=== PATIENT | female | born 1940 | race Caucasian/White ===

== ENCOUNTER 2016-08-23 23:32 | Inpatient (IN) | payer BC, OTHER ==
[~2016-08-23] VITALS: Ht 170.2 cm; Wt 84.8 kg
[~2016-08-23 23:32] MED LIST: ASPI81TA28 PO; FRS/40 PO; LISI-461 PO; OMEG10007 PO; SNG10 PO; VITAMIN D PO
[2016-08-23] MEDS ORDERED: METHYLPREDNISOLONE 125 MG VIAL IV STA (23:55)
--- NOTE | 2016-08-23 23:56 | EMERGENCY ROOM VISIT NOTE ---
History Report prepared by Aimee: Fabian Rangel Under the Supervision of: Dr. Latasha Pierce D.O. First contact with patient: 23:36 Chief Complaint: SHORTNESS OF BREATH Stated Complaint: SHORT OF BREATH History of Present Illness The patient is a 76 year old female who presents to the Emergency Room with complaints of improved shortness of breath that occurred approximately two hours ago. The patient was experiencing worsening shortness of breath, but she is not sure what the trigger was. She received two breathing treatments in the ambulance en route, which helped with her breathing as per EMS. The patient's breathing problems are usually triggered by smoke but she was not exposed to smoke at any point today. The patient also complains of a cough that produces yellow phlegm. The patient has a home inhaler. She got a nebulizer earlier today. The patient was not started on steroids. The patient was never diagnosed with emphysema but has a history of emphysema-like symptoms. She has a history of [place] and TIA. The patient was hypertensive en route, per EMS. She lives at home with her . Source of History: patient, EMS Onset: two hours Position: other (respiratory) Quality: other (shortness of breath) Timing: other (improving) Modifying Factors (Relieving): other (breathing treatments) Associated Symptoms: + cough Review of Systems See HPI for pertinent positives & negatives. A total of 10 systems reviewed and were otherwise negative. Past Medical & Surgical Medical Problems: (1) [place] (myocardial infarction) (2) TIA (transient ischemic attack) Family History No pertinent family history Social History Alcohol Use: none Marital Status: Housing Status: lives with family Current/Historical Medications Scheduled Atorvastatin (Lipitor), 80 MG PO DAILY Carvedilol (Coreg), 6.25 MG PO BIDM Fish Oil ([place]-3), 1 CAP PO DAILY Furosemide (Lasix), 40 MG PO QAM Levothyroxine Sodium (Levothyroxine Sodium), 25 MCG PO QAM Metformin Hcl (Glucophage), 500 MG PO DAILY Montelukast Sodium (Montelukast Sodium), 1 TAB PO DAILY Multivitamin (Multivitamin), 1 TAB PO DAILY Scheduled PRN Albuterol Hfa (Ventolin Hfa), 2 PUFFS INH Q4 PRN for SOB/Wheezing Hydrocodone/Homatropine (Hydromet 5-1.5 mg/5Ml), 5 ML PO HS PRN for Cough Ipratropium-Albuterol (Duoneb), 1 TREATMENT INH Q4H PRN for Severe Pain Allergies Coded Allergies: Penicillins (Verified Allergy, Intermediate, FACIAL ERYTHEMA, 10/19/14) Physical Exam Vital Signs Date Time Temp Pulse Resp B/P Pulse Ox O2 Delivery O2 Flow Rate FiO2 08/24/16 01:05 84 18 151/75 98 08/24/16 00:03 94 Room Air 08/24/16 00:03 36.7 89 20 164/131 94 Room Air 08/23/16 23:42 96 Physical Exam HEENT: Head - normocephalic and atraumatic Pupils are equal, round, and reactive to light. Extraocular eye muscles are intact, and sclera are anicteric. Nose - moist nasal mucosa without discharge. Mouth - moist buccal mucosa. Oropharynx is nonerythematous and there is no tonsillar exudate or edema noted. Neck: Supple; no JVD, nuchal rigidity, cervical lymphadenopathy. Heart: Regular rate and rhythm. There is a normal S1 and S2 with no murmurs, clicks, or gallops appreciated. Lungs: Inspiratory and expiratory wheezing in all lungs buckley. Abdomen: Soft, completely nontender, nondistended, with good bowel sounds. There are no palpable pulsatile masses or hepatosplenomegaly. There is no guarding, rigidity, or rebound noted. Extremities: No evidence of cyanosis, clubbing, or edema. There are easily palpable peripheral pulses. Skin: warm and dry with good turgor and no rashes. Medical Decision & Procedures ER Provider Diagnostic Interpretation: X-ray results as stated below per interpretation by me. CHEST X-RAY: No pulmonary infiltrate or vascular congestion. Laboratory Results 08/23/16 22:55 Red Blood Count 4.69, Mean Corpuscular Volume 88.3, Mean Corpuscular Hemoglobin 29.0, Mean Corpuscular Hemoglobin Concent 32.9, Mean Platelet Volume 11.9, Neutrophils (%) (Auto) 39.4, Lymphocytes (%) (Auto) 44.9, Monocytes (%) (Auto) 9.0, Eosinophils (%) (Auto) 5.5, Basophils (%) (Auto) 0.7, Neutrophils # (Auto) 6.68, Lymphocytes # (Auto) 7.62, Monocytes # (Auto) 1.53, Eosinophils # (Auto) 0.93, Basophils # (Auto) 0.12 08/23/16 22:55 Test 08/23/16 22:55 08/24/16 03:01 White Blood Count 16.96 K/uL (4.8-10.8) Red Blood Count 4.69 M/uL (4.2-5.4) Hemoglobin 13.6 g/dL (12.0-16.0) Hematocrit 41.4 % (37-47) Mean Corpuscular Volume 88.3 fL (80-100) Mean Corpuscular Hemoglobin 29.0 pg (25-34) Mean Corpuscular Hemoglobin Concent 32.9 g/dl (32-36) Platelet Count 327 K/uL (130-400) Mean Platelet Volume 11.9 fL (7.4-10.4) Neutrophils (%) (Auto) 39.4 % Lymphocytes (%) (Auto) 44.9 % Monocytes (%) (Auto) 9.0 % Eosinophils (%) (Auto) 5.5 % Basophils (%) (Auto) 0.7 % Neutrophils # (Auto) 6.68 K/uL (1.4-6.5) Lymphocytes # (Auto) 7.62 K/uL (1.2-3.4) Monocytes # (Auto) 1.53 K/uL (0.11-0.59) Eosinophils # (Auto) 0.93 K/uL (0-0.5) Basophils # (Auto) 0.12 K/uL (0-0.2) RDW Standard Deviation 44.1 fL (36.4-46.3) RDW Coefficient of Variation 13.8 % (11.5-14.5) Immature Granulocyte % (Auto) 0.5 % Immature Granulocyte # (Auto) 0.08 K/uL (0.00-0.02) Nucleated RBC Absolute Count (auto) 0.06 K/uL (0-0) Nucleated Red Blood Cells % 0.4 % Smudge Cells PRESENT Anion Gap 11.0 mmol/L (3-11) Est Creatinine Clear Calc Drug Dose 42.1 ml/min Estimated GFR () 45.8 Estimated GFR (Non- 39.5 BUN/Creatinine Ratio 15.1 (10-20) Calcium Level 8.9 mg/dl (8.5-10.1) Creatine Kinase MB Ratio (0-3.0) Laboratory results per my review. Medications Administered Medications (Trade) Dose Ordered Sig/Hans Route Start Time Stop Time Status Last Admin Dose Admin Albuterol/ Ipratropium (Duoneb) 12 ml ONE ONCE INH 08/24/16 00:00 08/24/16 00:01 DC 08/24/16 00:16 12 ML Methylprednisolone Sodium Succinate (Solu-Medrol IV) 125 mg NOW STAT IV 08/23/16 23:55 08/23/16 23:57 DC 08/23/16 23:55 125 MG Procedure Medications ordered include Solu-Medrol IV, DuoNeb. ECG Indication: other (Leg edema) Rate (beats per minute): 86 Rhythm: normal sinus Findings: LBBB, T-wave inversion (Lateral) Comparison ECG Date: 2010 Change: T wave inversions are new compared to previous EKG. ED Course 2346: Past medical records reviewed. The patient was evaluated in room B7. A complete history and physical exam was performed. A twelve-lead EKG was obtained. Laboratory studies were drawn as above. 2355: Solu-Medrol 125 mg IV. 0000: DuoNeb 12 ml INH.-Hour-long nebulizer treatment. The patient then went for chest x-ray. 0140: Went over the laboratory results with the patient and her family. A second troponin will be ordered. 0242: Spoke with the patient's family about the results and plan. Troponin is elevated. 0255: Discussed the case with Dr. Nunez, [facility] Hospitalist. The patient will be evaluated. Medical Decision The patient is a 76 year old female who presents to the ED with shortness of breath. Differential diagnosis includes URI, bronchitis, pneumonia, asthma exacerbation. Laboratory interpretation: white count 16.9, stable H&H, increased lymphocyte count at 7.6 with smudge cells, troponin 0.032, total CKMB 4.2, glucose 246, BUN 20, creatinine 1.3, repeat troponin 0.121. This is a 76-year-old female patient presents to the emergency department with an episode of wheezing and shortness of breath. The patient does have a history of bronchial asthma. She intermittently has episodes of wheezing. It is usually triggered by an upper rest for infection or something like smoke. The patient is unsure what the trigger may have been this evening. She has had some increased wheezing over the past couple of days and obtained new medications for her nebulizer she and. Despite using the nebulizer at home this evening, her symptoms seem to worsen. Patient's EKG had some subtle changes that were difficult to interpret because of the left bundle-branch block. However, the patient's troponin did increase while here in the emergency department. [facility] for further management. Consults Time Called: [phone] Consulting Physician: [facility]une[facility] Returned Call: [phone]: Discussed the case with Dr. Nunez, [facility]. The patient will be evaluated. Impression Primary Impression: NSTEMI (non-ST elevated myocardial infarction) Additional Impressions: Asthma exacerbation, Hyperglycemia Scribe Attestation The scribe's documentation has been prepared under my direction and personally reviewed by me in its entirety. I confirm that the note above accurately reflects all work, treatment, procedures, and medical decision making performed by me. Departure Information Dispostion Being Evaluated By Hospitalist Referrals Bacilio Galvez D.O.Int.Med. (PCP) Patient Instructions A Signature Page, [facility]
[2016-08-24] VITALS (11 sets, daily range): BP systolic 126–170; BP diastolic 74–90; PULSE 61–89; TEMP 36.4–37; O2SAT 90–95; Ht 170.2 cm; Wt 84.8 kg
[2016-08-24] MEDS ORDERED: ALBUT/IPRATROP 3MG/0.5MG NEB 3 ML VIAL INH ONE
[2016-08-24 00:30] LABS: HEMATOCRIT 41.4 % (37-47); MEAN CELL VOLUME 88.3 fL (80-100); MEAN CORPUSCULAR HGB CONC 32.9 g/dl (32-36); MEAN PLATELET VOLUME 11.9 fL (7.4-10.4); PLATELET COUNT 327 K/uL (130-400); RED BLOOD COUNT 4.69 M/uL (4.2-5.4); WHITE BLOOD COUNT 16.96 K/uL (4.8-10.8)
[2016-08-24 00:57] LABS: BUN/CREATININE RATIO 15.1 (10-20); CALCIUM 8.9 mg/dl (8.5-10.1); CREATININE 1.3 mg/dl (0.60-1.20)
[2016-08-24 01:18] LABS: CKMB/CK RATIO 3.6 (0-3.0)
[2016-08-24 01:23] LABS: BASO % 0.7 %; BASO ABS # 0.12 K/uL (0-0.2); COMPLETE YES; EOS % 5.5 %; IG% 0.5 %; LYMPH % 44.9 %; LYMPH ABS # 7.62 K/uL (1.2-3.4); NEUT % 39.4 %; SMUDGE CELLS PRESENT
[2016-08-24] MEDS ORDERED: CARV6.252 PO (01:39)
[2016-08-24] MEDS ORDERED: GLC/500 PO (01:40)
[2016-08-24] MEDS ORDERED: LEVO25TA5 PO (01:40)
[2016-08-24] MEDS ORDERED: HYCUDL5 PO (01:42)
[2016-08-24] MEDS ORDERED: ATOR-26 PO (01:42)
[2016-08-24] MEDS ORDERED: IPRASOL4 INH (01:43)
[2016-08-24] MEDS ORDERED: MULT-506 PO (01:43)
[2016-08-24] MEDS ORDERED: MONT1TAB5 PO (01:43)
[2016-08-24] MEDS ORDERED: OMEG10007 PO (01:43)
[2016-08-24] MEDS ORDERED: VNTHFA/IN INH (01:44)
--- NOTE | 2016-08-24 03:09 | History and Physical ---
History & Physical Date & Time of Service: Aug 24, 2016 at 03:07 Chief Complaint: Short Of Breath Primary Care Physician: Bacilio Galvez D.O.Int.Med. History of Present Illness Source: patient, family, spouse The patient is a 76-year-old female who presents to the emergency department with an episode of severe shortness of breath that began about 2 hours prior to arrival, that has been slowly improving since that time. She received 2 nebulizer treatments en route to the hospital via the ambulance, which she reports helped her breathing. So also had a cough productive of yellow phlegm. She is not aware of any exposure that that triggered her tach today is most commonly occurs due to exposure to smoke which she was not around today. Past Medical/Surgical History Medical Problems: (1) [place] (myocardial infarction) Status: Resolved (2) TIA (transient ischemic attack) Status: Resolved Family History No pertinent family history Social History Smoking Status: Never Smoker Smokeless Tobacco Use: No Alcohol Use: none Drug Use: none Marital Status: Housing status: lives with family Immunizations History of Influenza Vaccine: Yes Influenza Vaccine Date: Jul 26, 2011 History of Tetanus Vaccine?: na History of Pneumococcal: Yes History of Hepatitis B Vaccine: No Multi-Drug Resistant Organisms History of MDRO: No Allergies Coded Allergies: Penicillins (Verified Allergy, Intermediate, FACIAL ERYTHEMA, 10/19/14) Home Medications Scheduled Atorvastatin (Lipitor), 80 MG PO DAILY Carvedilol (Coreg), 6.25 MG PO BIDM Fish Oil ([place]-3), 1 CAP PO DAILY Furosemide (Lasix), 40 MG PO QAM Levothyroxine Sodium (Levothyroxine Sodium), 25 MCG PO QAM Metformin Hcl (Glucophage), 500 MG PO DAILY Montelukast Sodium (Montelukast Sodium), 1 TAB PO DAILY Multivitamin (Multivitamin), 1 TAB PO DAILY Scheduled PRN Albuterol Hfa (Ventolin Hfa), 2 PUFFS INH Q4 PRN for SOB/Wheezing Hydrocodone/Homatropine (Hydromet 5-1.5 mg/5Ml), 5 ML PO HS PRN for Cough Ipratropium-Albuterol (Duoneb), 1 TREATMENT INH Q4H PRN for Severe Pain Review of Systems The patient denies chest pain, palpitations, lower extremity swelling, vision change, hearing change, sore throat, fevers, chills, sweats, weight change, fatigue, nausea, vomiting, abdominal pain, pelvic pain, blood in urine or stool , dysuria, urinary frequency or urgency, lightheadedness, dizziness, headache, memory loss, rash, abnormal bruising or bleeding, imbalance, focal weakness, numbness or tingling in arms or legs, arthralgias or myalgias, back or neck pain , night sweats, or allergy symptoms. The review of systems is otherwise negative other than for that already noted above, and at least 10 systems have been reviewed. Physical Exam Vital Signs Date Time Temp Pulse Resp B/P Pulse Ox O2 Delivery O2 Flow Rate FiO2 08/24/16 03:04 82 08/24/16 01:05 84 18 151/75 98 08/24/16 00:03 94 Room Air 08/24/16 00:03 36.7 89 20 164/131 94 Room Air 08/23/16 23:42 96 The patient is awake, well-developed and adequately nourished, alert and oriented 3, normocephalic and atraumatic, lying in bed and in no acute distress. HEENT--PERRL, EOMI, mucous membranes moist, and oropharynx normal. Neck--supple, no JVD or bruits, thyroid normal, trachea midline, no adenopathy. Heart--normal S1 and S2, no extra beats, no murmurs, rubs or gallops. Lungs--clear bilaterally with good air movement, no respiratory distress, no accessory muscle use. Abdomen--normal bowel sounds and soft, nontender and nondistended, no hernias or masses, no organomegaly. Extremities--no cyanosis, clubbing or edema. There are good distal pulses b/l. Dermatologic--normal skin turgor, normal color, warm and dry, no abnormal lymph nodes, no rash. Neurologic--cranial nerves II through XII grossly intact. Rheumatologic--normal range of motion, nontender, muscles and joints. Psychiatric--normal affect. Diagnostics Laboratory Results Results Past 24 Hours Test 08/23/16 22:55 08/24/16 02:03 08/24/16 03:01 Range/Units White Blood Count 16.96 4.8-10.8 K/uL Red Blood Count 4.69 4.2-5.4 M/uL Hemoglobin 13.6 12.0-16.0 g/dL Hematocrit 41.4 37-47 % Mean Corpuscular Volume 88.3 80-100 fL Mean Corpuscular Hemoglobin 29.0 25-34 pg Mean Corpuscular Hemoglobin Concent 32.9 32-36 g/dl Platelet Count 327 130-400 K/uL Mean Platelet Volume 11.9 7.4-10.4 fL Neutrophils (%) (Auto) 39.4 % Lymphocytes (%) (Auto) 44.9 % Monocytes (%) (Auto) 9.0 % Eosinophils (%) (Auto) 5.5 % Basophils (%) (Auto) 0.7 % Neutrophils # (Auto) 6.68 1.4-6.5 K/uL Lymphocytes # (Auto) 7.62 1.2-3.4 K/uL Monocytes # (Auto) 1.53 0.11-0.59 K/uL Eosinophils # (Auto) 0.93 0-0.5 K/uL Basophils # (Auto) 0.12 0-0.2 K/uL RDW Standard Deviation 44.1 36.4-46.3 fL RDW Coefficient of Variation 13.8 11.5-14.5 % Immature Granulocyte % (Auto) 0.5 % Immature Granulocyte # (Auto) 0.08 0.00-0.02 K/uL Nucleated RBC Absolute Count (auto) 0.06 0-0 K/uL Nucleated Red Blood Cells % 0.4 % Smudge Cells PRESENT Sodium Level 141 136-145 mmol/L Potassium Level 4.0 3.5-5.1 mmol/L Chloride Level 102 98-107 mmol/L Carbon Dioxide Level 28 21-32 mmol/L Anion Gap 11.0 3-11 mmol/L Blood Urea Nitrogen 20 7-18 mg/dl Creatinine 1.30 0.60-1.20 mg/dl Est Creatinine Clear Calc Drug Dose 42.1 ml/min Estimated GFR () 45.8 Estimated GFR (Non- 39.5 BUN/Creatinine Ratio 15.1 10-20 Random Glucose 236 70-99 mg/dl Calcium Level 8.9 8.5-10.1 mg/dl Total Creatine Kinase 118 26-192 U/L Creatine Kinase MB 4.2 0.5-3.6 ng/ml Creatine Kinase MB Ratio 3.6 0-3.0 Troponin I 0.032 0.121 0-0.045 ng/ml EKG EKG shows normal sinus rhythm at 86, will left axis deviation, left bundle- branch block, with ST segment depressions in the lateral chest leads. Impression Assessment and Plan Non-STEMI with troponin elevation of 0.121, left bundle branch block with left axis deviation, possible ST depressions in lateral chest leads--the patient will be admitted to the telemetry unit, for serial cardiac enzymes, cardiac rhythm monitoring, and a 2-D echocardiogram with Dopplers. Continue carvedilol 6.25 mg by mouth twice a day, furosemide 40 mg by mouth every morning and add aspirin 81 mg by mouth every morning. We'll consult cardiology. COPD exacerbation--the patient will be started on Xopenex with Atrovent nebulizer's every 6 hours while awake and every 2 hours when necessary, levofloxacin 500 mg IV every 24 hours, guaifenesin extended release 600 mg by mouth twice a day, Pulmicort Respules 0.5 mg inhaled twice a day, and nasal cannula 2 L O2 titrated to keep pulse ox greater than or equal to 92%. Continue montelukast sodium 10 mg by mouth daily Hypercholesterolemia--continue atorvastatin 80 mg by mouth daily and fish oil 1000 mg by mouth daily. Diabetes mellitus--hold metformin 500 mg by mouth daily, blood sugar on admission was 236. She did receive Solu-Medrol 125 mg IV emergency department so it may be an issue with controlled blood sugars for the first interval time in the hospital. She will be placed on Accu-Cheks before meals and at bedtime with NovoLog coverage. Hypothyroidism continue levothyroxine sodium 25 g by mouth every morning. Level of Care Telemetry Advanced Directives Existing Advance Directive: No Existing Living Will: No Existing Power of Infantryman: No Resuscitation Status FULL RESUSCITATION VTE Prophylaxis VTE Risk Assessment Done? Y/N: Yes Risk Level: Moderate Given or contraindicated: SCD's Social Service Consult None Apply
[2016-08-24] MEDS ORDERED: GLUCOSE 40% GEL 15 GM TUBE PO PRN (03:15)
[2016-08-24] MEDS ORDERED: NITROGLYCERIN 0.4 MG SL PER TAB CHARGE SL PRN (03:15)
[2016-08-24] MEDS ORDERED: ONDANSETRON INJ 2 MG/ML 2 ML VIAL IV PRN (03:15)
[2016-08-24] MEDS ORDERED: ZOLPIDEM TARTRATE 5 MG TAB PO PRN (03:15)
[2016-08-24] MEDS ORDERED: GLUCAGON FOR INJ 1 MG VIAL SQ PRN (03:15)
[2016-08-24] MEDS ORDERED: ACETAMINOPHEN 325 MG TAB PO PRN (03:15)
[2016-08-24] MEDS ORDERED: PREMIXED IN D5W 100 ML IV SCH (03:15)
[2016-08-24] MEDS ORDERED: LEVALBUTEROL 1.25MG/0.5ML NEB INH PRN (03:15)
[2016-08-24] MEDS ORDERED: DEXTROSE 50% 50 ML SYR IV PRN (03:15)
[2016-08-24] MEDS ORDERED: GLUCOSE 10 TABS/TUBE PO PRN (03:15)
[2016-08-24] MEDS ORDERED: IPRATROPIUM BROMIDE NEB SOLN 0.02% 2.5 ML VIAL INH PRN (03:15)
[2016-08-24 04:41] LABS: CKMB/CK RATIO 4.7 (0-3.0)
[2016-08-24] MEDS: BUDESONIDE 0.5 MG/2 ML VIAL (PULMICORT) INH SCH ×2 (07:20→20:00)
[2016-08-24] MEDS: LEVALBUTEROL 1.25MG/0.5ML NEB INH SCH ×3 (07:21→20:32)
[2016-08-24] MEDS: IPRATROPIUM BROMIDE NEB SOLN 0.02% 2.5 ML VIAL INH SCH ×3 (07:21→20:32)
[2016-08-24] MEDS ORDERED: PNEUMOCOCCAL POLYSACCHARIDES 25 MCG/0.5 ML VIAL/SYR IM. ONE (08:00)
[2016-08-24] MEDS ORDERED: PNEUMOCOCCAL ADMINISTRATION CHARGE ONE (08:00)
--- NOTE | 2016-08-24 08:16 | DIAGNOSTIC IMAGING REPORT ---
CHEST 2 VIEWS ROUTINE CLINICAL HISTORY: wheezing SHORTNESS OF BREATH COMPARISON STUDY: September 2011 FINDINGS: The heart is normal in size. There is hyperinflation. There is no focal pulmonary consolidation. There is no failure. There is a linear bibasilar atelectasis/scarring.[ IMPRESSION: No active disease in the chest. Electronically signed by: Nic Rodgers M.D. 08/24/2016 8:14 AM
[2016-08-24] MEDS: ATORVASTATIN 40 MG TAB PO SCH (08:40)
[2016-08-24] MEDS: CARVEDILOL 6.25 MG TAB PO SCH ×2 (08:40→17:59)
[2016-08-24] MEDS: FUROSEMIDE 40 MG TAB PO SCH (08:40)
[2016-08-24] MEDS: OMEGA-3 (PURIFIED FISH OIL) 1 GM CAP PO SCH (08:41)
[2016-08-24] MEDS: MULTIVITAMIN TAB PO SCH (08:41)
[2016-08-24] MEDS: GUAIFENESIN 600 MG TABCR PO SCH ×2 (08:41→20:41)
[2016-08-24] MEDS ORDERED: LEVALBUTEROL/IPRATROPIUM NEB INH SCH (09:00)
[2016-08-24] MEDS: INSULIN ASPART 100 UNITS/ML 3 ML PEN SC SCH ×4 (09:33→20:39)
[2016-08-24 12:44] LABS: CKMB/CK RATIO 5.3 (0-3.0)
[2016-08-24] MEDS: LEVOTHYROXINE 25 MCG TAB PO SCH (13:25)
--- NOTE | 2016-08-24 14:37 | Progress Note ---
Subjective Date of Service: Aug 24, 2016. Subjective Pt evaluation today including: conversation w/ patient, chart review, lab review, review of studies, review of inpatient medication list Pain: none PO Intake: well seen and examined awake and alert afebrile, no CP or SOB, no N or V, no new complain other some rash in neck which look like fungal infection, she convinced that she has no heart attack, just her asthma flares up Problem List Medical Problems: (1) Asthma exacerbation Status: Acute (2) Asthma with exacerbation Status: Acute (3) Hyperglycemia Status: Acute (4) NSTEMI (non-ST elevated myocardial infarction) Status: Acute Review of Systems Constitutional: + see HPI Eyes: + see HPI ENT: + see HPI Respiratory: + see HPI Cardiac: + see HPI Abdomen: + see HPI Musculoskeletal: + see HPI Female : + see HPI Neurologic: + see HPI Psychiatric: + see HPI Skin: + itch (erythamatous and scally on Neck) Medications Current Inpatient Medications Medications (Trade) Dose Ordered Sig/Hans Route Start Time Stop Time Status Last Admin Dose Admin Acetaminophen (Tylenol Tab) 650 mg Q4H PRN PO 08/24/16 03:15 09/23/16 03:14 Zolpidem Tartrate (Ambien Tab) 5 mg HSZ PRN PO 08/24/16 03:15 09/23/16 03:14 Nitroglycerin (Nitrostat Tab) 0.4 mg UD PRN SL 08/24/16 03:15 09/23/16 03:14 Ondansetron HCl (Zofran Inj) 4 mg Q6H PRN IV 08/24/16 03:15 09/23/16 03:14 Insulin Aspart (novoLOG ASPART) SLIDING SCALE If C... ACHS SC 08/24/16 06:30 09/23/16 06:59 08/24/16 13:24 7 UNITS Glucose (Glucose 40% Gel) UD PRN PO 08/24/16 03:15 09/23/16 03:14 Glucose (Glucose Chew Tab) 1 tabs UD PRN PO 08/24/16 03:15 09/23/16 03:14 Dextrose (Dextrose 50% 50ML Syringe) 50 ml UD PRN IV 08/24/16 03:15 09/23/16 03:14 Glucagon (Glucagon Inj) 1 mg UD PRN SQ 08/24/16 03:15 09/23/16 03:14 Atorvastatin Calcium (Lipitor Tab) 80 mg DAILY PO 08/24/16 09:00 09/23/16 08:59 08/24/16 08:40 80 MG Carvedilol (Coreg Tab) 6.25 mg BIDM PO 08/24/16 08:00 09/23/16 07:59 08/24/16 08:40 6.25 MG Fish Oil ([place]-3 (Purified Fish Oil) Cap) 1 gm DAILY PO 08/24/16 09:00 09/23/16 08:59 08/24/16 08:41 1 GM Furosemide (Lasix tab) 40 mg QAM PO 08/24/16 09:00 09/23/16 08:59 08/24/16 08:40 40 MG Levothyroxine Sodium (Synthroid Tab) 25 mcg DAILYBB PO 08/24/16 06:30 09/23/16 06:59 08/24/16 13:25 25 MCG Montelukast Sodium (Singulair Tab) 10 mg PM PO 08/24/16 21:00 09/23/16 20:59 Multivitamins (Multivitamin Tab) 1 tab DAILY PO 08/24/16 09:00 09/23/16 08:59 08/24/16 08:41 1 TAB Guaifenesin (Mucinex Contr Rel Tab) 600 mg Q12 PO 08/24/16 09:00 09/23/16 08:59 08/24/16 08:41 600 MG Budesonide (Pulmicort Respules 0.5MG/ 2ML Neb Soln) 0.5 mg BIDR INH 08/24/16 08:00 09/23/16 07:59 08/24/16 07:20 0.5 MG Ipratropium [place] (Atrovent 0.02% 0.5MG/2.5ML Neb) 0.5 mg Q6R INH 08/24/16 09:00 09/23/16 08:59 08/24/16 07:21 0.5 MG Levalbuterol (Xopenex 1.25MG/ 0.5ML Neb) 1.25 mg Q6R INH 08/24/16 09:00 09/23/16 08:59 08/24/16 07:21 1.25 MG Ipratropium [place] (Atrovent 0.02% 0.5MG/2.5ML Neb) 0.5 mg Q2H PRN INH 08/24/16 03:15 09/23/16 03:14 Levalbuterol (Xopenex 1.25MG/ 0.5ML Neb) 1.25 mg Q2H PRN INH 08/24/16 03:15 09/23/16 03:14 Clotrimazole (Lotrimin 1% Crm) 1 appln BID EXT 08/24/16 14:30 09/23/16 14:29 UNV Objective Vital Signs Date Time Temp Pulse Resp B/P Pulse Ox O2 Delivery O2 Flow Rate FiO2 08/24/16 11:21 36.8 70 18 154/78 91 Room Air 08/24/16 08:00 Room Air 08/24/16 07:40 36.4 82 20 170/90 95 Room Air 08/24/16 07:21 61 18 93 Room Air 08/24/16 06:37 137/78 08/24/16 04:38 170/82 08/24/16 04:00 37.0 89 18 170/85 94 Nasal Cannula 2.0 08/24/16 03:26 85 16 147/81 97 08/24/16 03:04 82 08/24/16 01:05 84 18 151/75 98 08/24/16 00:03 94 Room Air 08/24/16 00:03 36.7 89 20 164/131 94 Room Air 08/23/16 23:42 96 Physical Exam General Appearance: WD/WN, + obese Eyes: normal inspection ENT: normal ENT inspection, hearing grossly normal, TMs normal, pharynx normal Neck: supple, no adenopathy, no JVD, + pertinent finding (scally erythamtous rash) Respiratory/Chest: chest non-tender, no respiratory distress, + decreased breath sounds, + wheezing Cardiovascular: regular rate, rhythm, no edema, no gallop, no JVD Abdomen: normal bowel sounds, non tender, soft, no organomegaly Extremities: normal range of motion, non-tender, normal inspection, no pedal edema Neurologic/Psychiatric: no motor/sensory deficits, alert, normal mood/affect, oriented x 3 Skin: normal color, no rash Laboratory Results Last 24 Hours Test 08/23/16 22:55 08/24/16 02:03 08/24/16 04:10 08/24/16 11:24 White Blood Count 16.96 K/uL Red Blood Count 4.69 M/uL Hemoglobin 13.6 g/dL Hematocrit 41.4 % Mean Corpuscular Volume 88.3 fL Mean Corpuscular Hemoglobin 29.0 pg Mean Corpuscular Hemoglobin Concent 32.9 g/dl Platelet Count 327 K/uL Mean Platelet Volume 11.9 fL Neutrophils (%) (Auto) 39.4 % Lymphocytes (%) (Auto) 44.9 % Monocytes (%) (Auto) 9.0 % Eosinophils (%) (Auto) 5.5 % Basophils (%) (Auto) 0.7 % Neutrophils # (Auto) 6.68 K/uL Lymphocytes # (Auto) 7.62 K/uL Monocytes # (Auto) 1.53 K/uL Eosinophils # (Auto) 0.93 K/uL Basophils # (Auto) 0.12 K/uL RDW Standard Deviation 44.1 fL RDW Coefficient of Variation 13.8 % Immature Granulocyte % (Auto) 0.5 % Immature Granulocyte # (Auto) 0.08 K/uL Nucleated RBC Absolute Count (auto) 0.06 K/uL Nucleated Red Blood Cells % 0.4 % Smudge Cells PRESENT Sodium Level 141 mmol/L Potassium Level 4.0 mmol/L Chloride Level 102 mmol/L Carbon Dioxide Level 28 mmol/L Anion Gap 11.0 mmol/L Blood Urea Nitrogen 20 mg/dl Creatinine 1.30 mg/dl Est Creatinine Clear Calc Drug Dose 42.1 ml/min Estimated GFR () 45.8 Estimated GFR (Non- 39.5 BUN/Creatinine Ratio 15.1 Random Glucose 236 mg/dl Calcium Level 8.9 mg/dl Total Creatine Kinase 118 U/L 121 U/L Creatine Kinase MB 4.2 ng/ml 5.7 ng/ml Creatine Kinase MB Ratio 3.6 4.7 Troponin I 0.032 ng/ml 0.121 ng/ml 0.201 ng/ml Bedside Glucose 176 mg/dl Test 08/24/16 11:50 Total Creatine Kinase 139 U/L Creatine Kinase MB 7.4 ng/ml Creatine Kinase MB Ratio 5.3 Troponin I 0.365 ng/ml Assessment and Plan Probable Non-STEMI with troponin elevation of 0.121, left bundle branch block with left axis deviation, possible ST depressions in lateral chest leads and or demand ischemia -cardio consulted -aspirin -statin -BB -further work ups per cardio, she dose not want to go on hep drip as she convinced is not hear attack COPD exacerbation-improved Breathing treatment cough meds off steroid Neck rash poss fungal start on Clotrimazole Hypercholesterolemia--continue atorvastatin 80 mg by mouth daily and fish oil 1000 mg by mouth daily. Diabetes mellitus-- cont to hold metformin 500 mg by mouth daily, Monitor BS. Hypothyroidism continue levothyroxine sodium 25 g by mouth every morning. Plan as above further work ups as per cardio all Dw her and her nurse called her son and updated her
[2016-08-24] MEDS ORDERED: ASPIRIN 81 MG ECTAB PO STA (14:38)
[2016-08-24] MEDS ORDERED: ASPIRIN 81 MG ECTAB PO ONE (14:45)
[2016-08-24] MEDS: CLOTRIMAZOLE 1% CR 15 GM TUBE EXT SCH ×2 (15:38→20:40)
[2016-08-24 20:03] LABS: CKMB/CK RATIO 4.7 (0-3.0)
[2016-08-24] MEDS ORDERED: MONTELUKAST SOD 10 MG TAB PO SCH (21:00)
[2016-08-25 02:17] VITALS: PULSE 74; O2SAT 93
[2016-08-25] MEDS: IPRATROPIUM BROMIDE NEB SOLN 0.02% 2.5 ML VIAL INH SCH ×3 (02:17→14:32)
[2016-08-25] MEDS: LEVALBUTEROL 1.25MG/0.5ML NEB INH SCH ×3 (02:17→14:32)
[2016-08-25 05:33] VITALS: BP 157/83; PULSE 78; TEMP 36.5; O2SAT 92
[2016-08-25] MEDS: LEVOTHYROXINE 25 MCG TAB PO SCH (06:09)
--- NOTE | 2016-08-25 06:26 | CARDIOLOGY CONSULTATION ---
DATE OF CONSULTATION: 08/24/2016 PRIMARY PHYSICIAN: Bacilio Galvez DO REFERRING PHYSICIAN: Erick Nunez MD ATTENDING PHYSICIAN: Erick Nunez MD CONSULTATION: Quentin Maria Jr, MD HISTORY OF PRESENT ILLNESS: The patient is a 76-year-old white female. Longstanding history of chronic obstructive pulmonary disease. She is a nonsmoker. 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 She was exposed to toxic fumes on a regular basis. She also has a history of left bundle branch block since at least 2001. She underwent diagnostic cardiac catheterization in 2003 at [facility] with reportedly normal coronary arteries. She presented to [facility] in 2010 with complaints of dyspnea. It was felt that her symptoms were consistent with congestive heart failure. She did have a history of an LV ejection fraction of 25% on echocardiography in 2003. An echocardiogram performed on 07/29/2011 showed an LV ejection fraction of 30-35%. Mild concentric LVH. Moderate global hypokinesis of the left ventricle. Septal motion consistent with her left bundle branch block. Moderate mitral regurgitation and mild tricuspid regurgitation. She was started on beta margareth therapy as well as lisinopril. She had outpatient followup with Dr. Domingo Paula until 2013. Since then, she has not kept followup with him. She did have a repeat echocardiogram following the July 2011 hospitalization. It showed an improvement in her LV ejection fraction to approximately 40%. The patient states that she was in her normal state of health until 2 days ago. She began developing increasing dyspnea with activities associated with wheezing. She also had a nonproductive cough. No fevers or chills. No symptoms suggestive of an upper respiratory infection. She is exposed to smoke in her home. She and her have a wood burning stove. Neither she nor her never smoke cigarettes. Her dyspnea and wheezing increased. She had a nebulizer at home. However, her nebulizer solution was from 2010. She states that after using this, her dyspnea actually got worse. She did obtain a prescription for new nebulizer solution yesterday. She performed two treatments at home. Despite this, her dyspnea worsened. Because of this, she presented to the Emergency Department last evening with complaints of worsening dyspnea. She states to me that she had no cough or sputum production. She reports to the Emergency Department physician that she had a cough productive of yellow sputum. It was reported by EMS who transported her from home to the ED that she was markedly hypertensive. Her initial blood pressure recorded in the Emergency Department was 164/131. Initial pulse rate was 96. The initial oxygen saturation was reported to be 94%. Her lung exam in the Emergency Department revealed inspiratory and expiratory wheezing in all lung buckley. She received intravenous methylprednisolone and DuoNeb nebulizer. Her chest x-ray did not reveal evidence of heart failure or infiltrates. She was admitted to the medical/telemetry unit. Her troponin I was elevated in the Emergency Department at 0.121. The patient denies any chest pain or other anginal type pains. She states that prior to developing her dyspnea and wheezing 2 days ago, she had been in her usual state of health: No unusual malaise or fatigue. No dyspnea with her normal household activities. Stable dyspnea walking up a couple flights of stairs. No orthopnea or PND. No palpitations, lightheadedness or syncope. No leg edema. Since admission, she has had no anginal type complaints. The patient states that since admission her dyspnea and wheezing have markedly improved. At the time of my exam this afternoon, she was sitting at her bedside and had no complaints of any dyspnea. She is not wearing any supplemental oxygen. She had no cardiac complaints at the time of my exam. PAST MEDICAL HISTORY: 1. Pulmonary disease as above. It has also been characterized as bronchial asthma. As stated above, she has never smoked cigarettes. 2. Longstanding history of cardiomyopathy. 3. Longstanding history of left bundle branch block. 4. Hypertension. 5. Normal childhood illnesses; this included measles, mumps and chickenpox. 6. Dyslipidemia. Direct LDL in July 2011 was 162. 7. No history of diabetes mellitus. However, hemoglobin A1c in July 2011 was elevated at 6.4%. 8. Osteoarthritis. 9. Degenerative joint disease. PAST SURGICAL HISTORY: 1. Status post cholecystectomy. 2. Status post left total knee arthroplasty in 2007. FAMILY HISTORY: Two brothers with history of congestive heart failure, history of an implantable cardiac defibrillator in one of her brothers. Hypertension, diabetes mellitus. Sister ; she had hypertension, diabetes and end-stage renal disease. Diabetes in both the parents. ALLERGIES AND ADVERSE DRUG REACTIONS: PENICILLIN. SOCIAL HISTORY: The patient is and lives with her . She has never smoked cigarettes. She does not drink alcohol. She had worked as a clinical director in the [employer]. 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 She and her use a wood burning stove at home. REVIEW OF SYSTEMS: 1. As above. 2. No GI complaints. No abdominal pain or nausea. No symptoms of GI bleeding. Normal bowel movements. 3. No urinary complaints. 4. No cerebrovascular complaints. 5. No peripheral vascular complaints. 6. No HEENT complaints. No symptoms of any upper respiratory infection by her account to me. 7. Chronic low back pain. Chronic right hip pain. Sciatic type pain in the right upper leg. Chronic bilateral foot pain, right greater than left. The swelling in the right ankle which she attributes to arthritis. She has received steroid injections in her right ankle. 8. Erythematous rash on the anterior neck starting yesterday. This was initially pruritic. It is not pruritic today. MEDICATIONS: Today are; Singulair 10 mg at bedtime, Lotrimin 1 application b.i.d., atorvastatin 80 mg daily, fish oil 1 gram daily, furosemide 40 mg daily, multivitamin 1 tab daily, guaifenesin 600 mg b.i.d., Atrovent and Xopenex nebulizers q. 6 hours, carvedilol 6.25 mg b.i.d., Pulmicort 0.5 mg inhaled b.i.d., NovoLog sliding scale insulin, levothyroxine 25 mcg daily and several p.r.n. medications. ADDENDUM: In addition to the above medical history the patient has a history of hypothyroidism. Type 2 diabetes mellitus. PHYSICAL EXAMINATION: GENERAL: The patient is sitting at her bedside. No distress. VITAL SIGNS: Today with oral temperature 36.8. Most recent vital signs with pulse 70 and blood pressure 154/78. Pulse oximetry room air 91%. HEAD: Normal. FACE: No tenderness on palpation over the frontal or maxillary sinuses. MOUTH: Moist mucous membranes. NECK: No jugular venous distension. Carotids 2/2 bilaterally. Normal upstroke. No bruits. LUNGS: With normal respiration, no rales or wheezing. Normal respiratory effort. With forced expiration, there is end expiratory wheezing. This precipitates a brief coughing episode. HEART: PMI normal No lifts or heaves. Regular rate and rhythm. S1, S2 normal. No S3 or S4. No murmur or rub heard. ABDOMEN: Soft. Nontender. No palpable mass or organomegaly. No bruits. Normal bowel sounds. EXTREMITIES: No pretibial edema. No cyanosis or clubbing. Right ankle swelling. SKIN: Erythematous rash, anterior aspect of neck. PULSES: Distal pulses of all extremities palpable. NEUROLOGIC: Alert and oriented x3. Motor grossly intact. PSYCHIATRIC: Affect is normal. Electrocardiogram at 12:09 a.m. today with normal sinus rhythm, left axis deviation, left bundle branch block. Compared to prior electrocardiogram of 08/12/2011, T-wave inversions were more prominent in the lateral leads. However, T-wave inversions are consistent with repolarization abnormalities secondary to the left bundle branch block. Chest x-ray reviewed by me. No evidence of congestive heart failure. LABORATORIES: On admission, WBC 16.96, hemoglobin 13.6, hematocrit 41.4, platelet count 327. Metabolic profile with sodium 141, potassium 4.0, chloride 102, carbon dioxide 28, BUN 20, creatinine 1.30, random glucose 236. CK total 118. CK-MB 4.2. Initial troponin I was 0.032. Repeat troponin I's have been 0.121, 0.201 and 0.365. Repeat CK totals have been 121 and 139 with respective MBs of 5.7 and 7.4. The patient is scheduled to undergo repeat a metabolic profile tomorrow morning. She is scheduled to undergo repeat cardiac enzymes this evening at 19:01. ASSESSMENT: 1. Exacerbation of obstructive airway disease starting 2 days ago. Marked worsening yesterday. Significant wheezing noted on ED exam. Her respiratory symptoms and signs have improved with bronchodilator therapy and intravenous steroids. Today, she has no complaints of dyspnea at rest. Her wheezing has markedly decreased. On baseline normal respirations at the time of my exam, she had no wheezing. With forced expiration, she did have expiratory wheezing; this rapidly cleared. She does have borderline low oxygen saturation on room air. No evidence of congestive heart failure on chest x-ray or lung exam. No other physical evidence on exam of congestive heart failure. 2. Marked hypertension noted yesterday at the time of her respiratory distress. She has also had a relatively increased heart rate. Her blood pressure has improved. However, today it is still mildly elevated. 3. Mildly elevated cardiac enzymes. The enzymes thus far are not diagnostic of myocardial injury. They do likely represent demand myocardial ischemia. She has no symptoms to suggest an acute coronary syndrome. Her electrocardiogram is nondiagnostic because of her left bundle branch block. The left bundle branch block is normal finding that has been present since 2001. The T inversions on electrocardiogram are consistent with secondary repolarization abnormalities from her left bundle branch block. Her last available electrocardiogram before today was from 2010. 4. Longstanding history of cardiomyopathy. Her cardiomyopathy/LV ejection fraction improved after she was placed on carvedilol and lisinopril therapy. At the time of this admission, she was no longer on lisinopril therapy. She did not recall any reason why this was discontinued. She actually does not recall having been on this medication. 5. Diabetes mellitus. At the time of admission, she is being treated with metformin 500 mg daily. Her glucoses on this admission are markedly elevated. This would be consistent with the stress from her acute illness. 6. Normal sinus rhythm. No evidence of any arrhythmias thus far. RECOMMENDATIONS: 1. Continue carvedilol. Increase dose if her blood pressure remains elevated. 2. Would consider restarting her on LUPE inhibitor therapy. Would await tomorrow's renal function values before restarting lisinopril. 3. Would start antiplatelet therapy with aspirin. She does have significant coronary artery disease risk factors. However, as stated above, I do not feel this current clinical situation represents an acute coronary syndrome. 4. Echocardiogram on this admission to re-evaluate left ventricular systolic function. Her last echocardiogram was several years ago. 5. Continue atorvastatin. 6. Would check hemoglobin A1c. She may need more aggressive management of her diabetes mellitus besides low dose metformin. 7. Management of her pulmonary disease and asthma exacerbation by the hospitalist staff. I would characterize her troponin elevation in the setting of an acute noncardiac illness. I do not feel that these represent a non-ST elevation myocardial infarction. The values thus far do not meet absolute diagnostic criteria for myocardial injury. She does not have any clinical symptoms to suggest an acute coronary syndrome. Thank you for asking us to see this patient in cardiology consultation. REBECCA
[2016-08-25 06:55] VITALS: BP 133/74; PULSE 59; TEMP 36.4; O2SAT 95
[2016-08-25 07:45] VITALS: PULSE 64; O2SAT 94
[2016-08-25] MEDS: CARVEDILOL 6.25 MG TAB PO SCH (07:47)
[2016-08-25] MEDS: BUDESONIDE 0.5 MG/2 ML VIAL (PULMICORT) INH SCH (07:48)
[2016-08-25] MEDS: FUROSEMIDE 40 MG TAB PO SCH (07:48)
[2016-08-25] MEDS: CLOTRIMAZOLE 1% CR 15 GM TUBE EXT SCH (07:48)
[2016-08-25] MEDS: GUAIFENESIN 600 MG TABCR PO SCH (07:49)
[2016-08-25] MEDS: OMEGA-3 (PURIFIED FISH OIL) 1 GM CAP PO SCH (07:49)
[2016-08-25] MEDS: ATORVASTATIN 40 MG TAB PO SCH (07:49)
[2016-08-25] MEDS: MULTIVITAMIN TAB PO SCH (07:50)
[2016-08-25 08:02] LABS: BASO % 0.2 %; BASO ABS # 0.02 K/uL (0-0.2); COMPLETE YES; EOS % 2.9 %; HEMATOCRIT 37.7 % (37-47); IG% 0.2 %; LYMPH % 32.1 %; LYMPH ABS # 4.22 K/uL (1.2-3.4); MEAN CELL VOLUME 85.9 fL (80-100); MEAN CORPUSCULAR HEMOGLOBIN 28.5 pg (25-34); MEAN CORPUSCULAR HGB CONC 33.2 g/dl (32-36); MEAN PLATELET VOLUME 10.5 fL (7.4-10.4); NEUT % 55.6 %; PLATELET COUNT 264 K/uL (130-400); RED BLOOD COUNT 4.39 M/uL (4.2-5.4); WHITE BLOOD COUNT 13.16 K/uL (4.8-10.8)
[2016-08-25 08:34] LABS: BUN/CREATININE RATIO 28.3 (10-20); CALCIUM 9.2 mg/dl (8.5-10.1); MAGNESIUM 2.2 mg/dl (1.8-2.4); POTASSIUM 3.4 mmol/L (3.5-5.1)
[2016-08-25] MEDS: INSULIN ASPART 100 UNITS/ML 3 ML PEN SC SCH ×2 (08:46→13:55)
[2016-08-25] MEDS ORDERED: ASPIRIN 81 MG ECTAB PO SCH ×2 (09:00)
--- NOTE | 2016-08-25 10:36 | ECHOCARDIOGRAM REPORT ---
*NOTICE TO RECEIVING DEMOCRAT AGENCY This information is strictly Confidential and protected under [place] law. [place] law prohibits you from making any further disclosure of this information unless further disclosure is expressly permitted by the written consent of the person to whom it pertains or is authorized by law. A general authorization for the release of medical or other information is not sufficient for this purpose. Hospital accepts no responsibility if the information is made available to any other person, INCLUDING THE PATIENT. Interpretation Summary * Name: HAN CORTEZ Study Date: 08/25/2016 08:10 AM BP: 157/83 mmHg * Patient Location: [facility]\S\N280\S\2 HR: 78 * : 1940 (M/d/yyyy) Gender: Female Height: 67 in * Age: 76 yrs Ethnicity: CA Weight: 186 lb * Ordering Physician: Quentin Maria * Referring Physician: Self, Referred * Performed By: Rebekah Mancera RDCS * * Reason For Study: Dilated Cardiomyopathy * BSA: 2.0 m2 * Mild left ventricular systolic dysfunction. * Mild global hypokinesis. * Moderate concentric left ventricular hypertrophy. * Left ventricular diastolic dysfunction. * Normal chamber dimensions. * Mild mitral regurgitation. * Trace tricuspid regurgitation. * Normal central venous pressure. * Mildly elevated estimated RV systolic pressure. Procedure Details * A complete two-dimensional transthoracic echocardiogram was performed (2D, M-mode, Doppler and color flow Doppler). Left Ventricle * The left ventricle is normal in size. * There is moderate concentric left ventricular hypertrophy. * Ejection Fraction = 45-50%. * A full diastolic examination was done with clinical findings of Class I diastolic dysfunction. * There is mild global hypokinesis of the left ventricle. * Septal motion is consistent with conduction abnormality. Right Ventricle * The right ventricle is normal in size and function. * The right ventricular systolic function is normal as assessed by tricuspid annular plane systolic excursion (TAPSE) (normal >1.5 cm). Atria * The left atrial size is normal. * Right atrial size is normal. Mitral Valve * The mitral valve is normal. * There is mild mitral regurgitation. Tricuspid Valve * The tricuspid valve is normal. * There is trace tricuspid regurgitation. * Right ventricular systolic pressure is elevated at 30-40mmHg. Aortic Valve * The aortic valve is trileaflet. * The aortic valve opens well. * No aortic regurgitation is present. Pulmonic Valve * The pulmonic valve is not well visualized. * There is no significant pulmonary regurgitation. Pericardium/Pleural * There is no pericardial effusion. Great Vessels * Normal inferior vena cava diameter and respiratory variation suggests normal central venous pressure. MMode 2D Measurements and Calculations IVSd 1.7 cm IVSs 1.4 cm LVIDd 4.8 cm LVIDs 3.5 cm LVPWd 1.7 cm LVPWs 2.0 cm IVS/LVPW 1.0 FS 26.8 % EDV(Teich) 105.9 ml ESV(Teich) 50.6 ml EF(Teich) 52.3 % EDV(cubed) 108.5 ml ESV(cubed) 42.5 ml EF(cubed) 60.8 % % IVS thick -19.13 % % LVPW thick 19.4 % LV mass(C)d 359.3 grams LV mass(C)dI 183.2 grams/m\S\2 LV mass(C)s 234.5 grams LV mass(C)sI 119.6 grams/m\S\2 SV(Teich) 55.4 ml SI(Teich) 28.3 ml/m\S\2 SV(cubed) 66.0 ml SI(cubed) 33.7 ml/m\S\2 EPSS 1.6 cm Ao root diam 2.6 cm Ao root area 5.5 cm\S\2 ACS 1.8 cm LA dimension 3.0 cm LA/Ao 1.1 LVOT diam 2.1 cm LVOT area 3.5 cm\S\2 LVAd ap4 26.9 cm\S\2 LVLd ap4 7.9 cm EDV(MOD-sp4) 82.3 ml EDV(sp4-el) 78.0 ml LVAs ap4 18.2 cm\S\2 LVLs ap4 6.9 cm ESV(MOD-sp4) 44.4 ml ESV(sp4-el) 40.6 ml EF(MOD-sp4) 46.0 % EF(sp4-el) 48.0 % LVAd ap2 29.3 cm\S\2 LVLd ap2 8.8 cm EDV(MOD-sp2) 90.7 ml EDV(sp2-el) 82.8 ml LVAs ap2 19.7 cm\S\2 LVLs ap2 8.1 cm ESV(MOD-sp2) 43.0 ml ESV(sp2-el) 40.7 ml EF(MOD-sp2) 52.6 % EF(sp2-el) 50.9 % LVLd %diff 10.7 % EDV(MOD-bp) 91.2 ml LVLs %diff 15.0 % ESV(MOD-bp) 47.0 ml EF(MOD-bp) 48.4 % SV(MOD-sp4) 37.8 ml SI(MOD-sp4) 19.3 ml/m\S\2 SV(MOD-sp2) 47.7 ml SI(MOD-sp2) 24.3 ml/m\S\2 SV(MOD-bp) 44.2 ml SI(MOD-bp) 22.5 ml/m\S\2 SV(sp4-el) 37.5 ml SI(sp4-el) 19.1 ml/m\S\2 SV(sp2-el) 42.1 ml SI(sp2-el) 21.5 ml/m\S\2 Doppler Measurements and Calculations MV E max mehran 67.4 cm/sec MV A max mehran 118.6 cm/sec MV E/A 0.57 MV V2 max 160.1 cm/sec MV max PG 10.3 mmHg MV V2 mean 70.1 cm/sec MV mean PG 2.5 mmHg MV V2 VTI 33.1 cm MV P1/2t max mehran 78.9 cm/sec MV P1/2t 86.1 msec MVA(P1/2t) 2.6 cm\S\2 MV dec slope 268.4 cm/sec\S\2 MV dec time 0.37 sec Ao V2 max 141.3 cm/sec Ao max PG 8.0 mmHg Ao max PG (full) 3.0 mmHg KAMALJIT(V,A) 2.8 cm\S\2 KAMALJIT(V,D) 2.8 cm\S\2 LV V1 max PG 5.0 mmHg LV V1 max 111.4 cm/sec PA V2 max 93.0 cm/sec PA max PG 3.5 mmHg TR max mehran 274.3 cm/sec
[2016-08-25 11:19] VITALS: BP 161/76; PULSE 62; TEMP 36.2; O2SAT 93
[2016-08-25] MEDS ORDERED: POTASSIUM CHLORIDE 20 MEQ TABCR PO STA (12:48)
--- NOTE | 2016-08-25 13:09 | Hospitalist Progress Note ---
Assessment and Plan entered in error
[2016-08-25] MEDS ORDERED: LTRCR45 EXT (13:13)
[2016-08-25] MEDS ORDERED: VNTHFA/IN INH (13:13)
[2016-08-25] MEDS ORDERED: ASPEC81 PO (13:13)
[2016-08-25] MEDS ORDERED: LSN5 PO (13:13)
[2016-08-25] MEDS ORDERED: GFNSR600 PO (13:13)
[2016-08-25] MEDS ORDERED: PRD20 PO (13:18)
--- NOTE | 2016-08-25 13:30 | Discharge Instructions ---
Discharge Instructions Admission Reason for Admission: Asthma Exacerbation, Elevated troponin Discharge Discharge Diagnosis / Problem: Asthma exacerbation, Demand ischemia Discharge Goals Goal(s): Improve disease control, Therapeutic intervention Activity Recommendations Activity Limitations: resume your previous activity (and avoid dust and fumes) . Instructions / Follow-Up Instructions / Follow-Up You were admitted with an asthma attack and your heart muscle blood work was slightly elevated. You did NOT have a heart attack, however you were placing extra demand on your heart to work hard during your asthma attack. You were given IV steroids and nebulizer treatments and had a marked improvement. Your heart function on your Echocardiogram is still slightly lower than normal but improved from previous from a few years ago. You should start on a medication called lisinopril to help with your heart and to reduce your blood pressure. Please discuss this with your family doctor. Please finish out your prednisone course and continue to use the albuterol inhaler every 4 hours as needed for cough or shortness of breath. You should follow up with your PCP within 1 week. You should also resume follow up care with Dr. Paula, your Shift Leader. Please call for follow up appointment within 2 weeks. Current Hospital Diet Patient's current hospital diet: AHA Diet (Heart Healthy), Diabetes Type 2 Diet Discharge Diet Recommended Diet: AHA Diet (Heart Healthy), Diabetes Type 2 Diet Fluid Restriction: 1800 ml (7 cups) Procedures Procedures Performed: Echocardiogram Chest xray Pending Studies Studies pending at discharge: no Laboratory Results Hemoglobin A1c Test 08/23/16 22:55 Range/Units Medical Emergencies . Who to Call and When: Medical Emergencies: If at any time you feel your situation is an emergency, please call 911 immediately. . Non-Emergent Contact Non-Emergency issues call your: Primary Care Provider Call Non-Emergent contact if: temperature is above 101, you have any medication questions Or if you have worsening shortness of breath or chest pain, or for any other acute concern. . . "Provider Documentation" section prepared by Keily Chirinos. VTE Core Measure Inpt VTE Proph given/why not?: SCD's
[2016-08-25 13:37] VITALS: BP 161/76; PULSE 62; TEMP 36.2; O2SAT 93
--- NOTE | 2016-08-25 15:34 | PROGRESS NOTE ---
DATE: 08/25/2016 SUBJECTIVE: The patient was seen by me earlier this afternoon in her medical floor/telemetry unit room. She states she is feeling well. She denies any cough or dyspnea today. No wheezing. No chest pain or other anginal type pains. No fevers or chills. No orthopnea or PND overnight. No palpitations, lightheadedness, or syncope. No GI complaints. No bleeding complaints. No urinary complaints. No complaints of any leg pain. Overall, she is feeling well. She is anxious to be discharged home. MEDICATIONS: Today were NovoLog sliding-scale insulin, clotrimazole cream 1 application b.i.d., carvedilol 6.25 mg b.i.d., Pulmicort 0.5 mg inhaled b.i.d., atorvastatin 80 mg daily, fish oil 1 gram daily, multivitamin 1 daily, levothyroxine 25 mcg daily, aspirin 81 mg daily, prednisone 60 mg 1 dose today, Singulair 10 mg at bedtime, guaifenesin 600 mg q. 12 hours, Atrovent and Xopenex nebulizers q. 6 hours, furosemide 4 mg daily, aspirin 81 mg daily, potassium 40 mEq given today 1 dose, and several p.r.n. medications. ALLERGIES AND ADVERSE DRUG REACTIONS: PENICILLIN. PHYSICAL EXAMINATION: VITAL SIGNS: Late this morning revealed oral temperature 36.2, pulse 62, blood pressure 161/76, pulse oximetry room air 93%. HEAD: Normal. NECK: No jugular venous distention. LUNGS: Normal respiratory effort. Clear. No rales or wheezes. HEART: Regular rate and rhythm. S1, S2 normal. No S3 or S4. No murmur or rub. ABDOMEN: Soft. Nontender. No palpable mass or organomegaly. Normal bowel sounds. EXTREMITIES: No pretibial edema. No calf tenderness. NEUROLOGIC: Alert and oriented x3. Motor grossly intact. PSYCHIATRIC: Affect is normal. DATA Echocardiogram performed today and reviewed by me shows mild LV systolic dysfunction, mild global hypokinesis of the left ventricle. Estimated LV ejection fraction 45%-50%. Moderate concentric LVH. Type 1 LV diastolic dysfunction. Septal wall motion consistent with left bundle-branch block. Mild mitral and trace tricuspid regurgitation. Normal central venous pressure. Estimated RV systolic pressure 30-40 mmHg. This is consistent with only mildly elevated right ventricular pressures. Labs today with WBC 13.16, hemoglobin 12.5, hematocrit 37.7, platelet count 264. Sodium 142, potassium 3.4, chloride 103, carbon dioxide 29, BUN 28, creatinine 1.0, random glucose 125. Magnesium 2.2. ASSESSMENT: 1. Exacerbation of obstructive airway disease. She is markedly improved since admission. No evidence of wheezing on exam. Normal room air oxygen saturation. 2. History of cardiomyopathy. Echocardiogram today shows marked improvement in left ventricular systolic function compared to her most recent echocardiogram a few years ago. Her left ventricular systolic function was normal. She does have moderate left ventricular hypertrophy. 3. Mildly elevated troponin I's on this admission. Consistent with demand ischemia. She has a moderate left ventricular hypertrophy. She was markedly hypertensive at the time of admission. 4. No arrhythmias noted on monitoring. RECOMMENDATIONS: 1. Discharge patient to home from a cardiac standpoint. 2. Continue carvedilol. 3. Would consider reinstituting LUPE inhibitor therapy as an outpatient. In the past, she was on lisinopril. For some reason, this was discontinued. 4. Recommend that she have an outpatient cardiology followup with Dr. Domingo Paula. Dr. Paula has previously seen the patient and followed her in the office setting.
--- NOTE | 2016-08-25 22:47 | Discharge Summary ---
Discharge Summary Admission Date: Aug 24, 2016 at 03:01 Discharge Date: Aug 25, 2016 Discharge Disposition: Home Principal Diagnosis: Asthma exacerbation, demand ischemia Problems/Secondary Diagnoses: Chronic systolic CHF HTN Chronic left bundle branch block Fungal neck rash Hypercholesterolemia Diabetes mellitus type II Hypothyroidism Immunizations: Have You Had Influenza Vaccine: Yes Influenza Vaccine Date: Jul 26, 2011 History of Tetanus Vaccine?: na History of Pneumococcal: Yes History of Hepatitis B Vaccine: No Procedures: ECHO: * Mild left ventricular systolic dysfunction LVEF 40-45% * Mild global hypokinesis. * Moderate concentric left ventricular hypertrophy. * Left ventricular diastolic dysfunction. * Normal chamber dimensions. * Mild mitral regurgitation. * Trace tricuspid regurgitation. * Normal central venous pressure. * Mildly elevated estimated RV systolic pressure. CHEST 2 VIEWS ROUTINE CLINICAL HISTORY: wheezing SHORTNESS OF BREATH COMPARISON STUDY: September 2011 FINDINGS: The heart is normal in size. There is hyperinflation. There is no focal pulmonary consolidation. There is no failure. There is a linear bibasilar atelectasis/scarring.[ IMPRESSION: No active disease in the chest. Consultations: Cardiology Medication Reconciliation New Medications: Lisinopril (Lisinopril) 5 Mg Tab 5 MG PO DAILY, #30 TAB Prednisone (Prednisone) 20 Mg Tab 60 MG PO DAILY, #13 TAB x 2 days then take 2 tabs daily x 2 days then 1 tab daily x 2 days then 1/2 tab daily x 2 days then STOP Aspirin (Aspirin EC Low Dose) 81 Mg Ectab 81 MG PO QAM for 30 Days Clotrimazole (Clotrimazole) 135 Appln/45 Gm Cr 1 APPLN EXT BID for 14 Days Guaifenesin Ext Rel (Mucinex Ext Rel) 600 Mg Tabcr 600 MG PO Q12 for to break up mucus for 14 Days Changed Medications: Albuterol Hfa (Ventolin Hfa) 200 Puffs/19457 Mcg Aers 2 PUFFS INH Q4 PRN for SOB/Wheezing, #1 INHALER (Medication details modified) use with spacer Continued Medications: Atorvastatin (Lipitor) 80 Mg Tab 80 MG PO DAILY, TAB Carvedilol (Coreg) 6.25 Mg Tab 6.25 MG PO BIDM Fish Oil ([place]-3) 1 Ea Cap 1 CAP PO DAILY, CAP Furosemide (Lasix) 40 Mg Tab 40 MG PO QAM, 0 Refills Ipratropium-Albuterol (Duoneb) 3 Ml Nebu 1 TREATMENT INH Q4H PRN for Severe Pain, INHA Levothyroxine Sodium (Levothyroxine Sodium) 25 Mcg Tab 25 MCG PO QAM, 3 Refills Metformin Hcl (Glucophage) 500 Mg Tab 500 MG PO DAILY, TAB Montelukast Sodium (Montelukast Sodium) 10 Mg Tab 1 TAB PO DAILY for 90 Days, #90 TAB 3 Refills Multivitamin (Multivitamin) Tab 1 TAB PO DAILY, TAB Discontinued Medications: Hydrocodone/Homatropine (Hydromet 5-1.5 mg/5Ml) 5 Ml/Cup Syrp 5 ML PO HS PRN for Cough Referrals At Discharge Follow up Referrals: Rehabilitation Aide/Scheduler Referral - Within 1-2 Weeks with Domingo Paula M.D. Family Practice Referral - Within 1 Week with Bacilio Galvez D.[facility]ane[facility].Med. Discharge Exam Doing very well on day of discharge, no CP, no SOB, felt great. Review of Systems: Constitutional: No chills, No fatigue, No fever, No problem reported, No sweats, No weakness, No weight loss Eyes: No diplopia, No discharge, No eye pain, No problem reported, No redness, No worsening of vision ENT: No dental problems, No hearing loss, No nasal symptoms, No problem reported, No sore throat, No tinnitus, No trouble swallowing, No unusual epistaxis Respiratory: No cough, No dyspnea at rest, No dyspnea on exertion, No hemoptysis, No problem reported, No shortness of breath, No sputum, No wheezing Cardiovascular: No PND, No chest pain, No claudication, No edema, No orthopnea, No palpitations, No problem reported Abdomen: No GI bleeding, No constipation, No diarrhea, No nausea, No pain, No problem reported, No vomiting Musculoskeletal: No calf pain, No joint pain, No muscle pain, No problem reported, No swelling Genitourinary - Female: No dysmenorrhea, No dysuria, No hematuria, No menorrhagia, No metrorrhagia, No , No problem reported, No rash, No urinary frequency, No urinary incontinence, No urinary retention, No urinary urgency, No vaginal bleeding, No vaginal discharge, No vaginal itching, No vulvodynia Neurologic: No balance problems, No memory loss, No numbness/tingling, No paralysis, No problem reported, No vertigo, No weakness Psychiatric: No anhedonism, No anxiety, No depression symptoms, No insomnia , No problem reported, No substance abuse Endocrine: No excessive thirst, No excessive urination, No fatigue, No problem reported Hematologic / Lymphatic: No abnormal bleeding/bruising, No clotting problems , No night sweats, No problem reported, No swollen lymph nodes Integumentary: No bleeding, No color change, No itch, No new/changing skin lesions, No problem reported, No rash Physical Exam: General Appearance: WD/WN, no apparent distress Eyes: normal inspection, sclerae normal ENT: hearing grossly normal Neck: trachea midline Respiratory/Chest: lungs clear, normal breath sounds, no respiratory distress, no accessory muscle use Cardiovascular: regular rate, rhythm, no edema, no gallop, no JVD, no murmur , normal peripheral pulses Abdomen / GI: normal bowel sounds, non tender, soft, no organomegaly Extremities: normal inspection, no calf tenderness, normal capillary refill , no pedal edema Neurologic/Psychiatric: alert, normal mood/affect, oriented x 3 Skin: normal color, warm/dry, no rash Hospital Course The patient is a 76-year-old female who presents to the emergency department with an episode of severe shortness of breath that began about 2 hours prior to arrival, that has been slowly improving since that time. She received 2 nebulizer treatments en route to the hospital via the ambulance, which she reports helped her breathing. So also had a cough productive of yellow phlegm. She is not aware of any exposure that that triggered her tach today is most commonly occurs due to exposure to smoke which she was not around today. Demand ischemia secondary to acute asthma exacerbation: with troponin elevation of 0.121 and peak at 0.365, left bundle branch block with left axis deviation, possible ST depressions in lateral chest leads and or demand ischemia -cardio consulted and recommended restarting ACEI as an outpatient and f/u with Cardiology as an outpatient but no further cardiac workup needed -ECHO with improved LV function from previous -continue aspirin, statin, beta margareth Asthma exacerbation-much improved with IV steroids, nebs -send out with prednisone taper, albuterol prn -avoid dust/fumes Neck rash possibly fungal start on Clotrimazole Hypercholesterolemia--continue atorvastatin 80 mg by mouth daily and fish oil 1000 mg by mouth daily. Diabetes mellitus-- continue metformin 500 mg by mouth daily, Monitor BS. Hypothyroidism continue levothyroxine sodium 25 g by mouth every morning. Dispo-to home in good condition Total Time Spent: Greater than 30 minutes This includes examination of the patient, discharge planning, medication reconciliation, and communication with other providers. Discharge Instructions Please refer to the electronic Patient Visit Report (Discharge Instructions) for additional information. Follow-Up With PCP within 1 week With Cardiology within 2 weeks Additional Copies To Bacilio Galvez D.[facility].; Domingo Paula M.D.
[2016-08-26 07:53] LABS: ESTIMATED AVERAGE GLUCOSE 157 mg/dl; HA1C FLAG Normal (Normal)
== END 2016-08-25 14:35 | disposition home or self-care (01) | DRG 202 ==
LOC: ENRESERVTM → ENRESERVDT → EDBD 23:32 → C.EDB 23:33 → C.MED 08-24 03:01
PROVIDERS: ADMIT Hospitalist; ATTEND Family Medicine
PROC: B246ZZ4 Ultrasonography of Right and Left Heart, Transesophageal (ICD-10-PCS; principal; 2016-08-25)
DX: J45.901 Unspecified asthma with (acute) exacerbation (principal); I50.22 Chronic systolic (congestive) heart failure; J44.1 Chronic obstructive pulmonary disease with (acute) exacerbation; I24.8 Other forms of acute ischemic heart disease; I42.9 Cardiomyopathy, unspecified; I11.0 Hypertensive heart disease with heart failure; I44.7 Left bundle-branch block, unspecified; E11.9 Type 2 diabetes mellitus without complications; E03.9 Hypothyroidism, unspecified; E78.00 Pure hypercholesterolemia, unspecified; Z86.73 Personal history of transient ischemic attack (TIA), and cerebral infarction without residual deficits; Z88.0 Allergy status to penicillin; I08.1 Rheumatic disorders of both mitral and tricuspid valves; R21 Rash and other nonspecific skin eruption; M19.90 Unspecified osteoarthritis, unspecified site; Z96.652 Presence of left artificial knee joint; Z83.3 Family history of diabetes mellitus; Z84.1 Family history of disorders of kidney and ureter; Z82.49 Family history of ischemic heart disease and other diseases of the circulatory system

== ENCOUNTER → 2016-08-28 | Outpatient (CLI) | payer BC ==
[~2016-08-28] MED LIST changes: +ASPEC81 PO; -ASPI81TA28 PO; +ATOR-26 PO; +CARV6.252 PO; +GFNSR600 PO; +GLC/500 PO; +IPRASOL4 INH; +LEVO25TA PO; +LEVO25TA5 PO; +LSN5 PO; +LTRCR45 EXT; +MONT1TAB5 PO; +MULT-506 PO; +PRD20 PO; -SNG10 PO; -VITAMIN D PO; +VNTHFA/IN INH
--- NOTE | 2016-08-28 15:46 | MAMMOGRAPHY REPORT ---
UNILATERAL RIGHT DIGITAL DIAGNOSTIC MAMMOGRAM TOMOSYNTHESIS: 08/28/2016 CLINICAL HISTORY: 76-year-old woman called back from screening mammography for increasingly prominen ce mass in the lower inner quadrant of the right breast, possibly dermal in origin. TECHNIQUE: Spot compression CC and MLO to the digital and tomosynthesis images of the right breast w ere obtained after placement of circular mole markers on the skin in the lower inner quadrant. COMPARISON: Comparison is made to exams dated: 08/19/2016 mammogram, 08/15/2014 mammogram, 08/12/20 13 mammogram, 08/10/2012 mammogram, 08/07/2011 mammogram, and 07/31/2010 mammogram - [facility]. BREAST COMPOSITION: The tissue of the right breast is almost entirely fatty. FINDINGS: 4 circular dense more markers overlie the lower inner posterior right breast. One of the mole markers circles the increasingly prominent mass in question, confirming dermal origin. This i s identified on both the spot compression CC and MLO views. There is no evidence of a suspicious ma ss within the remainder of the visualized right breast on the tomosynthesis images. There are stabl e scattered benign-appearing calcifications. IMPRESSION: ACR BI-RADS CATEGORY 2: BENIGN The questionable mass in the lower inner posterior right breast is dermal in origin, likely a mole o r epidermal inclusion cyst. There is no mammographic evidence of malignancy within the right breast . Recommend follow-up in 1 year for next annual screening mammogram. These results and recommendat ions were discussed with the patient at the time of the exam. Approximately 10% of breast cancers are not detected with mammography. A negative mammographic repor t should not delay biopsy if a clinically suggestive mass is present. Lisa Austin M.D. ay/:08/28/2016 13:15:33 Route Contractor: Deirdre VIRAMONTES)(Yuri), [facility] letter sent: Normal 1/2 BI-RADS Code: ACR BI-RADS Category 2: Benign
== END | disposition home or self-care (01) ==
LOC: C.MAMM 12:42
PROVIDERS: ATTEND Family Medicine
DX: N64.9 Disorder of breast, unspecified (principal)

== ENCOUNTER → 2017-04-26 | Outpatient (CLI) | payer BC, OTHER ==
[~2017-04-26] MED LIST changes: -LEVO25TA PO; -LISI-461 PO
[2017-04-26 13:30] LABS: ESTIMATED AVERAGE GLUCOSE 157 mg/dl; HA1C FLAG Normal (Normal)
[2017-04-26 13:43] LABS: BLOOD UREA NITROGEN 18 mg/dl (7-18); CALCIUM 9.5 mg/dl (8.5-10.1); CARBON DIOXIDE 31 mmol/L (21-32); CHLORIDE 109 mmol/L (98-107); CREATININE 0.75 mg/dl (0.60-1.20); GLUCOSE 140 mg/dl (70-99); POTASSIUM 4.3 mmol/L (3.5-5.1); SODIUM 141 mmol/L (136-145)
[2017-04-26 13:54] LABS: ALKALINE PHOSPHATASE 69 U/L (45-117); ALT/SGPT 37 U/L (12-78); AST/SGOT 17 U/L (15-37)
== END | disposition home or self-care (01) ==
LOC: C.LABPVFM 08:13
PROVIDERS: ATTEND Physician Assistant
DX: Z00.00 Encounter for general adult medical examination without abnormal findings (principal); E11.21 Type 2 diabetes mellitus with diabetic nephropathy; E03.9 Hypothyroidism, unspecified; E78.5 Hyperlipidemia, unspecified

== ENCOUNTER → 2017-05-16 | Outpatient (CLI) | payer BC, OTHER ==
--- NOTE | 2017-05-16 12:10 | DIAGNOSTIC IMAGING REPORT ---
CHEST 2 VIEWS ROUTINE CLINICAL HISTORY: J44.1 COPD with [id number] COMPARISON STUDY: 08/24/2016 FINDINGS: The cardiac and mediastinal contours are normal. There is no evidence of focal pulmonary consolidation. There is no evidence of failure. No pleural effusions are visualized.[ There is a linear band of scar/atelectatic change at the right lung base. IMPRESSION: No active disease in the chest. Electronically signed by: Nic Rodgers M.D. 05/16/2017 12:08 PM Dictated Date/Time: 05/16/2017 12:08 PM
== END | disposition home or self-care (01) ==
LOC: C.RADBC 11:32
PROVIDERS: ATTEND Physician Assistant
DX: J44.1 Chronic obstructive pulmonary disease with (acute) exacerbation (principal)

== ENCOUNTER 2017-06-16 04:12 | Emergency (ER) | payer BC, OTHER ==
[2017-06-16 04:24] VITALS: TEMP 36.7
[2017-06-16] MEDS ORDERED: ALUMINUM/MAGNESIUM SUSP 30 ML UDC PO STA (04:59)
--- NOTE | 2017-06-16 05:07 | EMERGENCY ROOM VISIT NOTE ---
History Report prepared by Aimee: Adilson Martinez Under the Supervision of: Dr. Vanessa Jurado D.O. First contact with patient: 04:40 Chief Complaint: RESPIRATORY PROBLEMS Stated Complaint: DIFFICULTY BREATHING, BACK PAIN History of Present Illness The patient is a 77 year old female who presents to the Emergency Room with complaints of constant shortness of breath for the past day or two. The patient has a history of asthma, though this has been different. She states that there are some triggers for her asthma including dust and cleaning supplies. She notes that tonight she used a nebulizer, though it did not help. The patient has been having dry mouth, a cough, and she is bringing up mucous. She notes that she had a cold a month ago, though she did not have a pneumonia. She states that she takes aspirin, and she had a catheterization in the past, though she does not have any stents. Pt denies headache, change in vision, fevers, chest pain, leg swelling, nausea, vomiting, diarrhea, pain with urination, and melena. Source of History: patient Onset: past day or two Position: other (global) Quality: other (shortness of breath) Timing: constant Associated Symptoms: + cough Review of Systems See HPI for pertinent positives & negatives. A total of 10 systems reviewed and were otherwise negative. Past Medical & Surgical Medical Problems: (1) [place] (myocardial infarction) (2) Systolic CHF (3) TIA (transient ischemic attack) Family History No pertinent family history Social History Smoking Status: Never Smoker Alcohol Use: none Drug Use: none Marital Status: Housing Status: lives with family Current/Historical Medications Scheduled Atorvastatin (Lipitor), 80 MG PO DAILY Carvedilol (Coreg), 6.25 MG PO BIDM Fish Oil ([place]-3), 1 CAP PO DAILY Furosemide (Lasix), 40 MG PO QAM Levothyroxine Sodium (Synthroid), 25 MCG PO DAILY Lisinopril (Zestril), 10 MG PO DAILY Metformin Hcl (Glucophage), 500 MG PO DAILY Montelukast Sodium (Montelukast Sodium), 1 TAB PO DAILY Multivitamin (Multivitamin), 1 TAB PO DAILY Allergies Coded Allergies: Penicillins (Verified Allergy, Intermediate, FACIAL ERYTHEMA, 06/16/17) Physical Exam Vital Signs Date Time Temp Pulse Resp B/P (MAP) Pulse Ox O2 Delivery O2 Flow Rate FiO2 06/16/17 09:30 67 18 156/72 95 06/16/17 08:46 89 18 187/74 94 Room Air 06/16/17 08:07 73 18 191/72 95 Room Air 06/16/17 06:12 72 18 148/91 95 06/16/17 04:52 94 06/16/17 04:24 36.7 74 18 164/83 94 Room Air Physical Exam GENERAL: alert, well appearing, well nourished, no distress, non-toxic EYE EXAM: normal conjunctiva, PERRL and EOM's grossly intact OROPHARYNX: no exudate, no erythema, lips, buccal mucosa, and tongue normal and mucous membranes are moist NECK: supple, no nuchal rigidity, no adenopathy, non-tender LUNGS: Clear to auscultation. No wheezes rhonchi or rales. Normal chest wall mechanics HEART: no murmurs, S1 normal and S2 normal ABDOMEN: abdomen soft, non-tender, normo-active bowel sounds, no masses, no rebound or guarding. BACK: Back is symmetrical on inspection and there is no deformity, no midline tenderness, no CVA tenderness. SKIN: no rashes and no bruising UPPER EXTREMITIES: upper extremities are grossly normal. LOWER EXTREMITIES: No pitting edema. NEURO EXAM: Normal sensorium, cranial nerves II-XII grossly intact, normal speech, no gross weakness of arms, no gross weakness of legs. Gross sensation intact. Medical Decision & Procedures ER Provider Diagnostic Interpretation: Radiology results have been interpreted by the radiologist and reviewed by me. CHEST ONE VIEW PORTABLE HISTORY: 77 years-old Female sob acute shortness of breath with back pain COMPARISON: Chest radiograph 05/16/2017 TECHNIQUE: Upright AP view the chest FINDINGS: Cardiomediastinal and hilar silhouettes are within normal limits. There is no pneumothorax, pleural effusion, focal airspace consolidation or overt pulmonary edema. There is improved aeration of the right lung base from comparison. Minimal subsegmental bibasilar opacities suggest atelectasis. Bones are grossly intact. Degenerative changes involve the shoulders and spine. IMPRESSION: No acute cardiopulmonary process. The above report was generated using voice recognition software. It may contain grammatical, syntax or spelling errors. Electronically signed by: Tyler Le M.D. 06/16/2017 6:46 AM Dictated Date/Time: 06/16/2017 6:44 AM CHEST CTA for PULMONARY ARTERIES CT DOSE: 539.59 mGycm HISTORY: Short of breath. TECHNIQUE: Multiaxial CT images of the chest were performed following the intravenous administration of contrast to evaluate the pulmonary arteries. Maximal intensity projection images were also obtained. A dose lowering technique was utilized adhering to the principles of ALARA. COMPARISON STUDY: Chest CTA 08/12/2011. FINDINGS: There is a normal caliber thoracic aorta with no evidence for dissection. There is no evidence for pulmonary embolus. No pleural effusions. No pneumothorax. The liver and spleen are unremarkable. No mediastinal or hilar lymphadenopathy. The central airways are patent. There are few scattered linear densities suggesting scarring or atelectasis. No focal lung consolidations to suggest pneumonia. IMPRESSION: No evidence for pulmonary embolus. Electronically signed by: Ricardo Alonzo M.D. Laboratory Results 06/16/17 04:45 Red Blood Count 4.21, Mean Corpuscular Volume 89.1, Mean Corpuscular Hemoglobin 29.2, Mean Corpuscular Hemoglobin Concent 32.8, Mean Platelet Volume 10.2, Neutrophils (%) (Auto) 43.7, Lymphocytes (%) (Auto) 43.7, Monocytes (%) (Auto) 7.7, Eosinophils (%) (Auto) 4.0, Basophils (%) (Auto) 0.6, Neutrophils # (Auto) 3.14, Lymphocytes # (Auto) 3.14, Monocytes # (Auto) 0.55, Eosinophils # (Auto) 0.29, Basophils # (Auto) 0.04 06/16/17 04:45 Test 06/16/17 04:45 White Blood Count 7.18 K/uL (4.8-10.8) Red Blood Count 4.21 M/uL (4.2-5.4) Hemoglobin 12.3 g/dL (12.0-16.0) Hematocrit 37.5 % (37-47) Mean Corpuscular Volume 89.1 fL (80-100) Mean Corpuscular Hemoglobin 29.2 pg (25-34) Mean Corpuscular Hemoglobin Concent 32.8 g/dl (32-36) Platelet Count 230 K/uL (130-400) Mean Platelet Volume 10.2 fL (7.4-10.4) Neutrophils (%) (Auto) 43.7 % Lymphocytes (%) (Auto) 43.7 % Monocytes (%) (Auto) 7.7 % Eosinophils (%) (Auto) 4.0 % Basophils (%) (Auto) 0.6 % Neutrophils # (Auto) 3.14 K/uL (1.4-6.5) Lymphocytes # (Auto) 3.14 K/uL (1.2-3.4) Monocytes # (Auto) 0.55 K/uL (0.11-0.59) Eosinophils # (Auto) 0.29 K/uL (0-0.5) Basophils # (Auto) 0.04 K/uL (0-0.2) RDW Standard Deviation 44.0 fL (36.4-46.3) RDW Coefficient of Variation 13.5 % (11.5-14.5) Immature Granulocyte % (Auto) 0.3 % Immature Granulocyte # (Auto) 0.02 K/uL (0.00-0.02) Prothrombin Time 9.7 SECONDS (9.0-12.0) Prothromb Time International Ratio 0.9 (0.9-1.1) D-Dimer 2540 ug/L FEU (0-500) Anion Gap 8.0 mmol/L (3-11) Estimated GFR () 81.8 Estimated GFR (Non- 70.6 BUN/Creatinine Ratio 29.0 (10-20) Calcium Level 9.2 mg/dl (8.5-10.1) Magnesium Level 2.0 mg/dl (1.8-2.4) Total Bilirubin 0.9 mg/dl (0.2-1) Aspartate Amino Transf (AST/SGOT) 21 U/L (15-37) Alanine Aminotransferase (ALT/SGPT) 34 U/L (12-78) Alkaline Phosphatase 60 U/L (45-117) Troponin I < 0.015 ng/ml (0-0.045) Pro-B-Type Natriuretic Peptide 474 pg/ml (0-1800) Total Protein 7.0 gm/dl (6.4-8.2) Albumin 3.4 gm/dl (3.4-5.0) Globulin 3.6 gm/dl (2.5-4.0) Albumin/Globulin Ratio 0.9 (0.9-2) Laboratory results per my review. Medications Administered Medications (Trade) Dose Ordered Sig/Hans Route Start Time Stop Time Status Last Admin Dose Admin Albuterol/ Ipratropium (Duoneb) 3 ml NOW STAT INH 06/16/17 06:00 06/16/17 06:01 DC 06/16/17 06:00 3 ML Sodium Chloride 1,000 ml @ 125 mls/hr Q8H STAT IV 06/16/17 06:59 06/16/17 10:01 DC 06/16/17 07:14 125 MLS/HR Acetaminophen (Tylenol Tab) 650 mg NOW STAT PO 06/16/17 08:27 06/16/17 08:28 DC 06/16/17 08:38 650 MG ECG Indication: SOB/dyspnea Rate (beats per minute): 72 Rhythm: sinus rhythm Findings: LBBB (likely), other (Right axis deviation. Prolonged QRS. Normal QTc. Likely limb lead reversal in 1 and AVR) Comparison ECG Date: 08/12/11 Change: Similar morphology ED Course 0445: The patient was evaluated in room B4. A complete history and physical exam was performed. 0459: Maalox Susp 15ml PO 0600: DuoNeb 3ml INH 0659: Sodium Chloride 1000 ml @ 125 mls/hr IV 0838: Updated patient on all results. States she is mildly improved after breathing treatment. Discussed with her symptoms to watch and return for, follow-up with family doctor, use of MDIs and nebulizers at home, uses spacers which we will give the patient and she does not yet have one. Medical Decision Differential diagnosis: Etiologies such as infections, reactive airway disease, pneumonia, pneumothorax , COPD, CHF, cardiac ischemia, pulmonary embolism, musculoskeletal, gastrointestinal, as well as others were entertained. Patient well-appearing here. CT and labs reassuring. Patient able to ambulate without any hypoxia or worsening trouble breathing. Patient felt improved following the treatment. Given patient's history of diabetes and patient noncompliant with checking blood sugars, avoided administration of any steroids. Doubt cardiac etiology given greater than 25 hours of symptoms and negative troponin. No evidence of dysrhythmia on telemetry. Patient with hypertension noted here, likely situational, although likely also from patient being due for her morning antihypertensive medications. Doubt underlying vascular etiology, doubt bacteremia/sepsis, no evidence of infection or effusion. Discussed with patient use of her MDI and patient given spacer which she did not previously have. Discussed close follow up with family doctor, symptoms to watch and return for, she verbalized understanding was agreeable with plan. No prior history of COPD or CHF. Doubt PE. Medication Reconcilliation Current Medication List: was personally reviewed by me Blood Pressure Screening Patient's blood pressure: Elevated blood pressure Blood pressure disposition: Elevated BP felt to be situational Impression Primary Impression: Dyspnea Additional Impression: Asthma Scribe Attestation The scribe's documentation has been prepared under my direction and personally reviewed by me in its entirety. I confirm that the note above accurately reflects all work, treatment, procedures, and medical decision making performed by me. Departure Information Dispostion Home / Self-Care Referrals No Doctor, Assigned (PCP) Patient Instructions My [facility] Additional Instructions Please follow up with your family doctor. You may continue using your inhaler or your nebulizer up to every 4 hours as needed for shortness of breath or wheezing. Please avoid anything that could trigger an asthma attack. Please use the spacer with your inhaler. Please continue your regular medications as prescribed. Please stick to a diabetic diet. If you have any recurrent trouble breathing, noticed blood in your sputum, develop fevers, chest pain or pressure, vomiting, dizziness, leg swelling, or you have any other new concerns , please return the emergency room. Problem Qualifiers Primary Impression: Dyspnea Dyspnea type: unspecified Qualified Codes: R06.00 - Dyspnea, unspecified Additional Impression: Asthma Asthma severity: mild Asthma persistence: intermittent Asthma complication type: uncomplicated Qualified Codes: J45.20 - Mild intermittent asthma, uncomplicated
[2017-06-16 05:24] LABS: BASO % 0.6 %; BASO ABS # 0.04 K/uL (0-0.2); COMPLETE YES; HEMATOCRIT 37.5 % (37-47); IG% 0.3 %; LYMPH % 43.7 %; LYMPH ABS # 3.14 K/uL (1.2-3.4); MEAN CELL VOLUME 89.1 fL (80-100); MEAN CORPUSCULAR HEMOGLOBIN 29.2 pg (25-34); MEAN CORPUSCULAR HGB CONC 32.8 g/dl (32-36); MEAN PLATELET VOLUME 10.2 fL (7.4-10.4); MONO % 7.7 %; NEUT % 43.7 %; PLATELET COUNT 230 K/uL (130-400); RED BLOOD COUNT 4.21 M/uL (4.2-5.4); WHITE BLOOD COUNT 7.18 K/uL (4.8-10.8)
[2017-06-16 05:25] LABS: INR 0.9 (0.9-1.1); PROTHROMBIN TIME (PATIENT) 9.7 SECONDS (9.0-12.0)
[2017-06-16 05:43] LABS: ALT/SGPT 34 U/L (12-78); AST/SGOT 21 U/L (15-37); BLOOD UREA NITROGEN 23 mg/dl (7-18); CALCIUM 9.2 mg/dl (8.5-10.1); CARBON DIOXIDE 27 mmol/L (21-32); CHLORIDE 108 mmol/L (98-107); GLUCOSE 157 mg/dl (70-99); POTASSIUM 3.6 mmol/L (3.5-5.1); SODIUM 143 mmol/L (136-145)
[2017-06-16 05:49] LABS: ALB/GLOB RATIO 0.9 (0.9-2); ALKALINE PHOSPHATASE 60 U/L (45-117)
[2017-06-16] MEDS ORDERED: LEVO25TA PO (05:51)
[2017-06-16] MEDS ORDERED: LISI-461 PO (05:51)
[2017-06-16] MEDS ORDERED: ALBUT/IPRATROP 3MG/0.5MG NEB 3 ML VIAL INH STA (06:00)
--- NOTE | 2017-06-16 06:47 | DIAGNOSTIC IMAGING REPORT ---
CHEST ONE VIEW PORTABLE HISTORY: 77 years-old Female sob acute shortness of breath with back pain COMPARISON: Chest radiograph 05/16/2017 TECHNIQUE: Upright AP view the chest FINDINGS: Cardiomediastinal and hilar silhouettes are within normal limits. There is no pneumothorax, pleural effusion, focal airspace consolidation or overt pulmonary edema. There is improved aeration of the right lung base from comparison. Minimal subsegmental bibasilar opacities suggest atelectasis. Bones are grossly intact. Degenerative changes involve the shoulders and spine. IMPRESSION: No acute cardiopulmonary process. The above report was generated using voice recognition software. It may contain grammatical, syntax or spelling errors. Electronically signed by: Tyler Le M.D. 06/16/2017 6:46 AM Dictated Date/Time: 06/16/2017 6:44 AM
[2017-06-16] MEDS ORDERED: SODIUM CHLORIDE 0.9% 1000ML 1,000 ML IV STA (06:59)
[2017-06-16] MEDS ORDERED: OPTIRAY 320 IV PRN (07:30)
--- NOTE | 2017-06-16 08:24 | DIAGNOSTIC IMAGING REPORT ---
CHEST CTA for PULMONARY ARTERIES CT DOSE: 539.59 mGycm HISTORY: Short of breath. TECHNIQUE: Multiaxial CT images of the chest were performed following the intravenous administration of contrast to evaluate the pulmonary arteries. Maximal intensity projection images were also obtained. A dose lowering technique was utilized adhering to the principles of ALARA. COMPARISON STUDY: Chest CTA 08/12/2011. FINDINGS: There is a normal caliber thoracic aorta with no evidence for dissection. There is no evidence for pulmonary embolus. No pleural effusions. No pneumothorax. The liver and spleen are unremarkable. No mediastinal or hilar lymphadenopathy. The central airways are patent. There are few scattered linear densities suggesting scarring or atelectasis. No focal lung consolidations to suggest pneumonia. IMPRESSION: No evidence for pulmonary embolus. Electronically signed by: Ricardo Alonzo M.D. 06/16/2017 8:22 AM Dictated Date/Time: 06/16/2017 8:16 AM
[2017-06-16] MEDS ORDERED: ACETAMINOPHEN 325 MG TAB PO STA (08:27)
[2017-06-16 09:30] VITALS: BP 156/72; PULSE 67; O2SAT 95
== END 2017-06-16 09:30 | disposition home or self-care (01) ==
LOC: C.EDB 04:13
DX: J45.21 Mild intermittent asthma with (acute) exacerbation (principal); R06.00 Dyspnea, unspecified; Z86.73 Personal history of transient ischemic attack (TIA), and cerebral infarction without residual deficits

== ENCOUNTER → 2017-08-21 | Outpatient (CLI) | payer BC ==
[~2017-08-21] MED LIST changes: -ASPEC81 PO; -GFNSR600 PO; -IPRASOL4 INH; +LEVO25TA PO; -LEVO25TA5 PO; +LISI-461 PO; -LSN5 PO; -LTRCR45 EXT; -PRD20 PO; -VNTHFA/IN INH
--- NOTE | 2017-08-21 13:46 | MAMMOGRAPHY REPORT ---
BILATERAL DIGITAL SCREENING MAMMOGRAM WITH CAD: 08/21/2017 CLINICAL HISTORY: Routine screening. Patient has no complaints. TECHNIQUE: Current study was also evaluated with a Computer Aided Detection (CAD) system. Bilateral CC and MLO views were obtained. COMPARISON: Comparison is made to exams dated: 08/19/2016 mammogram, 08/17/2015 mammogram, 4 mammogram, 08/12/2013 mammogram, 08/10/2012 mammogram, and 08/07/2011 mammogram - [facility]. BREAST COMPOSITION: The tissue of both breasts is almost entirely fatty. FINDINGS: No suspicious masses, calcifications, or areas of architectural distortion are noted in ei ther breast. There has been no significant interval change compared to prior exams. Scattered bilater al benign-appearing calcifications are not significantly changed. Circular markers lee bilateral sk in findings. A mass within the left inferior breast on the MLO view was previously marked with a mol e marker and is also consistent with a skin finding. IMPRESSION: ACR BI-RADS CATEGORY 2: BENIGN There is no mammographic evidence of malignancy. A 1 year screening mammogram is recommended. The pa tient will receive written notification of the results. Approximately 10% of breast cancers are not detected with mammography. A negative mammographic report should not delay biopsy if a clinically suggestive mass is present. Carolina Garces M.D. /:08/21/2017 11:16:24 Pharmacy Associate: Deirdre VIRAMONTES)(Yuri), [facility] letter sent: Normal 1/2 BI-RADS Code: ACR BI-RADS Category 2: Benign
== END | disposition home or self-care (01) ==
LOC: C.MAMM 08:30
PROVIDERS: ATTEND Physician Assistant Medical
DX: Z12.31 Encounter for screening mammogram for malignant neoplasm of breast (principal)

== ENCOUNTER → 2017-08-23 | Outpatient (CLI) | payer BC ==
[~2017-08-23] MED LIST changes: +ALBU18002 INH; +CALC500C70 PO; +NAPR1TAB9 PO; +SYMIN160 INH; +VNTHFA/IN INH
[2017-08-23 13:03] LABS: ALBUMIN 3.5 gm/dl (3.4-5.0); ALT/SGPT 31 U/L (12-78); AST/SGOT 18 U/L (15-37); BLOOD UREA NITROGEN 17 mg/dl (7-18); CALCIUM 9.8 mg/dl (8.5-10.1); CARBON DIOXIDE 31 mmol/L (21-32); CREATININE 0.86 mg/dl (0.60-1.20); GLUCOSE 152 mg/dl (70-99); POTASSIUM 3.5 mmol/L (3.5-5.1); SODIUM 141 mmol/L (136-145)
[2017-08-23 13:05] LABS: ALKALINE PHOSPHATASE 73 U/L (45-117); TOTAL PROTEIN 7.3 gm/dl (6.4-8.2)
== END | disposition home or self-care (01) ==
LOC: C.LABPVFM 09:51
PROVIDERS: ATTEND Physician Assistant
DX: E11.21 Type 2 diabetes mellitus with diabetic nephropathy (principal)

== ENCOUNTER → 2017-12-01 | Outpatient (CLI) | payer BC ==
[~2017-12-01] MED LIST changes: -ALBU18002 INH; -CALC500C70 PO; -NAPR1TAB9 PO; -SYMIN160 INH; -VNTHFA/IN INH
[2017-12-01 13:11] LABS: HEMOGLOBIN A1C 6.7 % (4.5-5.6)
[2017-12-01 13:38] LABS: ALBUMIN 3.4 gm/dl (3.4-5.0); ALT/SGPT 27 U/L (12-78); AST/SGOT 20 U/L (15-37); BLOOD UREA NITROGEN 17 mg/dl (7-18); CARBON DIOXIDE 24 mmol/L (21-32); CREATININE 0.74 mg/dl (0.60-1.20); GLUCOSE 126 mg/dl (70-99); POTASSIUM 4.1 mmol/L (3.5-5.1); SODIUM 139 mmol/L (136-145)
[2017-12-01 13:49] LABS: ALKALINE PHOSPHATASE 81 U/L (45-117); CHOLESTEROL 114 mg/dl (0-200); LDL CHOLESTEROL CALCULATED 44 mg/dl; TOTAL PROTEIN 7.2 gm/dl (6.4-8.2)
== END | disposition home or self-care (01) ==
LOC: C.LABPVFM 08:08
PROVIDERS: ATTEND Nurse Practitioner Adult Health
DX: I10 Essential (primary) hypertension (principal); E11.21 Type 2 diabetes mellitus with diabetic nephropathy; E78.5 Hyperlipidemia, unspecified; E03.9 Hypothyroidism, unspecified

== ENCOUNTER → 2017-12-23 | Outpatient (CLI) | payer BC | END | disposition home or self-care (01) | LOC: C.MAMM 09:09 | PROVIDERS: ATTEND Nurse Practitioner Adult Health | DX: M85.851 Other specified disorders of bone density and structure, right thigh (principal); M85.852 Other specified disorders of bone density and structure, left thigh; Z78.0 Asymptomatic menopausal state ==

== ENCOUNTER → 2018-03-24 | Outpatient (CLI) | payer BC ==
[~2018-03-24] MED LIST changes: +ALBU18002 INH; +CALC500C70 PO; +GADAVIST IV PRN; +NAPR1TAB9 PO; +SYMIN160 INH; +VNTHFA/IN INH
--- NOTE | 2018-03-24 10:02 | DIAGNOSTIC IMAGING REPORT ---
MRI ABDOMEN COMBO CLINICAL HISTORY: Epigastric pain. Abdominal pain. 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 The patient was administered 7.5 cc of intravenous Gadavist COMPARISON STUDY: CT scan of chest dated 03/11/2018 FINDINGS: No hepatic masses are visualized. No splenic masses are visualized. There is no evidence of abdominal aortic aneurysm. No adrenal masses are visualized. There are no solid renal masses. There is no evidence of hydronephrosis. There is no evidence of pathologic upper abdominal lymphadenopathy. There are at least 5 cystic pancreatic lesions, the largest of which measures 12 mm. These are located within the pancreatic head, body, and tail. 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 There is no pancreatic ductal dilatation. IMPRESSION: 1. Multiple cystic pancreatic lesions, the largest of which measures 12 mm. There is no associated pancreatic ductal dilatation. These lesions are nonenhancing. 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 12 month follow-up is recommended. Electronically signed by: Nic Rodgers M.D. 03/24/2018 10:00 AM Dictated Date/Time: 03/24/2018 9:53 AM
== END | disposition home or self-care (01) ==
LOC: C.MRIBC 08:32
PROVIDERS: ATTEND Nurse Practitioner Adult Health
DX: K86.2 Cyst of pancreas (principal)

== ENCOUNTER → 2018-04-09 | Outpatient (CLI) | payer BC ==
[~2018-04-09] MED LIST changes: -GADAVIST IV PRN
[2018-04-09 13:42] LABS: ALBUMIN 3.5 gm/dl (3.4-5.0); ALKALINE PHOSPHATASE 57 U/L (45-117); ALT/SGPT 37 U/L (12-78); AST/SGOT 23 U/L (15-37); BLOOD UREA NITROGEN 10 mg/dl (7-18); CALCIUM 9.6 mg/dl (8.5-10.1); CARBON DIOXIDE 29 mmol/L (21-32); CREATININE 0.75 mg/dl (0.60-1.20); GLUCOSE 122 mg/dl (70-99); POTASSIUM 3.7 mmol/L (3.5-5.1); SODIUM 141 mmol/L (136-145); TOTAL PROTEIN 7.2 gm/dl (6.4-8.2)
[2018-04-09 14:29] LABS: HEMOGLOBIN A1C 6.8 % (4.5-5.6)
== END | disposition home or self-care (01) ==
LOC: C.LABBC 10:12
PROVIDERS: ATTEND Nurse Practitioner Adult Health
DX: I10 Essential (primary) hypertension (principal); E11.21 Type 2 diabetes mellitus with diabetic nephropathy

== ENCOUNTER 2019-10-25 14:40 | Inpatient (IN) ==
--- NOTE | 2019-10-25 15:45 | XRay Report ---
XR chest 1V portable HISTORY: weakness COMPARISON: Chest 03/11/2018. FINDINGS: The heart remains mildly enlarged. A few bibasilar linear densities and a small linear dens ity within the left midlung zone. This favors scarring or atelectasis. No evidence for pulmonary abdoulaye a. No new focal lung consolidations to suggest pneumonia. Mildly tortuous thoracic aorta is again not ed. No pleural effusions. No pneumothorax. IMPRESSION: No significant change compared to the prior study. No acute process. Stable mild cardiomegaly. ACT 112: Negative or not required by law. Electronically signed by: Ricardo Alonzo M.D. 10/25/2019 3:44 PM
--- NOTE | 2019-10-25 15:56 | Electrocardiogram Report ---
Test Reason : Blood Pressure : / mmHG Vent. Rate : 048 BPM Atrial Rate : 048 BPM P-R Int : 192 ms QRS Dur : 148 ms QT Int : 496 ms P-R-T Axes : 085 -59 125 degrees QTc Int : 443 ms Sinus bradycardia Blocked PACs Left axis deviation Left bundle branch block Abnormal ECG When compared with ECG of 11-MAR-2018 12:22, No significant change was found Confirmed by Eron Mace ([id number]) on 10/25/2019 3:56:19 PM Referred By: Confirmed By:Eron Mace
[2019-10-25 16:26] LABS: Basophils # (auto) 0.04 K/uL (0-0.2); Basophils % (auto) 0.5 %; Eosinophils % (auto) 3.5 %; Hematocrit (blood only) 35.2 % (37-47); Hemoglobin 11.5 g/dL (12.0-16.0); Immature Granulocytes # (auto) 0.01 K/uL (0.00-0.02); Immature Granulocytes % (auto) 0.1 %; Lymphocytes # (auto) 3.03 K/uL (1.2-3.4); Lymphocytes % (auto) 35.7 %; Mean Corpuscular Hemoglobin 28.4 pg (25-34); Mean Corpuscular Hgb Conc 32.7 g/dL (32-36); Mean Corpuscular Volume 86.9 fL (80-100); Mean Platelet Volume 11.1 fL (7.4-10.4); Monocytes # (auto) 0.73 K/uL (0.11-0.59); Monocytes % (auto) 8.6 %; Neutrophils # (auto) 4.38 K/uL (1.4-6.5); Neutrophils % (auto) 51.6 %; Platelet Count 232 K/uL (130-400); RDW Coefficient of Variation 13.9 % (11.5-14.5); RDW Standard Deviation 44.2 fL (36.4-46.3); Red Blood Count 4.05 M/uL (4.2-5.4); White Blood Count 8.49 K/uL (4.8-10.8)
[2019-10-25 16:43] LABS: Alanine Aminotransferase 25 U/L (12-78); Albumin Level 3.3 gm/dl (3.4-5.0); Aspartate Aminotransferase 19 U/L (15-37); BUN Creatinine Ratio 18.1 (10-20); Blood Urea Nitrogen 16 mg/dl (7-18); Calcium 9.4 mg/dl (8.5-10.1); Carbon Dioxide 26 mmol/L (21-32); Chloride 109 mmol/L (98-107); Est GFR (African American) 70.9; Est GFR (Non-African American) 61.2; Glucose 117 mg/dl (70-99); Sodium 140 mmol/L (136-145)
--- NOTE | 2019-10-25 16:48 | Emergency Department Note ---
Entered by Marika Gale acting as a scribe for History of Present Illness General Chief complaint: Hypertension Stated complaint: DIZZINESS,HIGH BLOOD PRESSURE, DOC REFERRED Time Seen by Provider: 10/25/19 16:00 Source: patient and other (nursing notes) History of Present Illness Onset (ago): hour(s) (just prior to arrival ) Location: head (general ) Pain Consistency: + other (episode ) Maximum Pain Intensity: 0 Quality: + other (referral by doctor ) Associated symptoms: + other (negative loss of consciousness; positive near syncope); no chest pain and no shortness of breath The patient is a 79 year old female who presents to the Emergency Room with complaints of an episode of a referral by her doctor that occurred just prior to arrival. Per nursing notes, the patient was sent in for symptomatic bradycardia. The patient states that she had an episode of a fall 2 days ago, stating that sh e is unsure if she became dizzy or lost her balance. The patient denies loss of consciousness at that time. She states that she was then able to pull herself up. The patient denies any injuries from this fall. She states that today she had an episode of near syncope similar to the episode 2 days ago. The patient states that she is unsure if she had chest pain at this time. She states that she has some shortness of breath with increased activity, and states that this is somewhat new as she has not had this for some time. The patient denies any shortness of breath currently. The patient denies any recent illness. She denies any recent medication changes. The patient states that she had a cardiac catheterization in 2003, 16 years ago, but states that no stents were placed. Home Medications Home Medications Medication Instructions Recorded Confirmed Type albuterol sulfate 90 mcg/actuation 1 puffs INH Q6H PRN 01/21/19 10/25/19 History aerosol inhaler amlodipine 2.5 mg tablet 2.5 mg PO DAILY 01/21/19 10/25/19 History aspirin 81 mg tablet,delayed 81 mg PO DAILY 01/21/19 10/25/19 History release calcium carbonate-vitamin D3 500 1 tab PO DAILY tab 01/21/19 10/25/19 History mg (1,250 mg)-600 unit tablet carvedilol 12.5 mg tablet 12.5 mg PO BID 01/21/19 10/25/19 History ipratropium 0.5 mg-albuterol 3 mg 3 ml INH Q4H PRN ml 01/21/19 10/25/19 History (2.5 mg base)/3 mL nebulization soln multivitamin 1 tab PO HS tab 01/21/19 10/25/19 History omega-3 fatty acids 1,000 mg 1,000 mg PO DAILY 01/21/19 10/25/19 History capsule budesonide-formoterol HFA 160 2 puffs INH BID #10.2 gm 05/24/19 10/25/19 Rx mcg-4.5 mcg/actuation aerosol inhaler furosemide 40 mg tablet 40 mg PO DAILY #90 tab 08/02/19 10/25/19 Rx atorvastatin 80 mg tablet 80 mg PO HS #90 tab 08/04/19 10/25/19 Rx levothyroxine 25 mcg PO QAM 10/25/19 10/25/19 History Allergies Allergy/AdvReac Type Severity Reaction Status Date / Time Penicillins Allergy Intermediate FACIAL Verified 10/07/19 13:18 ERYTHEMA Past Med/Surg History Medical History Arthritis, multiple joint involvement (Chronic) Asthma Hypertension Hypothyroidism (Chronic) Left bundle branch block Nonischemic cardiomyopathy (Chronic) Pancreatic cyst Pulmonary hypertension (Chronic) Type 2 diabetes mellitus Family History Brother Coronary heart disease Father Diabetes Mother Diabetes Sister Diabetes Kidney disease Hypertension Other Congestive heart failure Heart disease Social History Preferred Language: Bulgarian Communication Ability: Effective Visual Impairment: Partially Limited Hearing Ability: Normal Director Of Kids Required: No Beliefs That Will Affect Care: None marital status: Current Living Situation: Spouse current occupational status: retired Feels Safe at Home: Yes Smoking Status: Never smoker Hx Alcohol Use: No Hx Substance Use: No Childhood Exposure to Second-Hand Smoke: No caffeine: Yes Dental Care, Regularly: Yes Physical Activity Frequency: Does not Exercise Seatbelt Use: always Sunscreen Use: No Review of Systems See HPI for pertinent positives & negatives. and A total of 10 systems reviewed and were otherwise negative Physical Exam Vital Signs Vital Signs - 24 hr 10/25/19 15:21 10/25/19 16:08 10/25/19 16:09 Temperature 37.0 C Temperature Source Oral Pulse Rate 49 L 55 L 50 L Pulse Rate from SpO2 Sensor 56 L 44 L Respiratory Rate 20 24 18 Respiratory Effort / Characteristics Non-Labored Respiratory Depth Normal Blood Pressure 194/82 H 205/81 H Blood Pressure Mean 119 87 Pulse Oximetry 95 95 95 Oxygen Delivery Method Room Air Sepsis Recent Fever Within 48 Hours No Sepsis Action Taken by Nursing No Action Required 10/25/19 16:30 10/25/19 16:31 10/25/19 17:00 Temperature Temperature Source Pulse Rate 52 L 52 L 56 L Pulse Rate from SpO2 Sensor 52 L 51 L 57 L Respiratory Rate 31 H 18 21 Respiratory Effort / Characteristics Respiratory Depth Blood Pressure 192/83 H Blood Pressure Mean 134 Pulse Oximetry 96 96 96 Oxygen Delivery Method Sepsis Recent Fever Within 48 Hours Sepsis Action Taken by Nursing 10/25/19 17:01 10/25/19 17:14 Temperature Temperature Source Pulse Rate 47 L 57 L Pulse Rate from SpO2 Sensor 52 L Respiratory Rate 22 19 Respiratory Effort / Characteristics Respiratory Depth Blood Pressure 169/98 H 222/114 H Blood Pressure Mean 116 189 Pulse Oximetry 96 Oxygen Delivery Method Sepsis Recent Fever Within 48 Hours Sepsis Action Taken by Nursing GENERAL: Patient is in no acute distress. HEENT: No acute trauma, normocephalic atraumatic, mucous membranes moist, no nasal congestion, no scleral icterus. NECK: No stridor, no adenopathy, no meningismus, trachea is midline. LUNGS: Clear to auscultation bilaterally, no wheeze, no rhonchi, breath sounds equal. HEART: Significantly bradycardic with a somewhat irregular rhythm. No murmurs. ABDOMEN: Soft, nontender, bowel sounds positive, no hernias, no peritonitis. EXTREMITIES: No cyanosis or edema, full range of motion of all the joints without pain or difficulty, no signs for acute trauma. NEUROLOGIC: Oriented x 3, no acute motor or sensory deficits, no focal weakness. SKIN: No rash, no jaundice, no diaphoresis. Course Course 1604: Past medical records reviewed. The patient was evaluated in room C11B. A complete history and physical exam was performed. 1615: I discussed the case with Dr. Mace-[facility] Cardiology who recommends holding the patient's rate-limiting medication. 1622: I discussed the case with Dr. Mace-[facility] and reviewed the patient's ECGs. Dr. Mace recommends a pacemaker. 1625: I discussed the case with Eveline Miller-[facility] who accepts the patient for further evaluation under Dr. Love-[facility] Hospitalist service. Administered Medications Atorvastatin Calcium (Lipitor) 80 mg PO [facility] Stop: 11/24/19 20:59 Last Admin: 10/25/19 21:27 Dose: 80 mg Documented by: [id number] Multivitamins (Multivitamin Tab) 1 tab PO HS [facility] Stop: 11/24/19 20:59 Last Admin: 10/25/19 21:27 Dose: 1 tab Documented by: [id number] Critical Care Time Critical Care Time: Yes Total Critical Care Time: 36 I have personally spent 36 minutes of critical care time in the direct management of this patient. This includes bedside care, interpretation of diagnostic studies, and testing, discussion with consultants, patient, and family members, and other required patient management activities. This 36 minutes is in excess of all separately billable procedures. Medical Decision Making Differential Diagnosis Differential diagnoses include 3rd degree AV block, medication reaction, Lyme disease, TN, electrolyte imbalance, anemia, and others were considered. Medical Records Attestation: I reviewed the patient's medical records. Home Medications Current Medication List: was personally reviewed by me Laboratory Data Result diagrams: 10/25/19 15:55 10/25/19 15:55 Lab Results 10/25/19 10/25/19 10/25/19 Range/Units 15:55 15:55 15:55 WBC 8.49 (4.8-10.8) K/uL RBC 4.05 L (4.2-5.4) M/uL Hgb 11.5 L (12.0-16.0) g/dL Hct 35.2 L (37-47) % MCV 86.9 (80-100) fL MCH 28.4 (25-34) pg MCHC 32.7 (32-36) g/dL RDW Std Deviation 44.2 (36.4-46.3) fL RDW Coeff of Serenity 13.9 (11.5-14.5) % Plt Count 232 (130-400) K/uL MPV 11.1 H (7.4-10.4) fL Immature Gran % (Auto) 0.1 % Neut % (Auto) 51.6 % Lymph % (Auto) 35.7 % [place] % (Auto) 8.6 % Eos % (Auto) 3.5 % Baso % (Auto) 0.5 % Immature Gran # (Auto) 0.01 (0.00-0.02) K/uL Neut # (Auto) 4.38 (1.4-6.5) K/uL Lymph # (Auto) 3.03 (1.2-3.4) K/uL [place] # (Auto) 0.73 H (0.11-0.59) K/uL Eos # (Auto) 0.30 (0-0.5) K/uL Baso # (Auto) 0.04 (0-0.2) K/uL Sodium 140 (136-145) mmol/L Potassium 4.0 (3.5-5.1) mmol/L Chloride 109 H (98-107) mmol/L Carbon Dioxide 26 (21-32) mmol/L Anion Gap 5.0 (3-11) BUN 16 (7-18) mg/dl Creatinine 0.89 (0.6-1.2) mg/dl Est Cr Clr Drug Dosing Not Reportable Est GFR ( Amer) 70.9 Est GFR (Non-Af Amer) 61.2 BUN/Creatinine Ratio 18.1 (10-20) Glucose 117 H (70-99) mg/dl Calcium 9.4 (8.5-10.1) mg/dl Magnesium 2.0 (1.8-2.4) mg/dl Total Bilirubin 0.8 (0.2-1) mg/dl AST 19 (15-37) U/L ALT 25 (12-78) U/L Alkaline Phosphatase 80 (45-117) U/L Troponin I < 0.015 (0-0.045) ng/ml Total Protein 7.1 (6.4-8.2) gm/dl Albumin 3.3 L (3.4-5.0) gm/dl Globulin 3.8 (2.5-4.0) gm/dl Albumin/Globulin Ratio 0.9 (0.9-2) TSH 4.790 H (0.300-4.500) uIu/ml Thyroxine (T4) (4.5-10.9) mcg/dl Urine Color Urine Appearance (Clear) Urine pH (4.5-7.5) Ur Specific [place] (1.000-1.030) Urine Protein (Negative) Urine Glucose (UA) (Negative) Urine Ketones (Negative) Urine Blood (Negative) Urine Nitrite (Negative) Urine Bilirubin (Negative) Urine Urobilinogen (Negative) Ur Leukocyte Esterase (Negative) Urine WBC (Auto) (0-5) /hpf Urine RBC (Auto) (0-4) /hpf U Hyaline Cast (Auto) (0-5) /lpf U Epithel Cells (Auto) (0-5) /lpf Urine Bacteria (Auto) (Negative) Lyme Disease IgG Ab Negative (Negative) Lyme Disease IgM Ab Negative (Negative) 10/25/19 10/25/19 Range/Units 15:55 17:10 WBC (4.8-10.8) K/uL RBC (4.2-5.4) M/uL Hgb (12.0-16.0) g/dL Hct (37-47) % MCV (80-100) fL MCH (25-34) pg MCHC (32-36) g/dL RDW Std Deviation (36.4-46.3) fL RDW Coeff of Serenity (11.5-14.5) % Plt Count (130-400) K/uL MPV (7.4-10.4) fL Immature Gran % (Auto) % Neut % (Auto) % Lymph % (Auto) % [place] % (Auto) % Eos % (Auto) % Baso % (Auto) % Immature Gran # (Auto) (0.00-0.02) K/uL Neut # (Auto) (1.4-6.5) K/uL Lymph # (Auto) (1.2-3.4) K/uL [place] # (Auto) (0.11-0.59) K/uL Eos # (Auto) (0-0.5) K/uL Baso # (Auto) (0-0.2) K/uL Sodium (136-145) mmol/L Potassium (3.5-5.1) mmol/L Chloride (98-107) mmol/L Carbon Dioxide (21-32) mmol/L Anion Gap (3-11) BUN (7-18) mg/dl Creatinine (0.6-1.2) mg/dl Est Cr Clr Drug Dosing Est GFR ( Amer) Est GFR (Non-Af Amer) BUN/Creatinine Ratio (10-20) Glucose (70-99) mg/dl Calcium (8.5-10.1) mg/dl Magnesium (1.8-2.4) mg/dl Total Bilirubin (0.2-1) mg/dl AST (15-37) U/L ALT (12-78) U/L Alkaline Phosphatase (45-117) U/L Troponin I (0-0.045) ng/ml Total Protein (6.4-8.2) gm/dl Albumin (3.4-5.0) gm/dl Globulin (2.5-4.0) gm/dl Albumin/Globulin Ratio (0.9-2) TSH (0.300-4.500) uIu/ml Thyroxine (T4) 8.3 (4.5-10.9) mcg/dl Urine Color Yellow Urine Appearance Clear (Clear) Urine pH 6.0 (4.5-7.5) Ur Specific [place] 1.009 (1.000-1.030) Urine Protein Negative (Negative) Urine Glucose (UA) Negative (Negative) Urine Ketones Negative (Negative) Urine Blood Negative (Negative) Urine Nitrite Negative (Negative) Urine Bilirubin Negative (Negative) Urine Urobilinogen Negative (Negative) Ur Leukocyte Esterase Trace H (Negative) Urine WBC (Auto) 1-5 (0-5) /hpf Urine RBC (Auto) 0-4 (0-4) /hpf U Hyaline Cast (Auto) 0 (0-5) /lpf U Epithel Cells (Auto) 5-10 H (0-5) /lpf Urine Bacteria (Auto) Negative (Negative) Lyme Disease IgG Ab (Negative) Lyme Disease IgM Ab (Negative) Imaging Data Radiologist's Impression: Radiology results as stated below per my review and the radiologist's interpretation: XR chest 1V portable HISTORY: weakness COMPARISON: Chest 03/11/2018. FINDINGS: The heart remains mildly enlarged. A few bibasilar linear densities and a small linear density within the left midlung zone. This favors scarring or atelectasis. No evidence for pulmonary edema. No new focal lung consolidations to suggest pneumonia. Mildly tortuous thoracic aorta is again noted. No pleural effusions. No pneumothorax. IMPRESSION: No significant change compared to the prior study. No acute process. Stable mild cardiomegaly. ACT 112: Negative or not required by law. Electronically signed by: Ricardo Alonzo M.D. 10/25/2019 3:44 PM ECG Data Attestation: I personally reviewed and interpreted this ECG as follows: Indication: + bradycardia Rate (beats per minute): 35 Rhythm: + other (3rd degree AV block ) ECG Intervals/blocks: + Left bundle branch block ECG ST segments: no ST elevation ECG Findings: no PVCs Additional Comments: REPEAT ECG: Sinus bradycardia with a rate of 48. Dropped PACs. No ST elevation. Left bundle branch block. No PVCs. Blood Pressure Blood Pressure Findings: Elevated blood pressure Blood Pressure Disposition: further management by hospitalist FRANC Narrative There is no leukocytosis. The patient does have a very mild anemia. There is a normal platelet count. No significant electrolyte abnormality or kidney failure. No evidence for hepatitis. Patient did have a slightly elevated TSH however, the T4 was normal. EKG showed 3rd degree AV block. There was also a time when she had some dropped PACs. No evidence for acute TN by EKG. Cardiac enzyme testing x1 is not consistent with acute cardiac injury. Lyme disease testing was negative. Chest film did not show pneumonia or CHF. The patient presents with some near syncopal episodes. She has findings of 3rd degree AV block. The heart rate has been low in the mid 30s. She does require hospitalization. I spoke to the patient, I did talk to cardiology. The cardiology team feels the patient will likely need a pacemaker. The patient is going to be hospitalized. She was placed on the residential monitor and pacer pads were attached. She did not require any pacer stimulation during her ED stay. Case management has been involved. The on-call hospitalist has been consulted. The patient is aware of all her findings. Continuous Cardiac Monitoring: An order was placed for continuous cardiac monitoring. The monitor shows a rate of 42 with marked bradycardia. Impression & Plan Third degree AV block, Near syncope, Bradycardia Discharge Plan Visit Data *Final* Discharge Date/Time: 10/25/19 19:11 Chief Complaint: Hypertension Stated Complaint: DIZZINESS,HIGH BLOOD PRESSURE, DOC REFERRED ED Provider: Asher Hartman Discharge Problem: Third degree AV block, Near syncope, Bradycardia Patient Disposition: Admitted As Inpatient Discharge Instructions Interventions: ED Discharge Assessment Last Done: 10/25/19 19:11 The scribe's documentation has been prepared under my direction and personally reviewed by me in its entirety. I confirm that the note above accurately reflects all work, treatment, procedures, and medical decision making performed by me.
[2019-10-25 16:54] LABS: Albumin Globulin Ratio 0.9 (0.9-2); Alkaline Phosphatase 80 U/L (45-117); Bilirubin,Total 0.8 mg/dl (0.2-1); Globulin 3.8 gm/dl (2.5-4.0); Total Protein 7.1 gm/dl (6.4-8.2); Troponin I < 0.015 ng/ml (0-0.045)
[2019-10-25 17:26] LABS: Lyme Ab IgG w/WB Rflx Negative (Negative); Lyme Ab IgM w/WB Rflx Negative (Negative)
--- NOTE | 2019-10-25 17:56 | History & Physical Report ---
Date of Service October 25, 2019 Assessment & Plan (1) Third degree AV block: Admit to PCU Dr. Hartman in the ED discussed case with Dr. Mace and reviewed EKG with him, Dr. Mace saw patient in the ED - recommends holding the patient's rate limiting medications and a pacemaker Coreg held Initial troponin negative, patient has had no chest pain, will trend. Echo Lyme negative, TSH elevated but T4 is normal NPO for pacemaker tomorrow (2) Near syncope: Reports she did not hit her head, no focal findings on exam, secondary to bradycardia (3) Dyslipidemia: continue home statin (4) Arthritis, multiple joint involvement: continue home meloxicam (5) Hypothyroidism: TSH was elevated but T4 was normal continue home synthroid (6) Asthma: continue home inhalers (7) HTN (hypertension): Hold coreg, continue home amlodipine prn hydralazine for sbp >185 or dbp >110 (8) Systolic CHF: continue home furosemide, hold home coreg (9) DVT prophylaxis: SCDs, hold chemoprophylaxis for possible procedure tomorrow History of Present Illness Ms. Marquez presents today for dizziness and syncope likely secondary to bradycardia. She had a dizzy spell on Friday and Friday she had a syncopal event. She did not hit her head. Per her son, she has been her normal mental status except for the dizziness. She denies any recent illness, fevers, aches, chills, chest pain, palpitations, nausea, vomiting, or dysuria. She went to see her pcp today who found her heart rate to be bradycardic and her blood pressure to be high and so sent her to the emergency department. Primary Care Provider: Sunny Moraes MD Allergies Allergy/AdvReac Type Severity Reaction Status Date / Time Penicillins Allergy Intermediate FACIAL Verified 10/07/19 13:18 ERYTHEMA Home Medications Home Medications Medication Instructions Recorded Confirmed Type albuterol sulfate 90 mcg/actuation 1 puffs INH Q6H PRN 01/21/19 10/25/19 History aerosol inhaler amlodipine 2.5 mg tablet 2.5 mg PO DAILY 01/21/19 10/25/19 History aspirin 81 mg tablet,delayed 81 mg PO DAILY 01/21/19 10/25/19 History release calcium carbonate-vitamin D3 500 1 tab PO DAILY tab 01/21/19 10/25/19 History mg (1,250 mg)-600 unit tablet carvedilol 12.5 mg tablet 12.5 mg PO BID 01/21/19 10/25/19 History ipratropium 0.5 mg-albuterol 3 mg 3 ml INH Q4H PRN ml 01/21/19 10/25/19 History (2.5 mg base)/3 mL nebulization soln multivitamin 1 tab PO HS tab 01/21/19 10/25/19 History omega-3 fatty acids 1,000 mg 1,000 mg PO DAILY 01/21/19 10/25/19 History capsule budesonide-formoterol HFA 160 2 puffs INH BID #10.2 gm 05/24/19 10/25/19 Rx mcg-4.5 mcg/actuation aerosol inhaler furosemide 40 mg tablet 40 mg PO DAILY #90 tab 08/02/19 10/25/19 Rx atorvastatin 80 mg tablet 80 mg PO HS #90 tab 08/04/19 10/25/19 Rx levothyroxine 25 mcg PO QAM 10/25/19 10/25/19 History Past Med/Surg History Medical History Arthritis, multiple joint involvement (Chronic) Asthma Hypertension Hypothyroidism (Chronic) Left bundle branch block Nonischemic cardiomyopathy (Chronic) Pancreatic cyst Pulmonary hypertension (Chronic) Type 2 diabetes mellitus Surgical History History of cholecystectomy History of total knee arthroplasty 2008-left Dr. Cash Family History Brother Coronary heart disease Father Diabetes Mother Diabetes Sister Diabetes Kidney disease Hypertension Other Congestive heart failure Heart disease Social History Preferred Language: Danish Communication Ability: Effective Visual Impairment: Partially Limited Hearing Ability: Normal Health Care Legal Assistant Required: No marital status: Current Living Situation: Spouse current occupational status: retired Feels Safe at Home: Yes Smoking Status: Never smoker Hx Alcohol Use: No Hx Substance Use: No Childhood Exposure to Second-Hand Smoke: No caffeine: Yes Dental Care, Regularly: Yes Physical Activity Frequency: Does not Exercise Seatbelt Use: always Sunscreen Use: No Review of Systems Review of Systems: All systems reviewed & are unremarkable except as noted in HPI & below Physical Exam Physical Exam: General: no distress Eyes: normal inspection, PERLL Respiratory: chest non tender, clear to auscultation, normal breath sounds, no respiratory distress, no accessory muscle use Cardiac: regular rate and rhythm, no rub or gallop, no murmur, no edema, no jvd GI/: active bowel sounds, no abd pain or tenderness, soft, non distended Extremities: normal range of motion, normal strength, non tender Neuro/Psych: alert and oriented x 3, normal mood and affect, CN II - XII intact Skin: normal color, dry Results & Data Vital Signs (Past 12 Hours) Vital Signs Temp Pulse Resp BP Pulse Ox 10/25/19 15:21 37.0 C 49 L 20 194/82 H 95 Code Status & VTE Plan Code Status full code VTE Prophylaxis Plan VTE Prophylaxis will be ordered: Yes PG Care Time/CCT Total # of Minutes Spent Total Time Spent with Patient: Total time spent is greater than 50% in coordination of care (as documented) at patient's floor/unit and/or counseling patient: Coding Level of Care Code 16648 Initial Inpt Care Lvl 3 Diagnoses Third degree AV block I44.2 Near syncope R55 Dyslipidemia E78.5 Arthritis, multiple joint involvement M12.9 Hypothyroidism E03.9 Asthma J45.41 Asthma severity: moderate Asthma persistence: persistent Asthma complication type: with acute exacerbation HTN (hypertension) I10 Systolic CHF I50.20 DVT prophylaxis Z29.9 (1) Asthma Asthma severity: moderate Asthma persistence: persistent Asthma complication type: with acute exacerbation Qualified Code(s): J45.41 - Moderate persistent asthma with (acute) exacerbation
[2019-10-25 18:43] LABS: Appearance Urine Clear (Clear); Bacteria Urine Automated Negative (Negative); Bilirubin Urine Negative (Negative); Blood Urine Negative (Negative); Cast Urine Automated 0 /lpf (0-5); Color Urine Yellow; Glucose Urine UA Negative (Negative); Ketones Urine Negative (Negative); Leukocyte Esterase Urine Trace (Negative); Nitrite Urine Negative (Negative); Protein Urine Negative (Negative); RBC Urine Automated 0-4 /hpf (0-4); Specific Gravity Urine 1.009 (1.000-1.030); Urobilinogen Urine Negative (Negative)
[2019-10-25] MEDS ORDERED: MONTELUKAST SODIUM 10 MG TABLET PO PRN (19:46)
[2019-10-25] MEDS ORDERED: MELOXICAM 7.5 MG TAB PO PRN (19:46)
[2019-10-25] MEDS ORDERED: HydrALAZINE HCL 20 MG/ML VIAL IV PRN (19:46)
[2019-10-25] MEDS ORDERED: ALBUTEROL HFA 8 GM INHALER INH PRN (19:46)
[2019-10-25] MEDS ORDERED: POLYETHYLENE (MIRALAX) 17 GM PACK PO PRN (19:46)
[2019-10-25] MEDS: ATORVASTATIN 40 MG TAB PO SCH (21:27)
[2019-10-25] MEDS: MULTIVITAMIN TAB PO SCH (21:27)
[2019-10-26] MEDS: LEVOTHYROXINE SODIUM 25 MCG TABLET PO SCH (06:25)
[2019-10-26] MEDS: OMEGA-3 (PURIFIED FISH OIL) 1 GM CAP PO SCH (07:29)
[2019-10-26] MEDS: CALCIUM 600MG + VIT D 400 IU TAB PO SCH ×2 (07:29→21:57)
[2019-10-26] MEDS: AMLODIPINE BESYLATE 5 MG TAB PO SCH (07:29)
[2019-10-26] MEDS: ASPIRIN 81 MG ECTAB PO SCH (07:30)
[2019-10-26] MEDS: TELMISARTAN 40 MG TAB PO SCH (07:30)
[2019-10-26] MEDS: FUROSEMIDE 40 MG TAB PO SCH (07:30)
[2019-10-26] MEDS: FLUTICASONE/VILANTEROL 200/25MCG 14 PUFFS/INHALER INH SCH (07:30)
[2019-10-26 08:30] LABS: Basophils # (auto) 0.04 K/uL (0-0.2); Basophils % (auto) 0.6 %; Eosinophils # (auto) 0.31 K/uL (0-0.5); Eosinophils % (auto) 4.7 %; Hematocrit (blood only) 34.2 % (37-47); Hemoglobin 11.1 g/dL (12.0-16.0); Lymphocytes # (auto) 2.87 K/uL (1.2-3.4); Lymphocytes % (auto) 43.5 %; Mean Corpuscular Hemoglobin 28.1 pg (25-34); Mean Corpuscular Hgb Conc 32.5 g/dL (32-36); Mean Corpuscular Volume 86.6 fL (80-100); Mean Platelet Volume 10.4 fL (7.4-10.4); Monocytes # (auto) 0.66 K/uL (0.11-0.59); Neutrophils # (auto) 2.72 K/uL (1.4-6.5); Neutrophils % (auto) 41.2 %; Platelet Count 224 K/uL (130-400); RDW Coefficient of Variation 14.1 % (11.5-14.5); RDW Standard Deviation 44.9 fL (36.4-46.3); Red Blood Count 3.95 M/uL (4.2-5.4)
[2019-10-26 09:01] LABS: BUN Creatinine Ratio 20.3 (10-20); Calcium 9.7 mg/dl (8.5-10.1); Creatinine Clr Calc Pharmacy 58.2 ml/min; Est GFR (African American) 70.9; Est GFR (Non-African American) 61.2; Potassium 3.8 mmol/L (3.5-5.1)
[2019-10-26 09:06] LABS: Troponin I 0.02 ng/ml (0-0.045)
--- NOTE | 2019-10-26 11:58 | Hospitalist Progress Note ---
Date of Service October 26, 2019 Assessment & Plan (1) Third degree AV block: Dr. Hartman in the ED discussed case with Dr. Mace and reviewed EKG with him, Dr. Mace saw patient in the ED - recommends holding the patient's rate limiting medications and a pacemaker Coreg held Initial troponin negative, patient has had no chest pain, will trend. Echo pending Lyme negative, TSH elevated but T4 is normal NPO for pacemaker possibly today (2) Near syncope: Reports she did not hit her head, no focal findings on exam, secondary to bradycardia (3) Dyslipidemia: continue home statin (4) Arthritis, multiple joint involvement: continue home meloxicam (5) Hypothyroidism: TSH was elevated but T4 was normal continue home synthroid (6) Asthma: continue home inhalers (7) HTN (hypertension): Some improvement but still hypertensive Coreg held, continue home amlodipine prn hydralazine for sbp >185 or dbp >110 (8) Systolic CHF: continue home furosemide, hold home coreg (9) DVT prophylaxis: SCDs, hold chemoprophylaxis for possible procedure Admission and Anticipated Discharge Date Admission Date: October 25, 2019 Supervising Physician Co-Signing Physician Notes I supervised Eveline Moraes NP on this patient's care. I examined the patient today independently of her. I discussed the plan of care with her with the plan being as written in her note except for any following changes/exceptions: None. Still unsure if she wants the pacemaker. No dizziness at present. Subjective Ms. Marquez and her children are unsure about proceeding with a pacemaker. I did spend time answering their questions and going through risks and benefits of the pacemaker and encouraging them to review their concerns with cardiology as well so they feel all of their questions were answered to their satisfaction. They feel strongly that they would like their pcp's input so I have sent a message to Dr. Moraes as well. Ms. Marquez did get a little lightheaded when getting up to the bathroom this morning but is otherwise feeling well. ROS Constitutional: no chills, aches, sweats or fever Respiratory: no sob,cough, sputum, or wheezing Cardiac: no chest pain, palpitations, edema, orthopnea GI: no abdominal pain, nausea, vomiting, diarrhea or constipation : no dysuria or hesitancy Extremities: no joint pain or weakness Skin: no rash All other systems reviewed and negative Physical Exam Physical Exam: General: no distress Eyes: normal inspection, PERLL Respiratory: chest non tender, clear to auscultation, normal breath sounds, no respiratory distress, no accessory muscle use Cardiac: regular rate and rhythm, no rub or gallop, no murmur, no edema, no jvd GI/: active bowel sounds, no abd pain or tenderness, soft, non distended Extremities: normal range of motion, normal strength, non tender Neuro/Psych: alert and oriented x 3, normal mood and affect Skin: normal color, dry Results & Data ([facility]) Vital Signs (Past 12 Hours) Vital Signs Temp Pulse Resp BP Pulse Ox 10/26/19 11:43 36.9 C 52 L 18 173/72 H 94 10/26/19 07:27 36.9 C 56 L 16 169/74 H 94 10/26/19 04:00 37.0 C 19 135/59 L 93 PG Care Time/CCT Total # of Minutes Spent Total Time Spent with Patient: Total time spent is greater than 50% in coordination of care (as documented) at patient's floor/unit and/or counseling patient: Coding Level of Care Code 81394 Subseq Hosp Care Lvl 2 Diagnoses Third degree AV block I44.2 Near syncope R55 Dyslipidemia E78.5 Arthritis, multiple joint involvement M12.9 Hypothyroidism E03.9 Asthma J45.41 Asthma complication type: with acute exacerbation Asthma persistence: persistent Asthma severity: moderate HTN (hypertension) I10 Systolic CHF I50.20 DVT prophylaxis Z29.9 (1) Asthma Asthma complication type: with acute exacerbation Asthma persistence: persistent Asthma severity: moderate Qualified Code(s): J45.41 - Moderate persistent asthma with (acute) exacerbation
--- NOTE | 2019-10-26 12:54 | XCELERA ---
[id number] \\[email or web address]\[id number]
--- NOTE | 2019-10-26 16:14 | Cardiology Consultation ---
Date of Consultation October 26, 2019 Assessment & Plan (1) Bradycardia: (2) Nonischemic cardiomyopathy: She has a longstanding nonischemic cardiomyopathy which had improved substantially with medical therapy but now with no change in her medical therapy has declined somewhat. The cause of the cardiomyopathy was never identified, it was nonischemic however she does have a longstanding left bundle branch block which could have been contributory. Her QRS complex is very prolonged now, her ejection fraction is slightly above 35% but declining and she has symptomatic bradycardia currently. She will most likely pace in the ventricle since she has blocked premature atrial beats on her medical therapy (which includes beta- blockade which she will need over the long run). I recommended biventricular pacing. She currently does not qualify for an ICD (ejection fraction is not 35% or less) and she has a nonischemic cardiomyopathy and has done well for years and I suspect will improve with biventricular pacing and resumption of her heart failure medications therefore I would not recommend ICD implantation. She should be titrated to optimal doses of carvedilol if her pressure tolerates it, and perhaps Entresto if her insurance will cover it. (3) Left bundle branch block: She has a longstanding left bundle branch block which may be contributory to her cardiomyopathy. Her QRS is now 148 ms and she will likely do much better with resynchronization and narrowing of her complex. I have therefore recommended biventricular pacing. History of Present Illness Reason for Consultation: Symptomatic bradycardia Attending Physician: Clay Stewart MD History of Present Illness This is an 79-year-old woman who has a long history of left bundle branch block as well as what I believe is a nonischemic cardiomyopathy identified around 2003. Records indicate that she had an ejection fraction about 25% in 2003 and a small enzyme abnormality, she reports going to [facility] for catheterization and was told that her vessels were normal. She does not like to take medications and did not have followup regarding her cardiomyopathy. She then presented with shortness of breath, dyspnea on exertion, PND and edema on July 27, 2011 and was admitted to [facility]. She also has a history of lung disease. She was diuresed with marked improvement in her symptoms. She did not have any chest discomfort and no evidence of ischemia or myocardial injury. Ec hocardiography performed July 27, 2011 showed a moderately dilated left ventricle with ejection fraction of 30-35% with global hypokinesis. She has had the left bundle branch block pattern since at least 2003, she also has a history of nonsustained ventricular tachycardia at that time. She does not seem to have any symptoms to suggest serious arrhythmias however. She was started on carvedilol and lisinopril and Cardizem was discontinued during her 2010 hospitalization and we were gradually titrating her doses. She still had little bit of dyspnea on exertion but markedly improved from her hospitalization when I last saw her in 2011.She has done remarkably well over the years. Her left ventricular ejection fraction improved to 45 to 50% in December 2018 and therefore no device implantation was contemplated. She continued to have a left bundle branch block pattern and to have stable symptoms until presenting on October 24, 2021 her PCP reporting an episode of syncope several days before. She bent over to director supply some wood, took several steps and lost consciousness. This was not witnessed and she was not sure how long she was unconscious. She then had an episode the next day where she had a strange event related to her vision which lasted about 10 seconds. She was sent to the emergency room where electrocardiography demonstrated sinus bradycardia with blocked premature atrial beats and a left bundle branch block pattern with a QRS duration 148 ms. The overall heart rate was 48 bpm. Due to what was felt to be symptomatic bradycardia (although her blood pressure was elevated this admission) her Coreg was held. Echocardiography this admission on October 25, 2019 shows normal left ventricular size with moderate concentric left ventricular hypertrophy and a left ventricular ejection fraction of 35 to 40% with global hypokinesis. Her carvedilol was held upon admission and at the time of my evaluation today she was doing better symptomatically. She did not have lightheadedness or dizziness, she is not having palpitations and she is not complaining of shortness of breath although she has not been very active. Allergies Allergy/AdvReac Type Severity Reaction Status Date / Time Penicillins Allergy Intermediate FACIAL Verified 10/07/19 13:18 ERYTHEMA Home Medications Home Medications Medication Instructions Recorded Confirmed Type albuterol sulfate 90 mcg/actuation 1 puffs INH Q6H PRN 01/21/19 10/25/19 History aerosol inhaler amlodipine 2.5 mg tablet 2.5 mg PO DAILY 01/21/19 10/25/19 History aspirin 81 mg tablet,delayed 81 mg PO DAILY 01/21/19 10/25/19 History release calcium carbonate-vitamin D3 500 1 tab PO DAILY tab 01/21/19 10/25/19 History mg (1,250 mg)-600 unit tablet carvedilol 12.5 mg tablet 12.5 mg PO BID 01/21/19 10/25/19 History ipratropium 0.5 mg-albuterol 3 mg 3 ml INH Q4H PRN ml 01/21/19 10/25/19 History (2.5 mg base)/3 mL nebulization soln multivitamin 1 tab PO HS tab 01/21/19 10/25/19 History omega-3 fatty acids 1,000 mg 1,000 mg PO DAILY 01/21/19 10/25/19 History capsule budesonide-formoterol HFA 160 2 puffs INH BID #10.2 gm 05/24/19 10/25/19 Rx mcg-4.5 mcg/actuation aerosol inhaler furosemide 40 mg tablet 40 mg PO DAILY #90 tab 08/02/19 10/25/19 Rx atorvastatin 80 mg tablet 80 mg PO HS #90 tab 08/04/19 10/25/19 Rx levothyroxine 25 mcg PO QAM 10/25/19 10/25/19 History Patient History Medical History Arthritis, multiple joint involvement (Chronic) Asthma Hypertension Hypothyroidism (Chronic) Left bundle branch block Nonischemic cardiomyopathy (Chronic) Pancreatic cyst Pulmonary hypertension (Chronic) Type 2 diabetes mellitus Surgical History History of cholecystectomy History of total knee arthroplasty 2008-left Dr. Cash Family History Brother Coronary heart disease Father Diabetes Mother Diabetes Sister Diabetes Kidney disease Hypertension Other Congestive heart failure Heart disease Social History Preferred Language: [place] Leonean Communication Ability: Effective Visual Impairment: Partially Limited Hearing Ability: Normal Gold Stamper Required: No Beliefs That Will Affect Care: None marital status: Current Living Situation: Spouse current occupational status: retired Feels Safe at Home: Yes Smoking Status: Never smoker Hx Alcohol Use: No Hx Substance Use: No Childhood Exposure to Second-Hand Smoke: No caffeine: Yes Dental Care, Regularly: Yes Physical Activity Frequency: Does not Exercise Seatbelt Use: always Sunscreen Use: No Physical Exam Physical Exam: Constitutional: Alert, cooperative and in no distress. HEENT: Unremarkable Neck: No jugular venous distention, carotid pulses are normal and equal bilaterally without bruits. Pulmonary: Clear to auscultation bilaterally. Cardiac: Regular slow rhythm with a soft holosystolic murmur at the apex, no gallop or rub. Abdomen: Soft, nontender with normal bowel sounds. Extremities: No edema. Distal pulses intact. Neurologic: No focal findings. Gait is steady. Skin: No rash, ecchymoses or petechiae. Results & Data ([facility]) Vital Signs (Past 12 Hours) Vital Signs Temp Pulse Resp BP Pulse Ox 10/26/19 15:07 36.7 C 57 L 18 172/68 H 93 10/26/19 11:43 36.9 C 52 L 18 173/72 H 94 10/26/19 07:27 36.9 C 56 L 16 169/74 H 94 Laboratory Results Cardiac Enzymes 10/25/19 10/25/19 10/26/19 Range/Units 15:55 22:49 08:13 AST 19 (15-37) U/L Troponin I < 0.015 0.025 0.020 (0-0.045) ng/ml CBC 10/25/19 10/26/19 Range/Units 15:55 08:15 WBC 8.49 6.60 (4.8-10.8) K/uL RBC 4.05 L 3.95 L (4.2-5.4) M/uL Hgb 11.5 L 11.1 L (12.0-16.0) g/dL Hct 35.2 L 34.2 L (37-47) % Plt Count 232 224 (130-400) K/uL Neut # (Auto) 4.38 2.72 (1.4-6.5) K/uL Lymph # (Auto) 3.03 2.87 (1.2-3.4) K/uL [place] # (Auto) 0.73 H 0.66 H (0.11-0.59) K/uL Eos # (Auto) 0.30 0.31 (0-0.5) K/uL Baso # (Auto) 0.04 0.04 (0-0.2) K/uL Comprehensive Metabolic Panel 10/25/19 10/26/19 Range/Units 15:55 08:13 Sodium 140 142 (136-145) mmol/L Potassium 4.0 3.8 (3.5-5.1) mmol/L Chloride 109 H 111 H (98-107) mmol/L Carbon Dioxide 26 25 (21-32) mmol/L BUN 16 18 (7-18) mg/dl Creatinine 0.89 0.89 (0.6-1.2) mg/dl Glucose 117 H 115 H (70-99) mg/dl Calcium 9.4 9.7 (8.5-10.1) mg/dl AST 19 (15-37) U/L ALT 25 (12-78) U/L Alkaline Phosphatase 80 (45-117) U/L Total Protein 7.1 (6.4-8.2) gm/dl Albumin 3.3 L (3.4-5.0) gm/dl Intake and Output 10/26/19 10/26/19 10/26/19 06:59 14:59 22:59 Output Total 200 / 200 100 / 100 Balance -200 / -200 -100 / -100 Output: Urine 200 / 200 100 / 100 Other: Other Intake Source Sips # Unmeasured Voids 1 Weight 73.7 kg Diagnostic Findings I reviewed her electrocardiogram done on October 25, 2019 at 1544 and it shows sinus bradycardia with a sinus rate of about 55 bpm with several blocked premature atrial beats for an overall heart rate of 48 bpm. The HI interval was about 200 ms, the QRS shows a left bundle branch configuration with a QRS duration about 148 ms. Conducted complexes are similar to prior electrocardiograms. Telemetry since admission: Sinus bradycardia with premature atrial beats, she does have periods of 2-1 AV block which are somewhat brief and heart rates as low as the low 30s. PG Care Time/CCT Total # of Minutes Spent Total Time Spent with Patient: Total time spent is greater than 50% in coordination of care (as documented) at patient's floor/unit and/or counseling patient: Coding Level of Care Code 38740 Initial Inpt Care Lvl 3 Diagnoses Bradycardia R00.1 Nonischemic cardiomyopathy I42.8 Left bundle branch block I44.7
[2019-10-26] MEDS ORDERED: ACETAMINOPHEN SOLN 500 MG/15.62 ML UDP PO PRN (17:15)
[2019-10-26] MEDS ORDERED: ACETAMINOPHEN SOLN 160 MG/5 ML BTL PO PRN (17:37)
[2019-10-26] MEDS: ATORVASTATIN 40 MG TAB PO SCH (21:56)
[2019-10-26] MEDS: MULTIVITAMIN TAB PO SCH (21:58)
[2019-10-27] MEDS: LEVOTHYROXINE SODIUM 25 MCG TABLET PO SCH (06:06)
[2019-10-27 07:26] LABS: Basophils # (auto) 0.04 K/uL (0-0.2); Basophils % (auto) 0.7 %; Eosinophils # (auto) 0.25 K/uL (0-0.5); Eosinophils % (auto) 4.1 %; Hematocrit (blood only) 35.8 % (37-47); Hemoglobin 11.5 g/dL (12.0-16.0); Immature Granulocytes # (auto) 0.01 K/uL (0.00-0.02); Immature Granulocytes % (auto) 0.2 %; Lymphocytes # (auto) 2.75 K/uL (1.2-3.4); Lymphocytes % (auto) 45.1 %; Mean Corpuscular Hemoglobin 27.7 pg (25-34); Mean Corpuscular Hgb Conc 32.1 g/dL (32-36); Mean Corpuscular Volume 86.3 fL (80-100); Mean Platelet Volume 10.8 fL (7.4-10.4); Monocytes # (auto) 0.54 K/uL (0.11-0.59); Monocytes % (auto) 8.9 %; Neutrophils # (auto) 2.51 K/uL (1.4-6.5); Platelet Count 253 K/uL (130-400); RDW Coefficient of Variation 14.2 % (11.5-14.5); RDW Standard Deviation 44.5 fL (36.4-46.3); Red Blood Count 4.15 M/uL (4.2-5.4)
[2019-10-27] MEDS: TELMISARTAN 40 MG TAB PO SCH (07:29)
[2019-10-27] MEDS: FUROSEMIDE 40 MG TAB PO SCH (07:29)
[2019-10-27] MEDS: ASPIRIN 81 MG ECTAB PO SCH (07:29)
[2019-10-27] MEDS: CALCIUM 600MG + VIT D 400 IU TAB PO SCH (07:30)
[2019-10-27] MEDS: FLUTICASONE/VILANTEROL 200/25MCG 14 PUFFS/INHALER INH SCH (07:30)
[2019-10-27] MEDS: AMLODIPINE BESYLATE 5 MG TAB PO SCH (07:30)
[2019-10-27] MEDS: OMEGA-3 (PURIFIED FISH OIL) 1 GM CAP PO SCH (07:30)
[2019-10-27 07:59] LABS: BUN Creatinine Ratio 24.4 (10-20); Calcium 9.8 mg/dl (8.5-10.1); Creatinine Clr Calc Pharmacy 55.7 ml/min; Est GFR (African American) 67.3; Potassium 3.7 mmol/L (3.5-5.1)
--- NOTE | 2019-10-27 14:45 | Hospitalist Progress Note ---
Date of Service October 27, 2019 Assessment & Plan (1) Third degree AV block: Continue to hld coreg Troponins negative x 3 , patient has had no chest pain Echo showing moderate global hypokinesis of the left ventricle, moderate LVH, EF 35-40% which is reduced from last study in december Lyme negative, TSH elevated but T4 is normal NPO at midnight for pacemaker tomorrow morning, cardiology following (2) Near syncope: Reports she did not hit her head, no focal findings on exam, secondary to bradycardia (3) Dyslipidemia: continue home statin (4) Arthritis, multiple joint involvement: continue home meloxicam (5) Hypothyroidism: TSH was elevated but T4 was normal continue home synthroid (6) Asthma: continue home inhalers (7) HTN (hypertension): Improved Coreg held, continue home amlodipine prn hydralazine for sbp >185 or dbp >110 (8) Systolic CHF: continue home furosemide, hold home coreg Echo as above (9) DVT prophylaxis: SCDs, hold chemoprophylaxis for procedure tomorrow Admission and Anticipated Discharge Date Admission Date: October 25, 2019 Subjective Ms. Marquez feels well, no complaints ROS Constitutional: no chills, aches, sweats or fever Respiratory: no sob,cough, sputum, or wheezing Cardiac: no chest pain, palpitations, edema, orthopnea GI: no abdominal pain, nausea, vomiting, diarrhea or constipation : no dysuria or hesitancy Extremities: no joint pain or weakness Skin: no rash All other systems reviewed and negative Physical Exam Physical Exam: General: no distress Eyes: normal inspection, PERLL Respiratory: chest non tender, clear to auscultation, normal breath sounds, no respiratory distress, no accessory muscle use Cardiac: regular rate and rhythm, no rub or gallop, no murmur, no edema, no jvd GI/: active bowel sounds, no abd pain or tenderness, soft, non distended Extremities: normal range of motion, normal strength, non tender Neuro/Psych: alert and oriented x 3, normal mood and affect Skin: normal color, dry Results & Data ([facility]) Vital Signs (Past 12 Hours) Vital Signs Temp Pulse Resp BP Pulse Ox 10/27/19 11:54 36.8 C 67 18 132/73 95 10/27/19 07:24 36.7 C 61 16 143/80 H 94 10/27/19 04:06 36.7 C 58 L 16 137/67 92 PG Care Time/CCT Total # of Minutes Spent Total Time Spent with Patient: Total time spent is greater than 50% in coordination of care (as documented) at patient's floor/unit and/or counseling patient: Coding Level of Care Code 66989 Subseq Hosp Care Lvl 2 Diagnoses Third degree AV block I44.2 Near syncope R55 Dyslipidemia E78.5 Arthritis, multiple joint involvement M12.9 Hypothyroidism E03.9 Asthma J45.41 Asthma severity: moderate Asthma persistence: persistent Asthma complication type: with acute exacerbation HTN (hypertension) I10 Systolic CHF I50.20 DVT prophylaxis Z29.9 (1) Asthma Asthma severity: moderate Asthma persistence: persistent Asthma complication type: with acute exacerbation Qualified Code(s): J45.41 - Moderate persistent asthma with (acute) exacerbation
--- NOTE | 2019-10-27 16:56 | Cardiology Progress Note ---
Date of Service October 27, 2019 Assessment & Plan (1) Bradycardia: (2) Nonischemic cardiomyopathy: She has a longstanding nonischemic cardiomyopathy which had improved substantially with medical therapy but now with no change in her medical therapy has declined somewhat. The cause of the cardiomyopathy was never identified, it was nonischemic however she does have a longstanding left bundle branch block which could have been contributory. Her QRS complex is very prolonged now, her ejection fraction is slightly above 35% but declining and she has symptomatic bradycardia currently which is caused by second-degree AV block. She will most likely pace in the ventricle frequently since she has blocked premature atrial beats on her medical therapy (which includes beta-blockade which she will need over the long run). I recommended biventricular pacing. She currently does not qualify for an ICD (ejection fraction is not 35% or less) and she has a nonischemic cardiomyopathy and has done well for years and I suspect will improve with biventricular pacing and resumption of her heart failure medications therefore I would not recommend ICD implantation. She should be titrated to optimal doses of carvedilol if her pressure tolerates it, and perhaps Entresto if her insurance will cover it. I discussed biventricular pacemaker implantation with her and her family, last evening I discussed it with her daughter and this morning I discussed it with her son. I went to the indications, procedure, risks and alternatives. She is agreeable and consent was obtained. We also discussed sedation with her and she is agreeable. Consent obtained. We will plan on this procedure first thing tomorrow morning. (3) Left bundle branch block: She has a longstanding left bundle branch block which may be contributory to her cardiomyopathy. Her QRS is now 148 ms and she will likely do much better with resynchronization and narrowing of her complex. I have therefore recommended biventricular pacing. Admission and Anticipated Discharge Date Admission Date: October 25, 2019 Subjective She is feeling relatively well today, she is bored from being in the hospital but denies cardiac complaints. She has had no lightheadedness or dizziness. Physical Exam Physical Exam: Constitutional: Alert, cooperative and in no distress. HEENT: Unremarkable Neck: No jugular venous distention, carotid pulses are normal and equal bilaterally without bruits. Pulmonary: Clear to auscultation bilaterally. Cardiac: Regular slow rhythm with a soft holosystolic murmur at the apex, no gallop or rub. Abdomen: Soft, nontender with normal bowel sounds. Extremities: No edema. Distal pulses intact. Neurologic: No focal findings. Gait is steady. Skin: No rash, ecchymoses or petechiae. Results & Data ([facility]) Vital Signs (Past 12 Hours) Vital Signs Temp Pulse Resp BP Pulse Ox 10/27/19 14:53 36.5 C 63 18 131/69 95 10/27/19 11:54 36.8 C 67 18 132/73 95 10/27/19 07:24 36.7 C 61 16 143/80 H 94 Laboratory Results CBC 10/27/19 Range/Units 06:42 WBC 6.10 (4.8-10.8) K/uL RBC 4.15 L (4.2-5.4) M/uL Hgb 11.5 L (12.0-16.0) g/dL Hct 35.8 L (37-47) % Plt Count 253 (130-400) K/uL Neut # (Auto) 2.51 (1.4-6.5) K/uL Lymph # (Auto) 2.75 (1.2-3.4) K/uL [place] # (Auto) 0.54 (0.11-0.59) K/uL Eos # (Auto) 0.25 (0-0.5) K/uL Baso # (Auto) 0.04 (0-0.2) K/uL Comprehensive Metabolic Panel 10/27/19 Range/Units 06:42 Sodium 139 (136-145) mmol/L Potassium 3.7 (3.5-5.1) mmol/L Chloride 107 (98-107) mmol/L Carbon Dioxide 26 (21-32) mmol/L BUN 23 H (7-18) mg/dl Creatinine 0.93 (0.6-1.2) mg/dl Glucose 115 H (70-99) mg/dl Calcium 9.8 (8.5-10.1) mg/dl Intake and Output 10/27/19 10/27/19 10/27/19 06:59 14:59 22:59 Intake Total 515 / 515 Output Total 500 / 600 650 / 650 Balance -500 / -85 -135 / -135 Intake: Oral 515 / 515 Output: Urine 500 / 600 650 / 650 Other: Weight 73.5 kg Diagnostic Findings Telemetry: Sinus rhythm and sinus bradycardia, blocked premature atrial beats, periods of 2-1 AV block. Left bundle type IVCD throughout. PG Care Time/CCT Total # of Minutes Spent Total Time Spent with Patient: Total time spent is greater than 50% in coordination of care (as documented) at patient's floor/unit and/or counseling patient: Coding Level of Care Code 70840 Subseq Hosp Care Lvl 3 Diagnoses Bradycardia R00.1 Nonischemic cardiomyopathy I42.8 Left bundle branch block I44.7
[2019-10-27] MEDS: ATORVASTATIN 40 MG TAB PO SCH (20:13)
[2019-10-27] MEDS: MULTIVITAMIN TAB PO SCH (20:13)
[2019-10-28] MEDS: LEVOTHYROXINE SODIUM 25 MCG TABLET PO SCH (05:31)
[2019-10-28] MEDS ORDERED: CLINDAMYCIN 600 MG/54 ML BAG IV SCH (06:00)
[2019-10-28] MEDS ORDERED: LIDOCAINE HCL 1% 20 ML VIAL ONE (06:14)
[2019-10-28] MEDS ORDERED: CLINDAMYCIN PHOS 300 MG/2 ML VIAL ONE (07:23)
[2019-10-28] MEDS ORDERED: MIDAZOLAM HCL 5 MG/ML 1 ML VIAL ONE (07:24)
[2019-10-28] MEDS ORDERED: fentaNYL citrate 100 MCG/2 ML VIAL ONE (07:25)
--- NOTE | 2019-10-28 07:30 | Pre Anesthesia Assessment ---
Date of Service October 28, 2019 Pre Sedation Assessment Vital Signs Temp Pulse Pulse Pulse Resp BP BP 10/28/19 07:23 58 L 17 10/28/19 05:04 36.6 C 60 18 123/73 10/27/19 23:37 36.5 C 57 L 22 147/73 H 10/27/19 23:02 61 10/27/19 18:51 36.7 C 58 L 18 124/67 10/27/19 14:53 36.5 C 63 18 131/69 10/27/19 11:54 36.8 C 67 18 132/73 Pulse Ox 10/28/19 07:23 10/28/19 05:04 92 10/27/19 23:37 93 10/27/19 23:02 10/27/19 18:51 95 10/27/19 14:53 95 10/27/19 11:54 95 Cardiovascular RRR, no murmur, no edema Respiratory normal respiratory effort, lungs clear to auscultation Pre-Sedation Airway Assessment Smoking Status: Never smoker Hx Sleep Apnea: No Hx Difficult Intubation: No Short, Thick Neck: No Thyromental Distance: > or= 3.5 Finger Breadths Oral Cavity: + Dentures Mallampati Class: II ASA: ASA3 NPO Status Date of Last Intake of Fluids: 10/27/19 Date of Last Intake of Solid Food: 10/27/19 Procedure Planning Contraindications for Sedation: none Current Medications Reviewed: Yes Notes The planned sedation has been discussed with the patient. Informed Consent was obtained. I have identified the patient, determined the appropriateness of sedation and have assessed the patient immediately prior to the procedure. All medicine(s) and interventions are by my order.
[2019-10-28] MEDS ORDERED: BACITRACIN OINT 0.9 GM PKT ONE (09:00)
[2019-10-28] MEDS ORDERED: ACETAMINOPHEN W/CODEINE #3 1 TAB PO PRN (09:20)
--- NOTE | 2019-10-28 09:20 | Electrophysiology Report ---
Date of Service October 28, 2019 Electrophysiology Procedure Electrophysiology Procedure Report Preoperative diagnosis: AV block with bradycardia, left bundle branch block, nonischemic cardiomyopathy Postoperative diagnosis: Same Procedure: 1. Left subclavian venogram 2. Atrial and ventricular lead implantation 3. Coronary sinus angiogram 4. Coronary sinus (LV) lead implantation 5. Biventricular pacemaker implantation Surgeon: Domingo Paula MD Estimated blood loss: 20 cc Complications: None Disposition: Manifest Clerk recovery Procedure details: After obtaining informed consent for the procedure, the patient was brought to the laboratory and prepped and draped in the standard sterile manner. The left prepectoral region was anesthetized with 1% lidocaine local anesthetic and dye was injected the left arm IV site to opacify the left subclavian vein. The subclavian vein was identified and found to be free of obstruction. Left axillary venipuncture was performed by percutaneous technique and a guidewire placed through the left subclavian vein into the superior vena cava. The area was further infiltrated with 1% lidocaine local anesthetic and a 5 cm incision was made parallel to the left clavicle and 2 cm below it and carried down to the anterior pectoralis fascia. A pacemaker pocket was formed by blunt dissection anterior to the pectoralis fascia and a bacitracin-soaked sponge (50,000 units in 50 cc normal saline solution) was placed in the pocket. An 8 Turkish Medtronic lead introducer was placed over the guidewire into the left subclavian vein, the dilator and guidewire were removed and a bipolar active fixation steroid tipped ventricular pacemaker lead was advanced through the introducer into the superior vena cava. A guidewire was placed through the introducer and the introducer was stripped from the lead and guidewire. An 8 Turkish Medtronic lead introducer was placed over the guidewire into the left subclavian vein, the dilator and guidewire were removed and a bipolar active fixation steroid tipped atrial lead was advanced through the introducer into the superior vena cava. A guidewire was placed back through the introducer and the introducer was stripped from the lead and guidewire. Using a curved stylette the ventricular lead was advanced through the right ventricular outflow tract into the pulmonary artery and then using a straight stylette was positioned in the right ventricular apex. The screw was extended fixing the lead in position. Pacing and sensing thresholds were evaluated in bipolar configuration and are recorded on the implant data sheet. Diaphragmatic pacing was evaluated at maximum bipolar output as indicated on the data sheet. Using a curved stylette the atrial lead was positioned in the region of the atrial appendage and the screw extended fixing the lead in position. Pacing and sensing thresholds were evaluated in bipolar configuration and are recorded on the implant data sheet. Diaphragmatic pacing was evaluated at a maximum bipolar output as indicated on the data sheet. Once the leads were in position they were attached to the anterior pectoralis fascia using 1 suture of 2-0 silk around each lead collar. The short guidewire was exchanged for a long guidewire and a Malin coronary sinus sheath was advanced to position in the right atrium. The curved obturator was placed through the sheath and using a right angle inner guide catheter and x-ray dye the os of the coronary sinus was identified. A guidewire was placed through the introducer into the coronary sinus and the inner guiding catheter and Malin sheath was advanced into the coronary sinus. X-ray dye was injected in various projections to obtain a coronary sinus angiogram and a subselective venogram of the target vessel. A good vessel was identified and a 0.014 inch guidewire was advanced into this vessel. A quadripolar coronary sinus catheter was advanced over the guidewire into good distal position. The left ventricular pacing threshold was evaluated in various configurations, as recorded on the implant data sheet. Diaphragmatic pacing was evaluated at maximum output, as indicated on the data sheet. Once this lead was in position the introducer system was removed from the lead and the lead was attached to the anterior pectoral fascia using 2 sutures of 2-0 silk around the lead collar. An additional suture of 2-0 silk was placed around each of the atrial and ventricular lead collars as well. The bacitracin-soaked sponge was removed from the pocket, hemostasis was obtained, the pacemaker was attached to the leads and placed in the pocket with the leads coiled beneath it. The incision was closed with a running double subcutaneous closure of 3-0 Vicryl absorbable suture, followed by running subcuticular skin closure of 4-0 Vicryl absorbable suture. Bacitracin ointment was placed on the incision and a pressure dressing applied. [facility] [place] Electrophysiology codes Indication for Procedure (1) Bradycardia: (2) Nonischemic cardiomyopathy: (3) Left bundle branch block: Pacing Procedure 1: Pacin Insert/Replace Pacer A & V Procedure 2: Pacin BiV electrode w/Pacer / ICD implant, add on code Miscellaneous Procedures Procedure 1: EP Miscellaneous: 41794 Contrast injection for venography Procedure 2: EP Miscellaneous: 67019-25 Vengraphy, extremity Procedure 3: EP Miscellaneous: 37063-68 Venography, CS supevsion/interp PG Moderate Sedation Codes Moderate Sedation Codes Procedure 1: Sedation/Anesthesia: 71533 Mod Sedation by the same physician;Init15 Min Child Age 5 & Up Procedure 2: Sedation/Anesthesia: 74418 Mod Sedation by the same physician; Ea [id number] Minutes Procedure 3: Sedation/Anesthesia: 08304 Mod Sedation by the same physician; Ea [id number] Minutes (Total sedation duration 89 minutes)
[2019-10-28] MEDS: CALCIUM 600MG + VIT D 400 IU TAB PO SCH (09:54)
[2019-10-28] MEDS: LACTATED RINGER'S 1,000 ML IV SCH (09:55)
[2019-10-28] MEDS: FUROSEMIDE 40 MG TAB PO SCH (09:56)
[2019-10-28] MEDS: TELMISARTAN 40 MG TAB PO SCH (09:56)
[2019-10-28] MEDS: OMEGA-3 (PURIFIED FISH OIL) 1 GM CAP PO SCH (09:57)
[2019-10-28] MEDS: ASPIRIN 81 MG ECTAB PO SCH (09:57)
[2019-10-28] MEDS: FLUTICASONE/VILANTEROL 200/25MCG 14 PUFFS/INHALER INH SCH (10:00)
[2019-10-28] MEDS: AMLODIPINE BESYLATE 5 MG TAB PO SCH (10:01)
[2019-10-28] MEDS: carvediloL 12.5 MG TAB PO SCH ×2 (10:07→20:44)
--- NOTE | 2019-10-28 10:46 | Post Anesthesia Assessment ---
Date of Service October 28, 2019 Post Sedation Assessment Vital Signs Temp Pulse Pulse Pulse Resp BP BP 10/28/19 09:45 36.4 C L 80 16 144/98 H 10/28/19 09:30 60 16 145/74 H 10/28/19 09:15 64 16 147/72 H 10/28/19 07:23 58 L 17 10/28/19 05:04 36.6 C 60 18 123/73 10/27/19 23:37 36.5 C 57 L 22 147/73 H 10/27/19 23:02 61 10/27/19 18:51 36.7 C 58 L 18 124/67 10/27/19 14:53 36.5 C 63 18 131/69 10/27/19 11:54 36.8 C 67 18 132/73 Pulse Ox 10/28/19 09:45 96 10/28/19 09:30 95 10/28/19 09:15 94 10/28/19 07:23 10/28/19 05:04 92 10/27/19 23:37 93 10/27/19 23:02 10/27/19 18:51 95 10/27/19 14:53 95 10/27/19 11:54 95 Recovery Score Activity: Moves 4 extremities Respiration: Deep Breath/Cough Circulation: +/-20% PreAnes Value Consciousness: Fully Awake Oxygen Saturation: > 92% On Room Air Post Anesthesia Score: 10 Discharge Sedation Level of Care: Fast Track Phase II Post Sedation Plan On clinical assessment, the patient appears to have tolerated the sedation without complications. Patient is recovering as anticipated. Patient will continue to be monitored by nursing and may be discharged when sedation discharge criteria are met per below protocol. Upon Completions of procedure up to 15 minutes continue every 5 minute vital signs and the P.A.R. score; then discharge to a Phase I or Fast Track to Phase II per the following guidelines: * Discharge Patient to appropriate Phase II area if PAR is 8 or greater or return to pre- procedure baseline. The post - procedure orders will be as directed. * If PAR score is less than 8 or not return to pre-procedure baseline then patient will follow Phase I monitoring till PAR is reached for Phase II. The Phase I may be done in procedure room or may call to secure a Phase I area. * If naloxone or flumazenil are used for reversal, hold in Phase I for continued monitoring from when last reversal dose was given for a minimum of 60 minutes or longer pending the nurse and/or physician discretion of patient condition before discharge to Phase II. Please call the Sedation Physician to re-evaluate and complete post-note for discharge to Phase II area. Do NOT discharge from procedure sedation or Phase 1 until post- sedation evaluation note is complete by procedure /sedation MD Sedation Discharge Instructions to be given to the patient at discharge to home.
--- NOTE | 2019-10-28 16:32 | Hospitalist Progress Note ---
Date of Service October 28, 2019 Assessment & Plan (1) Bradycardia: Presented with syncope and near syncope, with marked sinus bradycardia with blocked PACs on ECG with rates into the 30s--> initially thought ot have 3rd degree heart block but Cardiology does not think this. Has had some 2:1 AV node block Trop neg x 3, no chest pain Echo showing moderate global hypokinesis of the left ventricle, moderate LVH, EF 35-40% which is reduced from last study in december Lyme negative, TSH elevated but T4 is normal Was admitted and Coreg held but this is necessary given her nonischemic CM -now s/p PPM on 10/28/19, doing well post-op--> given post-op LUE restrictions and sling to remind her not to use it above head/behind back etc. -restart Coreg -check CXR in the AM Appreciate Cardiology management -follow on tele -T#3 or APAP for pain -check CBC, BMP in the AM (2) Near syncope: Reports she did not hit her head, no focal findings on exam, secondary to bradycardia as above Now resolved (3) Dyslipidemia: continue home atorvastatin (4) Arthritis, multiple joint involvement: continue home meloxicam (5) Hypothyroidism: TSH was elevated but T4 was normal continue home synthroid -repeat TFTs in 4 weeks with PCP (6) Asthma: No acute exacerbation continue Singulair and albuterol prn (7) HTN (hypertension): Improved Restart Coreg which was held for bradycardia, continue home amlodipine and telmisartan prn hydralazine for sbp >185 or dbp >110 (8) Systolic CHF: CHronic systolic CHF, nonischemic CM, diagnosed many years ago and had normal cath at that time LBBB may be contributing as per Cardio Echo as above -Weight is down since admission, not volume overloaded now -continue home furosemide, restart coreg, continue telmisartan -daily weights, I/Os strict, added low sodium diet Not a candidate for ICD (9) DVT prophylaxis: SCDs, held chemoprophylaxis for procedure Dispo-remain on PCU and likely dc to home on Friday if pacer functioning well, CXR normal Admission and Anticipated Discharge Date Admission Date: October 25, 2019 Anticipated date of discharge: 10/29/19 Subjective Feeling well after pacer placement this AM. Thinks she will have trouble remembering not to use her Left arm and is agreeable to wearing a sling. Denies any pain at the site, no SOB, not lightheaded, has ambulated to the BR. No nausea or vomiting. Denies abd pain and is moving her bowels. Tele with paced rhythm since pacer placement Review of Systems Review of Systems: All systems reviewed & are unremarkable except as noted in HPI & below Physical Exam Constitutional: WD/WN, vitals as above Eyes: PERRL, conjunctivae normal, anicteric sclerae ENMT: external ear and nose normal, oropharynx normal Neck: trachea midline, no thyromegaly Respiratory: normal respiratory effort, lungs clear to auscultation Cardiovascular: RRR, no murmur, no edema Chest (Breasts): Chest: normal inspection of chest Gastrointestinal (Abdomen): normal bowel sounds, soft, nontender, no hepatosplenomegaly Musculoskeletal: Extremities: extremities normal to inspection; no cyanosis and no clubbing Skin: no rashes, warm and dry Neurologic: moves all extremities and awake; no focal motor deficits Psychiatric: A+Ox3, euthymic affect Lymphatic: no lymphedema Results & Data ([facility]) Vital Signs (Past 12 Hours) Vital Signs Temp Pulse Pulse Resp BP BP Pulse Ox 10/28/19 15:21 36.6 C 64 16 127/75 91 10/28/19 12:00 60 16 97/54 L 95 10/28/19 11:30 36.5 C 60 16 94/55 L 94 10/28/19 11:00 62 16 90/47 L 94 10/28/19 10:30 60 16 100/67 96 10/28/19 10:15 60 16 136/76 94 10/28/19 10:00 60 16 133/77 93 10/28/19 09:45 36.4 C L 80 16 144/98 H 96 10/28/19 09:30 60 16 145/74 H 95 10/28/19 09:15 64 16 147/72 H 94 10/28/19 07:23 58 L 17 10/28/19 05:04 36.6 C 60 18 123/73 92 Laboratory Results no labs today PG Care Time/CCT Total # of Minutes Spent Total Time Spent with Patient: Total time spent is greater than 50% in coordination of care (as documented) at patient's floor/unit and/or counseling patient: Coding Level of Care Code 52256 Subseq Hosp Care Lvl 3 Diagnoses Bradycardia R00.1 Near syncope R55 Dyslipidemia E78.5 Arthritis, multiple joint involvement M12.9 Hypothyroidism E03.9 Asthma J45.41 Asthma severity: moderate Asthma persistence: persistent Asthma complication type: with acute exacerbation HTN (hypertension) I10 Systolic CHF I50.20 DVT prophylaxis Z29.9 (1) Asthma Asthma severity: moderate Asthma persistence: persistent Asthma complication type: with acute exacerbation Qualified Code(s): J45.41 - Moderate persistent asthma with (acute) exacerbation
[2019-10-28] MEDS: ACETAMINOPHEN 325 MG TAB PO PRN (18:08)
[2019-10-28] MEDS: ATORVASTATIN 40 MG TAB PO SCH (20:44)
[2019-10-28] MEDS: MULTIVITAMIN TAB PO SCH (20:44)
--- NOTE | 2019-10-28 21:29 | Electrocardiogram Report ---
Test Reason : Blood Pressure : / mmHG Vent. Rate : 059 BPM Atrial Rate : 059 BPM P-R Int : 178 ms QRS Dur : 142 ms QT Int : 506 ms P-R-T Axes : 000 212 -42 degrees QTc Int : 500 ms Suspect arm lead reversal, interpretation assumes no reversal Atrial-paced rhythm Right bundle branch block Lateral infarct , age undetermined Inferior infarct , age undetermined Abnormal ECG When compared with ECG of 25-OCT-2019 15:44, Electronic atrial pacemaker has replaced Sinus rhythm Right bundle branch block has replaced Left bundle branch block Lateral infarct is now Present Inferior infarct is now Present Confirmed by Abisai Solano ([id number]) on 10/28/2019 9:29:00 PM Referred By: REFERRED SELF Confirmed By:Abisai Solano
[2019-10-29] MEDS: LACTATED RINGER'S 1,000 ML IV SCH (03:39)
[2019-10-29] MEDS: LEVOTHYROXINE SODIUM 25 MCG TABLET PO SCH (05:40)
[2019-10-29 06:22] LABS: Hemoglobin 11.2 g/dL (12.0-16.0); Mean Corpuscular Hemoglobin 28.4 pg (25-34); Mean Corpuscular Volume 88.6 fL (80-100); Mean Platelet Volume 10.7 fL (7.4-10.4); Platelet Count 201 K/uL (130-400); RDW Coefficient of Variation 14.4 % (11.5-14.5); RDW Standard Deviation 47.4 fL (36.4-46.3); Red Blood Count 3.95 M/uL (4.2-5.4); White Blood Count 7.96 K/uL (4.8-10.8)
[2019-10-29 06:53] LABS: BUN Creatinine Ratio 28.7 (10-20); Calcium 9.1 mg/dl (8.5-10.1); Creatinine Clr Calc Pharmacy 47.4 ml/min; Est GFR (African American) 56.1; Est GFR (Non-African American) 48.4
--- NOTE | 2019-10-29 07:21 | XRay Report ---
XR chest 2V PA/lateral CLINICAL HISTORY: 79 years-old Female presenting with EXACT TIME ORDERED Evaluate for pneumothorax an d l. TECHNIQUE: PA and lateral views of the chest were obtained. COMPARISON: 10/25/2019. FINDINGS: Left subclavian pacer with leads to the right atrium, right ventricular apex, and coronary sinus. Ath erosclerosis of the aortic arch. Lungs and pleural spaces clear. Degenerative changes of the thoracic spine. Cholecystectomy clips noted. IMPRESSION: 1. No acute cardiopulmonary disease. ACT 112: Negative or not required by law. Results electronically sent 10/29/2019 7:20 AM to: Domingo Paula MD Electronically signed by: Sunny Arreaga M.D. 10/29/2019 7:20 AM
[2019-10-29] MEDS: ACETAMINOPHEN 325 MG TAB PO PRN (07:33)
[2019-10-29] MEDS: ASPIRIN 81 MG ECTAB PO SCH (08:01)
[2019-10-29] MEDS: carvediloL 12.5 MG TAB PO SCH (08:01)
[2019-10-29] MEDS: AMLODIPINE BESYLATE 5 MG TAB PO SCH (08:02)
[2019-10-29] MEDS: OMEGA-3 (PURIFIED FISH OIL) 1 GM CAP PO SCH (08:02)
[2019-10-29] MEDS: FLUTICASONE/VILANTEROL 200/25MCG 14 PUFFS/INHALER INH SCH (08:02)
[2019-10-29] MEDS: CALCIUM 600MG + VIT D 400 IU TAB PO SCH (08:02)
[2019-10-29] MEDS: FUROSEMIDE 40 MG TAB PO SCH (08:02)
[2019-10-29] MEDS: TELMISARTAN 40 MG TAB PO SCH (08:02)
--- NOTE | 2019-10-29 08:58 | Cardiology Progress Note ---
Date of Service October 29, 2019 Assessment & Plan (1) Bradycardia: (2) Nonischemic cardiomyopathy: She has a longstanding nonischemic cardiomyopathy which had improved substantially with medical therapy but now with no change in her medical therapy has declined somewhat. The cause of the cardiomyopathy was never identified, it was nonischemic however she does have a longstanding left bundle branch block which could have been contributory. Her QRS complex is very prolonged now, her ejection fraction is slightly above 35% but declining and she has symptomatic bradycardia currently which is caused by second-degree AV block. She will most likely pace in the ventricle frequently since she has blocked premature atrial beats on her medical therapy (which includes beta-blockade which she will need over the long run). I recommended biventricular pacing. She currently does not qualify for an ICD (ejection fraction is not 35% or less) and she has a nonischemic cardiomyopathy and has done well for years and I suspect will improve with biventricular pacing and resumption of her heart failure medications therefore I would not recommend ICD implantation. She should be titrated to optimal doses of carvedilol if her pressure tolerates it, and perhaps Entresto if her insurance will cover it. I will try to do this as an outpatient, I do not think we should do it now immediately postop. (3) Left bundle branch block: She has a longstanding left bundle branch block which may be contributory to her cardiomyopathy. Her QRS was 148 ms and she will likely do much better with resynchronization and narrowing of her complex. We did have good lead position although the QRS did not narrow a lot but that is not necessarily a sign of success. (4) Status post placement of cardiac pacemaker: Patient is doing well postop day #1, the x-ray looks good, the site looks good and the device is working well on testing and on telemetry. She is stable for discharge from my standpoint. I am going to place discharge instructions in her discharge papers, we should follow her up on Friday for an incision check and I will arrange that. Admission and Anticipated Discharge Date Admission Date: October 25, 2019 Anticipated date of discharge: 10/29/19 Subjective She is feeling well today postop day #1, she does not have incisional discomfort, she is not short of breath and has no chest discomfort. Physical Exam Physical Exam: The pacemaker incision looks clean and dry, no ecchymosis, no swelling or erythema Results & Data ([facility]) Vital Signs (Past 12 Hours) Vital Signs Temp Pulse Pulse Resp BP Pulse Ox 10/29/19 08:00 60 10/29/19 07:37 36.6 C 64 18 132/65 92 10/29/19 03:06 36.5 C 80 16 131/71 92 10/28/19 23:31 36.7 C 63 18 164/69 H 93 10/28/19 23:15 59 L Diagnostic Findings Postop ECG: Appropriate biventricular pacing Chest x-ray: Good lead position, no pneumothorax Telemetry: Normal pacemaker function Pacer evaluation: Excellent pacing and sensing characteristics PG Care Time/CCT Total # of Minutes Spent Total Time Spent with Patient: Total time spent is greater than 50% in coordination of care (as documented) at patient's floor/unit and/or counseling patient: Coding Level of Care Code 53695 Post Operative Follow-Up Diagnoses Bradycardia R00.1 Nonischemic cardiomyopathy I42.8 Left bundle branch block I44.7 Status post placement of cardiac pacemaker Z95.0 CPT Codes Pacemaker Multi Lead Programming - 95294 ([id number])
[2019-10-29 11:32] VITALS: TEMP 98.1; O2SAT 94
[2019-10-29 12:08] VITALS: PULSE 60
--- NOTE | 2019-10-29 13:05 | Discharge Summary ---
Date of Service October 29, 2019 Principal Diagnosis Bradycardia requiring pacemaker Discharge Exam Constitutional WD/WN, vitals as above Eyes EOM intact bilaterally; no conjunctival abnormality ENMT external ear and nose normal, oropharynx normal Neck trachea midline, no thyromegaly normal visual inspection Respiratory normal respiratory effort, lungs clear to auscultation no respiratory distress Cardiovascular RRR, no murmur, no edema Chest (Breasts) Chest: + pacemaker (Clean site) Gastrointestinal (Abdomen) Inspection/Auscultation: abdomen normal to inspection; abdomen not distended Musculoskeletal no cyanosis or clubbing, extremities motor strength 5/5 Skin no rashes, warm and dry Neurologic moves all extremities and awake Psychiatric Orientation: alert, oriented to person and cooperative Discharge Data Allergies Allergy/AdvReac Type Severity Reaction Status Date / Time Penicillins Allergy Intermediate FACIAL Verified 10/07/19 13:18 ERYTHEMA Consultations 10/25/19 16:25 ED Decision to Admit Stat 10/25/19 19:46 Consult Cardiology Routine Consult Case Management - Discharge Planning Routine Procedures Performed Operation Date: 10/28/19 07:00 Actual Procedures p ICD Insertion Single or Dual - Domingo Paula MD s Lead LV (No Priopr Implant) - Domingo Paula MD s Venogram, Unilateral - Domingo Paula MD Ordered Studies 10/28/19 06:30 EP Lab Images for PACS ONCE Hospital Course (1) Bradycardia: Presented with syncope and near syncope, with marked sinus bradycardia with blocked PACs on ECG with rates into the 30s. - S/p pacemaker with Dr. Santos. Will follow up in clinic. (2) Near syncope: Reports she did not hit her head, no focal findings on exam, secondary to bradycardia as above Now resolved (3) Dyslipidemia: continue home atorvastatin (4) Arthritis, multiple joint involvement: continue home meloxicam (5) Hypothyroidism: TSH was elevated but T4 was normal. continue home synthroid -repeat TFTs in 4 weeks with PCP (6) Asthma: No acute exacerbation continue Singulair and albuterol prn (7) HTN (hypertension): - Restart Coreg which was held for bradycardia, continue home amlodipine and telmisartan. (8) Systolic CHF: CHronic systolic CHF, nonischemic CM, diagnosed many years ago and had normal cath at that time. LBBB may be contributing as per cardio. - Continue home furosemide, restart coreg, continue telmisartan (9) DVT prophylaxis: SCDs, held chemoprophylaxis for procedure Total Time Total Time Spent Total Time Spent (In Minutes): 35 Discharge Plan Discharge Items Patient Disposition: Home - Home Health Services Reason For Visit: BRADYCARDIA Discharge Diagnosis: Bradycardia (slow heart rate) Activity: Resume your previous activity Lifting: None Lifting Comment: No lifting in left arm until cleared by Dr. Paula. Non-emergency contact: Primary Care Provider and Floral Designer Salesperson Call non-emergency contact if: your symptoms worsen, your pain is worsening and your temperature is above 101 Follow-up/Referrals: Sunny Moraes MD [Primary Care Provider] - Domingo Paula MD [Physician] - 11/01/19 10:30 am Diet: Heart Healthy Addtl Attending Provider Instructions: ACTIVITY RECOMMENDATIONS: * Do not raise affected arm over head for 2 weeks. SPECIAL CARE INSTRUCTIONS: * If bleeding occurs, apply direct pressure to area for 5 minutes. * Call your doctor if you have severe pain, fever, drainage or bleeding at site. * Keep dressing on and dry for 48 hours then remove. * Keep any scheduled doctor's appointment. * Implant Card - hand held device with website information given. SKIN IRRITATION: * You may experience some redness and/or swelling in the area where radiation was administered. If any skin irritation occurs, please contact your family physician. FOLLOW UP VISIT: Keep any scheduled doctor appointments. Pending Studies at Discharge: No Stand-Alone Forms: My [employer], Smoking Cessation Medications and DC Order Prescriptions: Continued furosemide 40 mg tablet 40 mg PO DAILY Qty: 90 RF: 3 atorvastatin 80 mg tablet 80 mg PO HS Qty: 90 RF: 3 amlodipine 2.5 mg tablet 2.5 mg PO DAILY RF: 0 aspirin [Adult Low Dose Aspirin] 81 mg tablet,delayed release (DR/EC) 81 mg PO DAILY RF: 0 calcium carbonate-vitamin D3 500mg (1,250mg) -600 unit tablet 1 tab PO DAILY RF: 0 carvedilol 12.5 mg tablet 12.5 mg PO BID RF: 0 omega-3 fatty acids [Fish Oil Concentrate] 1,000 mg capsule 1,000 mg PO DAILY RF: 0 ipratropium-albuterol 0.5 mg-3 mg(2.5 mg base)/3 mL solution for nebulization 3 ml INH Q4H PRN (Reason: Shortness Of Breath Or Wheezing) RF: 0 multivitamin tablet 1 tab PO HS RF: 0 albuterol sulfate [Ventolin HFA] 90 mcg/actuation HFA aerosol inhaler 1 puffs INH Q6H PRN (Reason: Shortness Of Breath Or Wheezing) RF: 0 Symbicort 160-4.5 mcg/actuation HFA aerosol inhaler 2 puffs INH BID Qty: 10.2 RF: 6 levothyroxine 25 mcg tablet 25 mcg PO QAM RF: 0 Discharge Orders: Discharge Order (Routine); Ordered 10/29/19 Ordered By: Clay Stewart Admission Data Admit Date/Time: 10/25/19 17:18 Attending Provider: Clay Stewart Admit Provider: Clay Stewart Primary Care Provider: Sunny Moraes Other Providers: Eron Mace ; Clay Stewart Coding Level of Care Code D/C Day Management >30 mins Diagnoses Bradycardia R00.1 Near syncope R55 Dyslipidemia E78.5 Arthritis, multiple joint involvement M12.9 Hypothyroidism E03.9 Asthma J45.41 Asthma severity: moderate Asthma persistence: persistent Asthma complication type: with acute exacerbation HTN (hypertension) I10 Systolic CHF I50.20 DVT prophylaxis Z29.9
[2019-10-29 15:00] VITALS: BP 123/73
== END 2019-10-29 16:20 | disposition home or self-care (01) | DRG 243 ==
LOC: ED 14:40 → SUATTDRO 17:18 → 2S 17:18
PROC: EPB.ICD (2019-10-28 07:00)

== ENCOUNTER 2022-06-23 20:02 | Inpatient (IN) ==
[2022-06-23 21:53] LABS: Basophils # (auto) 0.03 K/uL (0-0.2); Basophils % (auto) 0.3 %; Eosinophils # (auto) 0.12 K/uL (0-0.50); Eosinophils % (auto) 1.2 %; Hematocrit (blood only) 31.7 % (34.1-44.9); Hemoglobin 10.6 g/dl (12.0-16.0); Immature Granulocytes # (auto) 0.05 K/uL (0.00-0.02); Immature Granulocytes % (auto) 0.5 %; Lymphocytes # (auto) 1.67 K/uL (1.2-3.4); Lymphocytes % (auto) 16.7 %; Mean Corpuscular Hemoglobin 30.8 pg (25.0-34.0); Mean Corpuscular Hgb Conc 33.4 g/dL (32.0-36.0); Mean Corpuscular Volume 92.2 fL (80.0-100.0); Mean Platelet Volume 10.6 fL (9.4-12.3); Monocytes # (auto) 0.94 K/uL (0.24-0.82); Monocytes % (auto) 9.4 %; Neutrophils # (auto) 7.17 K/uL (1.4-6.5); Neutrophils % (auto) 71.9 %; Platelet Count 186 K/uL (130-400); RDW Coefficient of Variation 14.1 % (11.5-14.5); RDW Standard Deviation 47.8 fL (36.4-46.3); Red Blood Count 3.44 M/uL (3.93-5.22); White Blood Count 9.98 K/ul (4.8-10.8)
[2022-06-23] MEDS ORDERED: SODIUM CHLORIDE 0.9% 1000ML 1,000 ML IV STA (21:59)
[2022-06-23] MEDS ORDERED: cefTRIAXone SODIUM 2,000 MG/70 ML BAG IV STA (22:14)
[2022-06-23 22:15] LABS: Alanine Aminotransferase 25 U/L (7-52); Albumin Globulin Ratio 1.2 (0.9-2); Albumin Level 3.7 gm/dl (3.4-5.0); Alkaline Phosphatase 64 U/L (34-104); Anion Gap 8 (3-11); Aspartate Aminotransferase 22 U/L (13-39); BUN Creatinine Ratio 25.8 (10-20); Bilirubin,Total 1.3 mg/dl (0.2-1.0); Blood Urea Nitrogen 24 mg/dl (6-23); Calcium 9.5 mg/dl (8.5-10.1); Carbon Dioxide 27 mmol/L (21-32); Chloride 101 mmol/L (98-107); Est GFR (African American) 65.9 ml/min; Est GFR (Non-African American) 56.8 ml/min; Globulin 3.2 gm/dl (2.5-4.0); Glucose 137 mg/dl (70-99(Fasting)); Potassium 3.8 mmol/L (3.5-5.1); Sodium 136 mmol/L (136-145); Total Protein 6.9 gm/dl (6.0-8.3)
--- NOTE | 2022-06-23 23:14 | Emergency Department Note ---
Impression & Plan Closed pelvic fracture, Acute UTI (urinary tract infection), Fall ED Provider Note INFORMANT: Patient and family ED PROVIDER(S): Aniket Bell MD CHIEF COMPLAINT: Low back pain PLAN: Disposition: Admitted Condition: Good Outpatient prescription management: none Referral: None MEDICAL DECISION MAKING: Patient presented because of worsening back pain. CT imaging was performed. Blood work was obtained as well. Patient has an unremarkable lumbar spine except for degenerative changes. CT of the pelvis reveals pelvic fracture. This would explain the patient's pain. On reassessment the patient was comfortable with good pain control while she was resting in bed. Patient nargis koroma received IV Rocephin for her UTI. Discussed treatment options with family and they are in agreement with inpatient evaluation. Patient paced rhythm on ECG. Chest x-ray revealed chronic findings without any acute disease. Patient will require some mild supplemental oxygen. Not sure if this was related to tramadol use. Patient has no respiratory symptoms. Patient responded well to small amount of nasal cannula oxygen. Consultation was made with Dr. Erick Nunez of the [facility] service. Patient was evaluated in the ER for further management. Triage Nursing notes reviewed and agree them. Vital Signs: reviewed and remarkable for mild hypoxia Differential diagnosis: Musculoskeletal, disc herniation, fracture, metastatic disease, cord compression, discitis, sciatica, cauda equina, infection, aortic disease, renal colic, gastrointestinal, pulmonary sources, cardiac etiology, as well as other pathologies. Diagnostics interpreted by me: ECG: Twelve-lead ECG reveals a paced rhythm at [address] elevation. Cardiac Monitoring: Cardiac monitoring ordered by me: The patient was placed on continuous cardiac monitoring and observed. It revealed a paced rhythm at 88 bpm. Imaging studies: Chest x-ray. Findings: A chest x-ray was performed and revealed no pneumothorax, effusion, infiltrate, pulmonary edema, free air under the diaphragm, or wide mediastinum. Impression: No acute disease. CT scans of the lumbar spine and pelvis as noted above. HPI: The patient is a 82year old female who presents to the Emergency Room with complaints of increasing back pain in the pelvic region. Patient was just in the emergency department after having back pain and a fall. Fall occurred earlier this week. X-ray imaging of the lumbar spine was negative for degenerative changes. She was found to have a UTI. She was given IV Rocephin and prescribed Keflex. Family states despite tramadol she had increased pain shortly after arriving home and was brought back to the ER. Current pain is rated as 5/10. Pt denies LOC, headache, fevers, chills, diaphoresis, visual changes, neck pain, chest pain, breathing difficulties, nausea, vomiting, abdominal pain, melena, hematochezia, numbness, weakness, lymphadenopathy, rash, or other complaints. ROS: See above HPI for pertinent positives & negatives. A total of 10 systems reviewed and were otherwise negative. PAST MEDICAL HISTORY:See Below , CKD PAST SURGICAL HISTORY:See Below, pacemaker FAMILY HISTORY:See Below SOCIAL HISTORY:See Below, lives alone HOME MEDICATIONS:See Below ALLERGIES:See Below VITALS:See Below PHYSICAL EXAMINATION: GENERAL: Awake, alert, nontoxic-appearing, in no distress HENT: Normocephalic, atraumatic. Oropharynx unremarkable. EYES: Normal conjunctiva. Sclera non-icteric. NECK: Inspection normal. Non-tender. Supple. No nuchal rigidity. FROM. No masses. RESPIRATORY: Clear to auscultation. No wheezes. No rales. Normal respiratory effort. CARDIAC: Normal rate. Normal rhythm. No murmurs. No rubs. Extremities warm and well perfused. Pulses equal. No JVD. GI: Soft, non-distended. No tenderness to palpation. No rebound or guarding. No masses. RECTAL: Deferred. MUSCULOSKELETAL: Atraumatic. Chest examination reveals no tenderness. The back is symmetrical on inspection without obvious abnormality. There is no CVA tenderness to palpation. No joint edema. Pelvic examination reveals tenderness in the area of the sacrum. No pelvic instability. Hips are nontender with good range of motion. LOWER EXTREMITIES: Calves are equal size bilaterally and non-tender. No edema. No discoloration. NEURO: Normal sensorium. No sensory or motor deficits noted. SKIN: No rash or jaundice noted. Aniket Bell MD Past Med/Surg History Medical History (Updated 06/23/22 @ 23:14 by Aniket Bell MD) Allergic rhinitis Arthritis, multiple joint involvement Asthma inhaler daily/prn, nebulizer prn Asthma Bradycardia Chronic back pain Dyslipidemia GERD (gastroesophageal reflux disease) HTN (hypertension) Hypothyroidism IPMN (intraductal papillary mucinous neoplasm) Left bundle branch block Low back pain Near syncope Nonischemic cardiomyopathy Pancreatic cyst Poor historian Pulmonary hypertension Secondary pulmonary hypertension Systolic CHF TIA (transient ischemic attack) unsure how long ago--reason for xarelto ?? Surgical History History of cholecystectomy History of tooth extraction all teeth History of total knee arthroplasty 2008-left Dr. Cash Status post placement of cardiac pacemaker meditronic placed 10/28/2019 @ [facility] Family History Brother Coronary heart disease Myocardial infarction Lung cancer Cancer Father Diabetes Mother Diabetes Sister Diabetes Kidney disease Breast cancer Hypertension Other Congestive heart failure Heart disease No family history of adverse response to anesthesia Denies family history of Ovarian cancer Prostate cancer Stroke Social History Smoking Status: Never smoker Second Hand Exposure: No; Hx Alcohol Use: No Hx Substance Use: No Preferred Language: [place] Communication Ability: Effective Visual Impairment: Partially Limited Hearing Ability: Normal Card Puncher Required: No Beliefs That Will Affect Care: None marital status: / Current Living Situation: Alone current occupational status: retired How many Children do You have: 4 Feels Safe at Home: Yes Childhood Exposure to Second-Hand Smoke: No caffeine: Yes (drinks iced tea ) Dental Care, Regularly: No Physical Activity Frequency: Does not Exercise Seatbelt Use: always Sunscreen Use: No Assistive Devices: Denture - Upper, Denture - Lower, Glasses and Nebulizer Allergies Allergies Allergy/AdvReac Type Severity Reaction Status Date / Time Penicillins Allergy Intermediate FACIAL Verified 06/23/22 16:55 ERYTHEMA budesonide [From Symbicort] AdvReac Mild clearing Verified 06/23/22 16:55 throat formoterol [From Symbicort] AdvReac Mild clearing Verified 06/23/22 16:55 throat Home Meds Home Medications Medication Instructions Recorded Confirmed multivitamin 1 tab PO HS 01/21/19 06/23/22 acetaminophen 325 mg tablet 325 mg PO QID PRN Pain 04/23/20 06/23/22 (Tylenol) omega-3 417 mg-dha 120 mg-epa-276 2 cap PO BID 02/14/21 06/23/22 mg-fish oil 600 mg-tumeric capsule amlodipine 2.5 mg tablet 2.5 mg PO DAILY 06/23/22 06/23/22 cholecalciferol (vitamin D3) 25 25 mcg PO DAILY 06/23/22 06/23/22 mcg (1,000 unit) capsule (Vitamin D3) cyanocobalamin (vitamin B-12) 1,000 mcg PO DAILY 06/23/22 06/23/22 1,000 mcg tablet (Vitamin B-12) furosemide 40 mg tablet 40 mg PO DAILY 06/23/22 06/23/22 turmeric root extract 500 mg 500 mg PO DAILY 06/23/22 06/23/22 capsule Previous Rx's Medication Instructions Recorded montelukast 10 mg tablet 10 mg PO DAILY #90 tabs 09/03/21 levothyroxine 25 mcg tablet 25 mcg PO QAM #90 tabs 09/26/21 carvedilol 12.5 mg tablet 12.5 mg PO BID #180 tabs 10/19/21 albuterol sulfate 90 mcg/actuation 1 inh inhalation QID PRN shortness 12/12/21 aerosol inhaler of breath or wheezing #8.5 grams atorvastatin 80 mg tablet 80 mg PO HS #90 tabs 01/24/22 rivaroxaban 20 mg tablet (Xarelto) 20 mg PO QPM #90 tabs 05/27/22 cephalexin 500 mg capsule 500 mg PO BID 7 days #14 caps 06/23/22 tramadol 50 mg tablet 50 mg PO Q6H PRN pain #20 tabs 06/23/22 Results & Data (ED) Vital Signs Vital Signs - 24 hr 06/23/22 20:09 06/23/22 22:00 06/23/22 21:48 Temperature 36.6 C Temperature Source Temporal Artery Scan Pulse Rate 73 Pulse Rate [Apical] 88 Pulse Rhythm [Apical] Regular Respiratory Rate 19 16 Respiratory Depth Normal Blood Pressure 96/61 L Blood Pressure [Right Arm] 107/53 L Blood Pressure Mean 72 Blood Pressure Mean [Right Arm] 71 Pulse Oximetry 88 L 88 L 96 Oxygen Delivery Method Room Air Room Air Nasal Cannula Oxygen Flow Rate 2 Sepsis Recent Fever Within 48 Hours No Sepsis New/Unexplained Change in Mental Status N/A Sepsis Action Taken by Nursing No Action Required Laboratory Data Result diagrams: 06/23/22 21:42 06/23/22 21:42 Lab Results 06/23/22 06/23/22 06/23/22 Range/Units 21:42 21:42 22:13 WBC 9.98 (4.8-10.8) K/ul RBC 3.44 L (3.93-5.22) M/uL Hgb 10.6 L (12.0-16.0) g/dl Hct 31.7 L (34.1-44.9) % MCV 92.2 (80.0-100.0) fL MCH 30.8 (25.0-34.0) pg MCHC 33.4 (32.0-36.0) g/dL RDW Std Deviation 47.8 H (36.4-46.3) fL RDW Coeff of Serenity 14.1 (11.5-14.5) % Plt Count 186 (130-400) K/uL MPV 10.6 (9.4-12.3) fL Immature Gran % (Auto) 0.5 % Neut % (Auto) 71.9 % Lymph % (Auto) 16.7 % [place] % (Auto) 9.4 % Eos % (Auto) 1.2 % Baso % (Auto) 0.3 % Neut # (Auto) 7.17 H (1.4-6.5) K/uL Lymph # (Auto) 1.67 (1.2-3.4) K/uL [place] # (Auto) 0.94 H (0.24-0.82) K/uL Eos # (Auto) 0.12 (0-0.50) K/uL Baso # (Auto) 0.03 (0-0.2) K/uL Immature Gran # (Auto) 0.05 H (0.00-0.02) K/uL Sodium 136 (136-145) mmol/L Potassium 3.8 (3.5-5.1) mmol/L Chloride 101 (98-107) mmol/L Carbon Dioxide 27 (21-32) mmol/L Anion Gap 8 (3-11) BUN 24 H (6-23) mg/dl Creatinine 0.93 (0.6-1.2) mg/dl Est Cr Clr Drug Dosing Not Reportable Est GFR ( Amer) 65.9 ml/min Est GFR (Non-Af Amer) 56.8 ml/min BUN/Creatinine Ratio 25.8 H (10-20) Glucose 137 H (70-99(Fasting)) mg/dl Calcium 9.5 (8.5-10.1) mg/dl Total Bilirubin 1.3 H (0.2-1.0) mg/dl AST 22 (13-39) U/L ALT 25 (7-52) U/L Alkaline Phosphatase 64 (34-104) U/L Total Protein 6.9 (6.0-8.3) gm/dl Albumin 3.7 (3.4-5.0) gm/dl Globulin 3.2 (2.5-4.0) gm/dl Albumin/Globulin Ratio 1.2 (0.9-2) SARS-CoV-2, RNA, NAAT NEGATIVE (NEGATIVE) Administered Medications Sodium Chloride (Nss 1000ml) 1,000 mls @ 125 mls/hr IV .Q8H STA Stop: 06/24/22 05:58 Last Admin: 06/23/22 22:10 Dose: 125 mls/hr Documented By: EMB Discontinued Medications Ceftriaxone Sodium (Rocephin) 2,000 mg in 70 mls @ 140 mls/hr IV NOW STA Stop: 06/23/22 22:43 Last Admin: 06/23/22 22:26 Dose: Not Given Documented By: EMB Discharge Plan Visit Data Chief Complaint: Back Injury/Pain Stated Complaint: UTI, BACK PAIN, HIP PAIN ED Provider: Aniket Bell Discharge Problem: Closed pelvic fracture, Acute UTI (urinary tract infection), Fall Forms Stand Alone Forms: My [facility] Prescriptions Prescriptions: No Action omega 1-exj-qmm-fish-turmeric 417 mg-120 mg- 276 mg-600 mg capsule 2 cap PO BID montelukast 10 mg tablet 10 mg PO DAILY Qty: 90 3RF levothyroxine 25 mcg tablet 25 mcg PO QAM Qty: 90 3RF carvedilol 12.5 mg tablet 12.5 mg PO BID Qty: 180 3RF albuterol sulfate 90 mcg/actuation HFA aerosol inhaler 1 inh inhalation QID PRN (Reason: shortness of breath or wheezing) Qty: 8.5 2RF atorvastatin 80 mg tablet 80 mg PO HS Qty: 90 3RF Xarelto 20 mg tablet 20 mg PO QPM Qty: 90 3RF Rx Instructions: must administer with evening meal multivitamin tablet 1 tab PO HS acetaminophen [Tylenol] 325 mg Tablet 325 mg PO QID PRN (Reason: Pain) cyanocobalamin (vitamin B-12) [Vitamin B-12] 1,000 mcg Tablet 1,000 mcg PO DAILY amlodipine 2.5 mg tablet 2.5 mg PO DAILY cholecalciferol (vitamin D3) [Vitamin D3] 25 mcg (1,000 unit) Capsule 25 mcg PO DAILY turmeric root extract 500 mg Capsule 500 mg PO DAILY furosemide 40 mg tablet 40 mg PO DAILY Rx Instructions: Take a midday if edema is present, continue taking morning dose daily cephalexin 500 mg capsule 500 mg PO BID 7 Days Qty: 14 0RF tramadol 50 mg tablet 50 mg PO Q6H PRN (Reason: pain) Qty: 20 0RF Referrals Referrals: Sunny Moraes MD [Primary Care Provider] -
--- NOTE | 2022-06-23 23:22 | History & Physical Report ---
Date of Service June 23, 2022 Assessment & Plan (1) Sacral fracture, closed: Plan: Patient is an 82 yo female with PMHx of asthma, chronic atrial fibrillation on chronic anticoagulation, CHF, anemia, CKD stage III, DM, HLD, HTN, arthritis, hypothyroidism, and pulmonary HTN admitted to [facility] on 06/23/22 due to sacral fractures s/p fall and UTI. UTI - UA 06/23 is contaminated with > 30 epithelial cells but evidence of infection with trace blood, positive nitrite, 2+ leuk esterase, 10-30 WBC, and 4+ bacteria - Patient received ceftriaxone in ED; will continue ceftriaxone on admission - Urine C&S pending Sacral Fractures s/p Fall - Fall out of bed (presumed to have occurred on Sunday 06/17) - CT pelvis 06/23: mildly displaced comminuted fractures involving the S1-S3 levels extending into both sacral wings - Pain control with Tylenol 650mg q6h prn and Tramadol 50mg q4h prn - PT/OT ordered - Fall precautions - Will consult spine surgery. Appreciate their evaluation and input. Atrial fibrillation on chronic anticoagulation - Patient with permanent atrial fibrillation and sick sinu ssyndrome with permanent pacemaker - Recent echo (see CHF below) - Continue home Xarelto; renally adjusted to 15mg po qPM Hyperlipidemia - Continue home statin Hypertension - Continue home amlodipine, lasix, and carvedilol Hypothyroidism -Continue home synthroid Asthma - Continue home singulair and albuterol prn - Follows with pulm clinic - Well controlled w/o maintenance inhaler at this time CHF - No sign of exacerbation - Patient follows with cardiology in outpatient setting - Continue home lasix - Echo 05/30/22: normal elft ventricular size and function with EF 55-60%. Moderate cLVH. Severe left atrial dilation. Moderate right atrial dilation. MIld to moderate mitral regurg. Moderate pulmonic regurg. Moderate circumferential pericardial effusion w/o echo evidence of tamponade physiology. Compared to prior study on 02/07/22, pericardial effusion is similar in size. 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 - Current increased cognitive impairment may be factor of UTI - Preventative measures to decrease hospital associated delirium (2) Acute UTI: (3) Lumbar back pain: (4) Fall: (5) Asthma: (6) Chronic anticoagulation: (7) Cognitive change: (8) Congestive heart failure: (9) CKD (chronic kidney disease), stage III: (10) Type 2 diabetes mellitus: (11) Atrial fibrillation: (12) Dyslipidemia: (13) HTN (hypertension): History of Present Illness Primary Care Provider: Sunny Moraes MD Patient is an 82 yo female with PMHx of asthma, chronic atrial fibrillation on chronic anticoagulation, CHF, anemia, CKD stage III, DM, HLD, HTN, arthritis, hypothyroidism, and pulmonary HTN who presented to the ER on 06/23/22 due to low back pain. Patient lives at home alone with main floor living, 1 step to enter the home, with significant family support. Per family, it is presumed that patient fell out of bed on Friday (6 days ago). Patient is unable to recall the events surrounding the fall. Since the fall, patient has had acute on chronic low back pain that has progressively worsened throughout the week to the point that she had difficulty with ambulation yesterday. Patient's family states that she was also having difficulty with ambulation despite their support. Patient states that the pain radiates to the right LE with some numbness/tingling but this is not severe. She denies saddle anesthesia. Has some urinary incontinence at baseline that worsened yesterday but is presumed to be due to inability to ambulate to the bathroom. There has been no fecal incontinence. Patient states that the back pain is exacerbated with ambulation. She has otherwise been doing well, eating well, and sleeping well. Patient presented to the ER earlier today for her symptoms had negative lumbar XR imaging and was found to have an UTI (UA: contaminated with > 30 epithelial cells but notable for trace blood, positive nitrite, 2+ LE, 10-30 WBC, 4+ bacteria). She was given 2g Ceftriaxone and discharged home with rx Keflex and Tramadol for the back pain. Family states that after getting home, patient had recurrent significant low back pain and they were unable to assist her with ambulation so they returned to the ER for further evaluation. Upon re-evaluation in the ER tonight, CT imaging of lumbar and pelvis. CT pelvis revealed "mildly displaced comminuted fractures involving the S1-S3 levels ext ending into both sacral wings." Labs with no leukocytosis. Anemia with Hgb 10.6 (baseline 10.5 - 11.5). INR 1.3. COVID negative. Allergies Allergy/AdvReac Type Severity Reaction Status Date / Time Penicillins Allergy Intermediate FACIAL Verified 06/23/22 16:55 ERYTHEMA budesonide [From Symbicort] AdvReac Mild clearing Verified 06/23/22 16:55 throat formoterol [From Symbicort] AdvReac Mild clearing Verified 06/23/22 16:55 throat Home Medications Medication Instructions Recorded Confirmed Type multivitamin 1 tab PO HS 01/21/19 06/23/22 History acetaminophen 325 mg tablet 325 mg PO QID PRN Pain 04/23/20 06/23/22 History (Tylenol) omega-3 417 mg-dha 120 mg-epa-276 2 cap PO BID 02/14/21 06/23/22 History mg-fish oil 600 mg-tumeric capsule montelukast 10 mg tablet 10 mg PO DAILY #90 tabs 09/03/21 06/23/22 Rx levothyroxine 25 mcg tablet 25 mcg PO QAM #90 tabs 09/26/21 06/23/22 Rx carvedilol 12.5 mg tablet 12.5 mg PO BID #180 tabs 10/19/21 06/23/22 Rx albuterol sulfate 90 mcg/actuation 1 inh inhalation QID PRN shortness 12/12/21 06/23/22 Rx aerosol inhaler of breath or wheezing #8.5 grams atorvastatin 80 mg tablet 80 mg PO HS #90 tabs 01/24/22 06/23/22 Rx rivaroxaban 20 mg tablet (Xarelto) 20 mg PO QPM #90 tabs 05/27/22 06/23/22 Rx amlodipine 2.5 mg tablet 2.5 mg PO DAILY 06/23/22 06/23/22 History cephalexin 500 mg capsule 500 mg PO BID 7 days #14 caps 06/23/22 06/23/22 Rx cholecalciferol (vitamin D3) 25 25 mcg PO DAILY 06/23/22 06/23/22 History mcg (1,000 unit) capsule (Vitamin D3) cyanocobalamin (vitamin B-12) 1,000 mcg PO DAILY 06/23/22 06/23/22 History 1,000 mcg tablet (Vitamin B-12) furosemide 40 mg tablet 40 mg PO DAILY 06/23/22 06/23/22 History tramadol 50 mg tablet 50 mg PO Q6H PRN pain #20 tabs 06/23/22 06/23/22 Rx turmeric root extract 500 mg 500 mg PO DAILY 06/23/22 06/23/22 History capsule Past Med/Surg History Medical History (Updated 06/24/22 @ 05:40 by Meera Parsons DO) Allergic rhinitis Arthritis, multiple joint involvement Asthma inhaler daily/prn, nebulizer prn Asthma Bradycardia Chronic back pain Dyslipidemia GERD (gastroesophageal reflux disease) HTN (hypertension) Hypothyroidism IPMN (intraductal papillary mucinous neoplasm) Left bundle branch block Low back pain Near syncope Nonischemic cardiomyopathy Pancreatic cyst Poor historian Pulmonary hypertension Secondary pulmonary hypertension Systolic CHF TIA (transient ischemic attack) unsure how long ago--reason for xarelto ?? Surgical History History of cholecystectomy History of tooth extraction all teeth History of total knee arthroplasty 2008-left Dr. Cash Status post placement of cardiac pacemaker meditronic placed 10/28/2019 @ [facility] Family History Brother Coronary heart disease Myocardial infarction Lung cancer Cancer Father Diabetes Mother Diabetes Sister Diabetes Kidney disease Breast cancer Hypertension Other Congestive heart failure Heart disease No family history of adverse response to anesthesia Denies family history of Ovarian cancer Prostate cancer Stroke Social History Smoking Status: Never smoker Second Hand Exposure: No; Do You Dip or Chew Tobacco: No; Hx Alcohol Use: No Hx Substance Use: No Preferred Language: Kuwaiti Communication Ability: Effective Visual Impairment: Partially Limited Hearing Ability: Normal Reed Polisher Required: No Beliefs That Will Affect Care: None marital status: / Current Living Situation: Alone current occupational status: retired How many Children do You have: 4 Other Information That Helps Us Care for You: No Feels Safe at Home: Yes Safety Concerns: Feels Safe At This Time Childhood Exposure to Second-Hand Smoke: No caffeine: Yes (drinks iced tea ) Dental Care, Regularly: No Physical Activity Frequency: Does not Exercise Seatbelt Use: always Sunscreen Use: No Assistive Devices: Cane, Glasses and Walker Review of Systems Review of Systems: See HPI Physical Exam Physical Exam: GENERAL: Laying supine in bed in no acute distress. Well developed and well nourished. Vital signs reviewed as above. EYES: EOMI. Anicteric sclerae. HENT: Moist mucous membranes. RESPIRATORY: Anterior and lateral lung buckley auscultated were clear to auscultation bilaterally without wheezing, rales, or rhonchi. CARDIOVASCULAR: Irregularly irregular rhythm. Regular rate. + murmur. ABDOMEN: Soft, non-tender and non-distended. Normal bowel sounds. EXTREMITIES: No edema. Non-tender. SKIN: Warm, dry. NEUROLOGIC: Alert. Normal speech. No focal neurological deficits. Some confusion and repetition of statements which family notes is chronic; recent concern for ? early dementia process. PSYCHIATRIC: Cooperative. Appropriate mood and affect. Results & Data Results & Data ([facility]) Vital Signs (Past 12 Hours) Vital Signs Temp Pulse Pulse Resp BP BP Pulse Ox 06/23/22 21:48 96 06/23/22 22:00 88 16 107/53 L 88 L 06/23/22 20:09 36.6 C 73 19 96/61 L 88 L O2 Del Method O2 Flow Rate 06/23/22 21:48 Nasal Cannula 2 06/23/22 22:00 Room Air 06/23/22 20:09 Room Air Laboratory Results 06/23/22 06/23/22 06/23/22 Range/Units 22:13 21:42 21:42 WBC 9.98 (4.8-10.8) K/ul RBC 3.44 L (3.93-5.22) M/uL Hgb 10.6 L (12.0-16.0) g/dl Hct 31.7 L (34.1-44.9) % MCV 92.2 (80.0-100.0) fL MCH 30.8 (25.0-34.0) pg MCHC 33.4 (32.0-36.0) g/dL RDW Std Deviation 47.8 H (36.4-46.3) fL RDW Coeff of Serenity 14.1 (11.5-14.5) % Plt Count 186 (130-400) K/uL MPV 10.6 (9.4-12.3) fL Immature Gran % (Auto) 0.5 % Neut % (Auto) 71.9 % Lymph % (Auto) 16.7 % Baldwin % (Auto) 9.4 % Eos % (Auto) 1.2 % Baso % (Auto) 0.3 % Neut # (Auto) 7.17 H (1.4-6.5) K/uL Lymph # (Auto) 1.67 (1.2-3.4) K/uL Baldwin # (Auto) 0.94 H (0.24-0.82) K/uL Eos # (Auto) 0.12 (0-0.50) K/uL Baso # (Auto) 0.03 (0-0.2) K/uL Immature Gran # (Auto) 0.05 H (0.00-0.02) K/uL Sodium 136 (136-145) mmol/L Potassium 3.8 (3.5-5.1) mmol/L Chloride 101 (98-107) mmol/L Carbon Dioxide 27 (21-32) mmol/L Anion Gap 8 (3-11) BUN 24 H (6-23) mg/dl Creatinine 0.93 (0.6-1.2) mg/dl Est Cr Clr Drug Dosing Not Reportable Est GFR ( Amer) 65.9 ml/min Est GFR (Non-Af Amer) 56.8 ml/min BUN/Creatinine Ratio 25.8 H (10-20) Glucose 137 H (70-99(Fasting)) mg/dl Calcium 9.5 (8.5-10.1) mg/dl Total Bilirubin 1.3 H (0.2-1.0) mg/dl AST 22 (13-39) U/L ALT 25 (7-52) U/L Alkaline Phosphatase 64 (34-104) U/L Total Protein 6.9 (6.0-8.3) gm/dl Albumin 3.7 (3.4-5.0) gm/dl Globulin 3.2 (2.5-4.0) gm/dl Albumin/Globulin Ratio 1.2 (0.9-2) SARS-CoV-2, RNA, NAAT NEGATIVE (NEGATIVE) Diagnostic Findings [facility] Patient: HAN CORTEZ (Female) : 38 Status: ER Date: 06/23/22 21:12 Room #: History: LOWER BACK PAIN LT HIP > RT HIP PAIN PT MOVING ON TABLE, BEST IMAGES POSSIBLE FOR PT CONDITION EK/AD Slices: [id number] Priors: Tech: Asher Mcguire @ [phone] Exams: CT PELVIS Contrast: Accession Numbers: [id number] Referring Physician: PANFILO TEMWinston Preliminary Findings Only See Final Report For Complete Findings CT PELVIS: There are mildly displaced comminuted fractures involving the S1-S3 levels extending into both sacral wings. The proximal femurs are intact and normally positioned with respect to the acetabulum bilaterally. No acute fracture or dislocation is seen. The pubic rami and symphysis appear intact. Moderate to severe degenerative disease in the lower lumbar spine. Moderate diverticulosis of the sigmoid colon. Bowel loops are nondilated. No acute inflammatory changes are seen involving the bowel. The aorta and iliac vessels are mildly calcified but nondilated. The uterus, adnexa, and urinary bladder appear within normal limits. Radiologist: Robe Jiménez MD Study ready at 21:21 and initial results transmitted at 21:32 *This report constitutes a preliminary interpretation only. Non-acute findings felt to be unrelated to the clinical presentation may not be discussed in this report. The study will be interpreted and a final report will be generated by the local Radiologist the following shift. To reach the [facility] radiology department call [phone]. If a discrepancy is found between the preliminary and final interpretations of this study, please notify us via our Client Portal at [email or web address], under QA Exams. You can also fax this report with a description of the discrepancy, or include the final report, to our daytime fax number [phone]. If faxing, please indicate the severity of discrepancy using one of the following categories: [ ] 1 - Agree/Informational [ ] 2 - Unlikely to Affect Management [ ] 3 - Possible Eventual Change of Management [ ] 4 - Probable Immediate Change of Management For all other patient related information, please fax us at [phone]. [id number] [facility] Patient: HAN CORTEZ (Female) : 38 Status: ER Date: 06/23/22 21:15 Room #: History: LOWER BACK PAIN LT HIP > RT HIP PAIN PT MOVING ON TABLE, BEST IMAGES POSSIBLE FOR PT CONDITION EK/AD Slices: [id number] Priors: Tech: Asher Mcguire @ [phone] Exams: CT L SPINE Contrast: Accession Numbers: [id number] Referring Physician: PANFILO MERAZ Preliminary Findings Only See Final Report For Complete Findings CT L SPINE: The lumbar spine vertebral body heights are within normal limits. No acute compression fracture or burst fracture is seen. Moderate to severe multilevel degenerative disc disease and facet arthrosis is seen throughout the lumbar spine. There is partial visualization of the sacral fracture. Please see CT of the pelvis. No acute lumbar spine fracture is identified. Axial soft tissue images show significant findings at the following levels: L2-3: Severe degenerative disc disease including the 5 mm broad-based posterior disc bulge narrowing the thecal sac to 8 mm. There is moderate neural foraminal narrowing. L3-4: Severe degenerative disc disease including 5 mm broad-based posterior disc bulge amount hypertrophy of the facets in the mid subclavian narrowing the thecal sac to 4 mm. There is moderate limits in severity neural foraminal narrowing. L4-5: Severe degenerative disc disease including 6 mm broad-based posterior disc bulge as well as hypertrophy of the facets narrowing the thecal sac to 3 mm. There is severe right and moderate left neural foraminal narrowing. L5-S1: Moderate degenerative disc disease and 3 mm posterior disc bulge narrowing the thecal sac to 8-9 mm. There is severe left and moderate right neural foraminal narrowing. Radiologist: Robe Jiménez MD Study ready at 21:21 and initial results transmitted at 21:43 *This report constitutes a preliminary interpretation only. Non-acute findings felt to be unrelated to the clinical presentation may not be discussed in this report. The study will be interpreted and a final report will be generated by the local Radiologist the following shift. To reach the [facility] radiology department call [phone]. If a discrepancy is found between the preliminary and final interpretations of this study, please notify us via our Client Portal at [email or web address], under QA Exams. You can also fax this report with a description of the discrepancy, or include the final report, to our daytime fax number [phone]. If faxing, please indicate the severity of discrepancy using one of the following categories: [ ] 1 - Agree/Informational [ ] 2 - Unlikely to Affect Management [ ] 3 - Possible Eventual Change of Management [ ] 4 - Probable Immediate Change of Management For all other patient related information, please fax us at [phone]. [id number] Supervising Physician Co-Signing Physician Notes Attending addendum: I have physically seen this patient, have supervised the medical residents activities, and agree with the H&P unless as otherwise noted. Assessment and Plan: Closed sacral fractures status post fall- Pain control with Tylenol. Mild pain and tramadol as needed moderate pain Consult PT/OT Consult orthopedic spine surgery Atrial fibrillation/chronic anticoagulation/permanent pacemaker/hypertension- Continue Xarelto, amlodipine, Lasix and carvedilol Admit to monitored bed serial cardiac enzymes Remaining orders and notations as noted Resident Activity Tracking Resident Involvement: Resident Care Provided Care Provided: Adult Hospital Medicine (1) Atrial fibrillation Atrial fibrillation type: permanent Qualified Code(s): I48.21 - Permanent atrial fibrillation
[2022-06-24] MEDS ORDERED: ALBUTEROL HFA 8 GM INHALER INH PRN (00:49)
[2022-06-24] MEDS: cefTRIAXone SODIUM 1,000 MG in DEXTROSE 5% 50 ML IV SCH (01:47)
[2022-06-24] MEDS: LEVOTHYROXINE SODIUM 25 MCG TABLET PO SCH (06:35)
--- NOTE | 2022-06-24 07:22 | CT Scan Report ---
PELVIS CT CT DOSE: 1188.22 mGy.cm HISTORY: fall, L>R hip pain, unable to ambulate TECHNIQUE: Multiaxial CT images of the pelvis were performed and reformatted in the sagittal and anai nal plane without the use of contrast. A dose lowering technique was utilized adhering to the princi ples of TRISTON. COMPARISON: Abdomen and pelvis CT 04/23/2020. FINDINGS: No fracture or dislocation within the right or left hip. Slightly displaced fractures invol ving the sacrum at the S2/S3 levels. This extends into the bilateral sacral wings. The visualized lum bar spine and pubic bones are intact. Mild presacral edema is noted. Mild body wall edema. The bladde r and uterus are unremarkable. Colonic diverticulosis is noted. IMPRESSION: 1. Mildly displaced sacral fractures as described above. 2. No fracture or dislocation within the bilateral hips. ACT 112: Negative or not required by law. Electronically signed by: Ricardo Alonzo M.D. 06/24/2022 7:21 AM
--- NOTE | 2022-06-24 07:40 | Hospitalist Progress Note ---
Date of Service June 24, 2022 Assessment & Plan (1) Sacral fracture, closed: Plan: Patient is an 82 yo female with PMHx of asthma, chronic atrial fibrillation on chronic anticoagulation, CHF, anemia, CKD stage III, DM, HLD, HTN, arthritis, hypothyroidism, and pulmonary HTN admitted to [facility] on 06/23/22 due to sacral fractures s/p fall and UTI. Sacral Fractures s/p Fall - Fall out of bed (presumed to have occurred on Sunday 06/17) - CT pelvis 06/23: mildly displaced comminuted fractures involving the S1-S3 levels extending into both sacral wings - Pain control with Tylenol 650mg q6h prn and Tramadol 50mg q4h prn, communication placed for Icy/Hot PRN - Fall precautions placed --- PT/OT ordered --- Ortho/Spine consult placed, appreciate recommendations - recommending ambulation with walker and PT/OT w/o surgical intervention UTI - UA 06/23 is contaminated with > 30 epithelial cells but evidence of infection with trace blood, positive nitrite, 2+ leuk esterase, 10-30 WBC, and 4+ bacteria - Urine cx: Gram negative bacilli - Patient received ceftriaxone in ED --- Continue ceftriaxone Atrial fibrillation on chronic anticoagulation - Patient with permanent atrial fibrillation and sick sinus syndrome with permanent pacemaker - Recent echo (see CHF below) - Continue home Xarelto; renally adjusted to 15mg po qPM Hyperlipidemia - Continue home statin Hypertension - Continue home amlodipine, lasix, and carvedilol Hypothyroidism -Continue home synthroid Asthma - Continue home singulair and albuterol prn - Follows with pulm clinic - Well controlled w/o maintenance inhaler at this time CHF - No sign of exacerbation - Patient follows with cardiology in outpatient setting - Continue home lasix - Echo 05/30/22: normal elft ventricular size and function with EF 55-60%. Moderate cLVH. Severe left atrial dilation. Moderate right atrial dilation. MIld to moderate mitral regurg. Moderate pulmonic regurg. Moderate circumferential pericardial effusion w/o echo evidence of tamponade physiology. Compared to prior study on 02/07/22, pericardial effusion is similar in size. 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 - Current increased cognitive impairment may be factor of UTI - Preventative measures to decrease hospital associated delirium (2) Acute UTI: (3) Lumbar back pain: (4) Fall: (5) Asthma: (6) Chronic anticoagulation: (7) Cognitive change: (8) Congestive heart failure: (9) CKD (chronic kidney disease), stage III: (10) Type 2 diabetes mellitus: (11) Atrial fibrillation: (12) Dyslipidemia: (13) HTN (hypertension): Plan Diet:Carb consistent DM2 IVF: None DVT PPx: Home dose Xarelto Dispo:Pending PT evaluation/progression Code Status: Full Admission and Anticipated Discharge Date Admission Date: June 23, 2022 Supervising Physician Co-Signing Physician Notes I also saw the patient confirmed hensley portions of the history and physical examination. I agree with the impression plan as noted the resident documentation. EXAM 123/73, 73, 18, 36.9, 96% nasal cannula 2 L/min Alert and oriented. No signs of significant pain or discomfort. Heart regular rate and rhythm Respirations nonlabored DATA Urine culture collected 06/23/2022 shows gram-negative bacilli, speciation pending IMPRESSION & PLAN Sacral fracture Orthopedic consultation appreciated PT/OT Pain management, although seems well controlled at present UTI Ceftriaxone Additional per resident documentation Subjective Patient is an 82 yo female with PMHx of asthma, chronic atrial fibrillation on chronic anticoagulation, CHF, anemia, CKD stage III, DM, HLD, HTN, arthritis, hypothyroidism, and pulmonary HTN who presented to the ER on 06/23/22 due to low back pain after a fall last Sunday 06/17. She was found to have acute fractures of S1-S3 ontop of chronic lumbar disc disease. She was also found to have a UTI and started on abx. 06/23: Lisa is feeling overall well today. She has 3/10 pain in her low back, notes it is improving, mild pain in right leg and glutes, no weakness of legs, no loss of bowel or bladder control. Patient notes that she is normally active and sitting in bed this long is not her normal. No CP, SOB, or abdominal pain. She denies dysuria, urgency, or frequency. Review of Systems Review of Systems: See HPI Physical Exam Physical Exam: Gen: NAD, alert, interactive. AO x 3, mild confusion. Resp:Non-labored, no wheezing/rhonchi/rales, CTAB CV:RRR (paced), normal S1/S2, no M/R/G Abd: Soft, non-distended, no TTP, normoactive bowels, no masses, no CVA tenderness Extr: 2+ dp bilaterally, 1+ non-pitting edema, strength 5/5 symmetric, appropriate ROM Results & Data Results & Data ([facility]) Vital Signs (Past 12 Hours) Vital Signs Temp Pulse Pulse Pulse Resp BP BP 06/24/22 07:00 70 06/24/22 03:08 36.4 C L 70 18 133/67 06/24/22 01:15 70 06/24/22 01:21 36.8 C 70 18 138/83 06/23/22 20:11 36.8 C 70 18 138/83 06/24/22 00:00 84 17 127/64 06/23/22 21:48 06/23/22 22:00 88 16 107/53 L 06/23/22 20:09 36.6 C 73 19 96/61 L Pulse Ox O2 Del Method O2 Flow Rate 06/24/22 07:00 06/24/22 03:08 96 Nasal Cannula 2 06/24/22 01:15 06/24/22 01:21 98 Nasal Cannula 2 06/23/22 20:11 96 Nasal Cannula 2 06/24/22 00:00 98 06/23/22 21:48 96 Nasal Cannula 2 06/23/22 22:00 88 L Room Air 06/23/22 20:09 88 L Room Air Diagnostic Findings Laboratory Results WBC 9.98 K/ul (4.8-10.8) 06/23/22 21:42 RBC 3.44 M/uL (3.93-5.22) L 06/23/22 21:42 Hgb 10.6 g/dl (12.0-16.0) L 06/23/22 21:42 Hct 31.7 % (34.1-44.9) L 06/23/22 21:42 MCV 92.2 fL (80.0-100.0) 06/23/22 21:42 MCH 30.8 pg (25.0-34.0) 06/23/22 21:42 MCHC 33.4 g/dL (32.0-36.0) 06/23/22 21:42 RDW Std Deviation 47.8 fL (36.4-46.3) H 06/23/22 21:42 RDW Coeff of [place] 14.1 % (11.5-14.5) 06/23/22 21: Plt Count 186 K/uL (130-400) 06/23/22 21:42 MPV 10.6 fL (9.4-12.3) 06/23/22 21:42 Immature Gran % (Auto) 0.5 % 06/23/22 21:42 Neut % (Auto) 71.9 % 06/23/22 21:42 Lymph % (Auto) 16.7 % 06/23/22 21:42 [place] % (Auto) 9.4 % 06/23/22 21:42 Eos % (Auto) 1.2 % 06/23/22: Baso % (Auto) 0.3 % 06/23/22:42 Neut # (Auto) 7.17 K/uL (1.4-6.5) H 06/23/22 21:42 Lymph # (Auto) 1.67 K/uL (1.2-3.4) 06/23/22 21:42 [place] # (Auto) 0.94 K/uL (0.24-0.82) H 06/23/22 21:42 Eos # (Auto) 0.12 K/uL (0-0.50) 06/23/22 21:42 Baso # (Auto) 0.03 K/uL (0-0.2) 06/23/22 21:42 Immature Gran # (Auto) 0.05 K/uL (0.00-0.02) H 06/23/22 21:42 Sodium 136 mmol/L (136-145) 06/23/22 21:42 Potassium 3.8 mmol/L (3.5-5.1) 06/23/22 21:42 Chloride 101 mmol/L (98-107) 06/23/22 21:42 Carbon Dioxide 27 mmol/L (21-32) 06/23/22 21:42 Anion Gap 8 (3-11) 06/23/22 21:42 BUN 24 mg/dl (6-23) H 06/23/22 21:42 Creatinine 0.93 mg/dl (0.6-1.2) 06/23/22 21:42 Est Cr Clr Drug Dosing Not Reportable 06/23/22 21:42 Est GFR ( Amer) 65.9 ml/min 06/23/22 21:42 Est GFR (Non-Af Amer) 56.8 ml/min 06/23/22 21:42 BUN/Creatinine Ratio 25.8 (10-20) H 06/23/22 21:42 Glucose 137 mg/dl (70-99(Fasting)) H 06/23/22 21:42 Calcium 9.5 mg/dl (8.5-10.1) 06/23/22 21:42 Total Bilirubin 1.3 mg/dl (0.2-1.0) H 06/23/22 21:42 AST 22 U/L (13-39) 06/23/22 21:42 ALT 25 U/L (7-52) 06/23/22 21:42 Alkaline Phosphatase 64 U/L (34-104) 06/23/22 21:42 Total Protein 6.9 gm/dl (6.0-8.3) 06/23/22 21:42 Albumin 3.7 gm/dl (3.4-5.0) 06/23/22 21:42 Globulin 3.2 gm/dl (2.5-4.0) 06/23/22 21:42 Albumin/Globulin Ratio 1.2 (0.9-2) 06/23/22 21:42 Urine Color Yellow 06/24/22 11:20 Urine Appearance Cloudy (Clear) A 06/24/22 11:20 Urine pH 5.0 (4.5-7.5) 06/24/22 11:20 Ur Specific [place] 1.011 (1.000-1.030) 06/24/22 11:20 Urine Protein Negative (Negative) 06/24/22 11:20 Urine Glucose (UA) Negative (Negative) 06/24/22 11:20 Urine Ketones Negative (Negative) 06/24/22 11:20 Urine Blood 1+ (Negative) H 06/24/22 11:20 Urine Nitrite Positive (Negative) A 06/24/22 11:20 Urine Bilirubin Negative (Negative) 06/24/22 11:20 Urine Urobilinogen Negative (Negative) 06/24/22 11:20 Ur Leukocyte Esterase 3+ (Negative) H 06/24/22 11:20 Urine WBC (Auto) >30 /hpf (0-5) H 06/24/22 11:20 Urine RBC (Auto) 0-4 /hpf (0-4) 06/24/22 11:20 U Hyaline Cast (Auto) 1-5 /lpf (0-5) 06/24/22 11:20 U Epithel Cells (Auto) 10-20 /lpf (0-5) H 06/24/22 11:20 Urine Bacteria (Auto) Negative (Negative) 06/24/22 11:20 SARS-CoV-2, RNA, NAAT NEGATIVE (NEGATIVE) 06/23/22 22:[address] 06/23/22 20:40 IMPRESSION: 1. No acute lumbar spine fracture or subluxation. 2. Severe multilevel degenerative changes within the lumbar spine. Lumbar spine scoliosis. 3. Acute mildly displaced bilateral sacral fractures better depicted on the same day pelvis CT. Pelvis CT 06/23/22 20:40 IMPRESSION: 1. Mildly displaced sacral fractures as described above. 2. No fracture or dislocation within the bilateral hips. Chest X-Ray 06/23/22 22:14 IMPRESSION: No acute cardiopulmonary findings. Cardiomegaly. Resident Activity Tracking Resident Involvement: Resident Care Provided Care Provided: Adult Hospital Medicine (1) Atrial fibrillation Atrial fibrillation type: permanent Qualified Code(s): I48.21 - Permanent atrial fibrillation
[2022-06-24] MEDS: traMADol HCL 50 MG TABLET PO PRN ×4 (07:47→23:55)
[2022-06-24] MEDS: MONTELUKAST SODIUM 10 MG TABLET PO SCH (07:48)
[2022-06-24] MEDS: carvediloL 12.5 MG TAB PO SCH ×2 (07:48→20:12)
[2022-06-24] MEDS: FUROSEMIDE 40 MG TAB PO SCH (07:48)
[2022-06-24] MEDS: amLODIPine BESYLATE 5 MG TAB PO SCH (07:48)
--- NOTE | 2022-06-24 08:37 | XRay Report ---
XR chest 1V portable CLINICAL HISTORY: Fall. Weakness. COMPARISON STUDY: Chest radiograph January 16, 2022. FINDINGS: There is no pneumothorax or pleural effusion. Left subclavian biventricular pacer is in thong ce. Cardiomegaly is unchanged. There is no evidence for pulmonary edema. Apparent hazy left basilar o pacity is probably artifactual. No consolidation to suggest pneumonia. IMPRESSION: No acute cardiopulmonary findings. Cardiomegaly. ACT 112: Negative or not required by law. Electronically signed by: Jaya Barone M.D. 06/24/2022 8:36 AM
--- NOTE | 2022-06-24 10:13 | CT Scan Report ---
CT OF THE LUMBAR SPINE CLINICAL HISTORY: Lumbar back pain. COMPARISON STUDY: Lumbar spine radiographs April 26, 2020 and June 23, 2022. CT of the abdomen and pelvis April 23, 2020. TECHNIQUE: Helical axial images of the lumbar spine were obtained. Sagittal and coronal reconstruct ions were viewed. Automated exposure control was utilized for the study. A dose lowering technique was utilized adhering to the principles of ALARA. FINDINGS: Acute mildly displaced bilateral sacral fractures are better depicted on the pelvis CT whic h will be reported separately. Levoscoliosis of the lumbar spine is noted. There is no acute lumbar s pine fracture. Central canal and neural foramen are suboptimally assessed given CT technique. Severe multilevel facet arthrosis is noted as well as severe multilevel disc space narrowing, osteophytosis and facet arthrosis. Paravertebral soft tissues are unremarkable by CT. IMPRESSION: 1. No acute lumbar spine fracture or subluxation. 2. Severe multilevel degenerative changes within the lumbar spine. Lumbar spine scoliosis. 3. Acute mildly displaced bilateral sacral fractures better depicted on the same day pelvis CT. ACT 112: Negative or not required by law. Electronically signed by: Jaya Barone M.D. 06/24/2022 10:12 AM
--- NOTE | 2022-06-24 10:53 | Electrocardiogram Report ---
Test Reason : Blood Pressure : / mmHG Vent. Rate : 070 BPM Atrial Rate : 067 BPM P-R Int : 000 ms QRS Dur : 152 ms QT Int : 444 ms P-R-T Axes : 000 227 -13 degrees QTc Int : 479 ms Ventricular-paced rhythm Abnormal ECG When compared with ECG of 23-JUN-2022 12:52, Vent. rate has decreased BY 3 BPM Confirmed by Lazaro Vieyra ([id number]) on 06/24/2022 10:53:35 AM Referred By: REFERRED SELF Confirmed By:Ron Vieyra
[2022-06-24 11:35] LABS: Appearance Urine Cloudy (Clear); Bacteria Urine Automated Negative (Negative); Bilirubin Urine Negative (Negative); Blood Urine 1+ (Negative); Color Urine Yellow; Glucose Urine UA Negative (Negative); Ketones Urine Negative (Negative); Leukocyte Esterase Urine 3+ (Negative); Nitrite Urine Positive (Negative); Protein Urine Negative (Negative); RBC Urine Automated 0-4 /hpf (0-4); Specific Gravity Urine 1.011 (1.000-1.030); Urobilinogen Urine Negative (Negative); WBC Urine Automated >30 /hpf (0-5)
[2022-06-24] MEDS: ACETAMINOPHEN 325 MG TAB PO PRN ×2 (12:55→20:11)
--- NOTE | 2022-06-24 14:42 | Orthopedic Consultation ---
Date of Consultation June 24, 2022 Assessment & Plan (1) Sacral fracture, closed: At this time I did explain the patient she does have a sacral fracture secondary to the fall. We can begin weightbearing as tolerated with a walker. It will take several days to weeks for for her to build to walk relatively normally. But these do tend to heal well on their own. I recommend OT PT as tolerated. She may require rehab. History of Present Illness Reason for Consultation: Sacral fracture Attending Physician: Hermilo Shell DO History of Present Illness This is a very pleasant 82-year-old female who presents after fall at home. Upon evaluation the emergency room was determined that she had a sacral fracture minimally displaced. At this time she denies any leg pain or radicular complaints. She states her pain is controlled at rest. Allergies Allergy/AdvReac Type Severity Reaction Status Date / Time Penicillins Allergy Intermediate FACIAL Verified 06/23/22 16:55 ERYTHEMA budesonide [From Symbicort] AdvReac Mild clearing Verified 06/23/22 16:55 throat formoterol [From Symbicort] AdvReac Mild clearing Verified 06/23/22 16:55 throat Home Medications Medication Instructions Recorded Confirmed Type multivitamin 1 tab PO HS 01/21/19 06/23/22 History acetaminophen 325 mg tablet 325 mg PO QID PRN Pain 04/23/20 06/23/22 History (Tylenol) omega-3 417 mg-dha 120 mg-epa-276 2 cap PO BID 02/14/21 06/23/22 History mg-fish oil 600 mg-tumeric capsule montelukast 10 mg tablet 10 mg PO DAILY #90 tabs 09/03/21 06/23/22 Rx levothyroxine 25 mcg tablet 25 mcg PO QAM #90 tabs 09/26/21 06/23/22 Rx carvedilol 12.5 mg tablet 12.5 mg PO BID #180 tabs 10/19/21 06/23/22 Rx albuterol sulfate 90 mcg/actuation 1 inh inhalation QID PRN shortness 12/12/21 06/23/22 Rx aerosol inhaler of breath or wheezing #8.5 grams atorvastatin 80 mg tablet 80 mg PO HS #90 tabs 01/24/22 06/23/22 Rx rivaroxaban 20 mg tablet (Xarelto) 20 mg PO QPM #90 tabs 05/27/22 06/23/22 Rx amlodipine 2.5 mg tablet 2.5 mg PO DAILY 06/23/22 06/23/22 History cephalexin 500 mg capsule 500 mg PO BID 7 days #14 caps 06/23/22 06/23/22 Rx cholecalciferol (vitamin D3) 25 25 mcg PO DAILY 06/23/22 06/23/22 History mcg (1,000 unit) capsule (Vitamin D3) cyanocobalamin (vitamin B-12) 1,000 mcg PO DAILY 06/23/22 06/23/22 History 1,000 mcg tablet (Vitamin B-12) furosemide 40 mg tablet 40 mg PO DAILY 06/23/22 06/23/22 History tramadol 50 mg tablet 50 mg PO Q6H PRN pain #20 tabs 06/23/22 06/23/22 Rx turmeric root extract 500 mg 500 mg PO DAILY 06/23/22 06/23/22 History capsule Patient History Medical History (Updated 06/24/22 @ 05:40 by Meera Parsons DO) Allergic rhinitis Arthritis, multiple joint involvement Asthma inhaler daily/prn, nebulizer prn Asthma Bradycardia Chronic back pain Dyslipidemia GERD (gastroesophageal reflux disease) HTN (hypertension) Hypothyroidism IPMN (intraductal papillary mucinous neoplasm) Left bundle branch block Low back pain Near syncope Nonischemic cardiomyopathy Pancreatic cyst Poor historian Pulmonary hypertension Secondary pulmonary hypertension Systolic CHF TIA (transient ischemic attack) unsure how long ago--reason for xarelto ?? Surgical History History of cholecystectomy History of tooth extraction all teeth History of total knee arthroplasty 2007-left Dr. Cash Status post placement of cardiac pacemaker meditronic placed 10/28/2019 @ [facility] Family History Brother Coronary heart disease Myocardial infarction Lung cancer Cancer Father Diabetes Mother Diabetes Sister Diabetes Kidney disease Breast cancer Hypertension Other Congestive heart failure Heart disease No family history of adverse response to anesthesia Denies family history of Ovarian cancer Prostate cancer Stroke Social History Smoking Status: Never smoker Second Hand Exposure: No; Do You Dip or Chew Tobacco: No; Hx Alcohol Use: No Hx Substance Use: No Preferred Language: Pashto Communication Ability: Effective Visual Impairment: Partially Limited Hearing Ability: Normal Novelty Chain Maker Required: No Beliefs That Will Affect Care: None marital status: / Current Living Situation: Alone current occupational status: retired How many Children do You have: 4 Other Information That Helps Us Care for You: No Feels Safe at Home: Yes Safety Concerns: Feels Safe At This Time Childhood Exposure to Second-Hand Smoke: No caffeine: Yes (drinks iced tea ) Dental Care, Regularly: No Physical Activity Frequency: Does not Exercise Seatbelt Use: always Sunscreen Use: No Assistive Devices: Cane, Glasses and Walker Physical Exam Physical Exam: On exam she is alert and oriented and cooperative. She has good strength testing. Appears comfortable. Results & Data ([facility]) Vital Signs (Past 12 Hours) Vital Signs Temp Pulse Pulse Resp BP Pulse Ox O2 Del Method 06/24/22 11:12 36.9 C 69 18 123/73 96 Nasal Cannula 06/24/22 07:45 Nasal Cannula 06/24/22 07:38 36.6 C 74 20 149/78 H 90 Nasal Cannula 06/24/22 07:00 70 06/24/22 03:08 36.4 C L 70 18 133/67 96 Nasal Cannula O2 Flow Rate 06/24/22 11:12 2 06/24/22 07:45 2 06/24/22 07:38 2 06/24/22 07:00 06/24/22 03:08 2
[2022-06-24] MEDS ORDERED: ENOXAPARIN INJ 40 MG/0.4 ML SYR SQ SCH (15:00)
[2022-06-24] MEDS: TROLAMINE SALICYLATE 10% CRM 255 APPLN/85 GM TUBE EXT PRN ×2 (15:23→23:56)
[2022-06-24] MEDS: RIVAROXABAN 15 MG TAB PO SCH (20:12)
[2022-06-24] MEDS: ATORVASTATIN 40 MG TAB PO SCH (20:12)
[2022-06-25] MEDS: cefTRIAXone SODIUM 1,000 MG in DEXTROSE 5% 50 ML IV SCH (02:56)
[2022-06-25] MEDS: LEVOTHYROXINE SODIUM 25 MCG TABLET PO SCH (05:53)
--- NOTE | 2022-06-25 07:26 | Hospitalist Progress Note ---
Date of Service June 25, 2022 Assessment & Plan (1) Sacral fracture, closed: (2) Acute UTI: (3) Lumbar back pain: (4) Fall: (5) Asthma: (6) Chronic anticoagulation: (7) Cognitive change: (8) Congestive heart failure: (9) CKD (chronic kidney disease), stage III: (10) Type 2 diabetes mellitus: (11) Atrial fibrillation: (12) Dyslipidemia: (13) HTN (hypertension): Plan Patient is an 82 yo female with PMHx of asthma, chronic atrial fibrillation on chronic anticoagulation, CHF, anemia, CKD stage III, DM, HLD, HTN, arthritis, hypothyroidism, and pulmonary HTN admitted to [facility] on 06/23/22 due to sacral fractures s/p fall and UTI. Sacral Fractures s/p Fall - Fall out of bed (presumed to have occurred on Sunday 06/17) - CT pelvis 06/23: mildly displaced comminuted fractures involving the S1-S3 levels extending into both sacral wings - Pain control with Tylenol 650mg q6h prn and Tramadol 50mg q4h prn, communication placed for Icy/Hot PRN - Fall precautions placed - Ortho/Spine Consult - recommending ambulation with walker and PT/OT w/o surgical intervention --- PT/OT ordered, currently recommending SNF UTI - UA 06/23 is contaminated with > 30 epithelial cells but evidence of infection with trace blood, positive nitrite, 2+ leuk esterase, 10-30 WBC, and 4+ bacteria - Urine cx: Gram negative bacilli, Klebsiella pneumoniae (preliminary), gooden- sensitive - Patient received ceftriaxone in ED - 06/25 Patient is w/o dysuria, frequency, or suprapubic pain. She is afebrile. --- Transitioned to PO Cephalexin 06/25 to cover UTI and prepare for discharge Atrial fibrillation on Xarelto (renal adjustment 15 mg PO qPM) - Patient with permanent atrial fibrillation and sick sinus syndrome with permanent pacemaker - Continue home Xarelto Hyperlipidemia - Continue home statin Hypertension/CHF - Follows with Cardiology outpatient - Echo 05/30: EF 55-60%, similar compared to 02/07/22 - No sign of acute CHF exacerbation - Continue Amlodipine 2.5 mg PO daily - Continue Carvedilol 12.5 mg PO BID - 06/24 patient developed 2L oxygen requirement, sustained into 11/1 - Patient denies dyspnea or pleuritic pain, states LE edema is at baseline --- 06/25 Restarted home Lasix 40 mg PO daily Hypothyroidism - Continue home Levothyroxine Asthma - Continue home singulair and albuterol prn - Follows with pulm clinic - Well controlled w/o maintenance inhaler at this time 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 I was also able to speak to one of the patient's daughter who also works here in the hospital. The daughter relays a several month history of decline. The patient does have difficulty managing her medications (family will set out medications although there is seemingly still an issue with compliance). There is evidence of confusion (she will call her children at 23 AM in the morning and ask if they are ready for breakfast). In sum, it sounds as if there is appropriate concern as to whether the patient is safe to remain at home. EXAM 115/73, 69, 20, 36.6, 98% nasal cannula 2 L/min n Alert and oriented. No signs of significant pain or discomfort. Heart regular rate and rhythm Respirations nonlabored DATA Hemoglobin 10.2, platelet count 202 Sodium 137, potassium 3.2, BUN 21, creatinine 0.77 IMAGING One-view portable taken 06/25/2022 shows no acute abnormalities. No evidence of pneumonia MICRO Urine culture collected 06/24/2022 shows gram-negative bacilli, speciation pending Urine culture collected 06/23/2022 shows grade 100,000 colonies Klebsiella pneumonia with pansensitivity IMPRESSION & PLAN Sacral fracture Orthopedic consultation appreciated PT/OT Pain management, although seems well controlled at present UTI Ceftriaxone Dementia Patient will need placed. There is no acute issue for physical therapy the setting of her recent sacral fracture. There is a longer term placement issue with regards to her progressive dementia. Additional per resident documentation Subjective Patient is an 82 yo female with PMHx of asthma, chronic atrial fibrillation on chronic anticoagulation, CHF, anemia, CKD stage III, DM, HLD, HTN, arthritis, hypothyroidism, and pulmonary HTN who presented to the ER on 06/23/22 due to low back pain after a fall last Sunday 06/17. She was found to have acute fractures of S1-S3 ontop of chronic lumbar disc disease. She was also found to have a UTI and started on abx. 06/25: Patient is feeling improved today, she notes that her sacral/back pain is 3/10. Patient denies any dysuria today. She notes that 'she is normally very active and doesn't like to sit still'. Patient denies chest pain, dyspnea, or pleuritic pain. She is not having any abdominal pain or flank pain. She is moving her lower extremities as normal and her swelling is at baseline. 0900: [id number] was at bedside this morning. She believes that patient's pain is 8/10 when attempting to ambulate or transition to the bedside toilet. She notes that prior to presentation to the ER patient was having increased frequency of urination, but not dysuria. In addition, patient lives alone w/ close family support, family is concerned for patient to go home withotu additional nursing care. PT recommendations to discharge to SNF were discussed. 06/23: Lisa is feeling overall well today. She has 3/10 pain in her low back, notes it is improving, mild pain in right leg and glutes, no weakness of legs, no loss of bowel or bladder control. Patient notes that she is normally active and sitting in bed this long is not her normal. No CP, SOB, or abdominal pain. She denies dysuria, urgency, or frequency. Review of Systems Review of Systems: See HPI Physical Exam Physical Exam: Gen: NAD, alert, interactive. AO x 3, mild confusion. Resp:Non-labored, no wheezing/rhonchi/rales, CTAB CV:RRR (paced), normal S1/S2, no M/R/G Abd: Soft, non-distended, no TTP, normoactive bowels, no masses, no CVA tenderness Extr: 2+ dp bilaterally, 1+ non-pitting edema, strength 5/5 symmetric, appropriate ROM Results & Data Results & Data ([facility]) Vital Signs (Past 12 Hours) Vital Signs Temp Pulse Pulse Resp BP Pulse Ox O2 Del Method 06/25/22 07:00 70 06/24/22 23:38 72 06/24/22 23:01 Nasal Cannula 06/24/22 22:41 36.7 C 68 20 124/61 93 Nasal Cannula 06/24/22 20:52 94 Nasal Cannula 06/24/22 20:52 86 L Room Air 06/24/22 20:09 36.8 C 72 18 127/74 95 Nasal Cannula O2 Flow Rate 06/25/22 07:00 06/24/22 23:38 06/24/22 23:01 2 06/24/22 22:41 2 06/24/22 20:52 2 06/24/22 20:52 06/24/22 20:09 2 Resident Activity Tracking Resident Involvement: Resident Care Provided Care Provided: Adult Hospital Medicine (1) Atrial fibrillation Atrial fibrillation type: permanent Qualified Code(s): I48.21 - Permanent atrial fibrillation
[2022-06-25] MEDS: MONTELUKAST SODIUM 10 MG TABLET PO SCH (08:55)
[2022-06-25] MEDS: traMADol HCL 50 MG TABLET PO PRN ×4 (08:55→21:22)
[2022-06-25] MEDS: FUROSEMIDE 40 MG TAB PO SCH (08:55)
[2022-06-25] MEDS: amLODIPine BESYLATE 5 MG TAB PO SCH (08:55)
[2022-06-25] MEDS: carvediloL 12.5 MG TAB PO SCH ×2 (08:55→21:23)
--- NOTE | 2022-06-25 09:18 | Medical Student Progress Note ---
Date of Service June 25, 2022 Assessment & Plan (1) Sacral fracture, closed: Plan: Patient is an 82 y/o female with an extensive past medical history who was admitted on 06/23/22 due to low back pain after a fall, and was found to have acute fractures of S1-S3 and a UTI. S1-S3 fractures - Ortho/spine consulted and recommended ambulation with walker, as well as PT/OT. Surgical intervention was not recommended. - Pain currently well-controlled with Tylenol 650mg q6h PRN and Tramadol 50mg q4h PRN. - Encourage ambulation as tolerated - Family is meeting [facility] (06/25/22) to discuss disposition plans as patient currently lives alone. UTI - Urine culture positive for K. pneumoniae - Antibiotics switched to ceftriaxone to allow PO dosing and enable discharge Cognitive Impairment - Per [id number], concern for early onset dementia, current increased cognitive impairment may be factor of UTI - UTI resolution and discharge from hospital will likely remit symptoms (2) Acute UTI: (3) Lumbar back pain: (4) Fall: (5) Asthma: (6) Chronic anticoagulation: (7) Cognitive change: (8) Congestive heart failure: (9) CKD (chronic kidney disease), stage III: (10) Type 2 diabetes mellitus: (11) Atrial fibrillation: Atrial fibrillation type: permanent Qualified Code(s): I48.21 - Permanent atrial fibrillation (12) Dyslipidemia: (13) HTN (hypertension): Plan Diet:Carb consistent DM2 IVF: None DVT PPx: Home dose Xarelto Dispo:Pending PT evaluation/progression Code Status: Full Admission and Anticipated Discharge Date Admission Date: June 23, 2022 Subjective Patient is an 82 y/o female with an extensive past medical history, including arthritis, asthma, atrial fibrillation, CHF, CKD stage III, diabetes mellitus, HLD, HTN, hypothyroidism, and pulmonary HTN who presented to the ED on 06/23/22 due to low back pain after a presumed (patient is disoriented and has difficulty recalling incident; family provided most likely explanation) fall. On pelvic CT, acute displaced comminuted fractures of S1-S3 were identified. She was also found to have a UTI. Ceftriaxone and tramadol + Tylenol were initiated, and patient was admitted 06/23/2022. 06/25/2022: Lisa is in good spirits this morning and says she is ready to begin walking. She has no complaints at this time. She denies dysuria, polyuria, urgency, incontinence, lower extremity weakness/pain, difficulty breathing, chest pain, and shortness of breath. Her hjdgsefv-cc-pun, Zuly, was present for pre-rounding and expressed interest in the possibility of in-home or facility-based assistance, since patient currently lives alone. Cost may be prohibitive, however, so they would like to work with case management to establish a solution. Review of Systems Review of Systems: See HPI. Physical Exam Physical Exam: Constitutional: Well-appearing, alertness slightly decreased as compared to yesterday (06/24), no acute distress. HEENT: Pupils symmetrically round and reactive bilaterally, anicteric, moist mucous membranes, no lymphadenopathy. Cardiac: Regular rate and rhythm, no murmurs/rubs/gallops, normal capillary refill/distal pulses on upper and lower extremities, no LE edema. Respiratory: Clear to auscultation, no increased work of breathing noted. GI: Abdomen soft and nontender to palpation, no organomegaly, normoactive bowel sounds in all 4 quadrants, no guarding or rebound tenderness appreciated. Neuro/Psych: Disoriented (0/3), significant repetition in conversation, kelton hter-in-law expressed concern at rapid neurological decline as she says this is much worse than patient's baseline. Results & Data ([facility]) Vital Signs (Past 12 Hours) Vital Signs Temp Pulse Pulse Resp BP Pulse Ox O2 Del Method 06/25/22 07:37 88 L Room Air, Nasal Cannula 06/25/22 07:33 37.0 C 71 20 133/68 90 Room Air 06/25/22 07:31 Room Air 06/25/22 07:00 70 06/24/22 23:38 72 06/24/22 23:01 Nasal Cannula 06/24/22 22:41 36.7 C 68 20 124/61 93 Nasal Cannula O2 Flow Rate 06/25/22 07:37 0 06/25/22 07:33 06/25/22 07:31 06/25/22 07:00 06/24/22 23:38 06/24/22 23:01 2 06/24/22 22:41 2 Laboratory Results 06/25/22 06/25/22 09:06 09:06 WBC 6.00 RBC 3.35 L Hgb 10.2 L Hct 30.6 L MCV 91.3 MCH 30.4 MCHC 33.3 RDW Std Deviation 47.1 H RDW Coeff of Serenity 13.9 Plt Count 202 MPV 11.0 Sodium 137 Potassium 3.2 L Chloride 102 Carbon Dioxide 29 Anion Gap 6 BUN 21 Creatinine 0.77 Est Cr Clr Drug Dosing 53.2 Est GFR ( Amer) 82.8 Est GFR (Non-Af Amer) 71.4 BUN/Creatinine Ratio 27.3 H Glucose 170 H Calcium 8.9 Diagnostic Findings Lumbar Spine CT 06/23/22 20:40 CT OF THE LUMBAR SPINE CLINICAL HISTORY: Lumbar back pain. COMPARISON STUDY: Lumbar spine radiographs April 26, 2020 and June 23, 2022. CT of the abdomen and pelvis April 23, 2020. TECHNIQUE: Helical axial images of the lumbar spine were obtained. Sagittal and coronal reconstructions were viewed. Automated exposure control was utilized for the study. A dose lowering technique was utilized adhering to the principles of ALARA. FINDINGS: Acute mildly displaced bilateral sacral fractures are better depicted on the pelvis CT which will be reported separately. Levoscoliosis of the lumbar spine is noted. There is no acute lumbar spine fracture. Central canal and neural foramen are suboptimally assessed given CT technique. Severe multilevel facet arthrosis is noted as well as severe multilevel disc space narrowing, osteophytosis and facet arthrosis. Paravertebral soft tissues are unremarkable by CT. IMPRESSION: 1. No acute lumbar spine fracture or subluxation. 2. Severe multilevel degenerative changes within the lumbar spine. Lumbar spine scoliosis. 3. Acute mildly displaced bilateral sacral fractures better depicted on the same day pelvis CT. ACT 112: Negative or not required by law. Electronically signed by: Jaya Barone M.D. 06/24/2022 10:[address] 06/23/22 20:[address] DOSE: 1188.22 mGy.cm HISTORY: fall, L>R hip pain, unable to ambulate TECHNIQUE: Multiaxial CT images of the pelvis were performed and reformatted in the sagittal and coronal plane without the use of contrast. A dose lowering technique was utilized adhering to the principles of ALARA. COMPARISON: Abdomen and pelvis CT 04/23/2020. FINDINGS: No fracture or dislocation within the right or left hip. Slightly displaced fractures involving the sacrum at the S2/S3 levels. This extends into the bilateral sacral wings. The visualized lumbar spine and pubic bones are intact. Mild presacral edema is noted. Mild body wall edema. The bladder and uterus are unremarkable. Colonic diverticulosis is noted. IMPRESSION: 1. Mildly displaced sacral fractures as described above. 2. No fracture or dislocation within the bilateral hips. ACT 112: Negative or not required by law. Electronically signed by: Ricardo Alonzo M.D. 06/24/2022 7:21 AM Chest X-Ray 06/25/22 11:56 XR chest 1V portable CLINICAL HISTORY: hypoxia TECHNIQUE: Single frontal radiograph of the chest was obtained. Comparison: Comparison is made to chest radiograph 06/23/2022 FINDINGS: Dual lead pacemaker is seen. Cardiomegaly is noted. The aortic arch is calcified. The lungs are clear. No evidence of pleural effusion or pneumothorax. IMPRESSION: No acute abnormalities and in particular no evidence of pneumonia. ACT 112: Negative or not required by law. Electronically signed by: Bienvenido Link M.D. 06/25/2022 12:30 PM Medications Administered Acetaminophen (Acetaminophen 325 Mg Tab) 650 mg PO Q6H PRN PRN Reason: Mild Pain (1, 2, 3) Stop: 07/24/22 00:48 Last Admin: 06/25/22 12:06 Dose: 650 mg Documented By: Admin: 06/24/22 20:11 Dose: 650 mg Documented By: Admin: 06/24/22 12:55 Dose: 650 mg Documented By: JING Amlodipine Besylate (Amlodipine Besylate 5 Mg Tab) 2.5 mg PO DAILY DARREL Stop: 07/24/22 08:59 Last Admin: 06/25/22 08:55 Dose: 2.5 mg Documented By: Admin: 06/24/22 07:48 Dose: 2.5 mg Documented By: JING Atorvastatin Calcium (Atorvastatin 40 Mg Tab) 80 mg PO HS DARREL Stop: 07/24/22 20:59 Last Admin: 06/24/22 20:12 Dose: 80 mg Documented By: ADELINE Carvedilol (Carvedilol 12.5 Mg Tab) 12.5 mg PO BID DARREL Stop: 07/24/22 08:59 Last Admin: 06/25/22 08:55 Dose: 12.5 mg Documented By: Admin: 06/24/22 20:12 Dose: 12.5 mg Documented By: Admin: 06/24/22 07:48 Dose: 12.5 mg Documented By: JING Cephalexin HCl (Cephalexin 500 Mg Cap) 500 mg PO QID DARREL Stop: 06/30/22 12:59 Last Admin: 06/25/22 13:04 Dose: 500 mg Documented By: JING Furosemide (Furosemide 40 Mg Tab) 40 mg PO DAILY DARREL Stop: 07/24/22 08:59 Last Admin: 06/25/22 08:55 Dose: 40 mg Documented By: Admin: 06/24/22 07:48 Dose: 40 mg Documented By: JING Levothyroxine Sodium (Levothyroxine Sodium 25 Mcg Tablet) 25 mcg PO DAILYBB DARREL Stop: 07/24/22 06:29 Last Admin: 06/25/22 05:53 Dose: 25 mcg Documented By: Admin: 06/24/22 06:35 Dose: 25 mcg Documented By: CESAR Montelukast Sodium (Montelukast Sodium 10 Mg Tablet) 10 mg PO DAILY DARREL Stop: 07/24/22 08:59 Last Admin: 06/25/22 08:55 Dose: 10 mg Documented By: Admin: 06/24/22 07:48 Dose: 10 mg Documented By: JING Rivaroxaban (Rivaroxaban 15 Mg Tab) 15 mg PO QPM DARREL Stop: 07/24/22 20:59 Last Admin: 06/24/22 20:12 Dose: 15 mg Documented By: ADELINE Tramadol HCl (Tramadol Hcl 50 Mg Tablet) 50 mg PO Q4H PRN PRN Reason: MODERATE Pain (4,5,6) & prePT Stop: 07/24/22 00:48 Last Admin: 06/25/22 13:04 Dose: 50 mg Documented By: Admin: 06/25/22 08:55 Dose: 50 mg Documented By: Admin: 06/24/22 23:55 Dose: 50 mg Documented By: Admin: 06/24/22 17:22 Dose: 50 mg Documented By: Admin: 06/24/22 11:42 Dose: 50 mg Documented By: Admin: 06/24/22 07:47 Dose: 50 mg Documented By: JING Trolamine Salicylate (Trolamine Salicylate 10% Crm 255 Appln/85 Gm Tube) 1 appln EXT BID PRN PRN Reason: Pain Stop: 07/24/22 13:26 Last Admin: 06/25/22 13:04 Dose: 1 appln Documented By: Admin: 06/24/22 23:56 Dose: 1 appln Documented By: Admin: 06/24/22 15:23 Dose: 1 appln Documented By: JING
[2022-06-25 09:29] LABS: Hematocrit (blood only) 30.6 % (34.1-44.9); Hemoglobin 10.2 g/dl (12.0-16.0); Mean Corpuscular Hemoglobin 30.4 pg (25.0-34.0); Mean Corpuscular Hgb Conc 33.3 g/dL (32.0-36.0); Mean Corpuscular Volume 91.3 fL (80.0-100.0); Platelet Count 202 K/uL (130-400); RDW Coefficient of Variation 13.9 % (11.5-14.5); RDW Standard Deviation 47.1 fL (36.4-46.3); Red Blood Count 3.35 M/uL (3.93-5.22)
[2022-06-25 09:56] LABS: BUN Creatinine Ratio 27.3 (10-20); Calcium 8.9 mg/dl (8.5-10.1); Creatinine Clr Calc Pharmacy 53.2 ml/min; Est GFR (African American) 82.8 ml/min; Est GFR (Non-African American) 71.4 ml/min; Potassium 3.2 mmol/L (3.5-5.1)
[2022-06-25] MEDS ORDERED: POTASSIUM CHLORIDE CRTAB 20 MEQ TABCR PO STA (10:04)
[2022-06-25] MEDS: ACETAMINOPHEN 325 MG TAB PO PRN ×2 (12:06→18:53)
--- NOTE | 2022-06-25 12:31 | XRay Report ---
XR chest 1V portable CLINICAL HISTORY: hypoxia TECHNIQUE: Single frontal radiograph of the chest was obtained. Comparison: Comparison is made to chest radiograph 06/23/2022 FINDINGS: Dual lead pacemaker is seen. Cardiomegaly is noted. The aortic arch is calcified. The lungs are clear . No evidence of pleural effusion or pneumothorax. IMPRESSION: No acute abnormalities and in particular no evidence of pneumonia. ACT 112: Negative or not required by law. Electronically signed by: Bienvenido Link M.D. 06/25/2022 12:30 PM
[2022-06-25] MEDS: TROLAMINE SALICYLATE 10% CRM 255 APPLN/85 GM TUBE EXT PRN ×2 (13:04→16:16)
[2022-06-25] MEDS: cephALEXin 500 MG CAP PO SCH ×3 (13:04→21:22)
[2022-06-25] MEDS: RIVAROXABAN 15 MG TAB PO SCH (21:22)
[2022-06-25] MEDS: ATORVASTATIN 40 MG TAB PO SCH (21:22)
[2022-06-26] MEDS: TROLAMINE SALICYLATE 10% CRM 255 APPLN/85 GM TUBE EXT PRN ×2 (01:40→15:30)
[2022-06-26] MEDS: traMADol HCL 50 MG TABLET PO PRN ×5 (01:40→19:30)
[2022-06-26] MEDS: LEVOTHYROXINE SODIUM 25 MCG TABLET PO SCH (06:19)
[2022-06-26 07:06] LABS: Hematocrit (blood only) 31.1 % (34.1-44.9); Mean Corpuscular Hemoglobin 30.1 pg (25.0-34.0); Mean Corpuscular Hgb Conc 32.2 g/dL (32.0-36.0); Mean Corpuscular Volume 93.7 fL (80.0-100.0); Mean Platelet Volume 10.4 fL (9.4-12.3); Platelet Count 228 K/uL (130-400); RDW Coefficient of Variation 13.6 % (11.5-14.5); RDW Standard Deviation 46.5 fL (36.4-46.3); Red Blood Count 3.32 M/uL (3.93-5.22); White Blood Count 6.05 K/ul (4.8-10.8)
--- NOTE | 2022-06-26 07:32 | Medical Student Progress Note ---
Date of Service June 26, 2022 Assessment & Plan Admission and Anticipated Discharge Date Admission Date: June 23, 2022 Subjective 06/26: Results & Data ([facility]) Vital Signs (Past 12 Hours) Vital Signs Temp Pulse Pulse Resp BP BP Pulse Ox 06/26/22 07:11 36.7 C 72 14 132/76 98 06/26/22 07:11 70 06/25/22 22:08 80 06/25/22 21:20 75 17 118/76 96 O2 Del Method O2 Flow Rate 06/26/22 07:11 Nasal Cannula 2 06/26/22 07:11 06/25/22 22:08 06/25/22 21:20 Nasal Cannula 2
--- NOTE | 2022-06-26 07:34 | Hospitalist Progress Note ---
Date of Service June 26, 2022 Assessment & Plan (1) Sacral fracture, closed: (2) Acute UTI: (3) Lumbar back pain: (4) Fall: (5) Asthma: (6) Chronic anticoagulation: (7) Cognitive change: (8) Congestive heart failure: (9) CKD (chronic kidney disease), stage III: (10) Type 2 diabetes mellitus: (11) Atrial fibrillation: (12) Dyslipidemia: (13) HTN (hypertension): Plan Patient is an 82 yo female with PMHx of asthma, chronic atrial fibrillation on chronic anticoagulation, CHF, anemia, CKD stage III, DM, HLD, HTN, arthritis, hypothyroidism, and pulmonary HTN admitted to [facility] on 06/23/22 due to sacral fractures s/p fall and UTI. Sacral Fractures s/p Fall - Fall out of bed (presumed to have occurred on Sunday 06/17) - CT pelvis 06/23: mildly displaced comminuted fractures involving the S1-S3 levels extending into both sacral wings - Pain control with Tylenol 650mg q6h prn and Tramadol 50mg q4h prn, communication placed for Icy/Hot PRN - Fall precautions placed - Ortho/Spine Consult - recommending ambulation with walker and PT/OT w/o surgical intervention --- 06/26 Continue pain management w/ Tramadol, scheduled Tylenol --- Pending SNF Placement ( planned Friday) --- Continue PT UTI - UA 06/23 is contaminated with > 30 epithelial cells but evidence of infection with trace blood, positive nitrite, 2+ leuk esterase, 10-30 WBC, and 4+ bacteria - Urine cx: Gram negative bacilli, Klebsiella pneumoniae (preliminary), gooden- sensitive - Patient received ceftriaxone in ED - 06/25 Patient is w/o dysuria, frequency, or suprapubic pain. She is afebrile. --- Transitioned to PO Cephalexin 06/25 to cover UTI and prepare for discharge --- 06/26 Continue PO Cephalexin Atrial fibrillation on Xarelto (renal adjustment 15 mg PO qPM) - Patient with permanent atrial fibrillation and sick sinus syndrome with permanent pacemaker - Continue home Xarelto Hyperlipidemia - Continue home statin Hypertension/CHF - Follows with Cardiology outpatient - Echo 05/30: EF 55-60%, similar compared to 02/07/22 - No sign of acute CHF exacerbation - Continue Amlodipine 2.5 mg PO daily - Continue Carvedilol 12.5 mg PO BID - 06/24 patient developed 2L oxygen requirement, sustained into 06/25 - Patient denies dyspnea or pleuritic pain, states LE edema is at baseline - 06/25 Restarted home Lasix 40 mg PO daily Hypothyroidism - Continue home Levothyroxine Asthma - Continue home singulair and albuterol prn - Follows with pulm clinic - Well controlled w/o maintenance inhaler at this time 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 I was also able to speak to one of the patient's daughter (Teri) via phone today. This conversation was in the patient's room in the presence of the patient as well. Patient herself notes that she feels a little better this morning. Seemingly less pain. RN in room reports no complaints at this time. No agitation. The RN does note that the patient has been intermittently confused with regards to time and place. EXAM 128/81, 74, 16, 36.4, 1 high percent on nasal cannula 2 L/min Alert and oriented. Semireclined in bed. No signs of significant pain or discomfort. Heart regular rate and rhythm Respirations nonlabored DATA Hemoglobin 10.2, platelet count 228 Sodium 136, potassium 4.3, BUN 18, creatinine 0.68. IMAGING One-view portable taken 06/25/2022 shows no acute abnormalities. No evidence of pneumonia MICRO Urine culture collected 06/24/2022 shows Klebsiella pneumonia. Urine culture collected 06/23/2022 shows Klebsiella pneumonia. IMPRESSION & PLAN Sacral fracture Orthopedic consultation appreciated PT/OT Pain management, although seems well controlled at present UTI Ceftriaxone Dementia Patient will need placed. There is no acute issue for physical therapy the setting of her recent sacral fracture. There is a longer term placement issue with regards to her progressive dementia. Additional per resident documentation Subjective Patient is an 82 yo female with PMHx of asthma, chronic atrial fibrillation on chronic anticoagulation, CHF, anemia, CKD stage III, DM, HLD, HTN, arthritis, hypothyroidism, and pulmonary HTN who presented to the ER on 06/23/22 due to low back pain after a fall last Sunday 06/17. She was found to have acute fractures of S1-S3 ontop of chronic lumbar disc disease. She was also found to have a UTI and started on abx. 06/26: Patient notes she is feeling well today, although pain is noted at 7/10. Patient engaging more today. States that Tylenol and Tramadol alleviate her pain. No chest pain or dyspnea. No abdominal pain or dysuria. PM: Increased agitation, family and nursing requesting medication 06/25: Patient is feeling improved today, she notes that her sacral/back pain is 3/10. Patient denies any dysuria today. She notes that 'she is normally very active and doesn't like to sit still'. Patient denies chest pain, dyspnea, or pleuritic pain. She is not having any abdominal pain or flank pain. She is moving her lower extremities as normal and her swelling is at baseline. 0900: [id number] was at bedside this morning. She believes that patient's pain is 8/10 when attempting to ambulate or transition to the bedside toilet. She notes that prior to presentation to the ER patient was having increased frequency of urination, but not dysuria. In addition, patient lives alone w/ close family support, family is concerned for patient to go home withotu latricia tional nursing care. PT recommendations to discharge to SNF were discussed. Review of Systems Review of Systems: See HPI Physical Exam Physical Exam: Gen: NAD, alert, interactive. AO x 3, mild confusion. Resp:Non-labored, no wheezing/rhonchi/rales, CTAB CV:RRR (paced), normal S1/S2, no M/R/G Abd: Soft, non-distended, no TTP, normoactive bowels, no masses, no CVA tenderness Extr: 2+ dp bilaterally, 1+ non-pitting edema, strength 5/5 symmetric, appropriate ROM Results & Data Results & Data ([facility]) Vital Signs (Past 12 Hours) Vital Signs Temp Pulse Pulse Resp BP BP Pulse Ox 06/26/22 07:11 36.7 C 72 14 132/76 98 06/26/22 07:11 70 06/25/22 22:08 80 06/25/22 21:20 75 17 118/76 96 O2 Del Method O2 Flow Rate 06/26/22 07:11 Nasal Cannula 2 06/26/22 07:11 06/25/22 22:08 06/25/22 21:20 Nasal Cannula 2 Resident Activity Tracking Resident Involvement: Resident Care Provided Care Provided: Adult Hospital Medicine (1) Atrial fibrillation Atrial fibrillation type: permanent Qualified Code(s): I48.21 - Permanent atrial fibrillation
[2022-06-26] MEDS: carvediloL 12.5 MG TAB PO SCH ×2 (07:39→20:17)
[2022-06-26] MEDS: FUROSEMIDE 40 MG TAB PO SCH (07:39)
[2022-06-26] MEDS: MONTELUKAST SODIUM 10 MG TABLET PO SCH (07:39)
[2022-06-26] MEDS: amLODIPine BESYLATE 5 MG TAB PO SCH (07:39)
[2022-06-26] MEDS: cephALEXin 500 MG CAP PO SCH ×4 (07:40→20:17)
[2022-06-26 07:48] LABS: BUN Creatinine Ratio 26.5 (10-20); Calcium 8.8 mg/dl (8.5-10.1); Creatinine Clr Calc Pharmacy 60.2 ml/min; Est GFR (African American) 93.8 ml/min; Est GFR (Non-African American) 80.9 ml/min; Potassium 4.3 mmol/L (3.5-5.1)
[2022-06-26] MEDS: ACETAMINOPHEN 325 MG TAB PO SCH ×3 (12:06→22:14)
[2022-06-26] MEDS ORDERED: OLANZapine 10 MG/2.1 ML SDV IM STA (14:58)
[2022-06-26] MEDS: ATORVASTATIN 40 MG TAB PO SCH (20:16)
[2022-06-26] MEDS: RIVAROXABAN 15 MG TAB PO SCH (20:17)
[2022-06-26] MEDS ORDERED: OLANZapine ZYDIS 5 MG ORALLY DIS. TAB PO ONE (22:50)
[2022-06-27] MEDS: traMADol HCL 50 MG TABLET PO PRN ×2 (00:43→06:04)
[2022-06-27] MEDS: ACETAMINOPHEN 325 MG TAB PO SCH ×4 (03:40→22:31)
[2022-06-27] MEDS: LEVOTHYROXINE SODIUM 25 MCG TABLET PO SCH (04:53)
--- NOTE | 2022-06-27 07:02 | Hospitalist Progress Note ---
Date of Service June 27, 2022 Assessment & Plan (1) Sacral fracture, closed: (2) Acute UTI: (3) Lumbar back pain: (4) Fall: (5) Asthma: (6) Chronic anticoagulation: (7) Cognitive change: (8) Congestive heart failure: (9) CKD (chronic kidney disease), stage III: (10) Type 2 diabetes mellitus: (11) Atrial fibrillation: (12) Dyslipidemia: (13) HTN (hypertension): Plan Patient is an 82 yo female with PMHx of asthma, chronic atrial fibrillation on chronic anticoagulation, CHF, anemia, CKD stage III, DM, HLD, HTN, arthritis, hypothyroidism, and pulmonary HTN admitted to [facility] on 06/23/22 due to sacral fractures s/p fall and UTI. Sacral Fractures s/p Fall - Fall out of bed (presumed to have occurred on Sunday 06/17) - CT pelvis 06/23: mildly displaced comminuted fractures involving the S1-S3 levels extending into both sacral wings - Pain control with Tylenol 650mg q6h prn and Tramadol 50mg q4h prn, communication placed for Icy/Hot PRN - Fall precautions placed - Ortho/Spine Consult - recommending ambulation with walker and PT/OT w/o surgical intervention - 06/26 Continue pain management w/ Tramadol, scheduled Tylenol --- Pending SNF Placement ( planned Friday) --- Continue PT UTI - UA 06/23 is contaminated with > 30 epithelial cells but evidence of infection with trace blood, positive nitrite, 2+ leuk esterase, 10-30 WBC, and 4+ bacteria - Urine cx: Gram negative bacilli, Klebsiella pneumoniae, gooden-sensitive - Patient received ceftriaxone in ED - 06/25 Patient is w/o dysuria, frequency, or suprapubic pain. She is afebrile. - Transitioned to PO Cephalexin 06/25 to cover UTI and prepare for discharge --- 06/27 Continue PO Cephalexin, Day 01/29 --- Provided Pyridium (Azo) rx for ongoing dysuria --- Provided Rx for Rodriguez Atrial fibrillation on Xarelto (renal adjustment 15 mg PO qPM) - Patient with permanent atrial fibrillation and sick sinus syndrome with permanent pacemaker - Continue home Xarelto Hyperlipidemia - Continue home statin Hypertension/CHF - Follows with Cardiology outpatient - Echo 05/30: EF 55-60%, similar compared to 02/07/22 - No sign of acute CHF exacerbation - Continue Amlodipine 2.5 mg PO daily - Continue Carvedilol 12.5 mg PO BID - 06/24 patient developed 2L oxygen requirement, sustained into 06/25 - Patient denies dyspnea or pleuritic pain, states LE edema is at baseline - 06/25 Restarted home Lasix 40 mg PO daily --- 06/27 Increasing O2 requirement (4L NC) --- Ordered CXR (negative) and BNP (mild elevation, consistent w/ hx) Hypothyroidism - Continue home Levothyroxine Asthma - Continue home singulair and albuterol prn - Follows with pulm clinic - Well controlled w/o maintenance inhaler at this time 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 - Current increased cognitive impairment may be factor of UTI - Preventative measures to decrease hospital associated delirium - 06/25 Family expressed concern about patient going home independently, explained PT recommendation for SNF following discharge - 06/26 PO Zyprexa for agitation w/ staff and family --- 06/27 Worsening frustration and aggression likely 2/2 dysuria (etiology consistent with delirium considered), provided Rx for Pyridium --- 06/27 Voided 2300 cc via Rodriguez --- 06/27 Continued agitation and aggression, given 2.5 mg Zyprexa Diet:Carb consistent DM2 IVF: None DVT PPx: Home dose Xarelto Dispo:SNF, pending placement Code Status: Full Admission and Anticipated Discharge Date Admission Date: June 23, 2022 Supervising Physician Co-Signing Physician Notes I also saw the patient confirmed hensley portions of the history and physical examination. I agree with the impression and plan as noted in the resident documentation. Upon examination early afternoon, the patient was quite agitated. Her daughter was at bedside. The patient was convinced that she had to get up to use the bathroom and could not be reassured that she had a Rodriguez catheter placed. A one-to-one was present and trying to redirect the patient, along with the daughter and myself, although having little success. EXAM 169/76, 86, 18, 36.6, 90% on nasal cannula 2 L/min Awake and quite agitated. Heart regular rate and rhythm Respirations nonlabored DATA Hemoglobin 10.9, WBC 6.18, platelet count 271 Sodium 139, potassium 3.9, BUN 14, creatinine 0.59 BNP 375 IMAGING One-view portable taken 06/25/2022 shows no acute abnormalities. No evidence of pneumonia MICRO Urine culture collected 06/24/2022 shows Klebsiella pneumonia. Urine culture collected 06/23/2022 shows Klebsiella pneumonia. IMPRESSION & PLAN Metabolic encephalopathy Underlying dementia with delirium secondary to infection (UTI) Reinforced attempts at redirection/reassurance Unfortunately, little success today and patient was mildly/moderately aggressive Zyprexa 2.5 mg p.o. x1 now HFpEF Continue home medications, Lasix Sacral fracture Orthopedic consultation appreciated PT/OT Pain management, although seems well controlled at present UTI Ceftriaxone Dementia Patient will need placed. There is no acute issue for physical therapy the setting of her recent sacral fracture. There is a longer term placement issue with regards to her progressive dementia. Additional per resident documentation Subjective Patient is an 82 yo female with PMHx of asthma, chronic atrial fibrillation on chronic anticoagulation, CHF, anemia, CKD stage III, DM, HLD, HTN, arthritis, hypothyroidism, and pulmonary HTN who presented to the ER on 06/23/22 due to low back pain after a fall last Sunday 06/17. She was found to have acute fractures of S1-S3 ontop of chronic lumbar disc disease. She was also found to have a UTI and started on abx. 06/27: Increasing agitation associated with diminished mobility and sensation that she needs to urinate, despite multiple attempts on bedside camode and bed gooden. Appreciated frustration and tearfulness in the room. Patient notes that her back pain is 7/10 and is controlled well when she receives her pain medication. She notes that she is very frustrated that she is in bed so much. Patient often mistakes nursing as her daughter Teri. 1330: Increasing agitation and combativeness with daughter and staff. Patient becoming very frustrated and tearful stating that she needs to urinate, despite the presence of a Rodriguez. 2300 cc of urine was drained from patient's bladder when Rodriguez was placed this AM. Review of Systems Review of Systems: See HPI Physical Exam Physical Exam: Gen: NAD, alert, interactive. AO x 3, mild confusion. Resp:Non-labored, no wheezing/rhonchi/rales, CTAB CV:RRR (paced), normal S1/S2, no M/R/G Abd: Soft, non-distended, moderate suprapubic/LLQ TTP, normoactive bowels, no masses, no CVA tenderness, no rebound Extr: 2+ dp bilaterally, 1+ non-pitting edema, strength 5/5 symmetric, appropriate ROM Results & Data Results & Data ([facility]) Vital Signs (Past 12 Hours) Vital Signs Temp Pulse Pulse Resp BP Pulse Ox O2 Del Method 06/27/22 05:53 36.3 C L 72 16 166/92 H 96 Nasal Cannula 06/27/22 02:52 36.3 C L 70 18 132/79 99 Nasal Cannula 06/26/22 23:29 70 06/26/22 22:32 36.3 C L 74 18 149/80 H 93 Room Air 06/26/22 22:03 Nasal Cannula O2 Flow Rate 06/27/22 05:53 4 06/27/22 02:52 2 06/26/22 23:29 06/26/22 22:32 06/26/22 22:03 2 Resident Activity Tracking Resident Involvement: Resident Care Provided Care Provided: Adult Hospital Medicine (1) Atrial fibrillation Atrial fibrillation type: permanent Qualified Code(s): I48.21 - Permanent atrial fibrillation
[2022-06-27 08:04] LABS: Hematocrit (blood only) 33.2 % (34.1-44.9); Hemoglobin 10.9 g/dl (12.0-16.0); Mean Corpuscular Hgb Conc 32.8 g/dL (32.0-36.0); Mean Corpuscular Volume 91.5 fL (80.0-100.0); Mean Platelet Volume 10.8 fL (9.4-12.3); Platelet Count 271 K/uL (130-400); RDW Standard Deviation 43.7 fL (36.4-46.3); Red Blood Count 3.63 M/uL (3.93-5.22); White Blood Count 6.18 K/ul (4.8-10.8)
[2022-06-27] MEDS: carvediloL 12.5 MG TAB PO SCH ×2 (08:10→20:39)
[2022-06-27] MEDS: FUROSEMIDE 40 MG TAB PO SCH (08:10)
[2022-06-27] MEDS: cephALEXin 500 MG CAP PO SCH ×4 (08:10→20:40)
[2022-06-27] MEDS: MONTELUKAST SODIUM 10 MG TABLET PO SCH (08:11)
[2022-06-27] MEDS: amLODIPine BESYLATE 5 MG TAB PO SCH (08:11)
[2022-06-27 08:33] LABS: BUN Creatinine Ratio 23.7 (10-20); Calcium 9.2 mg/dl (8.5-10.1); Creatinine Clr Calc Pharmacy 68.9 ml/min; Est GFR (African American) 98.2 ml/min; Est GFR (Non-African American) 84.8 ml/min; Potassium 3.9 mmol/L (3.5-5.1)
--- NOTE | 2022-06-27 09:04 | XRay Report ---
XR chest 1V portable HISTORY: increasing O2 requirement COMPARISON: Chest 06/25/2022. FINDINGS: No pneumothorax. No pleural effusions. The cardiac silhouette remains moderately enlarged. The left-sided pacemaker again noted. No new focal lung consolidations to suggest a pneumonia. No dayday dence for pulmonary edema. IMPRESSION: Stable enlargement of the cardiac silhouette. ACT 112: Negative or not required by law. Electronically signed by: Ricardo Alonzo M.D. 06/27/2022 9:02 AM
[2022-06-27] MEDS ORDERED: PHENAZOPYRIDINE HCL 200 MG TAB PO PRN (10:03)
[2022-06-27 10:49] LABS: Appearance Urine Clear (Clear); Bilirubin Urine Negative (Negative); Blood Urine Negative (Negative); Color Urine Yellow; Glucose Urine UA Negative (Negative); Ketones Urine Negative (Negative); Leukocyte Esterase Urine Negative (Negative); Nitrite Urine Negative (Negative); Protein Urine Negative (Negative); Specific Gravity Urine 1.006 (1.000-1.030); Urobilinogen Urine Negative (Negative); pH Urine 6.5 (4.5-7.5)
[2022-06-27] MEDS: POLYETHYLENE (MIRALAX) 17 GM PACK PO SCH (11:22)
[2022-06-27] MEDS ORDERED: OLANZAPINE 2.5 MG TAB PO STA ×2 (14:02→22:03)
[2022-06-27] MEDS: ATORVASTATIN 40 MG TAB PO SCH (20:38)
[2022-06-27] MEDS: RIVAROXABAN 15 MG TAB PO SCH (20:41)
[2022-06-27] MEDS: TROLAMINE SALICYLATE 10% CRM 255 APPLN/85 GM TUBE EXT PRN (23:44)
[2022-06-28] MEDS: LEVOTHYROXINE SODIUM 25 MCG TABLET PO SCH (06:34)
[2022-06-28] MEDS: ACETAMINOPHEN 325 MG TAB PO SCH ×2 (06:34→11:06)
--- NOTE | 2022-06-28 07:54 | Hospitalist Progress Note ---
Date of Service June 28, 2022 Assessment & Plan (1) Sacral fracture, closed: (2) Acute UTI: (3) Lumbar back pain: (4) Fall: (5) Asthma: (6) Chronic anticoagulation: (7) Cognitive change: (8) Congestive heart failure: (9) CKD (chronic kidney disease), stage III: (10) Type 2 diabetes mellitus: (11) Atrial fibrillation: (12) Dyslipidemia: (13) HTN (hypertension): Plan Patient is an 82 yo female with PMHx of asthma, chronic atrial fibrillation on chronic anticoagulation, CHF, anemia, CKD stage III, DM, HLD, HTN, arthritis, hypothyroidism, and pulmonary HTN admitted to [facility] on 06/23/22 due to sacral fractures s/p fall and UTI. Sacral Fractures s/p Fall - Fall out of bed (presumed to have occurred on Sunday 06/17) - CT pelvis 06/23: mildly displaced comminuted fractures involving the S1-S3 levels extending into both sacral wings - Pain control with Tylenol 650mg q6h prn and Tramadol 50mg q4h prn, communication placed for Icy/Hot PRN - Fall precautions placed - Ortho/Spine Consult - recommending ambulation with walker and PT/OT w/o surgical intervention - 06/26 Continue pain management w/ Tramadol, scheduled Tylenol --- Pending SNF Placement --- Continue PT UTI - UA 06/23 is contaminated with > 30 epithelial cells but evidence of infection with trace blood, positive nitrite, 2+ leuk esterase, 10-30 WBC, and 4+ bacteria - Urine cx: Gram negative bacilli, Klebsiella pneumoniae, gooden-sensitive - Patient received ceftriaxone in ED - 06/25 Patient is w/o dysuria, frequency, or suprapubic pain. She is afebrile. - Transitioned to PO Cephalexin 06/25 to cover UTI and prepare for discharge - 06/27 Rx for Pyridium and Rodriguez --- 06/28 PO Cephalexin Day 02/28 (discontinue), Pyridium PRN for dysuria, Rodriguez in place Atrial fibrillation on Xarelto (renal adjustment 15 mg PO qPM) - Patient with permanent atrial fibrillation and sick sinus syndrome with permanent pacemaker - Continue home Xarelto Hyperlipidemia - Continue home statin Hypertension/CHF - Follows with Cardiology outpatient - Echo 05/30: EF 55-60%, similar compared to 02/07/22 - No sign of acute CHF exacerbation - Continue Amlodipine 2.5 mg PO daily - Continue Carvedilol 12.5 mg PO BID - 06/24 patient developed 2L oxygen requirement, sustained into 06/25 - Patient denies dyspnea or pleuritic pain, states LE edema is at baseline - 06/25 Restarted home Lasix 40 mg PO daily - 06/27 Increasing O2 requirement (4L NC) - 06/28 94% on Room Air Hypothyroidism - Continue home Levothyroxine Asthma - Continue home singulair and albuterol prn - Follows with pulm clinic - Well controlled w/o maintenance inhaler at this time 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 Placed order for scheduled Zyprexa 2.5 mg at bedtime. --- 06/28 Discontinued 1:1 1600 d/t diminished attempts to leave bed and fewer bouts of aggression Diet:Carb consistent DM2 IVF: None DVT PPx: Home dose Xarelto Dispo:SNF, pending placement Code Status: Full Admission and Anticipated Discharge Date Admission Date: June 23, 2022 Supervising Physician Co-Signing Physician Notes Patient seen and examined independently of PGY-1 Dr. Kiser. Agree with history, exam findings, assessment and plan of care as outlined. In brief, Lisa is an 82 year old female with history of asthma, afib (AC with Xarelto), CHF, anemia, CKD, DM, HTN, hypothyroid and pulmonary HTN admitted following a fall where she sustained a sacral fracture. She reports that she feels well. Tells me that she likes to stay busy. Only has pain in her back area if she stands. VS and nursing notes reviewed. She is well-appearing. Moist mucus membranes. Heart with regular rate and rhythm. Lungs are clear to auscultation. Abdomen is soft, nontender. Log roll of the right leg causes some back pain, but no groin pain. Alert and oriented to self only. 1. Sacral fracture. CT showing mildly displaced, comminuted fractures involving S1-3 extending into both sacral wings. Pain control with Tylenol; holding tramadol. Could consider small dose of oxycodone for increased pain over tramadol. Fall precautions. Ambulation with walker, PT/OT. Will check vitamin D levelsuspect this is likely a fragility fracture. 2. Urinary tract infection. Urine culture with gooden-sensitive Klebsiella. Currently on cephalexin, continue. 3. Afib. AC with Xarelto. Has a pacemaker. 4. HTN, CHF. Euvolemic. Continue coreg, amlodipine, and Lasix. 5. Cognitive impairment. Scheduled low dose Zyprexa at night. Dispo: she is medically stable for discharge. Will stop 1:1 now that she is a bit less agitated. Subjective Patient is an 82 yo female with PMHx of asthma, chronic atrial fibrillation on chronic anticoagulation, CHF, anemia, CKD stage III, DM, HLD, HTN, arthritis, hypothyroidism, and pulmonary HTN who presented to the ER on 06/23/22 due to low back pain after a fall last Sunday 06/17. She was found to have acute fractures of S1-S3 ontop of chronic lumbar disc disease. She was also found to have a UTI and started on abx. 06/28: Patient was sleeping comfortably upon arrival. 1:1 nurse still present, notes patient was awake most of the night and had just fallen asleep. Decreased complaints of dysuria and abdominal discomfort. 1600: Nursing notes significant improvement in mood and demeanor throughout day. Requesting d/c of 1:1. 11/3: Increasing agitation associated with diminished mobility and sensation that she needs to urinate, despite multiple attempts on bedside camode and bed gooden. Appreciated frustration and tearfulness in the room. Patient notes that her back pain is 7/10 and is controlled well when she receives her pain medication. She notes that she is very frustrated that she is in bed so much. Patient often mistakes nursing as her daughter Teri. 1330: Increasing agitation and combativeness with daughter and staff. Patient becoming very frustrated and tearful stating that she needs to urinate, despite the presence of a Rodriguez. 2300 cc of urine was drained from patient's bladder when Rodriguez was placed this AM. Review of Systems Review of Systems: See HPI Physical Exam Physical Exam: Gen: NAD, alert, interactive. AO x 3, mild confusion. Resp:Non-labored, no wheezing/rhonchi/rales, CTAB CV:RRR (paced), normal S1/S2, no M/R/G Abd: Soft, non-distended, no TTP, normoactive bowels, no masses, no CVA tenderness, no rebound Extr: 2+ dp bilaterally, 1+ non-pitting edema (baseline) Results & Data Results & Data ([facility]) Vital Signs (Past 12 Hours) Vital Signs Temp Pulse Pulse Resp BP Pulse Ox O2 Del Method 06/28/22 07:30 70 06/28/22 05:15 35.6 C L 70 16 109/71 96 Nasal Cannula 06/28/22 01:56 70 06/27/22 23:37 68 16 95 Nasal Cannula 06/27/22 23:32 36.9 C 70 16 130/70 87 L Room Air 06/27/22 20:46 36.8 C 73 18 127/72 92 Room Air O2 Flow Rate 06/28/22 07:30 06/28/22 05:15 2 06/28/22 01:56 06/27/22 23:37 2 06/27/22 23:32 06/27/22 20:46 Resident Activity Tracking Resident Involvement: Resident Care Provided Care Provided: Adult Hospital Medicine (1) Atrial fibrillation Atrial fibrillation type: permanent Qualified Code(s): I48.21 - Permanent atrial fibrillation
[2022-06-28] MEDS: cephALEXin 500 MG CAP PO SCH ×2 (08:11→20:10)
[2022-06-28] MEDS: MONTELUKAST SODIUM 10 MG TABLET PO SCH (08:11)
[2022-06-28] MEDS: amLODIPine BESYLATE 5 MG TAB PO SCH (08:11)
[2022-06-28] MEDS: carvediloL 12.5 MG TAB PO SCH ×2 (08:11→20:09)
[2022-06-28] MEDS: FUROSEMIDE 40 MG TAB PO SCH (08:12)
[2022-06-28] MEDS: TROLAMINE SALICYLATE 10% CRM 255 APPLN/85 GM TUBE EXT PRN (08:13)
[2022-06-28] MEDS: POLYETHYLENE (MIRALAX) 17 GM PACK PO SCH (08:17)
[2022-06-28 09:18] LABS: Hematocrit (blood only) 34.8 % (34.1-44.9); Hemoglobin 11.4 g/dl (12.0-16.0); Mean Corpuscular Hemoglobin 30.2 pg (25.0-34.0); Mean Corpuscular Hgb Conc 32.8 g/dL (32.0-36.0); Mean Corpuscular Volume 92.3 fL (80.0-100.0); Mean Platelet Volume 10.2 fL (9.4-12.3); Platelet Count 286 K/uL (130-400); RDW Coefficient of Variation 13.6 % (11.5-14.5); RDW Standard Deviation 46.4 fL (36.4-46.3); Red Blood Count 3.77 M/uL (3.93-5.22); White Blood Count 6.38 K/ul (4.8-10.8)
[2022-06-28 09:39] LABS: BUN Creatinine Ratio 24.3 (10-20); Calcium 9.5 mg/dl (8.5-10.1); Creatinine Clr Calc Pharmacy 49.7 ml/min; Est GFR (African American) 86.8 ml/min; Est GFR (Non-African American) 74.9 ml/min; Potassium 3.5 mmol/L (3.5-5.1)
[2022-06-28] MEDS: ACETAMINOPHEN 500 MG TAB PO SCH ×2 (14:14→20:07)
[2022-06-28] MEDS ORDERED: oxyCODONE HCL IR 5 MG TAB (IMMEDIATE RELEASE) PO ONE (19:14)
[2022-06-28] MEDS ORDERED: COVID19 Vaccine (Primary Series--Pfizer) 30mcg/0.3mL IM ONE (20:00)
[2022-06-28] MEDS: ATORVASTATIN 40 MG TAB PO SCH (20:08)
[2022-06-28] MEDS: RIVAROXABAN 15 MG TAB PO SCH (20:12)
[2022-06-28] MEDS: OLANZAPINE 2.5 MG TAB PO SCH (20:12)
[2022-06-29] MEDS: LEVOTHYROXINE SODIUM 25 MCG TABLET PO SCH (05:18)
--- NOTE | 2022-06-29 06:58 | Hospitalist Progress Note ---
Date of Service June 29, 2022 Assessment & Plan (1) Sacral fracture, closed: (2) Acute UTI: (3) Lumbar back pain: (4) Fall: (5) Asthma: (6) Chronic anticoagulation: (7) Cognitive change: (8) Congestive heart failure: (9) CKD (chronic kidney disease), stage III: (10) Type 2 diabetes mellitus: (11) Atrial fibrillation: (12) Dyslipidemia: (13) HTN (hypertension): Plan Patient is an 82 yo female with PMHx of asthma, chronic atrial fibrillation on chronic anticoagulation, CHF, anemia, CKD stage III, DM, HLD, HTN, arthritis, hypothyroidism, and pulmonary HTN admitted to [facility] on 06/23/22 due to sacral fractures s/p fall and UTI. Sacral Fractures s/p Fall - Fall out of bed (presumed to have occurred on Sunday 06/17) - CT pelvis 06/23: mildly displaced comminuted fractures involving the S1-S3 levels extending into both sacral wings - Pain control with Tylenol 650mg q6h prn and Tramadol 50mg q4h prn, communication placed for Icy/Hot PRN - Fall precautions placed - Ortho/Spine Consult - recommending ambulation with walker and PT/OT w/o surgical intervention - 06/26 Continue pain management w/ Tramadol, scheduled Tylenol - 06/27 Discontinued Tramadol --- Pending SNF Placement, continue PT --- 06/29 Added Oxycodone 2.5 mg q6h UTI - UA 06/23 is contaminated with > 30 epithelial cells but evidence of infection with trace blood, positive nitrite, 2+ leuk esterase, 10-30 WBC, and 4+ bacteria - Urine cx: Gram negative bacilli, Klebsiella pneumoniae, gooden-sensitive - Patient received ceftriaxone in ED - 06/25 Patient is w/o dysuria, frequency, or suprapubic pain. She is afebrile. - Transitioned to PO Cephalexin 06/25 to cover UTI and prepare for discharge - 06/27 Rx for Pyridium and Rodriguez - 06/28 PO Cephalexin Day 02/28 (discontinue), Pyridium PRN for dysuria, Rodriguez in place --- 06/29 Discontinue Rodriguez, discontinue Cephalexin Cognitive Impairment (Dementia vs Pseudodementia a/w depression vs UTI) - Preventative measures to decrease hospital associated delirium - 06/25 Family expressed concern about patient going home independently, explained PT recommendation for SNF following discharge - 06/26 PO Zyprexa for agitation w/ staff and family x 1 - 06/27 Worsening frustration and aggression likely 2/2 dysuria (etiology consistent with delirium considered), provided Rx for Pyridium, given 2.5 mg Zyprexa - 06/28 Zyprexa 2.5 mg scheduled at night --- 06/29 Patient extremely pleasant, appears back to baseline, conversing well Chronic Conditions: * Atrial fibrillation on Xarelto (renal adjustment 15 mg PO qPM) - Patient with permanent atrial fibrillation and sick sinus syndrome with permanent pacemaker, continue home Xarelto * Hyperlipidemia - Continue home statin * Hypertension/CHF - Follows with Cardiology outpatient, Echo 05/30: EF 55-60%, continue Amlodipine 2.5 mg PO daily and Carvedilol 12.5 mg PO BID, 06/25 restarted home Lasix 40 mg PO daily, 06/29 no supplemental O2 requirement * Hypothyroidism - Continue home Levothyroxine * Asthma - Continue home singulair and albuterol prn, controlled w/o medication at present, follows with [facility] Diet:Carb consistent DM2 IVF: None DVT PPx: Home dose Xarelto Dispo:SNF, pending placement Code Status: Full CM: Patient's family has agreed to COVID vaccination. Still prefers [employer]. Patient is off 1:1. Admission and Anticipated Discharge Date Admission Date: June 23, 2022 Supervising Physician Co-Signing Physician Notes Patient seen and examined independently of PGY-1 Dr. Kiser. Agree with history, exam findings, assessment and plan of care as outlined. In brief, Lisa is an 82 year old female with history of asthma, afib (AC with Xarelto), CHF, anemia, CKD, DM, HTN, hypothyroid and pulmonary HTN admitted following a fall where she sustained a sacral fracture. She reports that she feels well. Tells me that she likes to stay busy. Has some pain in her back. No pain down the legs. VS and nursing notes reviewed. She is well-appearing. Moist mucus membranes. Heart with regular rate and rhythm. Lungs are clear to auscultation. Alert and oriented to self only. 1. Sacral fracture. CT showing mildly displaced, comminuted fractures involving S1-3 extending into both sacral wings. Pain control with Tylenol; stop tramadol. Using oxycodone for pain instead. Fall precautions. Ambulation with walker, PT/OT. 2. Urinary tract infection. Urine culture with gooden-sensitive Klebsiella. Currently on cephalexin, continue. 3. Afib. AC with Xarelto. Has a pacemaker. 4. HTN, CHF. Euvolemic. Continue coreg, amlodipine, and Lasix. 5. Cognitive impairment. Scheduled low dose Zyprexa at night. 6. Vitamin D insufficiency. Start vitamin D 5,000 IU daily. Dispo: she is medically stable for discharge. [facility]. Subjective Patient is an 82 yo female with PMHx of asthma, chronic atrial fibrillation on chronic anticoagulation, CHF, anemia, CKD stage III, DM, HLD, HTN, arthritis, hypothyroidism, and pulmonary HTN who presented to the ER on 06/23/22 due to low back pain after a fall last Sunday 06/17. She was found to have acute fractures of S1-S3 ontop of chronic lumbar disc disease. She was also found to have a UTI and started on abx. 06/29: Patient awake and alert on arrival to her room, extremely pleasant. Patient states she is feeling well and wishing to leave the hospital. She co ntinues to have 7/10 lower back pain. She denies chest pain or shortness of breath. She has no abdominal pain or dysuria. 06/28: Patient was sleeping comfortably upon arrival. 1:1 nurse still present, notes patient was awake most of the night and had just fallen asleep. Decreased complaints of dysuria and abdominal discomfort. 1600: Nursing notes significant improvement in mood and demeanor throughout day. Requesting d/c of 1:1. Review of Systems Review of Systems: See HPI Physical Exam Physical Exam: Gen: NAD, alert, interactive. AO x 3, mild confusion. Resp:Non-labored, no wheezing/rhonchi/rales, CTAB CV:RRR (paced), normal S1/S2, no M/R/G Abd: Soft, non-distended, no TTP, normoactive bowels, no masses, no CVA tenderness, no rebound Extr: 2+ dp bilaterally, 1+ non-pitting edema (baseline), ROM/strength LE symmetric Results & Data Results & Data ([facility]) Vital Signs (Past 12 Hours) Vital Signs Temp Pulse Pulse Resp BP Pulse Ox O2 Del Method 06/29/22 06:42 36.8 C 68 18 128/75 90 Room Air 06/29/22 03:13 36.6 C 68 18 117/68 95 Room Air 06/29/22 00:41 70 06/28/22 23:30 36.8 C 68 18 106/65 95 Room Air 06/28/22 20:23 Room Air 06/28/22 19:26 36.8 C 69 18 125/73 92 Room Air Resident Activity Tracking Resident Involvement: Resident Care Provided Care Provided: Adult Hospital Medicine (1) Atrial fibrillation Atrial fibrillation type: permanent Qualified Code(s): I48.21 - Permanent atrial fibrillation
[2022-06-29 07:06] LABS: Hematocrit (blood only) 34.1 % (34.1-44.9); Hemoglobin 11.1 g/dl (12.0-16.0); Mean Corpuscular Hgb Conc 32.6 g/dL (32.0-36.0); Mean Corpuscular Volume 92.2 fL (80.0-100.0); Mean Platelet Volume 9.8 fL (9.4-12.3); Platelet Count 274 K/uL (130-400); RDW Coefficient of Variation 13.9 % (11.5-14.5); RDW Standard Deviation 47.2 fL (36.4-46.3); White Blood Count 6.25 K/ul (4.8-10.8)
[2022-06-29 07:28] LABS: BUN Creatinine Ratio 24.1 (10-20); Calcium 9.3 mg/dl (8.5-10.1); Creatinine Clr Calc Pharmacy 46.6 ml/min; Est GFR (African American) 80.2 ml/min; Est GFR (Non-African American) 69.2 ml/min; Potassium 3.9 mmol/L (3.5-5.1)
[2022-06-29] MEDS: TROLAMINE SALICYLATE 10% CRM 255 APPLN/85 GM TUBE EXT PRN (08:21)
[2022-06-29] MEDS: amLODIPine BESYLATE 5 MG TAB PO SCH (08:22)
[2022-06-29] MEDS: ACETAMINOPHEN 500 MG TAB PO SCH ×3 (08:22→20:10)
[2022-06-29] MEDS: FUROSEMIDE 40 MG TAB PO SCH (08:23)
[2022-06-29] MEDS: POLYETHYLENE (MIRALAX) 17 GM PACK PO SCH (08:23)
[2022-06-29] MEDS: cephALEXin 500 MG CAP PO SCH ×2 (08:23→20:12)
[2022-06-29] MEDS: MONTELUKAST SODIUM 10 MG TABLET PO SCH (08:23)
[2022-06-29] MEDS: carvediloL 12.5 MG TAB PO SCH ×2 (08:23→20:10)
[2022-06-29] MEDS: oxyCODONE HCL IR 5 MG TAB (IMMEDIATE RELEASE) PO PRN (11:39)
[2022-06-29] MEDS: OLANZAPINE 2.5 MG TAB PO SCH (20:11)
[2022-06-29] MEDS: ATORVASTATIN 40 MG TAB PO SCH (20:11)
[2022-06-29] MEDS: RIVAROXABAN 15 MG TAB PO SCH (20:43)
[2022-06-30] MEDS: oxyCODONE HCL IR 5 MG TAB (IMMEDIATE RELEASE) PO PRN ×3 (00:55→13:29)
[2022-06-30] MEDS: LEVOTHYROXINE SODIUM 25 MCG TABLET PO SCH (06:14)
[2022-06-30] MEDS: carvediloL 12.5 MG TAB PO SCH ×2 (08:04→19:53)
[2022-06-30] MEDS: TROLAMINE SALICYLATE 10% CRM 255 APPLN/85 GM TUBE EXT PRN ×2 (08:04→13:32)
[2022-06-30] MEDS: POLYETHYLENE (MIRALAX) 17 GM PACK PO SCH (08:04)
[2022-06-30] MEDS: ACETAMINOPHEN 500 MG TAB PO SCH ×3 (08:04→19:51)
[2022-06-30] MEDS: FUROSEMIDE 40 MG TAB PO SCH (08:05)
[2022-06-30] MEDS: MONTELUKAST SODIUM 10 MG TABLET PO SCH (08:05)
[2022-06-30] MEDS: amLODIPine BESYLATE 5 MG TAB PO SCH (08:05)
[2022-06-30] MEDS: CHOLECALCIFEROL 5,000 UNITS 125 MCG TAB PO SCH (08:06)
--- NOTE | 2022-06-30 08:13 | Hospitalist Progress Note ---
Date of Service June 30, 2022 Assessment & Plan (1) Sacral fracture, closed: (2) Acute UTI: (3) Lumbar back pain: (4) Fall: (5) Asthma: (6) Chronic anticoagulation: (7) Cognitive change: (8) Congestive heart failure: (9) CKD (chronic kidney disease), stage III: (10) Type 2 diabetes mellitus: (11) Atrial fibrillation: (12) Dyslipidemia: (13) HTN (hypertension): Plan Patient is an 82 yo female with PMHx of asthma, chronic atrial fibrillation on chronic anticoagulation, CHF, anemia, CKD stage III, DM, HLD, HTN, arthritis, hypothyroidism, and pulmonary HTN admitted to [facility] on 06/23/22 due to sacral fractures s/p fall and UTI. Sacral Fractures s/p Fall - Fall out of bed (presumed to have occurred on Sunday 06/17) - CT pelvis 06/23: mildly displaced comminuted fractures involving the S1-S3 levels extending into both sacral wings - Pain control with Tylenol 650mg q6h prn and Tramadol 50mg q4h prn, communication placed for Icy/Hot PRN - Fall precautions placed - Ortho/Spine Consult - recommending ambulation with walker and PT/OT w/o surgical intervention - 06/26 Continue pain management w/ Tramadol, scheduled Tylenol - 06/27 Discontinued Tramadol --- 06/29 Added Oxycodone 2.5 mg q6h --- Pending SNF Placement, continue PT --- 06/30 XR Hip/Pelvis: no acute fractures in pelvis or hips, sacral fractures not well visualized, mild bilateral hip OA --- 06/30 Added Naproxen 250 mg BID PRN UTI - UA 06/23 is contaminated with > 30 epithelial cells but evidence of infection with trace blood, positive nitrite, 2+ leuk esterase, 10-30 WBC, and 4+ bacteria - Urine cx: Gram negative bacilli, Klebsiella pneumoniae, gooden-sensitive - Patient received ceftriaxone in ED - 06/25 Patient is w/o dysuria, frequency, or suprapubic pain. She is afebrile. - Transitioned to PO Cephalexin 06/25 to cover UTI and prepare for discharge - 06/27 Rx for Pyridium and Rodriguez - 06/28 PO Cephalexin Day 02/28 (discontinue), Pyridium PRN for dysuria, Rodriguez in place - 06/29 Discontinue Rodriguez, discontinue Cephalexin --- 06/30 Independent voids w/o dysuria Cognitive Impairment (Dementia vs Pseudodementia a/w depression vs UTI) - Preventative measures to decrease hospital associated delirium - 06/25 Family expressed concern about patient going home independently, explained PT recommendation for SNF following discharge - 06/26 PO Zyprexa for agitation w/ staff and family x 1 - 06/27 Worsening frustration and aggression likely 2/2 dysuria (etiology consistent with delirium considered), provided Rx for Pyridium, given 2.5 mg Zyprexa - 06/28 Zyprexa 2.5 mg scheduled at night --- 06/30 Patient pleasant, conversing well, moderately disoriented Chronic Conditions: * Atrial fibrillation on Xarelto (renal adjustment 15 mg PO qPM) - Patient with permanent atrial fibrillation and sick sinus syndrome with permanent pacemaker, continue home Xarelto * Hyperlipidemia - Continue home statin * Hypertension/CHF - Follows with Cardiology outpatient, Echo 05/30: EF 55-60%, continue Amlodipine 2.5 mg PO daily and Carvedilol 12.5 mg PO BID, 06/25 restarted home Lasix 40 mg PO daily, 06/29 no supplemental O2 requirement * Hypothyroidism - Continue home Levothyroxine * Asthma - Continue home singulair and albuterol prn, controlled w/o medication at present, follows with [facility] Diet:Carb consistent DM2 IVF: None DVT PPx: Home dose Xarelto Dispo:SNF, pending placement Code Status: Full CM: Patient's family has agreed to COVID vaccination. Still prefers [employer]. Patient is off 1:1. Admission and Anticipated Discharge Date Admission Date: June 23, 2022 Supervising Physician Co-Signing Physician Notes Patient seen and examined independently of PGY-1 Dr. Kiser. Agree with history, exam findings, assessment and plan of care as outlined. In brief, Lisa is an 82 year old female with history of asthma, afib (AC with Xarelto), CHF, anemia, CKD, DM, HTN, hypothyroid and pulmonary HTN admitted following a fall where she sustained a sacral fracture. She reports that she feels well. Tells me that she likes to stay busy. Has some pain in her back. No pain down the legs. Family is concerned about hip pain. No recent falls. VS and nursing notes reviewed. She is well-appearing. Moist mucus membranes. Heart with regular rate and rhythm. Lungs are clear to auscultation. Alert and oriented to self only. 1. Sacral fracture. CT showing mildly displaced, comminuted fractures involving S1-3 extending into both sacral wings. Pain control with Tylenol; stop tramadol. Using oxycodone for pain instead. Fall precautions. Ambulation with walker, PT/OT. 2. Hip pain. Suspect this is referred pain. Family requesting new x-ray. No fractures. Evidence of mild generative changes. Continue with Tylenol and oxy codone. Ok for Naproxen BID with food as well. 2. Urinary tract infection. Urine culture with gooden-sensitive Klebsiella. Completed course of cephalexin, continue. Rodriguez removed--urinating without issue today. 3. Afib. AC with Xarelto. Has a pacemaker. 4. HTN, CHF. Euvolemic. Continue coreg, amlodipine, and Lasix. 5. Cognitive impairment. Scheduled low dose Zyprexa at night. 6. Vitamin D insufficiency. Start vitamin D 5,000 IU daily. Dispo: she is medically stable for discharge. Awaiting an opening at ?[facility]. Subjective Patient is an 82 yo female with PMHx of asthma, chronic atrial fibrillation on chronic anticoagulation, CHF, anemia, CKD stage III, DM, HLD, HTN, arthritis, hypothyroidism, and pulmonary HTN who presented to the ER on 06/23/22 due to low back pain after a fall last Sunday 06/17. She was found to have acute fractures of S1-S3 ontop of chronic lumbar disc disease. She was also found to have a UTI and started on abx. 06/30: Patient resting comfortably in bed, alert and pleasant upon arrival. Patient noted that her pain was well controlled and she was comfortable. She denied any chest pain or dyspnea. She denied any abdominal pain or dysuria. 1100 Family requesting repeat XR due to patient complaint of ongoing back and new hip pain, no known additional injury of falls. Nursing noted independent void of 350 cc. 1500 Nursing noted that patient was experiencing 10/10 pain in her low back and hips and requested additional pain management 06/29: Patient awake and alert on arrival to her room, extremely pleasant. Patient states she is feeling well and wishing to leave the hospital. She continues to have 7/10 lower back pain. She denies chest pain or shortness of breath. She has no abdominal pain or dysuria. Review of Systems Review of Systems: See HPI Physical Exam Physical Exam: Gen: NAD, alert, interactive. AO x 2, moderate confusion. Resp:Non-labored, no wheezing/rhonchi/rales, CTAB CV:RRR (paced), normal S1/S2, no M/R/G Abd: Soft, non-distended, no TTP, normoactive bowels, no masses, no CVA tenderness, no rebound Extr: 2+ dp bilaterally, 1+ non-pitting edema (baseline), ROM/strength LE symmetric Results & Data Results & Data ([facility]) Vital Signs (Past 12 Hours) Vital Signs Temp Pulse Pulse Resp BP BP Pulse Ox 06/30/22 07:32 36.5 C 70 18 148/76 H 93 06/30/22 07:05 72 06/30/22 04:54 70 06/30/22 03:00 36.4 C L 70 16 154/85 H 94 06/29/22 23:00 36.9 C 68 18 115/71 92 O2 Del Method 06/30/22 07:32 Room Air 06/30/22 07:05 06/30/22 04:54 06/30/22 03:00 Room Air 06/29/22 23:00 Room Air Resident Activity Tracking Resident Involvement: Resident Care Provided Care Provided: Adult Hospital Medicine (1) Atrial fibrillation Atrial fibrillation type: permanent Qualified Code(s): I48.21 - Permanent atrial fibrillation
[2022-06-30 09:06] LABS: Hematocrit (blood only) 35.1 % (34.1-44.9); Mean Corpuscular Hemoglobin 30.3 pg (25.0-34.0); Mean Corpuscular Hgb Conc 34.2 g/dL (32.0-36.0); Mean Corpuscular Volume 88.6 fL (80.0-100.0); Mean Platelet Volume 10.1 fL (9.4-12.3); Platelet Count 287 K/uL (130-400); RDW Coefficient of Variation 13.4 % (11.5-14.5); RDW Standard Deviation 44.1 fL (36.4-46.3); Red Blood Count 3.96 M/uL (3.93-5.22); White Blood Count 6.69 K/ul (4.8-10.8)
[2022-06-30 09:31] LABS: BUN Creatinine Ratio 27.2 (10-20); Calcium 9.6 mg/dl (8.5-10.1); Creatinine Clr Calc Pharmacy 45.4 ml/min; Est GFR (African American) 77.8 ml/min; Est GFR (Non-African American) 67.2 ml/min; Potassium 3.9 mmol/L (3.5-5.1)
--- NOTE | 2022-06-30 12:43 | XRay Report ---
XR hip TRISH 2v w pelvis CLINICAL HISTORY: New hip pain in setting of sacral fracture COMPARISON STUDY: Pelvis and left hip radiographs and CT of the pelvis June 23, 2022. FINDINGS: The bilateral sacral fractures on CT of June 23, 2022 are not well visualized radiograph ically. No acute fracture within the pelvis or hips is identified. Alignment of the hips is anatomic. There is mild bilateral hip osteoarthritis. IMPRESSION: 1. No acute fracture within the pelvis or hips. 2. Bilateral sacral fractures on CT of June 23, 2022 not well visualized radiographically. ACT 112: Negative or not required by law. Electronically signed by: Jaya Barone M.D. 06/30/2022 12:40 PM
[2022-06-30] MEDS: NAPROXEN 250 MG TAB PO PRN ×2 (16:33→23:33)
[2022-06-30] MEDS: RIVAROXABAN 15 MG TAB PO SCH (19:52)
[2022-06-30] MEDS: OLANZAPINE 2.5 MG TAB PO SCH (19:53)
[2022-06-30] MEDS: ATORVASTATIN 40 MG TAB PO SCH (19:53)
[2022-07-01] MEDS: oxyCODONE HCL IR 5 MG TAB (IMMEDIATE RELEASE) PO PRN ×2 (03:22→16:59)
[2022-07-01] MEDS: LEVOTHYROXINE SODIUM 25 MCG TABLET PO SCH (05:34)
--- NOTE | 2022-07-01 06:59 | Hospitalist Progress Note ---
Date of Service July 01, 2022 Assessment & Plan (1) Sacral fracture, closed: (2) Acute UTI: (3) Lumbar back pain: (4) Fall: (5) Asthma: (6) Chronic anticoagulation: (7) Cognitive change: (8) Congestive heart failure: (9) CKD (chronic kidney disease), stage III: (10) Type 2 diabetes mellitus: (11) Atrial fibrillation: (12) Dyslipidemia: (13) HTN (hypertension): Plan Patient is an 82 yo female with PMHx of asthma, chronic atrial fibrillation on chronic anticoagulation, CHF, anemia, CKD stage III, DM, HLD, HTN, arthritis, hypothyroidism, and pulmonary HTN admitted to [facility] on 06/23/22 due to sacral fractures s/p fall and UTI. Sacral Fractures s/p Fall - Fall out of bed (presumed to have occurred on Sunday 06/17) - CT pelvis 06/23: mildly displaced comminuted fractures involving the S1-S3 levels extending into both sacral wings - Pain control with Tylenol 650mg q6h prn and Tramadol 50mg q4h prn, communication placed for Icy/Hot PRN - Fall precautions placed - Ortho/Spine Consult - recommending ambulation with walker and PT/OT w/o surgical intervention - 06/26 Continue pain management w/ Tramadol, scheduled Tylenol - 06/27 Discontinued Tramadol - 06/29 Added Oxycodone 2.5 mg q6h - 06/30 XR Hip/Pelvis: no acute fractures in pelvis or hips, sacral fractures not well visualized, mild bilateral hip OA, added Naproxen 250 mg BID PRN --- Pending SNF Placement, continue PT UTI - UA 06/23 is contaminated with > 30 epithelial cells but evidence of infection with trace blood, positive nitrite, 2+ leuk esterase, 10-30 WBC, and 4+ bacteria - Urine cx: Gram negative bacilli, Klebsiella pneumoniae, gooden-sensitive - Patient received ceftriaxone in ED - 06/25 Patient is w/o dysuria, frequency, or suprapubic pain. She is afebrile. - Transitioned to PO Cephalexin 06/25 to cover UTI and prepare for discharge - 06/27 Rx for Pyridium and Rodriguez - 06/28 PO Cephalexin Day 02/28 (discontinue), Pyridium PRN for dysuria, Rodriguez in place - 11/5 Discontinue Rodriguez, discontinue Cephalexin - 06/30 Independent voids w/o dysuria --- 07/01 Independent voids, abx completed, no dysuria or abdominal pain Cognitive Impairment (Dementia vs Pseudodementia a/w depression vs UTI) - Preventative measures to decrease hospital associated delirium - 06/25 Family expressed concern about patient going home independently, explained PT recommendation for SNF following discharge - 06/26 PO Zyprexa for agitation w/ staff and family x 1 - 06/27 Worsening frustration and aggression likely 2/2 dysuria (etiology consistent with delirium considered), provided Rx for Pyridium, given 2.5 mg Z yprexa - 06/28 Zyprexa 2.5 mg scheduled at night --- 07/01 Patient pleasant, conversing well, moderately disoriented Chronic Conditions: * Atrial fibrillation on Xarelto (renal adjustment 15 mg PO qPM) - Patient with permanent atrial fibrillation and sick sinus syndrome with permanent pacemaker, continue home Xarelto * Hyperlipidemia - Continue home statin * Hypertension/CHF - Follows with Cardiology outpatient, Echo 05/30: EF 55-60%, continue Amlodipine 2.5 mg PO daily and Carvedilol 12.5 mg PO BID, 06/25 restarted home Lasix 40 mg PO daily, 06/29 no supplemental O2 requirement * Hypothyroidism - Continue home Levothyroxine * Asthma - Continue home singulair and albuterol prn, controlled w/o medication at present, follows with [facility] Diet:Carb consistent DM2 IVF: None DVT PPx: Home dose Xarelto Dispo:SNF, pending placement Code Status: Full CM: Patient's family has agreed to COVID vaccination. Still prefers [facility]. Patient is off 1:1. Admission and Anticipated Discharge Date Admission Date: June 23, 2022 Supervising Physician Co-Signing Physician Notes I personally examined the patient and verified all hensley points of history and exam, discussed case, and agree with decision making with Dr Kiser Doing okay overall. Eating. Awaiting rehab placement. Discussed with patient and family. Vitals noted, in general she is awake and alert pleasant no distress. HEENT normocephalic atraumatic mucous membranes moist. Breathing unlabored no accessory muscle use good effort. Skin shows no rashes no pallor or icterus. Neuro without focal deficits. 1. Sacral fracture. CT showing mildly displaced, comminuted fractures involving S1-3 extending into both sacral wings. Pain controlled. Outpatient bone health work-up 2. Hip pain. Probably referred and/or biomechanical 2. Urinary tract infection. Urine culture with gooden-sensitive Klebsiella. Completed course of cephalexin, continue. Rodriguez removed. 3. Afib. AC with Xarelto. Has a pacemaker. Rate controlled 4. HTN, CHF. Euvolemic. Continue coreg, amlodipine, and Lasix. Breathing on room air, blood pressure reasonable 5. Cognitive impairment. On low dose Zyprexa at night. 6. Vitamin D insufficiency. Continue vitamin D 5,000 IU daily. Outpatient bone health work-up Dispo: she is medically stable for discharge. Case management working on SNF Subjective Patient is an 82 yo female with PMHx of asthma, chronic atrial fibrillation on chronic anticoagulation, CHF, anemia, CKD stage III, DM, HLD, HTN, arthritis, hypothyroidism, and pulmonary HTN who presented to the ER on 06/23/22 due to low back pain after a fall last Sunday 06/17. She was found to have acute fractures of S1-S3 ontop of chronic lumbar disc disease. She was also found to have a UTI and started on abx. 07/01: Patient sleeping upon arrival, appearing comfortable. Upon awakening patient was very pleasant and conversive. She states that her pain is well controlled but that sometimes she has 4/10 pain in her hips and back, the medications help her pain. She denies any chest pain, dyspnea, abdominal pain, or dysuria. 06/30: Patient resting comfortably in bed, alert and pleasant upon arrival. Patient noted that her pain was well controlled and she was comfortable. She denied any chest pain or dyspnea. She denied any abdominal pain or dysuria. Review of Systems Review of Systems: See HPI Physical Exam Physical Exam: Gen: NAD, alert, interactive. AO x 1, moderate confusion. Resp:Non-labored, no wheezing/rhonchi/rales, CTAB CV:RRR (paced), normal S1/S2, no M/R/G Abd: Soft, non-distended, no TTP, normoactive bowels Extr: 2+ dp bilaterally, 1+ non-pitting edema (baseline) Results & Data Results & Data ([facility]) Vital Signs (Past 12 Hours) Vital Signs Temp Pulse Pulse Resp BP BP Pulse Ox 07/01/22 06:14 70 07/01/22 06:52 36.3 C L 70 18 115/74 95 07/01/22 02:56 36.6 C 70 16 116/72 95 06/30/22 22:16 70 06/30/22 22:58 36.6 C 73 18 115/72 94 06/30/22 20:40 36.8 C 72 20 128/76 93 O2 Del Method 07/01/22 06:14 07/01/22 06:52 Room Air 07/01/22 02:56 Room Air 06/30/22 22:16 06/30/22 22:58 Room Air 06/30/22 20:40 Room Air Resident Activity Tracking Resident Involvement: Resident Care Provided Care Provided: Adult Hospital Medicine (1) Atrial fibrillation Atrial fibrillation type: permanent Qualified Code(s): I48.21 - Permanent atrial fibrillation
[2022-07-01] MEDS: ACETAMINOPHEN 500 MG TAB PO SCH ×3 (08:39→20:38)
[2022-07-01] MEDS: FUROSEMIDE 40 MG TAB PO SCH (08:40)
[2022-07-01] MEDS: amLODIPine BESYLATE 5 MG TAB PO SCH (08:41)
[2022-07-01] MEDS: CHOLECALCIFEROL 5,000 UNITS 125 MCG TAB PO SCH (08:41)
[2022-07-01] MEDS: MONTELUKAST SODIUM 10 MG TABLET PO SCH (08:41)
[2022-07-01] MEDS: carvediloL 12.5 MG TAB PO SCH ×2 (08:41→20:37)
[2022-07-01] MEDS: POLYETHYLENE (MIRALAX) 17 GM PACK PO SCH (08:42)
--- NOTE | 2022-07-01 18:10 | Billing Data ---
Date of Service July 01, 2022 Coding Level of Care Code 37850 Subseq Hosp Care Lvl 2
--- NOTE | 2022-07-01 19:53 | Billing Data ---
Date of Service July 01, 2022 Coding Level of Care Code 02547 Initial Inpt Care Lvl 3
[2022-07-01] MEDS: ATORVASTATIN 40 MG TAB PO SCH (20:35)
[2022-07-01] MEDS: OLANZAPINE 2.5 MG TAB PO SCH (20:36)
[2022-07-01] MEDS: RIVAROXABAN 15 MG TAB PO SCH (20:36)
[2022-07-02] MEDS: LEVOTHYROXINE SODIUM 25 MCG TABLET PO SCH (06:06)
--- NOTE | 2022-07-02 07:10 | Hospitalist Progress Note ---
Date of Service July 02, 2022 Assessment & Plan (1) Sacral fracture, closed: (2) Acute UTI: (3) Lumbar back pain: (4) Fall: (5) Asthma: (6) Chronic anticoagulation: (7) Cognitive change: (8) Congestive heart failure: (9) CKD (chronic kidney disease), stage III: (10) Type 2 diabetes mellitus: (11) Atrial fibrillation: (12) Dyslipidemia: (13) HTN (hypertension): Plan Patient is an 82 yo female with PMHx of asthma, chronic atrial fibrillation on chronic anticoagulation, CHF, anemia, CKD stage III, DM, HLD, HTN, arthritis, hypothyroidism, and pulmonary HTN admitted to [facility] on 06/23/22 due to sacral fractures s/p fall and UTI. Sacral Fractures s/p Fall - Fall out of bed (presumed to have occurred on Sunday 06/17) - CT pelvis 06/23: mildly displaced comminuted fractures involving the S1-S3 levels extending into both sacral wings - Pain control with Tylenol 650mg q6h prn and Tramadol 50mg q4h prn, communication placed for Icy/Hot PRN - Fall precautions placed - Ortho/Spine Consult - recommending ambulation with walker and PT/OT w/o surgical intervention - 06/26 Continue pain management w/ Tramadol, scheduled Tylenol - 06/27 Discontinued Tramadol - 06/29 Added Oxycodone 2.5 mg q6h - 06/30 XR Hip/Pelvis: no acute fractures in pelvis or hips, sacral fractures not well visualized, mild bilateral hip OA, added Naproxen 250 mg BID PRN --- Pending SNF Placement, continue PT UTI - UA 06/23 is contaminated with > 30 epithelial cells but evidence of infection with trace blood, positive nitrite, 2+ leuk esterase, 10-30 WBC, and 4+ bacteria - Urine cx: Gram negative bacilli, Klebsiella pneumoniae, gooden-sensitive - Patient received ceftriaxone in ED - 06/25 Patient is w/o dysuria, frequency, or suprapubic pain. She is afebrile. - Transitioned to PO Cephalexin 06/25 to cover UTI and prepare for discharge - 06/27 Rx for Pyridium and Rodriguez - 06/28 PO Cephalexin Day 02/28 (discontinue), Pyridium PRN for dysuria, Rodriguez in place - 11/5 Discontinue Rodriguez, discontinue Cephalexin - 06/30 Independent voids w/o dysuria --- Independent voids, abx completed, no dysuria or abdominal pain Cognitive Impairment (Dementia vs Pseudodementia a/w depression vs UTI) - Preventative measures to decrease hospital associated delirium - 06/25 Family expressed concern about patient going home independently, explained PT recommendation for SNF following discharge - 06/26 PO Zyprexa for agitation w/ staff and family x 1 - 06/27 Worsening frustration and aggression likely 2/2 dysuria (etiology consistent with delirium considered), provided Rx for Pyridium, given 2.5 mg Zyprexa - 06/28 Zyprexa 2.5 mg scheduled at night --- Patient pleasant, conversing well, moderately disoriented Chronic Conditions: * Atrial fibrillation on Xarelto (renal adjustment 15 mg PO qPM) - Patient with permanent atrial fibrillation and sick sinus syndrome with permanent pacemaker, continue home Xarelto * Hyperlipidemia - Continue home statin * Hypertension/CHF - Follows with Cardiology outpatient, Echo 05/30: EF 55-60%, continue Amlodipine 2.5 mg PO daily and Carvedilol 12.5 mg PO BID, restarted home Lasix 40 mg PO daily, no supplemental O2 requirement * Hypothyroidism - Continue home Levothyroxine * Asthma - Continue home singulair and albuterol prn, controlled w/o medication at present, follows [facility] Diet:Carb consistent DM2 IVF: None DVT PPx: Home dose Xarelto Dispo:SNF, [facility] 07/04 Code Status: Full CM: Following Admission and Anticipated Discharge Date Admission Date: June 23, 2022 Supervising Physician Co-Signing Physician Notes I personally examined the patient and verified all hensley points of history and exam, discussed case, and agree with decision making with Dr Kiser Mostly wants to be able to get up and get moving more. Notes that she is generally a very active person Vitals noted, in general she is awake and alert pleasant no distress. HEENT normocephalic atraumatic mucous membranes moist. Breathing unlabored no accessory muscle use good effort. Skin shows no rashes no pallor or icterus. Neuro without focal deficits. 1.Sacral fracture. CT showing mildly displaced, comminuted fractures involving S1-3 extending into both sacral wings. Pain controlled. Outpatient bone health work-up 2. Hip pain. Probably referred and/or biomechanical. PT/OT eval and treat, possibly OMT if persists 2.Urinary tract infection. Urine culture with gooden-sensitive Klebsiella. Completed course of cephalexin, continue. Rodriguez removed. 3.Afib. AC with Xarelto. Has a pacemaker. Rate controlled 4.HTN, CHF. Euvolemic. Continue coreg, amlodipine, and Lasix. Breathing on room air, blood pressure reasonable 5.Cognitive impairment. On low dose Zyprexa at night. 6. Vitamin D insufficiency. Continue vitamin D 5,000 IU daily. Outpatient bone health work-up Dispo: she is medically stable for discharge. Case management working on SNF Subjective Patient is an 82 yo female with PMHx of asthma, chronic atrial fibrillation on chronic anticoagulation, CHF, anemia, CKD stage III, DM, HLD, HTN, arthritis, hypothyroidism, and pulmonary HTN who presented to the ER on 06/23/22 due to low back pain after a fall last Sunday 06/17. She was found to have acute fractures of S1-S3 ontop of chronic lumbar disc disease. She was also found to have a UTI and started on abx. 07/02: Patient resting in bed, appearing comfortable and content. Patient pleasant to conversation. She notes that she has low back pain today (5/10) but that the pain medication is helpful. She denies any chest pain, dyspnea, abdominal pain, or dysuria. 07/01: Patient sleeping upon arrival, appearing comfortable. Upon awakening patient was very pleasant and conversive. She states that her pain is well controlled but that sometimes she has 4/10 pain in her hips and back, the medications help her pain. She denies any chest pain, dyspnea, abdominal pain, or dysuria. 1100 Spoke with patient's daughter in law Zuly Review of Systems Review of Systems: See HPI Physical Exam Physical Exam: Gen: NAD, alert, interactive. AO x 1, moderate confusion. Resp:Non-labored, no wheezing/rhonchi/rales, CTAB CV:RRR (paced), normal S1/S2, no M/R/G Abd: Soft, non-distended, no TTP, normoactive bowels Extr: 2+ dp bilaterally, 1+ non-pitting edema (baseline) Results & Data Results & Data ([facility]) Vital Signs (Past 12 Hours) Vital Signs Temp Pulse Pulse Resp BP Pulse Ox O2 Del Method 07/02/22 04:00 36.4 C L 70 18 128/64 93 Room Air 07/02/22 00:00 76 07/01/22 22:39 36.6 C 86 20 146/76 H 92 Room Air 07/01/22 19:19 36.7 C 77 18 100/65 91 Room Air Resident Activity Tracking Resident Involvement: Resident Care Provided Care Provided: Adult Hospital Medicine (1) Atrial fibrillation Atrial fibrillation type: permanent Qualified Code(s): I48.21 - Permanent atrial fibrillation
[2022-07-02] MEDS: FUROSEMIDE 40 MG TAB PO SCH (08:30)
[2022-07-02] MEDS: carvediloL 12.5 MG TAB PO SCH ×2 (08:30→20:41)
[2022-07-02] MEDS: amLODIPine BESYLATE 5 MG TAB PO SCH (08:31)
[2022-07-02] MEDS: MONTELUKAST SODIUM 10 MG TABLET PO SCH (08:31)
[2022-07-02] MEDS: CHOLECALCIFEROL 5,000 UNITS 125 MCG TAB PO SCH (08:31)
[2022-07-02] MEDS: POLYETHYLENE (MIRALAX) 17 GM PACK PO SCH (08:42)
[2022-07-02] MEDS: ACETAMINOPHEN 500 MG TAB PO SCH ×3 (08:42→20:43)
[2022-07-02] MEDS: TROLAMINE SALICYLATE 10% CRM 255 APPLN/85 GM TUBE EXT PRN (10:54)
--- NOTE | 2022-07-02 18:12 | Billing Data ---
Date of Service July 02, 2022 Coding Level of Care Code 07054 Subseq Hosp Care Lvl 1
[2022-07-02] MEDS: OLANZAPINE 2.5 MG TAB PO SCH (20:40)
[2022-07-02] MEDS: ATORVASTATIN 40 MG TAB PO SCH (20:41)
[2022-07-02] MEDS: RIVAROXABAN 15 MG TAB PO SCH (20:46)
[2022-07-03] MEDS: LEVOTHYROXINE SODIUM 25 MCG TABLET PO SCH (05:31)
[2022-07-03] MEDS: oxyCODONE HCL IR 5 MG TAB (IMMEDIATE RELEASE) PO PRN (05:40)
[2022-07-03] MEDS: TROLAMINE SALICYLATE 10% CRM 255 APPLN/85 GM TUBE EXT PRN ×3 (06:37→22:12)
--- NOTE | 2022-07-03 06:43 | Hospitalist Progress Note ---
Date of Service July 03, 2022 Assessment & Plan (1) Sacral fracture, closed: (2) Acute UTI: (3) Lumbar back pain: (4) Fall: (5) Asthma: (6) Chronic anticoagulation: (7) Cognitive change: (8) Congestive heart failure: (9) CKD (chronic kidney disease), stage III: (10) Type 2 diabetes mellitus: (11) Atrial fibrillation: (12) Dyslipidemia: (13) HTN (hypertension): Plan Patient is an 82 yo female with PMHx of asthma, chronic atrial fibrillation on chronic anticoagulation, CHF, anemia, CKD stage III, DM, HLD, HTN, arthritis, hypothyroidism, and pulmonary HTN admitted to [facility] on 06/23/22 due to sacral fractures s/p fall and UTI. Sacral Fractures s/p Fall - Fall out of bed (presumed to have occurred on Sunday 06/17) - CT pelvis 06/23: mildly displaced comminuted fractures involving the S1-S3 levels extending into both sacral wings - Pain control with Tylenol 650mg q6h prn and Tramadol 50mg q4h prn, communication placed for Icy/Hot PRN - Fall precautions placed - Ortho/Spine Consult - recommending ambulation with walker and PT/OT w/o surgical intervention - 06/26 Continue pain management w/ Tramadol, scheduled Tylenol - 06/27 Discontinued Tramadol - 06/29 Added Oxycodone 2.5 mg q6h - 06/30 XR Hip/Pelvis: no acute fractures in pelvis or hips, sacral fractures not well visualized, mild bilateral hip OA, added Naproxen 250 mg BID PRN --- Pending SNF Placement (likely 07/04), continue PT UTI - UA 06/23 is contaminated with > 30 epithelial cells but evidence of infection with trace blood, positive nitrite, 2+ leuk esterase, 10-30 WBC, and 4+ bacteria - Urine cx: Gram negative bacilli, Klebsiella pneumoniae, gooden-sensitive - Patient received ceftriaxone in ED - 06/25 Patient is w/o dysuria, frequency, or suprapubic pain. She is afebrile. - Transitioned to PO Cephalexin 06/25 to cover UTI and prepare for discharge - 06/27 Rx for Pyridium and Rodriguez - 06/28 PO Cephalexin Day 02/28 (discontinue), Pyridium PRN for dysuria, Rodriguez in place - 06/29 Discontinue Rodriguez, discontinue Cephalexin - 06/30 Independent voids w/o dysuria --- Independent voids, abx completed, no dysuria or abdominal pain Cognitive Impairment (Dementia vs Pseudodementia a/w depression vs UTI) - Preventative measures to decrease hospital associated delirium - 06/25 Family expressed concern about patient going home independently, explained PT recommendation for SNF following discharge - 06/26 PO Zyprexa for agitation w/ staff and family x 1 - 06/27 Worsening frustration and aggression likely 2/2 dysuria (etiology consistent with delirium considered), provided Rx for Pyridium, given 2.5 mg Zyprexa - 06/28 Zyprexa 2.5 mg scheduled at night --- Patient pleasant, conversing well, moderately disoriented Chronic Conditions: * Atrial fibrillation on Xarelto (renal adjustment 15 mg PO qPM) - Patient with permanent atrial fibrillation and sick sinus syndrome with permanent pacemaker, continue home Xarelto * Hyperlipidemia - Continue home statin * Hypertension/CHF - Follows with Cardiology outpatient, Echo 05/30: EF 55-60%, continue Amlodipine 2.5 mg PO daily and Carvedilol 12.5 mg PO BID, restarted home Lasix 40 mg PO daily, no supplemental O2 requirement * Hypothyroidism - Continue home Levothyroxine * Asthma - Continue home singulair and albuterol prn, controlled w/o medication at present, follows [facility] Diet:Carb consistent DM2 IVF: None DVT PPx: Home dose Xarelto Dispo:SNF, [facility] 07/04 Code Status: Full CM: Following Admission and Anticipated Discharge Date Admission Date: June 23, 2022 Supervising Physician Co-Signing Physician Notes I personally examined the patient and verified all hensley points of history and exam, discussed case, and agree with decision making with Dr Kiser For SNF/rehab emphasis tomorrow. Updated family. Vitals noted, in general she is awake and alert pleasant no distress. HEENT normocephalic atraumatic mucous membranes moist. Breathing unlabored no accessory muscle use good effort. Skin shows no rashes no pallor or icterus. Neuro without focal deficits. 1.Sacral fracture. CT showing mildly displaced, comminuted fractures involving S1-3 extending into both sacral wings. Pain controlled. Outpatient bone health work-up by PCP 2. Hip pain. Probably referred and/or biomechanical. PT/OT eval and treat, possibly OMT if persists 2.Urinary tract infection. Urine culture with gooden-sensitive Klebsiella. Completed course of cephalexin, continue. Rodriguez removed. 3.Afib. AC with Xarelto. Has a pacemaker. Rate controlled 4.HTN, CHF. Euvolemic. Continue coreg, amlodipine, and Lasix. Breathing on room air, blood pressure reasonable 5.Cognitive impairment. On low dose Zyprexa at night. 6. Vitamin D insufficiency. Continue vitamin D 5,000 IU daily. Outpatient bone health work-up Dispo: she is medically stable for discharge. For SNF tomorrow Subjective Patient is an 82 yo female with PMHx of asthma, chronic atrial fibrillation on chronic anticoagulation, CHF, anemia, CKD stage III, DM, HLD, HTN, arthritis, hypothyroidism, and pulmonary HTN who presented to the ER on 06/23/22 due to low back pain after a fall last Sunday 06/17. She was found to have acute fractures of S1-S3 ontop of chronic lumbar disc disease. She was also found to have a UTI and started on abx. 07/03: Patient resting, aroused with minimal stimuli. Pleasant to conversation. She notes ongoing pain in her tailbone, but states it is controlled with medication. She looks forward to rehabilitation and wants to get back on her feet. She denies any chest pain, dyspnea, abdominal pain, or dysuria. 0830 Spoke with patient's daughter Teri via phone in the room. Answered patient's questions and concerns. 07/02: Patient resting in bed, appearing comfortable and content. Patient pleasant to conversation. She notes that she has low back pain today (01/01) but that the pain medication is helpful. She denies any chest pain, dyspnea, abdominal pain, or dysuria. Review of Systems Review of Systems: See HPI Physical Exam Physical Exam: Gen: NAD, alert, interactive. AO x 1, moderate confusion. Resp:Non-labored, no wheezing/rhonchi/rales, CTAB CV:RRR (paced), normal S1/S2, no M/R/G Abd: Soft, non-distended, no TTP, normoactive bowels Extr: 2+ dp bilaterally, 1+ non-pitting edema (baseline), moves lower extremities symmetrically w/o increased pain Results & Data Results & Data ([facility]) Vital Signs (Past 12 Hours) Vital Signs Temp Pulse Pulse Resp BP BP Pulse Ox 07/03/22 06:18 36.4 C L 71 16 155/84 H 94 07/02/22 22:20 68 07/02/22 23:30 36.6 C 70 20 132/75 93 07/02/22 22:58 36.5 C 64 18 173/77 H 90 07/02/22 19:37 36.7 C 72 20 154/81 H 93 O2 Del Method 07/03/22 06:18 Room Air 07/02/22 22:20 07/02/22 23:30 Room Air 07/02/22 22:58 Room Air 07/02/22 19:37 Room Air Resident Activity Tracking Resident Involvement: Resident Care Provided Care Provided: Adult Hospital Medicine (1) Atrial fibrillation Atrial fibrillation type: permanent Qualified Code(s): I48.21 - Permanent atrial fibrillation
[2022-07-03] MEDS: FUROSEMIDE 40 MG TAB PO SCH (08:54)
[2022-07-03] MEDS: carvediloL 12.5 MG TAB PO SCH ×2 (08:54→22:01)
[2022-07-03] MEDS: MONTELUKAST SODIUM 10 MG TABLET PO SCH (08:55)
[2022-07-03] MEDS: amLODIPine BESYLATE 5 MG TAB PO SCH (08:55)
[2022-07-03] MEDS: CHOLECALCIFEROL 5,000 UNITS 125 MCG TAB PO SCH (08:56)
[2022-07-03] MEDS: ACETAMINOPHEN 500 MG TAB PO SCH ×3 (08:57→22:04)
[2022-07-03] MEDS: POLYETHYLENE (MIRALAX) 17 GM PACK PO SCH (09:20)
--- NOTE | 2022-07-03 17:19 | Billing Data ---
Date of Service July 03, 2022 Coding Level of Care Code 46893 Subseq Hosp Care Lvl 1
[2022-07-03] MEDS: OLANZAPINE 2.5 MG TAB PO SCH (22:02)
[2022-07-03] MEDS: ATORVASTATIN 40 MG TAB PO SCH (22:02)
[2022-07-03] MEDS: RIVAROXABAN 15 MG TAB PO SCH (22:03)
[2022-07-04] MEDS: oxyCODONE HCL IR 5 MG TAB (IMMEDIATE RELEASE) PO PRN (02:19)
[2022-07-04] MEDS: LEVOTHYROXINE SODIUM 25 MCG TABLET PO SCH (05:41)
[2022-07-04] MEDS: amLODIPine BESYLATE 5 MG TAB PO SCH (07:51)
[2022-07-04] MEDS: carvediloL 12.5 MG TAB PO SCH (07:51)
[2022-07-04] MEDS: MONTELUKAST SODIUM 10 MG TABLET PO SCH (07:51)
[2022-07-04] MEDS: CHOLECALCIFEROL 5,000 UNITS 125 MCG TAB PO SCH (07:51)
[2022-07-04] MEDS: FUROSEMIDE 40 MG TAB PO SCH (07:51)
[2022-07-04] MEDS: POLYETHYLENE (MIRALAX) 17 GM PACK PO SCH (07:57)
[2022-07-04] MEDS: ACETAMINOPHEN 500 MG TAB PO SCH ×2 (09:10→14:31)
--- NOTE | 2022-07-04 10:25 | Discharge Summary ---
Date of Service July 04, 2022 Admission HPI Per Admitting Provider Patient is an 82 yo female with PMHx of asthma, chronic atrial fibrillation on chronic anticoagulation, CHF, anemia, CKD stage III, DM, HLD, HTN, arthritis, hypothyroidism, and pulmonary HTN who presented to the ER on 06/23/22 due to low back pain. Patient lives at home alone with main floor living, 1 step to enter the home, with significant family support. Per family, it is presumed that patient fell out of bed on Friday (6 days ago). Patient is unable to recall the events surrounding the fall. Since the fall, patient has had acute on chronic low back pain that has progressively worsened throughout the week to the point that she had difficulty with ambulation yesterday. Patient's family states that she was also having difficulty with ambulation despite their support. Patient states that the pain radiates to the right LE with some numbness/tingling but this is not severe. She denies saddle anesthesia. Has some urinary incontinence at baseline that worsened yesterday but is presumed to be due to inability to ambulate to the bathroom. There has been no fecal incontinence. Patient states that the back pain is exacerbated with ambulation. She has otherwise been doing well, eating well, and sleeping well. Patient presented to the ER earlier today for her symptoms had negative lumbar XR imaging and was found to have an UTI (UA: contaminated with > 30 epithelial cells but notable for trace blood, positive nitrite, 2+ LE, 10-30 WBC, 4+ bacteria). She was given 2g Ceftriaxone and discharged home with rx Keflex and Tramadol for the back pain. Family states that after getting home, patient had recurrent significant low back pain and they were unable to assist her with ambulation so they returned to the ER for further evaluation. Upon re-evaluation in the ER tonight, CT imaging of lumbar and pelvis. CT pelvis revealed "mildly displaced comminuted fractures involving the S1-S3 levels extending into both sacral wings." Labs with no leukocytosis. Anemia with Hgb 10.6 (baseline 10.5 - 11.5). INR 1.3. COVID negative. Admission Exam Per Admitting Provider GENERAL: Laying supine in bed in no acute distress. Well developed and well nourished. Vital signs reviewed as above. EYES: EOMI. Anicteric sclerae. HENT: Moist mucous membranes. RESPIRATORY: Anterior and lateral lung buckley auscultated were clear to auscultation bilaterally without wheezing, rales, or rhonchi. CARDIOVASCULAR: Irregularly irregular rhythm. Regular rate. + murmur. ABDOMEN: Soft, non-tender and non-distended. Normal bowel sounds. EXTREMITIES: No edema. Non-tender. SKIN: Warm, dry. NEUROLOGIC: Alert. Normal speech. No focal neurological deficits. Some confusion and repetition of statements which family notes is chronic; recent concern for ? early dementia process. PSYCHIATRIC: Cooperative. Appropriate mood and affect. Principal Diagnosis Sacral Fracture, UTI Discharge Exam Gen: NAD, alert, interactive. AO x 1, moderate confusion. Resp:Non-labored, no wheezing/rhonchi/rales, CTAB CV:RRR (paced), normal S1/S2, no M/R/G Abd: Soft, non-distended, no TTP, normoactive bowels Extr: 2+ dp bilaterally, 1+ non-pitting edema (baseline), moves lower extremities symmetrically w/o increased pain Discharge Data Allergies Allergy/AdvReac Type Severity Reaction Status Date / Time Penicillins Allergy Intermediate FACIAL Verified 06/23/22 16:55 ERYTHEMA budesonide [From Symbicort] AdvReac Mild clearing Verified 06/23/22 16:55 throat formoterol [From Symbicort] AdvReac Mild clearing Verified 06/23/22 16:55 throat Consultations 06/23/22 22:25 ED Decision to Admit Stat 06/24/22 05:57 Consult Orthopedic Surgery Routine Ordered Studies 06/23/22 20:40 CT lumbar spine wo con Stat CT pelvis wo con Stat Laboratory Results WBC 6.69 K/ul (4.8-10.8) 06/30/22 08:48 RBC 3.96 M/uL (3.93-5.22) 06/30/22 08:48 Hgb 12.0 g/dl (12.0-16.0) 06/30/22 08:48 Hct 35.1 % (34.1-44.9) 06/30/22 08:48 MCV 88.6 fL (80.0-100.0) 06/30/22 08:48 MCH 30.3 pg (25.0-34.0) 06/30/22 08:48 MCHC 34.2 g/dL (32.0-36.0) 06/30/22 08:48 RDW Std Deviation 44.1 fL (36.4-46.3) 06/30/22 08:48 RDW Coeff of Serenity 13.4 % (11.5-14.5) 06/30/22 08:48 Plt Count 287 K/uL (130-400) 06/30/22 08:48 MPV 10.1 fL (9.4-12.3) 06/30/22 08:48 Immature Gran % (Auto) 0.5 % 06/23/22 21:42 Neut % (Auto) 71.9 % 06/23/22 21:42 Lymph % (Auto) 16.7 % 06/23/22 21:42 [place] % (Auto) 9.4 % 06/23/22 21:42 Eos % (Auto) 1.2 % 06/23/22 21:42 Baso % (Auto) 0.3 % 06/23/22 21:42 Neut # (Auto) 7.17 K/uL (1.4-6.5) H 06/23/22 21:42 Lymph # (Auto) 1.67 K/uL (1.2-3.4) 06/23/22 21:42 [place] # (Auto) 0.94 K/uL (0.24-0.82) H 06/23/22 21:42 Eos # (Auto) 0.12 K/uL (0-0.50) 06/23/22 21:42 Baso # (Auto) 0.03 K/uL (0-0.2) 06/23/22 21:42 Immature Gran # (Auto) 0.05 K/uL (0.00-0.02) H 06/23/22 21:42 Sodium 138 mmol/L (136-145) 06/30/22 08:48 Potassium 3.9 mmol/L (3.5-5.1) 06/30/22 08:48 Chloride 100 mmol/L (98-107) 06/30/22 08:48 Carbon Dioxide 30 mmol/L (21-32) 06/30/22 08:48 Anion Gap 8 (3-11) 06/30/22 08:48 BUN 22 mg/dl (6-23) 06/30/22 08:48 Creatinine 0.81 mg/dl (0.6-1.2) 06/30/22 08:48 Est Cr Clr Drug Dosing 45.4 ml/min 06/30/22 08:48 Est GFR ( Amer) 77.8 ml/min 06/30/22 08:48 Est GFR (Non-Af Amer) 67.2 ml/min 06/30/22 08:48 BUN/Creatinine Ratio 27.2 (10-20) H 06/30/22 08:48 Glucose 124 mg/dl (70-99(Fasting)) H 06/30/22 08:48 Calcium 9.6 mg/dl (8.5-10.1) 06/30/22 08:48 Total Bilirubin 1.3 mg/dl (0.2-1.0) H 06/23/22 21:42 AST 22 U/L (13-39) 06/23/22 21:42 ALT 25 U/L (7-52) 06/23/22 21:42 Alkaline Phosphatase 64 U/L (34-104) 06/23/22 21:42 B-Natriuretic Peptide 375 pg/ml (0-100) H 06/27/22 07:10 Total Protein 6.9 gm/dl (6.0-8.3) 06/23/22 21:42 Albumin 3.7 gm/dl (3.4-5.0) 06/23/22 21:42 Globulin 3.2 gm/dl (2.5-4.0) 06/23/22 21:42 Albumin/Globulin Ratio 1.2 (0.9-2) 06/23/22 21:42 25-OH Vitamin D Total 28.8 ng/ml (30-100) L 06/29/22 06:55 Urine Color Yellow 06/27/22 10:25 Urine Appearance Clear (Clear) 06/27/22 10:25 Urine pH 6.5 (4.5-7.5) 06/27/22 10:25 Ur Specific [place] 1.006 (1.000-1.030) 06/27/22 10:25 Urine Protein Negative (Negative) 06/27/22 10:25 Urine Glucose (UA) Negative (Negative) 06/27/22 10:25 Urine Ketones Negative (Negative) 06/27/22 10:25 Urine Blood Negative (Negative) 06/27/22 10:25 Urine Nitrite Negative (Negative) 06/27/22 10:25 Urine Bilirubin Negative (Negative) 06/27/22 10:25 Urine Urobilinogen Negative (Negative) 06/27/22 10:25 Ur Leukocyte Esterase Negative (Negative) 06/27/22 10:25 Urine WBC (Auto) >30 /hpf (0-5) H 06/24/22 11:20 Urine RBC (Auto) 0-4 /hpf (0-4) 06/24/22 11:20 U Hyaline Cast (Auto) 1-5 /lpf (0-5) 06/24/22 11:20 U Epithel Cells (Auto) 10-20 /lpf (0-5) H 06/24/22 11:20 Urine Bacteria (Auto) Negative (Negative) 06/24/22 11:20 SARS-CoV-2, RNA, NAAT NEGATIVE (NEGATIVE) 06/23/22 22:[address] 06/23/22 20:40 CT OF THE LUMBAR SPINE CLINICAL HISTORY: Lumbar back pain. COMPARISON STUDY: Lumbar spine radiographs April 26, 2020 and June 23, 2022. CT of the abdomen and pelvis April 23, 2020. TECHNIQUE: Helical axial images of the lumbar spine were obtained. Sagittal and coronal reconstructions were viewed. Automated exposure control was utilized for the study. A dose lowering technique was utilized adhering to the principles of ALARA. FINDINGS: Acute mildly displaced bilateral sacral fractures are better depicted on the pelvis CT which will be reported separately. Levoscoliosis of the lumbar spine is noted. There is no acute lumbar spine fracture. Central canal and neural foramen are suboptimally assessed given CT technique. Severe multilevel facet arthrosis is noted as well as severe multilevel disc space narrowing, osteophytosis and facet arthrosis. Paravertebral soft tissues are unremarkable by CT. IMPRESSION: 1. No acute lumbar spine fracture or subluxation. 2. Severe multilevel degenerative changes within the lumbar spine. Lumbar spine scoliosis. 3. Acute mildly displaced bilateral sacral fractures better depicted on the same day pelvis CT. ACT 112: Negative or not required by law. Electronically signed by: Jaya Barone M.D. 06/24/2022 10:[address] 06/23/22 20:[address] DOSE: 1188.22 mGy.cm HISTORY: fall, L>R hip pain, unable to ambulate TECHNIQUE: Multiaxial CT images of the pelvis were performed and reformatted in the sagittal and coronal plane without the use of contrast. A dose lowering technique was utilized adhering to the principles of ALARA. COMPARISON: Abdomen and pelvis CT 04/23/2020. FINDINGS: No fracture or dislocation within the right or left hip. Slightly displaced fractures involving the sacrum at the S2/S3 levels. This extends into the bilateral sacral wings. The visualized lumbar spine and pubic bones are intact. Mild presacral edema is noted. Mild body wall edema. The bladder and uterus are unremarkable. Colonic diverticulosis is noted. IMPRESSION: 1. Mildly displaced sacral fractures as described above. 2. No fracture or dislocation within the bilateral hips. ACT 112: Negative or not required by law. Electronically signed by: Ricardo Alonzo M.D. 06/24/2022 7:21 AM Chest X-Ray 06/27/22 07:00 XR chest 1V portable HISTORY: increasing O2 requirement COMPARISON: Chest 06/25/2022. FINDINGS: No pneumothorax. No pleural effusions. The cardiac silhouette remains moderately enlarged. The left-sided pacemaker again noted. No new focal lung consolidations to suggest a pneumonia. No evidence for pulmonary edema. IMPRESSION: Stable enlargement of the cardiac silhouette. ACT 112: Negative or not required by law. Electronically signed by: Ricardo Alonzo M.D. 06/27/2022 9:02 AM Hip/Pelvis X-Ray 06/30/22 12:02 XR hip TRISH 2v w pelvis CLINICAL HISTORY: New hip pain in setting of sacral fracture COMPARISON STUDY: Pelvis and left hip radiographs and CT of the pelvis June 23, 2022. FINDINGS: The bilateral sacral fractures on CT of June 23, 2022 are not well visualized radiographically. No acute fracture within the pelvis or hips is identified. Alignment of the hips is anatomic. There is mild bilateral hip osteoarthritis. IMPRESSION: 1. No acute fracture within the pelvis or hips. 2. Bilateral sacral fractures on CT of June 23, 2022 not well visualized radiographically. ACT 112: Negative or not required by law. Electronically signed by: Jaya Barone M.D. 06/30/2022 12:40 PM Hospital Course (1) Sacral fracture, closed: (2) Acute UTI: (3) Lumbar back pain: (4) Fall: (5) Asthma: (6) Chronic anticoagulation: (7) Cognitive change: (8) Congestive heart failure: (9) CKD (chronic kidney disease), stage III: (10) Type 2 diabetes mellitus: (11) Atrial fibrillation: (12) Dyslipidemia: (13) HTN (hypertension): Plan Patient is an 82 yo female with PMHx of asthma, chronic atrial fibrillation on chronic anticoagulation, CHF, anemia, CKD stage III, DM, HLD, HTN, arthritis, hypothyroidism, and pulmonary HTN admitted to [facility] on 06/23/22 due to sacral fractures s/p fall and UTI. Sacral Fractures s/p Fall - Fall out of bed (presumed to have occurred on Sunday 06/17) - CT pelvis 06/23: mildly displaced comminuted fractures involving the S1-S3 levels extending into both sacral wings - Pain control with Tylenol 650mg q6h prn and Tramadol 50mg q4h prn, communication placed for Icy/Hot PRN - Fall precautions placed - Ortho/Spine Consult - recommending ambulation with walker and PT/OT w/o surgical intervention - 06/26 Continue pain management w/ Tramadol, scheduled Tylenol - 06/27 Discontinued Tramadol - 06/29 Added Oxycodone 2.5 mg q6h - 06/30 XR Hip/Pelvis: no acute fractures in pelvis or hips, sacral fractures not well visualized, mild bilateral hip OA, added Naproxen 250 mg BID PRN --- Pending SNF Placement (likely 07/04), continue PT UTI - UA 06/23 is contaminated with > 30 epithelial cells but evidence of infection with trace blood, positive nitrite, 2+ leuk esterase, 10-30 WBC, and 4+ bacteria - Urine cx: Gram negative bacilli, Klebsiella pneumoniae, gooden-sensitive - Patient received ceftriaxone in ED - 06/25 Patient is w/o dysuria, frequency, or suprapubic pain. She is afebrile. - Transitioned to PO Cephalexin 06/25 to cover UTI and prepare for discharge - 06/27 Rx for Pyridium and Rodriguez - 06/28 PO Cephalexin Day 02/28 (discontinue), Pyridium PRN for dysuria, Rodriguez in place - 06/29 Discontinue Rodriguez, discontinue Cephalexin - 06/30 Independent voids w/o dysuria --- Independent voids, abx completed, no dysuria or abdominal pain Cognitive Impairment (Dementia vs Pseudodementia a/w depression vs UTI) - Preventative measures to decrease hospital associated delirium - 06/25 Family expressed concern about patient going home independently, explained PT recommendation for SNF following discharge - 06/26 PO Zyprexa for agitation w/ staff and family x 1 - 06/27 Worsening frustration and aggression likely 2/2 dysuria (etiology consistent with delirium considered), provided Rx for Pyridium, given 2.5 mg Zyprexa - 06/28 Zyprexa 2.5 mg scheduled at night --- Patient pleasant, conversing well, moderately disoriented Chronic Conditions: * Atrial fibrillation on Xarelto (renal adjustment 15 mg PO qPM) - Patient with permanent atrial fibrillation and sick sinus syndrome with permanent pacemaker, continue home Xarelto * Hyperlipidemia - Continue home statin * Hypertension/CHF - Follows with Cardiology outpatient, Echo 05/30: EF 55-60%, continue Amlodipine 2.5 mg PO daily and Carvedilol 12.5 mg PO BID, restarted home Lasix 40 mg PO daily, no supplemental O2 requirement * Hypothyroidism - Continue home Levothyroxine * Asthma - Continue home singulair and albuterol prn, controlled w/o medication at present, follows with [facility] Diet:Carb consistent DM2, easy to chew IVF: None DVT PPx: Home dose Xarelto Dispo:SNF, [facility] 07/04 Code Status: Full CM: Following Total Time Total Time Spent Total Time Spent (In Minutes): <30 Discharge Plan Discharge Items Patient Disposition: Transfer Residential Fac Reason For Visit: SACRAL FRACTURES Discharge Diagnosis: Sacral Fracture, UTI Activity: Per Instructions section Non-emergency contact: Primary Care Provider Call non-emergency contact if: you have any medication questions and your symptoms worsen Follow-up/Referrals: Sunny Moraes MD [Primary Care Provider] - Dietitian Info: Easy to chew Diet: Carb Consistent or DM2 Addtl Attending Provider Instructions: Plan Patient is an 82 yo female with PMHx of asthma, chronic atrial fibrillation on chronic anticoagulation, CHF, anemia, CKD stage III, DM, HLD, HTN, arthritis, hypothyroidism, and pulmonary HTN admitted to [facility] on 06/23/22 due to sacral fractures s/p fall and UTI. Sacral Fractures s/p Fall - Fall out of bed (presumed to have occurred on Sunday 06/17) - CT pelvis 06/23: mildly displaced comminuted fractures involving the S1-S3 levels extending into both sacral wings - Pain control with Tylenol 650mg q6h prn and Tramadol 50mg q4h prn, communication placed for Icy/Hot PRN - Fall precautions placed - Ortho/Spine Consult- recommending ambulation with walker and PT/OT w/o surgical intervention - 06/26 Continue pain management w/ Tramadol, scheduled Tylenol - 06/27 Discontinued Tramadol - 06/29 Added Oxycodone 2.5 mg q6h - 06/30 XR Hip/Pelvis: no acute fractures in pelvis or hips, sacral fractures not well visualized, mild bilateral hip OA, added Naproxen 250 mg BID PRN --- Pending SNF Placement (likely 07/04), continue PT UTI - UA 06/23 is contaminated with > 30 epithelial cells but evidence of infection with trace blood, positive nitrite, 2+ leuk esterase, 10-30 WBC, and 4+ bacteria - Urine cx: Gram negative bacilli, Klebsiella pneumoniae, gooden-sensitive - Patient received ceftriaxone in ED - 06/25 Patient is w/o dysuria, frequency, or suprapubic pain. She is afebrile. - Transitioned to PO Cephalexin 06/25 to cover UTI and prepare for discharge - 06/27 Rx for Pyridium and Rodriguez - 06/28 PO Cephalexin Day 7 (discontinue), Pyridium PRN for dysuria, Rodriguez in place - 06/29 Discontinue Rodriguez, discontinue Cephalexin - 06/30 Independent voids w/o dysuria --- Independent voids, abx completed, no dysuria or abdominal pain Cognitive Impairment (Dementia vs Pseudodementia a/w depression vs UTI) - Preventative measures to decrease hospital associated delirium - 06/25 Family expressed concern about patient going home independently, explained PT recommendation for SNF following discharge - 06/26 PO Zyprexa for agitation w/ staff and family x 1 - 06/27 Worsening frustration and aggression likely 2/2 dysuria (etiology consistent with delirium considered), provided Rx for Pyridium, given 2.5 mg Zyprexa - 06/28 Zyprexa 2.5 mg scheduled at night --- Patient pleasant, conversing well, moderately disoriented Chronic Conditions: * Atrial fibrillation on Xarelto(renal adjustment 15 mg PO qPM) - Patient with permanent atrial fibrillation and sick sinus syndrome with permanent pacemaker, continue home Xarelto * Hyperlipidemia- Continue home statin * Hypertension/CHF- Follows with Cardiology outpatient, Echo 05/30: EF 55-60%, continue Amlodipine 2.5 mg PO daily and Carvedilol 12.5 mg PO BID, restarted home Lasix 40 mg PO daily, no supplemental O2 requirement * Hypothyroidism- Continue home Levothyroxine * Asthma- Continue home singulair and albuterol prn, controlled w/o medication at present, follows with [facility] Diet:Carb consistent DM2 IVF:None DVT PPx:Home dose Xarelto Dispo:SNF, [facility] 07/04 Code Status:Full CM: Following Pending Studies at Discharge: No Stand-Alone Forms: [facility] Skilled Items Patient informed of condition?: Yes DNR: No Discharge Level of Care: Skilled Communicable Disease: No Discharge Prognosis: Stable Lines: None Urinary Catheter: No Medications and DC Order Prescriptions: Continued omega 6-lvk-coi-fish-turmeric 417 mg-120 mg- 276 mg-600 mg capsule 2 cap PO BID montelukast 10 mg tablet 10 mg PO DAILY Qty: 90 3RF levothyroxine 25 mcg tablet 25 mcg PO QAM Qty: 90 3RF carvedilol 12.5 mg tablet 12.5 mg PO BID Qty: 180 3RF albuterol sulfate 90 mcg/actuation HFA aerosol inhaler 1 inh inhalation QID PRN (Reason: shortness of breath or wheezing) Qty: 8.5 2RF atorvastatin 80 mg tablet 80 mg PO HS Qty: 90 3RF Xarelto 20 mg tablet 20 mg PO QPM Qty: 90 3RF Rx Instructions: must administer with evening meal multivitamin tablet 1 tab PO HS acetaminophen [Tylenol] 325 mg Tablet 325 mg PO QID PRN (Reason: Pain) cyanocobalamin (vitamin B-12) [Vitamin B-12] 1,000 mcg Tablet 1,000 mcg PO DAILY amlodipine 2.5 mg tablet 2.5 mg PO DAILY cholecalciferol (vitamin D3) [Vitamin D3] 25 mcg (1,000 unit) Capsule 25 mcg PO DAILY turmeric root extract 500 mg Capsule 500 mg PO DAILY furosemide 40 mg tablet 40 mg PO DAILY Rx Instructions: Take a midday if edema is present, continue taking morning dose daily cephalexin 500 mg capsule 500 mg PO BID 7 Days Qty: 14 0RF tramadol 50 mg tablet 50 mg PO Q6H PRN (Reason: pain) Qty: 20 0RF Discharge Orders: Discharge Order (Routine); Ordered 07/04/22 Ordered By: Rona Kiser Admission Data Admit Date/Time: 06/23/22 23:27 Attending Provider: Rashawn Emmanuel Admit Provider: Meera Parsons Primary Care Provider: Sunny Moraes Other Providers: Erick Nunez ; Kyle Parker ; Tanvir Snell at [place] ; [facility] ; [facility] Other Interventions: Discharge Summary Assessment (RN) Last Done: 07/04/22 15:12 Supervising Physician Co-Signing Physician Notes I personally examined the patient and verified all hensley points of history and exam, discussed case, and agree with decision making with Dr Kiser For SNF/rehab emphasis today Vitals noted, in general she is awake and alert pleasant no distress. HEENT normocephalic atraumatic mucous membranes moist. Breathing unlabored no accessory muscle use good effort. Skin shows no rashes no pallor or icterus. Neuro without focal deficits. 1.Sacral fracture. CT showing mildly displaced, comminuted fractures involving S1-3 extending into both sacral wings. Pain controlled. Outpatient bone health work-up by PCP 2. Hip pain. Probably referred and/or biomechanical. PT/OT eval and treat, possibly trial of OMT if persists 2.Urinary tract infection. Urine culture with gooden-sensitive Klebsiella. Completed course of cephalexin, continue. Rodriguez removed. 3.Afib. AC with Xarelto. Has a pacemaker. Rate controlled 4.HTN, CHF. Euvolemic. Continue coreg, amlodipine, and Lasix. Breathing on room air, blood pressure reasonable 5.Cognitive impairment. On low dose Zyprexa at night. 6. Vitamin D insufficiency. Continue vitamin D 5,000 IU daily. Outpatient bone health work-up Dispo: she is medically stable for discharge. For SNF today
--- NOTE | 2022-07-04 18:08 | Billing Data ---
Date of Service July 04, 2022 Coding Level of Care Code D/C DAY MANAGEMENT <30 MINS
== END 2022-07-04 15:20 | DRG 551 ==
LOC: ED 20:02 → 2N 23:27 → SUATTDRO 23:27 → 2N 06-24 00:46

== ENCOUNTER 2024-05-02 13:49 | Inpatient (IN) ==
--- NOTE | 2024-05-02 15:01 | XRay Report ---
XR foot RT min 3V routine HISTORY: 84 years-old Female R great toe infection COMPARISON: None TECHNIQUE: 3 views of the right foot FINDINGS: Demineralized appearance of the bones. Hallux valgus. No acute fracture or dislocation identified. La rge calcaneal enthesophytes. Severe tibiotalar osteoarthritis. Moderate multifocal osteoarthritis. Ac [place] osteomyelitis involves the medial and distal aspects of the first distal phalangeal tuft with ass ociated soft tissue swelling and cutaneous ulcer. IMPRESSION: Acute osteomyelitis of the first distal phalangeal medial tuft. ACT 112: Negative or not required by law. The above report was generated using voice recognition software. It may contain grammatical, syntax o r spelling errors. Electronically signed by: Steve Le M.D. 05/02/2024 3:00 PM
[2024-05-02 15:10] LABS: Basophils # (auto) 0.05 K/uL (0.00-0.20); Basophils % (auto) 0.6 %; Eosinophils # (auto) 0.17 K/uL (0.00-0.50); Eosinophils % (auto) 1.9 %; Hematocrit (blood only) 33.5 % (37.0-47.0); Hemoglobin 10.8 g/dl (12.0-16.0); Immature Granulocytes # (auto) 0.03 K/uL (0.01-0.20); Immature Granulocytes % (auto) 0.3 %; Lymphocytes # (auto) 2.38 K/uL (1.20-3.40); Lymphocytes % (auto) 26.2 %; Mean Corpuscular Hemoglobin 29.3 pg (25.0-34.0); Mean Corpuscular Hgb Conc 32.2 g/dL (32.0-36.0); Mean Corpuscular Volume 90.8 fL (80.0-100.0); Mean Platelet Volume 10.3 fL (9.4-12.4); Monocytes # (auto) 0.73 K/uL (0.11-0.59); Neutrophils # (auto) 5.72 K/uL (1.40-6.50); Platelet Count 227 K/uL (130-400); RDW Coefficient of Variation 14.5 % (11.5-14.5); RDW Standard Deviation 48.2 fL (36.4-46.3); Red Blood Count 3.69 M/uL (4.20-5.40); White Blood Count 9.08 K/ul (4.8-10.8)
[2024-05-02 15:28] LABS: Albumin Level 3.5 gm/dl (3.4-5.0); BUN Creatinine Ratio 34.8 (10-20); Bilirubin Direct 0.1 mg/dl (0-0.2); Bilirubin,Total 0.6 mg/dl (0.2-1.0); C Reactive Protein 4.34 mg/dl (0-0.5); Creatinine Clr Calc Pharmacy 53.6 ml/min; Est GFR (Non-African American) 79.4 ml/min; Potassium 3.9 mmol/L (3.5-5.1); Total Protein 6.2 gm/dl (6.0-8.3)
[2024-05-02] MEDS ORDERED: VANCOMYCIN CONSULT ACTIVE PRN (15:43)
--- NOTE | 2024-05-02 15:43 | Emergency Department Note ---
Impression & Plan Acute osteomyelitis of toe ED Provider Note NAME: HAN CORTEZ AGE: 84 SEX: F : 1940 ARRIVES VIA: Ambulance INFORMANT: Patient, ED PROVIDER(S): Pati Akbar MD CHIEF COMPLAINT: Osteomyelitis HPI: This is a 84-year-old female presenting for concern of osteomyelitis. Patient lives in a group home and her family was concerned about osteomyelitis to the right foot/toe. They requested the facility sent her to the ER for further testing. At this time patient has no pain in this area. Patient is demented and states that she currently is [place] a farm. She reports no recent fevers, chills. She notes no pain at rest. ROS: See above HPI for pertinent positives & negatives. A total of 10 systems reviewed and were otherwise negative. PAST MEDICAL HISTORY: See Below PAST SURGICAL HISTORY: See Below FAMILY HISTORY: See Below SOCIAL HISTORY: See Below HOME MEDICATIONS: See Below ALLERGIES: See Below VITALS: See Below PHYSICAL EXAMINATION: General: resting comfortably in no acute distress Head: Normocephalic and atraumatic Eyes: Normal inspection, extraocular muscles intact Ear, nose, throat: Normal external exam Neck: Normal range of motion Respiratory: lungs clear to auscultation bilaterally Cardiovascular: Regular rate/rhythm, no murmur GI: soft, nontender, no guarding or rebound Extremities: Right great toe with erythema, swelling, no fluctuance, small closed black wound Neuro: The patient awake and alert, appropriately conversive, no focal deficits, symmetric faces Skin: Warm, dry, and intact MEDICAL DECISION MAKING: This is a 84-year-old female senting for concerns of osteomyelitis. Clinically patient does have right great toe swelling. -Will do x-ray, basic blood work -Blood work does reveal elevated ESR and CRP. There is no extremity leukocytosis. Otherwise electrolytes are within normal limits. -Patient's x-ray as independently interpreted by me reveals no osseous fractures or dislocations, does reveal acute osteomyelitis as per radiology -Will order vancomycin and cefepime based on patient's allergies -Patient admitted under Dr. Jiménez Differential diagnosis: Osteomyelitis, fracture, abscess ER treatment provided: See below Diagnostics interpreted by me: ECG: None Cardiac Monitoring: An order was placed for continuous cardiac monitoring. The monitor shows a rate of 78 with sinus rhythm. Laboratory studies: As stated above and show below. Imaging studies: See below. Past Med/Surg History Problem List (Updated 05/02/24 @ 21:26 by Pati Akbar MD) Acute osteomyelitis of toe (Acute) Dementia Osteomyelitis of great toe of right foot Sacral fracture, closed Asthma Pericardial effusion Lumbar spondylosis Congestive heart failure Orthostasis Anemia Leg edema, left CKD stage 3 due to type 2 diabetes mellitus CKD (chronic kidney disease), stage III Type 2 diabetes mellitus Grief reaction Abnormal CT of the abdomen Asthma (Chronic) Cardiac pacemaker Atrial fibrillation Anticoagulant long-term use Shortness of breath Nodularity of gastric antrum SI (sacroiliac) joint dysfunction Low back pain Secondary pulmonary hypertension Status post placement of cardiac pacemaker (Chronic) meditronic placed 10/28/2019 @ [facility] Bradycardia (Chronic) Allergic rhinitis (Chronic) Dyslipidemia (Chronic) IPMN (intraductal papillary mucinous neoplasm) (Chronic) HTN (hypertension) (Chronic) Arthritis, multiple joint involvement (Chronic) Nonischemic cardiomyopathy (Chronic) Hypothyroidism (Chronic) Pulmonary hypertension (Chronic) Medical History Allergic rhinitis Arthritis, multiple joint involvement Asthma inhaler daily/prn, nebulizer prn Asthma Bradycardia Chronic back pain Dyslipidemia GERD (gastroesophageal reflux disease) HTN (hypertension) Hypothyroidism IPMN (intraductal papillary mucinous neoplasm) Left bundle branch block Low back pain Near syncope Nonischemic cardiomyopathy Pancreatic cyst Poor historian Pulmonary hypertension Secondary pulmonary hypertension Systolic CHF TIA (transient ischemic attack) unsure how long ago--reason for xarelto ?? Surgical History History of cholecystectomy History of tooth extraction all teeth History of total knee arthroplasty 2007-left Dr. Cash Status post placement of cardiac pacemaker meditronic placed 10/28/2019 @ [facility] Family History Brother Coronary heart disease Myocardial infarction Lung cancer Cancer unknown Father Diabetes Mother Diabetes Sister Diabetes Kidney disease Breast cancer Hypertension Other Congestive heart failure Heart disease No family history of adverse response to anesthesia Denies family history of Ovarian cancer Prostate cancer Stroke Social History Smoking Status: Never smoker Second Hand Exposure: No; Do You Dip or Chew Tobacco: No; Hx Alcohol Use: No Hx Substance Use: No Preferred Language: Nepalese Communication Ability: Effective Visual Impairment: Partially Limited Hearing Ability: Normal Research Biologist Required: No Beliefs That Will Affect Care: None marital status: / Current Living Situation: Alone current occupational status: retired How many Children do You have: 4 Feels Safe at Home: Yes Childhood Exposure to Second-Hand Smoke: No caffeine: Yes (drinks iced tea ) Dental Care, Regularly: No Physical Activity Frequency: Does not Exercise Seatbelt Use: always Sunscreen Use: No Assistive Devices: Cane, Glasses and Walker Allergies Allergies Allergy/AdvReac Type Severity Reaction Status Date / Time Penicillins Allergy Intermediate FACIAL Verified 05/02/24 17:19 ERYTHEMA budesonide [From Symbicort] AdvReac Mild clearing Verified 05/02/24 17:19 throat formoterol [From Symbicort] AdvReac Mild clearing Verified 05/02/24 17:19 throat Home Meds Home Medications Medication Instructions Recorded Confirmed multivitamin 1 tab PO HS 01/21/19 05/02/24 acetaminophen 325 mg tablet 325 mg PO QID PRN Pain 04/23/20 05/02/24 (Tylenol) omega-3 417 mg-dha 120 mg-epa-276 2 cap PO BID 02/14/21 05/02/24 mg-fish oil 600 mg-turmeric capsule cyanocobalamin (vitamin B-12) 1,000 mcg PO DAILY 06/23/22 05/02/24 1,000 mcg tablet (Vitamin B-12) turmeric root extract 500 mg 500 mg PO DAILY 06/23/22 05/02/24 capsule cholecalciferol (vitamin D3) 25 50 mcg PO DAILY 03/17/23 05/02/24 mcg (1,000 unit) capsule (Vitamin D3) levothyroxine 75 mcg capsule 75 mcg PO DAILY 04/12/24 05/02/24 Abh Gel See Rx Instructions .Route .COMPLEX 05/02/24 05/02/24 bisacodyl 10 mg rectal suppository 10 mg CA DAILY PRN Constipation 05/02/24 05/02/24 (Dulcolax (bisacodyl)) buspirone 5 mg tablet 5 mg PO TID 05/02/24 05/02/24 loperamide 2 mg tablet 2 mg PO Q6H PRN Diarrhea 05/02/24 05/02/24 magnesium hydroxide 400 mg/5 mL See Rx Instructions .Route 05/02/24 05/02/24 oral suspension (Milk of Magnesia) .COMPLEX PRN Constipation menthol 16 % topical liquid (Icy 1 ea topical UD 05/02/24 05/02/24 Hot No Mess) oxycodone 5 mg tablet 10 mg PO Q4H PRN PAIN (5-10) 05/02/24 05/02/24 sodium hypochlorite 0.125 % 1 applic topical BID Wound on R 05/02/24 05/02/24 solution (Dakin's Solution) first toe Previous Rx's Medication Instructions Recorded carvedilol 12.5 mg tablet 12.5 mg PO BID #180 tabs 10/19/21 albuterol sulfate 90 mcg/actuation 1 inh inhalation QID PRN shortness 12/12/21 aerosol inhaler of breath or wheezing #8.5 grams rivaroxaban 20 mg tablet (Xarelto) 20 mg PO QPM #90 tabs 05/27/22 montelukast 10 mg tablet 10 mg PO DAILY #90 tabs 08/27/22 Results & Data (ED) Vital Signs Vital Signs - 24 hr 05/02/24 13:43 Temperature 36.7 C Temperature Source Oral Pulse Rate 88 Pulse Rhythm Regular Pulse Strength Normal Respiratory Rate 20 Respiratory Effort / Characteristics Non-Labored Spontaneous Respiratory Depth Normal Respiratory Pattern Regular Blood Pressure 130/74 Blood Pressure Mean 92 Blood Pressure Position Sitting Pulse Oximetry 93 Oxygen Delivery Method Room Air Sepsis Recent Fever Within 48 Hours No Sepsis New/Unexplained Change in Mental Status No Sepsis Action Taken by Nursing No Action Required Laboratory Data 05/02/24 14:54 05/02/24 14:54 Lab Results 05/02/24 Range/Units 14:54 WBC 9.08 (4.8-10.8) K/ul RBC 3.69 L (4.20-5.40) M/uL Hgb 10.8 L (12.0-16.0) g/dl Hct 33.5 L (37.0-47.0) % MCV 90.8 (80.0-100.0) fL MCH 29.3 (25.0-34.0) pg MCHC 32.2 (32.0-36.0) g/dL RDW Std Deviation 48.2 H (36.4-46.3) fL RDW Coeff of [place]renity 14.5 (11.5-14.5) % Plt Count 227 (130-400) K/uL MPV 10.3 (9.4-12.4) fL Immature Gran % (Auto) 0.3 % Neut % (Auto) 63.0 % Lymph % (Auto) 26.2 % [place] % (Auto) 8.0 % Eos % (Auto) 1.9 % Baso % (Auto) 0.6 % Neut # (Auto) 5.72 (1.40-6.50) K/uL Lymph # (Auto) 2.38 (1.20-3.40) K/uL [place] # (Auto) 0.73 H (0.11-0.59) K/uL Eos # (Auto) 0.17 (0.00-0.50) K/uL Baso # (Auto) 0.05 (0.00-0.20) K/uL Immature Gran # (Auto) 0.03 (0.01-0.20) K/uL ESR 46 H (0-30) mm/hr Sodium 138 (136-145) mmol/L Potassium 3.9 (3.5-5.1) mmol/L Chloride 105 (98-107) mmol/L Carbon Dioxide 27 (21-32) mmol/L Anion Gap 6 (3-11) BUN 24 H (6-23) mg/dl Creatinine 0.69 (0.6-1.2) mg/dl Est Cr Clr Drug Dosing 53.6 ml/min Est GFR ( Amer) 92.0 ml/min Est GFR (Non-Af Amer) 79.4 ml/min BUN/Creatinine Ratio 34.8 H (10-20) Glucose 147 H (70-99(Fasting)) mg/dl Calcium 9.0 (8.6-10.3) mg/dl Total Bilirubin 0.6 (0.2-1.0) mg/dl Direct Bilirubin 0.1 (0-0.2) mg/dl AST 16 (13-39) U/L ALT 10 (7-52) U/L Alkaline Phosphatase 65 (34-104) U/L C-Reactive Protein 4.34 H (0-0.5) mg/dl Total Protein 6.2 (6.0-8.3) gm/dl Albumin 3.5 (3.4-5.0) gm/dl Administered Medications Acetaminophen (Acetaminophen 325 Mg Tab) 650 mg PO Q6H PRN PRN Reason: pain(1-4),headache,fever Stop: 06/01/24 15:56 Last Admin: 05/02/24 17:59 Dose: 650 mg Documented By: KEVIN Insulin Aspart (Insulin Aspart Per Unit Charge) 0 units SC ACHS DARREL Stop: 06/01/24 16:29 Last Admin: 05/02/24 17:17 Dose: Not Given Documented By: KEVIN Co-signed By: ISIS Discontinued Medications Vancomycin HCl 1,500 mg/ (Sodium Chloride) 530 mls @ 200 mls/hr IV NOW ONE Stop: 05/02/24 18:21 Last Infusion: 05/02/24 19:38 Dose: Infused Documented By: Admin: 05/02/24 16:40 Dose: 200 mls/hr Documented By: KEVIN Cefepime HCl (Maxipime) 20 mls @ 4 mls/min IV NOW ONE Stop: 05/02/24 16:04 Last Admin: 05/02/24 16:41 Dose: 4 mls/min Documented By: KEVIN Imaging Data Radiologist's Impression: Foot X-Ray 05/02/24 14:20 XR foot RT min 3V routine HISTORY: 84 years-old Female R great toe infection COMPARISON: None TECHNIQUE: 3 views of the right foot FINDINGS: Demineralized appearance of the bones. Hallux valgus. No acute fracture or dislocation identified. Large calcaneal enthesophytes. Severe tibiotalar osteoarthritis. Moderate multifocal osteoarthritis. Acute osteomyelitis involves the medial and distal aspects of the first distal phalangeal tuft with associated soft tissue swelling and cutaneous ulcer. IMPRESSION: Acute osteomyelitis of the first distal phalangeal medial tuft. ACT 112: Negative or not required by law. The above report was generated using voice recognition software. It may contain grammatical, syntax or spelling errors. Electronically signed by: Steve Le M.D. 05/02/2024 3:00 PM Discharge Plan Visit Data Chief Complaint: Toe Injury/Pain Stated Complaint: osteomyelitis ED Provider: Pati Akbar Discharge Problem: Acute osteomyelitis of toe Discharge Instructions Interventions: ED Discharge Assessment Last Done: 05/02/24 20:44
--- NOTE | 2024-05-02 15:54 | History & Physical Report ---
Date of Service May 02, 2024 Assessment & Plan (1) Osteomyelitis of great toe of right foot: Plan: Admit to [facility] [place] Currently stable nontoxic-appearing Presented to the ED from [facility] after family was concerned for progression of her right great toe infection X-ray of the right great toe is positive for osteomyelitis, ESR and CRP are also elevated Has been ordered at dose of cefepime and vancomycin in the ED, will continue with both for now Orthopedics has been consulted As needed Tylenol for pain at this time as patient is not currently complaining the pain Holding home Xarelto in preparation for possible OR during this admission Will obtain ECG and chest x-ray for preoperative clearance Start DM type II diet with easy to chew texture for now AM CBC, BMP, mag, PT/ (2) Type 2 diabetes mellitus: Plan: Monitor BSG ACHS, goal is [id number] Hold basal insulin for now Start CF 50 and CR of 15 ACHS for now (3) Atrial fibrillation: Plan: Continue carvedilol Holding Xarelto due to preparations for likely OR during this admission (4) HTN (hypertension): Plan: Currently stable, continue carvedilol (5) Dementia: Plan: Patient has severe dementia and is oriented to self only One-to-one has been ordered as patient has already attempted to get out of bed multiple times Fall/aspiration precautions Plan The patient was discussed with Dr. Jiménez at the time of the admission History of Present Illness Chief Complaint: Right great toe infection Primary Care Provider: Gloria Gonzalez is an 84-year-old PMHx of dementia, asthma, chronic atrial fibrillation on chronic anticoagulation, CHF, anemia, CKD stage III, DM II, HLD, HTN, arthritis, hypothyroidism, and pulmonary HTN who presented to the [facility] ED on 05/02/2024 from [facility] due to concerns for osteomyelitis of the right great toe. She remained stable in the ED. Labs were significant for an ESR 46, CRP of 4.3, but otherwise unremarkable. X-ray of the right foot notes acute osteomyelitis of the first distal phalangeal medial tuft. Prior to admission the patient was Ordered a dose of vancomycin And cefepime. Patient was lying in bed in no acute distress at the time of exam. Due to her history of severe dementia history was very limited. She states that she wants to go home and that she would like me to call her mother to come pick her up. She is oriented to herself only. Currently denies any pain. I was able to call and speak with her son Wilder Marquez ([phone]) who was able to confirm that the patient is a DNR/DNI. Please refer to Dr. Jiménez's attestation for any changes to the treatment plan Allergies Allergy/AdvReac Type Severity Reaction Status Date / Time Penicillins Allergy Intermediate FACIAL Verified 05/02/24 17:19 ERYTHEMA budesonide [From Symbicort] AdvReac Mild clearing Verified 05/02/24 17:19 throat formoterol [From Symbicort] AdvReac Mild clearing Verified 05/02/24 17:19 throat Home Medications Medication Instructions Recorded Confirmed Type multivitamin 1 tab PO HS 01/21/19 05/02/24 History acetaminophen 325 mg tablet 325 mg PO QID PRN Pain 04/23/20 05/02/24 History (Tylenol) omega-3 417 mg-dha 120 mg-epa-276 2 cap PO BID 02/14/21 05/02/24 History mg-fish oil 600 mg-turmeric capsule carvedilol 12.5 mg tablet 12.5 mg PO BID #180 tabs 10/19/21 05/02/24 Rx albuterol sulfate 90 mcg/actuation 1 inh inhalation QID PRN shortness 12/12/21 05/02/24 Rx aerosol inhaler of breath or wheezing #8.5 grams rivaroxaban 20 mg tablet (Xarelto) 20 mg PO QPM #90 tabs 05/27/22 05/02/24 Rx cyanocobalamin (vitamin B-12) 1,000 mcg PO DAILY 06/23/22 05/02/24 History 1,000 mcg tablet (Vitamin B-12) turmeric root extract 500 mg 500 mg PO DAILY 06/23/22 05/02/24 History capsule montelukast 10 mg tablet 10 mg PO DAILY #90 tabs 08/27/22 05/02/24 Rx cholecalciferol (vitamin D3) 25 50 mcg PO DAILY 03/17/23 05/02/24 History mcg (1,000 unit) capsule (Vitamin D3) levothyroxine 75 mcg capsule 75 mcg PO DAILY 04/12/24 05/02/24 History Abh Gel See Rx Instructions .Route .COMPLEX 05/02/24 05/02/24 History bisacodyl 10 mg rectal suppository 10 mg [place] DAILY PRN Constipation 05/02/24 05/02/24 History (Dulcolax (bisacodyl)) buspirone 5 mg tablet 5 mg PO TID 05/02/24 05/02/24 History loperamide 2 mg tablet 2 mg PO Q6H PRN Diarrhea 05/02/24 05/02/24 History magnesium hydroxide 400 mg/5 mL See Rx Instructions .Route 05/02/24 05/02/24 History oral suspension (Milk of Magnesia) .COMPLEX PRN Constipation menthol 16 % topical liquid (Icy 1 ea topical UD 05/02/24 05/02/24 History Hot No Mess) oxycodone 5 mg tablet 10 mg PO Q4H PRN PAIN (5-10) 05/02/24 05/02/24 History sodium hypochlorite 0.125 % 1 applic topical BID Wound on R 05/02/24 05/02/24 History solution (Dakin's Solution) first toe Past Med/Surg History Problem List Acute osteomyelitis of toe (Acute) Dementia Osteomyelitis of great toe of right foot Sacral fracture, closed Asthma Pericardial effusion Lumbar spondylosis Congestive heart failure Orthostasis Anemia Leg edema, left CKD stage 3 due to type 2 diabetes mellitus CKD (chronic kidney disease), stage III Type 2 diabetes mellitus Grief reaction Abnormal CT of the abdomen Asthma (Chronic) Cardiac pacemaker Atrial fibrillation Anticoagulant long-term use Shortness of breath Nodularity of gastric antrum SI (sacroiliac) joint dysfunction Low back pain Secondary pulmonary hypertension Status post placement of cardiac pacemaker (Chronic) meditronic placed 10/28/2019 @ [facility] Bradycardia (Chronic) Allergic rhinitis (Chronic) Dyslipidemia (Chronic) IPMN (intraductal papillary mucinous neoplasm) (Chronic) HTN (hypertension) (Chronic) Arthritis, multiple joint involvement (Chronic) Nonischemic cardiomyopathy (Chronic) Hypothyroidism (Chronic) Pulmonary hypertension (Chronic) Medical History Fall Acute UTI (urinary tract infection) Acute UTI Chronic anticoagulation Cognitive change Chronic back pain GERD (gastroesophageal reflux disease) Poor historian Near syncope Pancreatic cyst Left bundle branch block Asthma inhaler daily/prn, nebulizer prn Systolic CHF TIA (transient ischemic attack) unsure how long ago--reason for xarelto ?? Surgical History History of tooth extraction all teeth History of total knee arthroplasty 2008-left Dr. Cash History of cholecystectomy Family History Brother Coronary heart disease Myocardial infarction Lung cancer Cancer unknown Father Diabetes Mother Diabetes Sister Diabetes Kidney disease Breast cancer Hypertension Other Congestive heart failure Heart disease No family history of adverse response to anesthesia Denies family history of Ovarian cancer Prostate cancer Stroke Social History Smoking Status: Never smoker Second Hand Exposure: No; Do You Dip or Chew Tobacco: No; Hx Alcohol Use: No Hx Substance Use: No Preferred Language: Macedonian Communication Ability: Effective Visual Impairment: Partially Limited Hearing Ability: Normal Buffer Chrome Required: No Beliefs That Will Affect Care: None marital status: / Current Living Situation: Alone current occupational status: retired How many Children do You have: 4 Feels Safe at Home: Yes Safety Concerns: Feels Safe At This Time Childhood Exposure to Second-Hand Smoke: No caffeine: Yes (drinks iced tea ) Dental Care, Regularly: No Physical Activity Frequency: Does not Exercise Seatbelt Use: always Sunscreen Use: No Assistive Devices: Cane, Glasses and Walker Physical Exam Physical Exam: Physical Exam: General: In no acute distress, stated age, chronically ill-appearing but nontoxic HEENT: Normocephalic, atraumatic, no scleral icterus, pupils around round, symmetrical, and reactive to light, moist mucus membranes, trachea midline, no thyromegaly Chest/Pulm: No respiratory distress, symmetrical chest expansion, clear breath sounds throughout Cardiac: irregular rate and rhythm, no murmurs noted Abdomen: Negative for ascites and bruising, normoactive bowel sounds, soft, non-tender to palpation throughout Musculoskeletal: Right great toe appears erythematous/swollen without open wound or current drainage, no trauma on exam Extremities: Radial, dorsalis pedis, and posterior tibial pulses are intact and symmetrical, no edema noted in the BL LE's Skin: See attached picture below for right great toe infection Neuro: Alert and oriented to person only, believes that her mother is still alive and wants us to call her to pick the patient up, no focal defects, no tremors noted Psych: No acute distress, pleasantly confused, calm and cooperative during the exam Results & Data Results & Data Vital Signs (Past 12 Hours) Vital Signs Temp Pulse Resp BP Pulse Ox O2 Del Method 05/02/24 13:43 36.7 C 88 20 130/74 93 Room Air Laboratory Results Abnormal lab results 05/02/24 Range/Units 14:54 RBC 3.69 L (4.20-5.40) M/uL Hgb 10.8 L (12.0-16.0) g/dl Hct 33.5 L (37.0-47.0) % RDW Std Deviation 48.2 H (36.4-46.3) fL [place] # (Auto) 0.73 H (0.11-0.59) K/uL ESR 46 H (0-30) mm/hr BUN 24 H (6-23) mg/dl BUN/Creatinine Ratio 34.8 H (10-20) Glucose 147 H (70-99(Fasting)) mg/dl C-Reactive Protein 4.34 H (0-0.5) mg/dl Diagnostic Findings Foot X-Ray 05/02/24 14:20 XR foot RT min 3V routine HISTORY: 84 years-old Female R great toe infection COMPARISON: None TECHNIQUE: 3 views of the right foot FINDINGS: Demineralized appearance of the bones. Hallux valgus. No acute fracture or dislocation identified. Large calcaneal enthesophytes. Severe tibiotalar osteoarthritis. Moderate multifocal osteoarthritis. Acute osteomyelitis involves the medial and distal aspects of the first distal phalangeal tuft with associated soft tissue swelling and cutaneous ulcer. IMPRESSION: Acute osteomyelitis of the first distal phalangeal medial tuft. ACT 112: Negative or not required by law. The above report was generated using voice recognition software. It may contain grammatical, syntax or spelling errors. Electronically signed by: Steve Le M.D. 05/02/2024 3:00 PM Code Status & VTE Plan Code Status DNR/DNI VTE Prophylaxis Plan VTE Prophylaxis will be ordered: Yes Supervising Physician Co-Signing Physician Notes I personally saw and examined the patient. I verified all hensley points and agree with Jose Wilson PA-C with the following exceptions and/or additions: 84 year old female presents to the ER with right 1st toe infection/ulcer. Unable to get any history from the patient due to severe dementia. She is trying to get out of bed and wants to go home to her 7 year old son. O/E HS RRR, no murmurs, Chest CTAB, Abdo SNT, 1st right toe plantar ulcer with surrounding erythema to base of toe A/P Right 1st toe cellulitis and osteomyelitis - vanc + cefepime, NPO after midnight, hold anticoagulation, consult orthopedics PG Care Time/CCT Total # of Minutes Spent Total Time Spent with Patient: Total time spent is greater than 50% in coordination of care (as documented) at patient's floor/unit and/or counseling patient: C[place] [address] INT INP/OBS CARE 2/55MIN Patient Type Established Medical Decision Making High Complexity Diagnoses Osteomyelitis of great toe of right foot M86.9 Type 2 diabetes mellitus E11.9 Permanent atrial fibrillation I48.21 Atrial fibrillation type: permanent HTN (hypertension) I10 Dementia F03.90 (3) Atrial fibrillation Atrial fibrillation type: permanent Qualified Code(s): I48.21 - Permanent atrial fibrillation
[2024-05-02] MEDS ORDERED: GLUCAGON FOR INJ 1 MG VIAL SQ PRN (15:55)
[2024-05-02] MEDS ORDERED: GLUCOSE 40% GEL 15 GM TUBE PO PRN (15:55)
[2024-05-02] MEDS ORDERED: DEXTROSE 50% 50 ML SYRINGE IV PRN (15:55)
[2024-05-02] MEDS ORDERED: CARBOHYDRATES FOR HYPOGLYCEMIA PO PRN (15:55)
[2024-05-02] MEDS ORDERED: GLUCOSE 10 TAB/TUBE PO PRN (15:55)
[2024-05-02] MEDS: VANCOMYCIN HCL 1,500 MG in SODIUM CHLORIDE 0.9% 500 ML IV ONE (16:40)
[2024-05-02] MEDS: CEFEPIME 20 ML IV ONE (16:41)
[2024-05-02] MEDS: INSULIN ASPART PER UNIT CHARGE SC SCH (17:17)
--- NOTE | 2024-05-02 17:28 | XRay Report ---
XR chest 1V portable HISTORY: 84 years-old Female pre-op clearance preoperative exam COMPARISON: 06/27/2022 TECHNIQUE: AP view the chest FINDINGS: No pneumothorax. No pleural effusions. The cardiac silhouette remains moderately enlarged. The left-s ided pacemaker again noted. No new focal lung consolidations to suggest a pneumonia. No evidence for pulmonary edema. IMPRESSION: Cardiomegaly without acute process. ACT 112: Negative or not required by law. The above report was generated using voice recognition software. It may contain grammatical, syntax o r spelling errors. Electronically signed by: Steve Le M.D. 05/02/2024 5:27 PM
[2024-05-02] MEDS: ACETAMINOPHEN 325 MG TAB PO PRN (17:59)
[2024-05-03] MEDS: CEFEPIME 2,000 MG in SYRINGE 0 ML IV SCH ×2 (04:32→12:31)
[2024-05-03 04:54] LABS: Basophils # (auto) 0.05 K/uL (0.00-0.20); Eosinophils # (auto) 0.17 K/uL (0.00-0.50); Eosinophils % (auto) 3.3 %; Hematocrit (blood only) 33.5 % (37.0-47.0); Hemoglobin 10.6 g/dl (12.0-16.0); Immature Granulocytes # (auto) 0.01 K/uL (0.01-0.20); Immature Granulocytes % (auto) 0.2 %; Lymphocytes # (auto) 1.75 K/uL (1.20-3.40); Lymphocytes % (auto) 34.2 %; Mean Corpuscular Hemoglobin 28.6 pg (25.0-34.0); Mean Corpuscular Hgb Conc 31.6 g/dL (32.0-36.0); Mean Corpuscular Volume 90.3 fL (80.0-100.0); Mean Platelet Volume 10.6 fL (9.4-12.4); Monocytes # (auto) 0.49 K/uL (0.11-0.59); Monocytes % (auto) 9.6 %; Neutrophils # (auto) 2.65 K/uL (1.40-6.50); Neutrophils % (auto) 51.7 %; Platelet Count 202 K/uL (130-400); RDW Coefficient of Variation 14.4 % (11.5-14.5); RDW Standard Deviation 47.8 fL (36.4-46.3); Red Blood Count 3.71 M/uL (4.20-5.40); White Blood Count 5.12 K/ul (4.8-10.8)
[2024-05-03 05:10] LABS: BUN Creatinine Ratio 33.3 (10-20); Calcium 8.5 mg/dl (8.6-10.3); Creatinine Clr Calc Pharmacy 64.9 ml/min; Est GFR (Non-African American) 84.5 ml/min; Magnesium 1.6 mg/dl (1.7-2.4); Potassium 3.5 mmol/L (3.5-5.1)
[2024-05-03 05:24] LABS: INR 1.1 (0.9-1.1); Prothrombin Time 11.9 Seconds (9.0-12.0)
[2024-05-03 07:17] VITALS: RESP 18
[2024-05-03 07:18] LABS: Estimated Average Glucose 157 mg/dl; Hemoglobin A1C 7.1 % (4.5-5.6)
--- NOTE | 2024-05-03 07:40 | Pharmacy Report ---
Pharmacy PK ABX Note - Date of Service May 03, 2024 - Assessment and Plan Assessment 84 year old F receiving IV VANCOMYCIN + CEFEPIME for treatment of Osteomyelitis of great toe of right foot. Afebrile, WBC wnl. ESR and CRP elevated. Day # 2 of antimicrobial therapy. Plan Vancomycin * Loading dose: 1500 mg IV x 1 on 05/02. * Maintenance dose: 1500 mg IV every 24 hours * Regimen is predicted to achieve target AUC/JOSE ALBERTO of 400-600 mg/L.hr * Trough level ordered for: 05/04/24 Cefepime 2g IV Q12H Pharmacy will continue to follow and will adjust dose/frequency as necessary. Thank you. Pharmacy has transitioned to AUC monitoring for vancomycin. AUC/JOSE ALBERTO is the preferred PK/PD target and is associated with decreased risk of nephrotoxicity compared to traditional trough targets.
--- NOTE | 2024-05-03 07:44 | Orthopedic Consultation ---
Date of Service May 03, 2024 Assessment & Plan (1) Acute osteomyelitis of toe: 84-year-old female admitted with multiple medical comorbidities and possibly some right great toe osteomyelitis. Her exam is pretty benign. She does have a small ulcer but there is no signs of pus purulence or cellulitis per se. X-rays equivocal. She got diffuse osteopenia and severe a significant arthritic change. Plan: Her exam is pretty benign. Her sed rate and C-reactive protein are obviously is somewhat elevated. X-rays are equivocal. In this case I would recommend just following this clinically not some much by imaging studies. Her right toe was pretty benign in appearance. Considering the elevated sed rate and C-reactive protein it is worth putting her on some oral antibiotics. There is no surgical intervention at this point. Any surgical intervention would be amputation in her toe does not warrant that based on clinical exam. Considering her medical state I did have her resume her normal meds including anticoagulation. I put her on p.o. antibiotics for the next 2 weeks. She does not need to be in the hospital from my standpoint. Any orthopedic questions can be directly [phone]. (2) Dementia: (3) Type 2 diabetes mellitus: History of Present Illness Reason for Consultation: Possible right great toe osteomyelitis. Requesting Physician: . Attending Physician: Keily Chirinos MD . 84-year-old female with multiple medical comorbidities including chronic atrial fibrillation on anticoagulation and diabetes and underlying dementia who was admitted for possible right great toe osteomyelitis. Patient is diabetic and on chronic anticoagulation. She is has difficulty providing any real history. Does not report any particular pain per se. Allergies Allergy/AdvReac Type Severity Reaction Status Date / Time Penicillins Allergy Intermediate FACIAL Verified 05/02/24 17:19 ERYTHEMA budesonide [From Symbicort] AdvReac Mild clearing Verified 05/02/24 17:19 throat formoterol [From Symbicort] AdvReac Mild clearing Verified 05/02/24 17:19 throat Home Medications Medication Instructions Recorded Confirmed Type multivitamin 1 tab PO HS 01/21/19 05/02/24 History acetaminophen 325 mg tablet 325 mg PO QID PRN Pain 04/23/20 05/02/24 History (Tylenol) omega-3 417 mg-dha 120 mg-epa-276 2 cap PO BID 02/14/21 05/02/24 History mg-fish oil 600 mg-turmeric capsule carvedilol 12.5 mg tablet 12.5 mg PO BID #180 tabs 10/19/21 05/02/24 Rx albuterol sulfate 90 mcg/actuation 1 inh inhalation QID PRN shortness 12/12/21 05/02/24 Rx aerosol inhaler of breath or wheezing #8.5 grams rivaroxaban 20 mg tablet (Xarelto) 20 mg PO QPM #90 tabs 05/27/22 05/02/24 Rx cyanocobalamin (vitamin B-12) 1,000 mcg PO DAILY 06/23/22 05/02/24 History 1,000 mcg tablet (Vitamin B-12) turmeric root extract 500 mg 500 mg PO DAILY 06/23/22 05/02/24 History capsule montelukast 10 mg tablet 10 mg PO DAILY #90 tabs 08/27/22 05/02/24 Rx cholecalciferol (vitamin D3) 25 50 mcg PO DAILY 03/17/23 05/02/24 History mcg (1,000 unit) capsule (Vitamin D3) levothyroxine 75 mcg capsule 75 mcg PO DAILY 04/12/24 05/02/24 History Abh Gel See Rx Instructions .Route .COMPLEX 05/02/24 05/02/24 History bisacodyl 10 mg rectal suppository [address] DAILY PRN Constipation 05/02/24 05/02/24 History (Dulcolax (bisacodyl)) buspirone 5 mg tablet 5 mg PO TID 05/02/24 05/02/24 History loperamide 2 mg tablet 2 mg PO Q6H PRN Diarrhea 05/02/24 05/02/24 History magnesium hydroxide 400 mg/5 mL See Rx Instructions .Route 05/02/24 05/02/24 History oral suspension (Milk of Magnesia) .COMPLEX PRN Constipation menthol 16 % topical liquid (Icy 1 ea topical UD 05/02/24 05/02/24 History Hot No Mess) oxycodone 5 mg tablet 10 mg PO Q4H PRN PAIN (5-10) 05/02/24 05/02/24 History sodium hypochlorite 0.125 % 1 applic topical BID Wound on R 05/02/24 05/02/24 History solution (Dakin's Solution) first toe Past Med/Surg History Problem List Acute osteomyelitis of toe (Acute) Dementia Osteomyelitis of great toe of right foot Sacral fracture, closed Asthma Pericardial effusion Lumbar spondylosis Congestive heart failure Orthostasis Anemia Leg edema, left CKD stage 3 due to type 2 diabetes mellitus CKD (chronic kidney disease), stage III Type 2 diabetes mellitus Grief reaction Abnormal CT of the abdomen Asthma (Chronic) Cardiac pacemaker Atrial fibrillation Anticoagulant long-term use Shortness of breath Nodularity of gastric antrum SI (sacroiliac) joint dysfunction Low back pain Secondary pulmonary hypertension Status post placement of cardiac pacemaker (Chronic) meditronic placed 10/28/2019 @ [facility] Bradycardia (Chronic) Allergic rhinitis (Chronic) Dyslipidemia (Chronic) IPMN (intraductal papillary mucinous neoplasm) (Chronic) HTN (hypertension) (Chronic) Arthritis, multiple joint involvement (Chronic) Nonischemic cardiomyopathy (Chronic) Hypothyroidism (Chronic) Pulmonary hypertension (Chronic) Medical History Fall Acute UTI (urinary tract infection) Acute UTI Chronic anticoagulation Cognitive change Chronic back pain GERD (gastroesophageal reflux disease) Poor historian Near syncope Pancreatic cyst Left bundle branch block Asthma inhaler daily/prn, nebulizer prn Systolic CHF TIA (transient ischemic attack) unsure how long ago--reason for xarelto ?? Surgical History History of tooth extraction all teeth History of total knee arthroplasty 2008-left Dr. Cash History of cholecystectomy Family History Brother Coronary heart disease Myocardial infarction Lung cancer Cancer unknown Father Diabetes Mother Diabetes Sister Diabetes Kidney disease Breast cancer Hypertension Other Congestive heart failure Heart disease No family history of adverse response to anesthesia Denies family history of Ovarian cancer Prostate cancer Stroke Social History Smoking Status: Never smoker Second Hand Exposure: No; Do You Dip or Chew Tobacco: No; Hx Alcohol Use: No Hx Substance Use: No Preferred Language: Nauruan Communication Ability: Effective Visual Impairment: Partially Limited Hearing Ability: Normal Tank Assembler Required: No Beliefs That Will Affect Care: None marital status: / Current Living Situation: Alone current occupational status: retired How many Children do You have: 4 Feels Safe at Home: Yes Safety Concerns: Feels Safe At This Time Childhood Exposure to Second-Hand Smoke: No caffeine: Yes (drinks iced tea ) Dental Care, Regularly: No Physical Activity Frequency: Does not Exercise Seatbelt Use: always Sunscreen Use: No Assistive Devices: Cane, Glasses and Walker Review of Systems All systems reviewed & are unremarkable except as noted in HPI & below. Physical Exam . Physical examination was a demented elderly female is lying in bed. Examination of the right foot reveals a small ulceration on the plantar medial aspect of the foot which looks relatively clean without any signs of drainage or pus. There is really not much in way of redness or cellulitis in this area. Got significant bunion deformity. Results & Data Results & Data Laboratory Results . White blood cell count is 5.12. Sed rate is slightly elevated at 46. CRP elevated 4.34. Diagnostic Findings . X-ray of the foot revealed diffuse osteopenia. Is difficult to assess for osteomyelitis. She does seem to have a little bit of bone destruction but this could be due to osteopenia or just underlying arthritic change. PG Care Time/CCT Total # of Minutes Spent Total Time Spent with Patient: Total time spent is greater than 50% in coordination of care (as documented) at patient's floor/unit and/or counseling patient: Coding Level of Care Code 59667 IN/OBS CONSULT LVL 4,60M Diagnoses Acute osteomyelitis of toe M86.179 Dementia F03.90 Type 2 diabetes mellitus E11.9
[2024-05-03] MEDS ORDERED: ALBUTEROL HFA 8 GM INHALER INH PRN (08:15)
[2024-05-03] MEDS: VANCOMYCIN HCL 1,500 MG in SODIUM CHLORIDE 0.9% 500 ML IV SCH (08:15)
--- NOTE | 2024-05-03 08:22 | Hospitalist Progress Note ---
Date of Service May 03, 2024 Assessment & Plan (1) Osteomyelitis of great toe of right foot: Plan: Presented to the ED from [place] care after family was concerned for progression of her right great toe infection X-ray of the right great toe is positive for osteomyelitis, ESR and CRP are also elevated Has been ordered at dose of cefepime and vancomycin in the ED, will continue with both for now Orthopedics has been consulted Pain control Xarelto held for possible OR for resection however per Dr Jiménez, no surgery needed and recommends course of oral antibiotics Discussed with ID assistant tennis professional and given no surgery and not wanting to commit to 6wks IV antibiotics given no prior culture data can consider cefpodoxime and doxy x 2 week course the wound care and monitoring inflammatory markers. Discussed w/ daughter Dionicio, works as aide (off for next 3 days, cell # [phone]) and agreeable to the 2 wk course of PO. Will plan to transition to PO antibiotics today and plan for 2 wk course with cefpodoxime and doxy to complete course. Wound RN consult placed Xarelto resumed as no surgery planned Arterial doppler for completeness given poor wound healing -- no significant stenosis Ordered pepcid IVP x 1 for reflux. Maintain aspiration precautions, easy to chew diet Zofran added for nausea/vomiting, some nausea this morning. Tylenol x 1 for headache, monitor response. Mag 1.6 and IV replacement ordered Will check biofire given headache/sore throat complaints and from [facility] -- negative. Remains on room air. Easy to chew diet as tolerated Seroquel 12.5mg PO x 1 for agitation, can repeat dose and continue 25mg HS while inpatient. Discussed w/ daughter given prior admissions and zyprexa use and she reports zyprexa made her mother significantly worse. Also planning to transition off cefepime which can worsen confusion vlad in elderly w/ already having hx dementia and from [facility] PT eval placed and reporting in wheelchair at baseline/no needs and can return to current living. Monitor exam on repeat, possible dc next day so on PO abx (2) Type 2 diabetes mellitus: Plan: A1c 7.1 ?not on anything at baseline -- will need to see if just using sliding scale w/ meals at [facility] Continue BSG AC/HS and sliding scale while inpatient. BSGs acceptable. Further recs pending insulin needs (3) Atrial fibrillation: Plan: Resumed coreg 12.5mg BID given hx afib. Does have pacemaker, EKG w/ reported failure however recent interrogation in mid march w/ ~5.5yrs battery. Message to Dr Paula to review but did place orders for interrogation for completeness Xarelto resumed Mag replacement and will monitor. K stable 3.5 but will order some PO and monitor Can check TSH w/ AM labs (prior wnl in December) (4) HTN (hypertension): Plan: BP 153/81 Home coreg resumed BID as above for afib Monitor (5) Dementia: Plan: Patient has severe dementia and is oriented to self only One-to-one reportedly ordered but was by herself this morning Frequent checks, seroquel low dose as above and will continue QHS moving forward for tomorrow 1:1 as needed, will place order Fall precautions, aspiration precautions Will check TSH w/ AM labs, can add B12 for completeness given prior B12 level was 211 in 2021 Plan Dispo: continued inpatient stay, switching to PO cefpodoxime/doxy and planning on 2 wk course with wound care . would rec to monitor CRP/ESR with ongoing treatment Updated daughter Dionicio via phone, please call in AM w/ update on plan/discharge #[phone] Admission and Anticipated Discharge Date Admission Date: May 02, 2024 Supervising Physician Co-Signing Physician Notes KATIE Supervision Note: I did not personally see or examine the patient today, but I verified all hensley points of KATIE Hester's assessment and plan with the following exceptions/additions: None Subjective Patient evaluated this morning, got washed up with nursing. Denies pain in her feet, dementia/confusion at baseline and per nursing is wheelchair bound however patient wanting to get up out of bed. Therapy to be around soon. She complaints of having some sore throat and a headache, RN to administer tylenol/monitor. Also ordered cough drop as needed for comfort. Will check biofire and also adding pepcid for some reflux discomfort. Did put head of bed up as difficulty catching her breath laying flat and will ensure aspiration precautions in place. On easy to chew diet -- would like some applesauce Ortho saw this morning, recs for 2 weeks PO antibiotics, will discuss plan with supervising provider. Home medications resumed. Physical Exam Physical Exam: General: chronically ill appearsing 84yo woman sitting up in bed, reporting some nausea and wanting to get up out of bed but in no acute distress, +confusion/dementia at baseline HEENT: head atraumatic, normocephalic, mm slightly dry, improved with sip of water, trachea midline Resp: even/unlabored, no w/c/r, on room air CV: irregularly irregular, rates 60-70s, pacemaker to chest noted, no significant m/r/g, no pitting edema GI: +BS, slight distension, nontender but reporting nausea ; no morrison MSK/Neuro: not able to follow commands at times but no slurred speech/facial droop, strength intact, contracture to R hand, sleeve covering IV site moving all extremities R foot: great toe with small ulceration to inferior aspect, no surrounding cellulitis on exam today, pulses present, cap refill appears <3 seconds Psych: alert to person, [place], not oriented to place/events but cooperative during encounter Results & Data Results & Data Vital Signs (Past 12 Hours) Vital Signs Temp Pulse Pulse Pulse Resp BP Pulse Ox 05/03/24 07:17 36.9 C 69 18 153/81 H 97 05/03/24 05:06 36.7 C 69 17 161/87 H 96 05/03/24 05:00 05/03/24 03:28 66 05/03/24 02:08 60 16 108/60 94 05/02/24 23:20 36.8 C 60 14 114/50 L 96 05/02/24 21:03 78 16 130/68 96 O2 Del Method 05/03/24 07:17 Room Air 05/03/24 05:06 Room Air 05/03/24 05:00 Room Air 05/03/24 03:28 05/03/24 02:08 Room Air 05/02/24 23:20 Room Air 05/02/24 21:03 Room Air Laboratory Results Foot X-Ray 05/02/24 14:20 XR foot RT min 3V routine HISTORY: 84 years-old Female R great toe infection COMPARISON: None TECHNIQUE: 3 views of the right foot FINDINGS: Demineralized appearance of the bones. Hallux valgus. No acute fracture or dislocation identified. Large calcaneal enthesophytes. Severe tibiotalar osteoarthritis. Moderate multifocal osteoarthritis. Acute osteomyelitis involves the medial and distal aspects of the first distal phalangeal tuft with associated soft tissue swelling and cutaneous ulcer. IMPRESSION: Acute osteomyelitis of the first distal phalangeal medial tuft. ACT 112: Negative or not required by law. The above report was generated using voice recognition software. It may contain grammatical, syntax or spelling errors. Electronically signed by: Steve Le M.D. 05/02/2024 3:00 PM Chest X-Ray 05/02/24 16:16 XR chest 1V portable HISTORY: 84 years-old Female pre-op clearance preoperative exam COMPARISON: 06/27/2022 TECHNIQUE: AP view the chest FINDINGS: No pneumothorax. No pleural effusions. The cardiac silhouette remains moderately enlarged. The left-sided pacemaker again noted. No new focal lung consolidations to suggest a pneumonia. No evidence for pulmonary edema. IMPRESSION: Cardiomegaly without acute process. ACT 112: Negative or not required by law. The above report was generated using voice recognition software. It may contain grammatical, syntax or spelling errors. Electronically signed by: Steve Le M.D. 05/02/2024 5:27 PM PG Care Time/CCT Total # of Minutes Spent Total Time Spent with Patient: Total time spent is greater than 50% in coordination of care (as documented) at patient's floor/unit and/or counseling patient: Coding Level of Care Code 98006 SUB INP/OBS CARE 3/50MIN Diagnoses Osteomyelitis of great toe of right foot M86.9 Type 2 diabetes mellitus E11.9 Permanent atrial fibrillation I48.21 Atrial fibrillation type: permanent HTN (hypertension) I10 Dementia F03.90 (3) Atrial fibrillation Atrial fibrillation type: permanent Qualified Code(s): I48.21 - Permanent atrial fibrillation
[2024-05-03] MEDS: MAGNESIUM SULFATE / D5W 1 GM/100 ML BAG IV SCH (09:12)
[2024-05-03] MEDS: MONTELUKAST SODIUM 10 MG TABLET PO SCH (09:23)
[2024-05-03] MEDS: carvediloL 12.5 MG TAB PO SCH (09:23)
[2024-05-03] MEDS: LEVOTHYROXINE SODIUM 75 MCG TABLET PO SCH (09:23)
[2024-05-03] MEDS: busPIRone 5 MG TAB PO SCH (09:24)
[2024-05-03] MEDS: CYANOCOBALAMIN (B-12) 500 MCG TABLET PO SCH (09:24)
[2024-05-03] MEDS ORDERED: ONDANSETRON INJ 2 MG/ML 2 ML VIAL IV PRN (09:46)
[2024-05-03] MEDS: LOPERAMIDE HCL 2 MG CAP PO PRN (09:54)
[2024-05-03] MEDS: oxyCODONE HCL IR 5 MG TAB (IMMEDIATE RELEASE) PO PRN (10:26)
[2024-05-03 11:02] LABS: Adenovirus PCR Not Detected (NotDetected); Bordetella parapertussis PCR Not Detected (NotDetected); Bordetella pertussis PCR Not Detected (NotDetected); Chlamydia pneumoniae PCR Not Detected (NotDetected); Coronavirus 229E PCR Not Detected (NotDetected); Coronavirus CoV-2 (COVID19)PCR Not Detected (NotDetected); Coronavirus HKU1 PCR Not Detected (NotDetected); Coronavirus NL63 PCR Not Detected (NotDetected); Coronavirus OC43PCR Not Detected (NotDetected); Human Metapneumovirus PCR Not Detected (NotDetected); Influenza A PCR Not Detected (NotDetected); Influenza B PCR Not Detected (NotDetected); Mycoplasma pneumoniae PCR Not Detected (NotDetected); Parainfluenza Virus 1 PCR Not Detected (NotDetected); Parainfluenza Virus 2 PCR Not Detected (NotDetected); Parainfluenza Virus 3 PCR Not Detected (NotDetected); Parainfluenza Virus 4 PCR Not Detected (NotDetected); Respiratory Syncytial VirusPCR Not Detected (NotDetected); Rhinovirus/Enterovirus PCR Not Detected (NotDetected)
--- NOTE | 2024-05-03 12:09 | Ultrasound Report ---
RIGHT LOWER EXTREMITY ARTERIAL DOPPLER ULTRASOUND CLINICAL HISTORY: poor wound healing, eval blood supply COMPARISON STUDY: No previous studies for comparison. TECHNIQUE: Ankle to brachial indices were obtained. Grayscale, color and duplex Doppler sonography of the arterial system of the right lower extremity was then performed. FINDINGS: The right ankle-brachial index measured 1.03 and the left measured 1.11. There is biphasic and triphasic flow throughout the right lower extremity. No elevated velocities were identified. The vessels were patent. IMPRESSION: 1. Normal bilateral ankle to brachial indices. 2. Patent right lower extremity vessels without evidence for a stenosis. ACT 112: Negative or not required by law. Electronically signed by: Jaya Barone M.D. 05/03/2024 12:07 PM
[2024-05-03] MEDS: FAMOTIDINE 20MG IV PUSH 20 MG/5 ML SYR IV STA (12:10)
[2024-05-03] MEDS: QUEtiapine FUMARATE 25 MG TABLET PO ONE ×2 (13:41→15:04)
--- NOTE | 2024-05-03 15:03 | Electrocardiogram Report ---
Test Reason : Blood Pressure : */* mmHG Vent. Rate : 70 BPM Atrial Rate : 68 BPM P-R Int : * ms QRS Dur : 168 ms QT Int : 480 ms P-R-T Axes : * 234 18 degrees QTcB Int : 518 ms Ventricular-paced rhythm Biventricular pacemaker detected Abnormal ECG When compared with ECG of 23-Jun-2022 22:44, No significant change was found Confirmed by Eron Mace ([id number]) on 05/03/2024 3:02:53 PM Referred By: REFERRED SELF Confirmed By: Eron Mace
[2024-05-03] MEDS: POTASSIUM CHLORIDE PWD 20 MEQ PACK PO ONE (15:04)
[2024-05-03] MEDS: RIVAROXABAN 20 MG TAB PO SCH (17:06)
[2024-05-03] MEDS: DOXYCYCLINE HYCLATE 100 MG CAP PO SCH (20:08)
[2024-05-03] MEDS: CEFDINIR 300 MG CAP PO SCH (20:09)
[2024-05-04 07:25] VITALS: BP 173/94; PULSE 73; TEMP 97.9; O2SAT 95
[2024-05-04] MEDS ORDERED: VANCOMYCIN LEVEL ONE (07:30)
[2024-05-04 07:56] LABS: Basophils # (auto) 0.04 K/uL (0.00-0.20); Basophils % (auto) 0.8 %; Eosinophils % (auto) 4.2 %; Hematocrit (blood only) 36.6 % (37.0-47.0); Hemoglobin 11.5 g/dl (12.0-16.0); Immature Granulocytes # (auto) 0.02 K/uL (0.01-0.20); Immature Granulocytes % (auto) 0.4 %; Lymphocytes # (auto) 1.77 K/uL (1.20-3.40); Lymphocytes % (auto) 36.8 %; Mean Corpuscular Hemoglobin 28.3 pg (25.0-34.0); Mean Corpuscular Hgb Conc 31.4 g/dL (32.0-36.0); Mean Corpuscular Volume 90.1 fL (80.0-100.0); Mean Platelet Volume 10.4 fL (9.4-12.4); Monocytes # (auto) 0.44 K/uL (0.11-0.59); Monocytes % (auto) 9.1 %; Neutrophils # (auto) 2.34 K/uL (1.40-6.50); Neutrophils % (auto) 48.7 %; Platelet Count 229 K/uL (130-400); RDW Coefficient of Variation 14.4 % (11.5-14.5); RDW Standard Deviation 47.8 fL (36.4-46.3); Red Blood Count 4.06 M/uL (4.20-5.40); White Blood Count 4.81 K/ul (4.8-10.8)
[2024-05-04 08:06] LABS: Calcium 8.7 mg/dl (8.6-10.3); Creatinine Clr Calc Pharmacy 56.9 ml/min; Est GFR (African American) 93.8 ml/min; Magnesium 1.9 mg/dl (1.7-2.4); Potassium 3.7 mmol/L (3.5-5.1)
[2024-05-04] MEDS: COUGH DROP (SUGAR FREE) LOZ 24 LOZ/1 BOX BUCCAL PRN (08:08)
[2024-05-04 08:21] LABS: Thyroid Stimulating Hormone 0.849 uIu/ml (0.300-4.500)
[2024-05-04] MEDS: QUEtiapine FUMARATE 25 MG TABLET PO ONE (10:43)
--- NOTE | 2024-05-04 11:20 | Discharge Summary ---
Discharge Summary Date of Service May 04, 2024 Principal Dx & Hospital Course #1 = Principal Diagnosis (1) Osteomyelitis of great toe of right foot: Presented from [facility] after family was concerned for progression of her right great toe infection after being on po antibiotics for 2 weeks, poor healing X-ray of the right great toe is positive for osteomyelitis, ESR and CRP are also moderately elevated She had no evidence of sepsis. No culture was able to be colected Seen by Orthopedics who recommended 2 weeks of po antibiotics, no surgery needed Initially treated with cefepime and vancomycin, but transition to po cefpodoxime and doxycycline for broad spectrum coverage on discharge. Of note, MRSA nasal swab was negative, but does reside in a halfway and is at risk for MRSA Wound RN consult placed and appreciated-continue wound care Arterial doppler normal ABIs, no stenosis F/u with Ortho in 2 weeks in office Check once weekly CBC, CMP, ESR, CRP while on antibiotics (2) Type 2 diabetes mellitus: A1c 7.1% Not on meds at baseline --diet controlled (3) Atrial fibrillation: Stable, continue coreg 12.5mg BID and Xarelto Does have pacemaker, follows with Cardiology, pacer functioning fine here (4) HTN (hypertension): BPs stable continue Coreg (5) Dementia: Patient has severe dementia and is oriented to self only TS and B12 here normal supportive care, lives in [place] Plan Dispo:stable for dc to [place] Discussed care with daughterZuly, no phone on day of discharge Notes For Next Care Provider Follow once weekly CBC, CMP, ESR, CRP while on antibiotics F/u Ortho within 2 weeks Medication Changes From Visit Added cefpodoxime 200mg po bid x 12 more days Added doxycycline 100mg po bid x 12 more days Admission HPI Per Admitting Provider Lisa is an 84-year-old PMHx of dementia, asthma, chronic atrial fibrillation on chronic anticoagulation, CHF, anemia, CKD stage III, DM II, HLD, HTN, arthritis, hypothyroidism, and pulmonary HTN who presented to the ED on 05/02/2024 from [facility] due to concerns for osteomyelitis of the right great toe. She remained stable in the ED. Labs were significant for an ESR 46, CRP of 4.3, but otherwise unremarkable. X-ray of the right foot notes acute osteomyelitis of the first distal phalangeal medial tuft. Prior to admission the patient was Ordered a dose of vancomycin And cefepime. Patient was lying in bed in no acute distress at the time of exam. Due to her history of severe dementia history was very limited. She states that she wants to go home and that she would like me to call her mother to come pick her up. She is oriented to herself only. Currently denies any pain. I was able to call and speak with her son Wilder Marquez ([phone]) who was able to confirm that the patient is a DNR/DNI. Please refer to Dr. Jiménez's attestation for any changes to the treatment plan Discharge Exam Constitutional WD/WN, vitals as above Respiratory normal respiratory effort, lungs clear to auscultation Cardiovascular RRR, no murmur, no edema Skin Right distal great toe with 5mm open ulceration, mild erythema and edema of right great toe 2+ DP pulses bilat feet Psychiatric Orientation: alert, oriented to person and cooperative Discharge Plan Discharge Items Patient Disposition: Transfer Correction Fac Reason For Visit: OSTEOMYELITIS OF RIGHT GREAT TOE Discharge Diagnosis: Right great toe wound, ostemeomyelitis Condition on Discharge: Good Activity: Resume your previous activity Non-emergency contact: Primary Care Provider and Surgeon Call non-emergency contact if: you have any medication questions, your symptoms worsen, you have a fever, your wound has increased redness, your wound has increased drainage and your wound pain has increased Follow-up/Referrals: [facility] [Primary Care Provider] - Tripp Jiménez MD [Physician] - (Please follow up in 2 weeks) Diet: Carb Consistent or DM2 and Heart Healthy Diet Texture: Easy to Chew Addtl Attending Provider Instructions: You have been hospitalized for ongoing infection to your great toe. Imaging was concerning for osteomyelitis (bone infection) and orthopedics were consulted who does not feel you require any surgery. We recommend a course of oral antibiotics for 2 weeks and follow up with wound care. You should have monitoring of your inflammatory markers (ESR/CRP) as well as a CBC and CMP once weekly to ensure continued improvement. We are going to be using cefpodoxime and doxycycline for your antibiotics at discharge for a total of two weeks for treatment. Please ensure taking the doxycycline upright and with glass of water to prevent any esophagitis/discomfort to your throat and chest. You had an ultrasound of your leg which showed good blood flow to the feet. Please follow up with primary care/wound care at discharge for ongoing monitoring/treatment. You should also follow up with the Orthopedic Surgeon in 2 weeks. Please return to the ER with any fevers/chills, increased pain/drainage/redness or for any symptoms concerning for you. Pending Studies at Discharge: No Stand-Alone Forms: My [facility] Skilled Items Patient informed of condition?: Yes DNR: Yes Discharge Level of Care: Skilled Communicable Disease: No Discharge Prognosis: Stable Lines: None Urinary Catheter: No Medications and DC Order Prescriptions: New quetiapine 25 mg Tablet 25 mg PO HS Qty: 30 0RF doxycycline hyclate 100 mg Capsule 100 mg PO BID Qty: 24 0RF cefpodoxime 200 mg tablet 200 mg PO BID Qty: 24 0RF Rx Instructions: must administer with a meal/food Continued omega 2-ddr-adn-fish-turmeric 417 mg-120 mg- 276 mg-600 mg capsule 2 cap PO BID carvedilol 12.5 mg tablet 12.5 mg PO BID Qty: 180 3RF Rx Instructions: Hold for SBP<100 or HR<60 albuterol sulfate 90 mcg/actuation HFA aerosol inhaler 1 inh inhalation QID PRN (Reason: shortness of breath or wheezing) Qty: 8.5 2RF Xarelto 20 mg tablet 20 mg PO QPM Qty: 90 3RF Rx Instructions: must administer with evening meal montelukast 10 mg tablet 10 mg PO DAILY Qty: 90 3RF multivitamin tablet 1 tab PO HS levothyroxine 75 mcg capsule 75 mcg PO DAILY acetaminophen [Tylenol] 325 mg Tablet 325 mg PO QID PRN (Reason: Pain) cyanocobalamin (vitamin B-12) [Vitamin B-12] 1,000 mcg Tablet 1,000 mcg PO DAILY turmeric root extract 500 mg Capsule 500 mg PO DAILY cholecalciferol (vitamin D3) [Vitamin D3] 25 mcg (1,000 unit) capsule 50 mcg PO DAILY Abh Gel See Rx Instructions .ROUTE .COMPLEX Rx Instructions: Apply to back of neck topically every 6 hours as needed for BPSD for 14 days. Formulate 0.5/12.5/0.5 per ml buspirone 5 mg tablet 5 mg PO TID loperamide 2 mg Tablet 2 mg PO Q6H PRN (Reason: Diarrhea) magnesium hydroxide [Milk of Magnesia] 400 mg/5 mL Suspension See Rx Instructions .ROUTE .COMPLEX PRN (Reason: Constipation) Rx Instructions: Milk of Magnesia Suspension 7.75%: Give 30ml by mouth as needed for constipation after no BM for three days. Administer MOM on 7-3 shift. bisacodyl [Dulcolax (bisacodyl)] 10 mg Suppository 10 mg TX DAILY PRN (Reason: Constipation) Rx Instructions: Give on day 3; on 3-11 shift if no BM after MOM Dakin's Solution 0.125 % Solution 1 applic TOPICAL BID Icy Hot No Mess 16 % Liquid 1 ea TOPICAL UD Rx Instructions: Apply to B/L hamstrings (posterior topically every shift for lower extreme pain B/L hamstrings (posterior thighs). oxycodone 5 mg Tablet 10 mg PO Q4H PRN (Reason: PAIN (5-10)) Qty: 6 0RF Discharge Orders: Discharge Order (Routine); Ordered 05/04/24 Ordered By: Keily Chirinos Admission Data Admit Date/Time: 05/02/24 15:55 Attending Provider: Keily Chirinos Admit Provider: Caleb Jiménez Primary Care Provider: [facility] Other Providers: Caleb Jiménez; Tripp Jiménez Hospital Stay Data Consultations 05/02/24 16:06 Consult Orthopedic Surgery Routine 05/02/24 16:11 ED Decision to Admit Stat Diagnostic Imagining Performed 05/03/24 09:55 US arterial duplex LE RT Routine Pending Results Patient Have Any Pending Studies at Discharge: No Discharge Instructions Given to Patient (Per Discharging Provider) You have been hospitalized for ongoing infection to your great toe. Imaging was concerning for osteomyelitis (bone infection) and orthopedics were consulted who does not feel you require any surgery. We recommend a course of oral antibiotics for 2 weeks and follow up with wound care. You should have monitoring of your inflammatory markers (ESR/CRP) as well as a CBC and CMP once weekly to ensure continued improvement. We are going to be using cefpodoxime and doxycycline for your antibiotics at discharge for a total of two weeks for treatment. Please ensure taking the doxycycline upright and with glass of water to prevent any esophagitis/discomfort to your throat and chest. You had an ultrasound of your leg which showed good blood flow to the feet. Please follow up with primary care/wound care at discharge for ongoing monitoring/treatment. You should also follow up with the Orthopedic Surgeon in 2 weeks. Please return to the ER with any fevers/chills, increased pain/drainage/redness or for any symptoms concerning for you. Total Time Total Time Spent Total Time Spent (In Minutes): 35 min Total Time Includes: Examination of the Patient, Discharge Planning and Medication Reconciliation Coding Level of Care Code 54174 INP/OBS DISCH >30 MIN Diagnoses Osteomyelitis of great toe of right foot M86.9 Type 2 diabetes mellitus E11.9 Permanent atrial fibrillation I48.21 Atrial fibrillation type: permanent HTN (hypertension) I10 Dementia F03.90
[2024-05-04] MEDS ORDERED: QUEtiapine FUMARATE 25 MG TABLET PO SCH (21:00)
== END 2024-05-04 12:49 | DRG 638 ==
LOC: ED 13:49 → EDINP 15:55 → SUATTDRO 15:55 → 3E 20:44

== ENCOUNTER 2024-12-14 20:18 | Inpatient (IN) ==
[2024-12-14 20:41] LABS: iSTAT Hemoglobin 13.6 g/dl (12.0-16.0); iSTAT Ionized Calcium 1.18 mmol/l (1.12-1.32); iSTAT Potassium 4.6 mmol/L (3.3-5.0)
[2024-12-14 20:48] LABS: Base Excess VBG 2.8 mEq/L; HCO3 VBG 29 mmol/L; Oxygen Saturation VBG 85.9 %; PCO2 VBG 47 mmHg (38-50); PO2 VBG 51 mmHg; pH VBG 7.39 (7.36-7.41)
[2024-12-14] MEDS: OPTIRAY 320 100ml IV ONE (20:51)
[2024-12-14] MEDS: ONDANSETRON INJ 2 MG/ML 2 ML VIAL IV STA (20:55)
[2024-12-14] MEDS: ALBUT/IPRATROP 3MG/0.5MG NEB 3 ML VIAL ONE (20:56)
[2024-12-14 21:18] LABS: Basophils # (auto) 0.04 K/uL (0.00-0.20); Basophils % (auto) 0.3 %; Eosinophils % (auto) 0.8 %; Hematocrit (blood only) 37.7 % (37.0-47.0); Hemoglobin 12.4 g/dl (12.0-16.0); Immature Granulocytes # (auto) 0.07 K/uL (0.01-0.20); Immature Granulocytes % (auto) 0.5 %; Lymphocytes # (auto) 2.71 K/uL (1.20-3.40); Lymphocytes % (auto) 20.5 %; Mean Corpuscular Hemoglobin 29.1 pg (25.0-34.0); Mean Corpuscular Hgb Conc 32.9 g/dL (32.0-36.0); Mean Corpuscular Volume 88.5 fL (80.0-100.0); Monocytes # (auto) 0.79 K/uL (0.11-0.59); Neutrophils # (auto) 9.49 K/uL (1.40-6.50); Neutrophils % (auto) 71.9 %; Platelet Count 173 K/uL (130-400); RDW Coefficient of Variation 14.4 % (11.5-14.5); RDW Standard Deviation 46.5 fL (36.4-46.3); Red Blood Count 4.26 M/uL (4.20-5.40)
--- NOTE | 2024-12-14 21:22 | CT Scan Report ---
Exam(s): CT HEAD Without Contrast EXAM: CT Head Without Intravenous Contrast CLINICAL HISTORY: trauma. TECHNIQUE: Axial computed tomography images of the head/brain without intravenous contrast. CTDI is 37.78 mGy and DLP is 624.41 mGy-cm. Automated exposure control was utilized for the study. A dose lowering technique was utilized adhering to the principles of ALARA. COMPARISON: CT head without contrast dated 12/06/2021 FINDINGS: Limitations: There is motion artifact, which mildly degrades image quality on multiple image slices. Brain: There are a few areas of decreased attenuation in the deep cerebral white matter consistent with mild small vessel ischemic/degenerative changes. The cerebral and cerebellar sulci are mildly prominent consistent with mild brain atrophy. No significant mass effect identified. No hemorrhage. Ventricles: No midline shift or significant effacement of the ventricles. Bones/joints: No definite intracranial hemorrhage, accounting for minimal streak motion artifact. No skull fracture. Soft tissues: No significant overlying acute traumatic soft tissue abnormality. Vasculature: Atherosclerotic disease. Sinuses: Unremarkable as visualized. No acute sinusitis. Mastoid air cells: Unremarkable as visualized. No mastoid effusion. IMPRESSION: No acute intracranial process identified. Incidental chronic underlying the extent age-related findings, not significantly progressed when compared to the prior examination. Electronically signed by: Armond Henriquez MD 12/14/24 21:21 PM
[2024-12-14 21:27] LABS: Alanine Aminotransferase 24 U/L (7-52); Albumin Globulin Ratio 1.2 (0.9-2); Albumin Level 3.8 gm/dl (3.4-5.0); Alkaline Phosphatase 131 U/L (34-104); Anion Gap 5 (3-11); Aspartate Aminotransferase 30 U/L (13-39); BUN Creatinine Ratio 29.7 (10-20); Bilirubin,Total 0.8 mg/dl (0.2-1.0); Blood Urea Nitrogen 27 mg/dl (6-23); Calcium 9.7 mg/dl (8.6-10.3); Carbon Dioxide 30 mmol/L (21-32); Chloride 103 mmol/L (98-107); Globulin 3.3 gm/dl (2.5-4.0); Glucose 185 mg/dl (70-99(Fasting)); Lipase 475 U/L (11-82); Potassium 4.7 mmol/L (3.5-5.1); Sodium 138 mmol/L (136-145); Total Protein 7.1 gm/dl (6.0-8.3)
--- NOTE | 2024-12-14 21:28 | CT Scan Report ---
Exam(s): CT C SPINE EXAM: CT Cervical Spine Without Intravenous Contrast CLINICAL HISTORY: Trauma. TECHNIQUE: Axial computed tomography images of the cervical spine without intravenous contrast. CTDI is 25.67 mGy and DLP is 452.8 mGy-cm. Automated exposure control was utilized for the study. A dose lowering technique was utilized adhering to the principles of ALARA. COMPARISON: No relevant prior studies available. FINDINGS: Vertebrae: The vertebral bodies are intact without acute traumatic injury. There is 2 mm anterolisthesis of C2 on C3. However, there is bilateral C2-3 facet degenerative ankylosis. There is 1 mm anterolisthesis involving C3 on C4 and 3 mm anterolisthesis involving C4 on C5. There is straightening of the entire cervical spine. The pedicles, facet joints, spinous processes and transverse processes are intact. Diffuse moderately severe facet hypertrophic arthropathy noted bilaterally. Discs/spinal canal/neural foramina: Diffuse disc spondylosis with narrowing and marginal hypertrophic osteophyte changes. No acute osseous central canal stenosis noted. Chronic multilevel neural foraminal encroachment suggested bilaterally. Soft tissues: Unremarkable. Vasculature: Marked distention of the right internal jugular vein involving the cervical soft tissues. No evidence for traumatic cervical soft tissue injury. Lung apices: No evidence for acute traumatic injury involving the lung apices. Extensive interlobular septal thickening noted, consistent with fluoride interstitial edema. IMPRESSION: 1. No definite evidence for acute traumatic injury or significant acute traumatic abnormal alignment involving the cervical spine. Significant chronic appearing diffuse degenerative changes noted. 2. No evidence for acute traumatic injury involving the lung apices. Extensive interlobular septal thickening noted, consistent with fluoride interstitial edema. Marked distention of the right internal jugular vein. Electronically signed by: Armond Henriquez MD 12/14/24 21:27 PM
--- NOTE | 2024-12-14 21:34 | CT Scan Report ---
Exam(s): CT ABDOMEN + PELVIS With Contrast IV Amt: 90 cc opti 320 EXAM: CT Abdomen and Pelvis With Intravenous Contrast CLINICAL HISTORY: Trauma. TECHNIQUE: Axial computed tomography images of the abdomen and pelvis with intravenous contrast. CTDI is 30.32 mGy and DLP is 1448.98 mGy-cm. Automated exposure control was utilized for the study. A dose lowering technique was utilized adhering to the principles of ALARA. CONTRAST: Patient received 90 cc opti 320 of IV contrast COMPARISON: No relevant prior studies available. FINDINGS: Artifacts: Scatter artifact likely related to patient's arm position. Limitations: There is respiratory artifact, which degrades image quality on multiple image slices. Lung bases: For findings regarding the lung bases, please see the CT report of the chest performed concurrently. ABDOMEN: Liver: Unremarkable. No mass. Gallbladder and bile ducts: Status post cholecystectomy. No ductal dilation. Pancreas: The pancreas is intact without acute traumatic injury. There are multiple cysts noted in the mid to distal tail of the pancreas. The largest cyst in the distal towel measures 13 mm, and is relatively stable in size from the previous examination. No acute peripancreatic inflammatory changes. Spleen: The spleen is intact without acute traumatic injury. Adrenals: Unremarkable. No mass. Kidneys and ureters: The kidneys are intact without acute traumatic injury or pyelonephritis. No acute perinephric abnormality. No hydronephrosis. Stomach and bowel: The stomach is moderately distended with retained oral contents, fluid and gas. No gastric mucosal thickening. No evidence for traumatic bowel injury. No bowel obstruction. Extensive diverticulosis with mild to moderate stool burden. PELVIS: Appendix: Not evaluated. Bladder: The bladder is predominately decompressed, limiting evaluation for acute pathology. Mild bladder wall thickening is indeterminate with decompression. Reproductive: Unremarkable as visualized. ABDOMEN and PELVIS: Intraperitoneal space: Unremarkable. No free air. No significant fluid collection. Retroperitoneal space: No retroperitoneal hematoma. Bones/joints: Multilevel degenerative changes throughout the lumbar spine. Remote healed S2 segment sacral fracture. The pelvic bones and proximal femurs are intact. No dislocation. Soft tissues: No significant overlying acute traumatic soft tissue abnormality. Vasculature: The aorta is slightly tortuous and heavily calcified but appears intact without acute traumatic injury. No abdominal aortic aneurysm. Lymph nodes: Unremarkable. No enlarged lymph nodes. IMPRESSION: Accounting for limitations with respiratory artifact, there is no definite evidence for significant acute traumatic injury to the abdomen or pelvis. Extensive underlying chronic changes incidentally noted. Electronically signed by: Armond Henriquez MD 12/14/24 21:33 PM
--- NOTE | 2024-12-14 21:41 | CT Scan Report ---
Exam(s): CT CHEST With Contrast IV Amt: 90 cc opti 320 EXAM: CT Chest With Intravenous Contrast CLINICAL HISTORY: Trauma. TECHNIQUE: Axial computed tomography images of the chest with intravenous contrast. CTDI is 25.41 mGy and DLP is 909.63 mGy-cm. Automated exposure control was utilized for the study. A dose lowering technique was utilized adhering to the principles of ALARA. CONTRAST: Patient received 90 cc opti 320 of IV contrast COMPARISON: No relevant prior studies available. FINDINGS: Artifacts: Scatter artifact likely related to patient's arm position. Limitations: There is respiratory artifact, which degrades image quality on multiple image slices. Lungs: Evaluation of the lungs is limited by extensive respiratory artifact. No obvious pulmonary contusive injury or focal consolidation. There is diffuse prominent interlobular septal thickening and peribronchial cuffing. Pleural space: Unremarkable. No pneumothorax. No significant effusion. Heart: Unremarkable. No cardiomegaly. No significant pericardial effusion. No significant coronary artery calcifications. Mediastinum: No mediastinal traumatic injury identified. Bones/joints: No displaced rib fracture. No acute thoracic vertebral body fracture noted with chronic anterior wedging at T8 and T12 levels. The sternum is intact. Chronic rotator cuff disease involving the shoulders. No acute traumatic injury. There is a moderate fluid collection about the right glenohumeral joint, hypodense and presumed incidental. No dislocation. Soft tissues: No significant overlying acute traumatic soft tissue abnormality. Vasculature: The thoracic aorta is normal in caliber. No dissection or acute. Abnormality. Lymph nodes: Unremarkable. No enlarged lymph nodes. Tubes, lines and devices: A left subclavian approach pacer generator overlies left pectoralis muscle. Cardiac chambers are globally enlarged. There is a biventricular pacer noted. No pericardial effusion. IMPRESSION: 1. Evaluation of the lungs is limited by extensive respiratory artifact. No obvious pulmonary contusive injury or focal consolidation. There is diffuse prominent interlobular septal thickening and peribronchial cuffing. Findings are most consistent with florid interstitial edema and positive fluid status. No large pleural effusion or pneumothorax. 2. No evidence for significant acute traumatic injury to the chest/thorax. Incidental findings, as noted above. Electronically signed by: Armond Henriquez MD 12/14/24 21:41 PM
[2024-12-14 21:45] LABS: INR 1.4 (0.9-1.1); Partial Thromboplastin Ratio 1.3; Partial Thromboplastin Time 34 Seconds (21-31); Prothrombin Time 15.2 Seconds (9.0-12.0)
--- NOTE | 2024-12-14 22:50 | XRay Report ---
Exam(s): XR CXR 1 VIEW EXAM: XR Chest, 1 View CLINICAL HISTORY: Trauma. TECHNIQUE: Frontal view of the chest. COMPARISON: Chest single view 06/27/2022 FINDINGS: Lungs: No focal airspace consolidation identified. The pulmonary vasculature is prominent and equalized with a suggestion of central peribronchial cuffing. Pleural space: Unremarkable. No pneumothorax. No large pleural effusion. Heart: The previously noted massive cardiomegaly is slightly improved. Mediastinum: The mediastinal contours are stable and unremarkable. No tracheal deviation. Bones/joints: Unremarkable. No acute fracture. Tubes, lines and devices: Left subclavian approach biventricular pacer is stable in appearance. IMPRESSION: Similar cardiomegaly. No focal airspace consolidation identified. The pulmonary vasculature is prominent and equalized with a suggestion of central peribronchial cuffing. Favor interstitial edema over interstitial infection. No large pleural effusion or pneumothorax. Electronically signed by: Armond Henriquez MD 12/14/24 22:48 PM
[2024-12-14 23:23] LABS: Creatine Kinase 103 U/L (26-192)
[2024-12-14 23:33] LABS: Adenovirus PCR Not Detected (NotDetected); Bordetella parapertussis PCR Not Detected (NotDetected); Bordetella pertussis PCR Not Detected (NotDetected); Chlamydia pneumoniae PCR Not Detected (NotDetected); Coronavirus 229E PCR Not Detected (NotDetected); Coronavirus CoV-2 (COVID19)PCR Not Detected (NotDetected); Coronavirus HKU1 PCR Not Detected (NotDetected); Coronavirus NL63 PCR Not Detected (NotDetected); Coronavirus OC43PCR Not Detected (NotDetected); Human Metapneumovirus PCR Not Detected (NotDetected); Influenza A PCR Not Detected (NotDetected); Influenza B PCR Not Detected (NotDetected); Mycoplasma pneumoniae PCR Not Detected (NotDetected); Parainfluenza Virus 1 PCR Not Detected (NotDetected); Parainfluenza Virus 2 PCR Not Detected (NotDetected); Parainfluenza Virus 3 PCR Not Detected (NotDetected); Parainfluenza Virus 4 PCR Not Detected (NotDetected); Respiratory Syncytial VirusPCR Not Detected (NotDetected); Rhinovirus/Enterovirus PCR Not Detected (NotDetected)
[2024-12-14 23:37] VITALS: PULSE 60
[2024-12-14] MEDS: RAPID SEQUENCE INDUCTION BAG ONE (23:38)
[2024-12-14 23:39] LABS: Thyroid Stimulating Hormone 5.465 uIu/ml (0.300-4.500)
[2024-12-14] MEDS: PANTOprazole 40 MG/10 ML SYR IV ONE (23:44)
[2024-12-15 00:03] LABS: Appearance Urine Clear (Clear); Bacteria Urine Automated 4+ (None Seen); Bilirubin Urine Negative (Negative); Blood Urine Negative (Negative); Cast Urine Automated 0-2 /lpf (0-2); Color Urine Yellow; Glucose Urine UA Negative (Negative); Ketones Urine Trace (Negative); Leukocyte Esterase Urine 1+ (Negative); Nitrite Urine Positive (Negative); Protein Urine 1+ (Negative); Specific Gravity Urine > 1.045 (1.000-1.030); Urobilinogen Urine Negative (Negative); WBC Urine Automated 21-50 /hpf (0-5); pH Urine 5.5 (4.5-7.5)
[2024-12-15 00:15] LABS: T4 Free Thyroxine 1.01 ng/dl (0.61-1.60)
--- NOTE | 2024-12-15 00:20 | History & Physical Report ---
Date of Service December 15, 2024 Assessment & Plan (1) Unresponsive: (2) Acute hypoxic respiratory failure: (3) Sepsis: (4) Vomiting: Plan Patient is a 74-year-old female with past medical history of dementia (oriented to self only at baseline), type II DM, A-fib s/p pacer, nonischemic cardiomyopathy (most recent echo in 2021 revealed EF 55 to 60%), DM, stage III CKD, asthma, IPMN. [facility] after she was found unresponsive on the floor in her bed with O2 sats in the 60s, patient is currently on 15L nonrebreather with O2 stats at 100%. She was suspected to have aspirated and was found to have UTI, patient meets SIRS criteria with white count 13.20, respiratory rate 26, temp 34.9 C. #Unresponsive/hypoxic - currently on 15 L nonrebreather at time of admission. Dementia and oriented to self only at baseline. - wheezing on exam - scheduled duonebs QID and q2h prn - fall precautions - NPO given unresponsiveness; advance diet when more alert - hold PO medications as unresponsive #Sepsis - Source UTI vs Aspiration PNA + SIRS: WBC 13.20, tachypneic (35), hypothermic (34.9C) - CRP 4.86, lactate and procal pending - Sepsis fluid bolus for ideal body weight = 1995ml; no fluids given in ED - defer full sepsis fluid bolus given CHF hx (EF 55-60%) - will bolus 500 ml plasmalyte and give additional plasmalyte @125 ml/hr - ABX coverage with Rocephin - Blood cultures ordered - Trend CBC #vomiting - Patient with intractable vomiting and significant concern for aspiration. AP CT shows stomach mildly distended with retained oral contents, fluid, and gas, however no bowel obstruction. History of gastric thickening in 2019 in which she underwent EGD with biopsy showed gastritis. Differential includes but not limited to malignancy. Patient would not want NG tube, confirmed with family. - Zofran prn - IV Pepcid and Protonix BID #Aspiration PNA - suspected. chest CT showed interlobular septal thickening and peribronchial cuffing consistent with right interstitial edema with positive fluid status. CXR showed central peribronchial cuffing that favors interstitial edema versus interstitial infection. Numerous episodes of vomiting after diagnostic imaging. - repeat CXR in AM - incentive spirometry when more alert - aspiration precautions - coverage with Rocephin #UTI - UA positive for nitrates, 1+LE, 21-50 WBC, 3-5 epithelial cells, 4+ bacteria. history of Proteus mirabilis resistant to quinolones and cefazolin and E. coli resistant to Bactrim, quinolones, ampicillin, Augmentin. - started on Rocephin 2G IV Q24 - follow urine cultures #elevated lipase - lipase 475, Hx of IPMN however no previous lipase to compare to. AP CT showed multiple cysts within pancreas no inflammatory changes. - repeat with Am labs #Nonischemic cardiomyopathy/HFpEF - echocardiogram 2021 revealed EF 55 to 60%, stable - monitor for fluid overload with IVF - holding carvedilol #A-fib s/p pacer - Holding Xarelto and carvedilol #HTN - stable - holding lisinopril VTE ppx: SCDs, hold Xarelto for concern of bleeding after fall Dispo: PCU Admission and Anticipated Discharge Date Admission Date: 12/15/24 History of Present Illness Chief Complaint: unresponsive Primary Care Provider: [facility] Patient is a 74-year-old female with past medical history of dementia (oriented to self only at baseline), type II DM, A-fib s/p pacer, nonischemic cardiomyopathy (most recent echo in 2021 revealed EF 55 to 60%), DM, stage III CKD, asthma, IPMN. Patient presented from [facility] via EMS after she was found unresponsive on the floor in her bed with O2 sats in the 60s, patient is currently on 15L nonrebreather with O2 stats at 100%. She was suspected to have aspirated and was found to have UTI, patient meets SIRS criteria with white count 13.20, respiratory rate 26, temp 34.9 C. Patient seen at bedside with her family present. She is unresponsive and still on the breather, vomiting at time of exam. Patient evaluated with Dr. Jiménez at bedside and discussed goals of care with patient's family given significant decline. They stated she would not want resuscitated or intubated. Discussed that if vomiting persist would recommend NG tube, family stated that the patient would not want this and they would avoid NG tube. Will give 1 more course of Zofran to see if vomiting improves. Will reeval in approximately 1 hour to determine if transferring to comfort measures versus continuing with treatment. [facility] - did receive evening medications at 1630 includ ing Xarelto. Allergies Allergy/AdvReac Type Severity Reaction Status Date / Time Penicillins Allergy Intermediate FACIAL Verified 09/27/24 10:11 ERYTHEMA budesonide [From Symbicort] AdvReac Mild clearing Verified 09/27/24 10:11 throat formoterol [From Symbicort] AdvReac Mild clearing Verified 09/27/24 10:11 throat Home Medications Medication Instructions Recorded Confirmed Type multivitamin 1 tab PO QAM 01/21/19 12/14/24 History acetaminophen 325 mg tablet 650 mg PO Q6 PRN Fever Or Pain 04/23/20 12/14/24 History (Tylenol) carvedilol 12.5 mg tablet 12.5 mg PO BID #180 tabs 10/19/21 12/14/24 Rx albuterol sulfate 90 mcg/actuation 1 inh inhalation QID PRN shortness 12/12/21 12/14/24 Rx aerosol inhaler of breath or wheezing #8.5 grams rivaroxaban 20 mg tablet (Xarelto) 20 mg PO QPM #90 tabs 05/27/22 12/14/24 Rx cyanocobalamin (vitamin B-12) 1,000 mcg PO DAILY 06/23/22 12/14/24 History 1,000 mcg tablet (Vitamin B-12) turmeric root extract 500 mg 500 mg PO DAILY 06/23/22 12/14/24 History capsule montelukast 10 mg tablet 10 mg PO DAILY #90 tabs 08/27/22 12/14/24 Rx cholecalciferol (vitamin D3) 25 50 mcg PO QAM 03/17/23 12/14/24 History mcg (1,000 unit) capsule (Vitamin D3) levothyroxine 75 mcg capsule 75 mcg PO DAILY 04/12/24 12/14/24 History buspirone 5 mg tablet 5 mg PO TID 05/02/24 12/14/24 History loperamide 2 mg tablet 2 mg PO Q6H PRN Diarrhea 05/02/24 12/14/24 History menthol 16 % topical liquid (Icy 1 ea topical QS 05/02/24 12/14/24 History Hot No Mess) quetiapine 25 mg tablet 25 mg PO HS #30 tabs 05/04/24 12/14/24 Rx gabapentin 100 mg capsule 100 mg PO Q12 09/27/24 12/14/24 History Med Pass 120 ml PO BID 12/14/24 12/14/24 History xtqlzbwvpf-dgfygoxmlderm-iyfsrgly 1 cap PO Q4 PRN Headache 12/14/24 12/14/24 History 50 mg-300 mg-40 mg capsule carboxymethylcellulose 0.5 1 drp ophthalmic (eye) BID 12/14/24 12/14/24 History %-glycerin 0.9 % (PF) eye drops (Refresh Tears PF) lisinopril 10 mg tablet 10 mg PO QAM 12/14/24 12/14/24 History memantine 5 mg tablet 5 mg PO QAM 12/14/24 12/14/24 History omega-3 fatty acids 1,000 mg 1,000 mg PO AMHS 12/14/24 12/14/24 History capsule oxycodone 5 mg tablet 10 mg PO Q4 PRN .PAIN 5-10 12/14/24 12/14/24 History Past Med/Surg History Problem List (Updated 12/15/24 @ 01:56 by Fabiola Bullock PA-C) Vomiting Sepsis Acute hypoxic respiratory failure Unresponsive Dementia Osteomyelitis of great toe of right foot Sacral fracture, closed Asthma Pericardial effusion Lumbar spondylosis Congestive heart failure Orthostasis Anemia Leg edema, left CKD stage 3 due to type 2 diabetes mellitus CKD (chronic kidney disease), stage III Type 2 diabetes mellitus Grief reaction Abnormal CT of the abdomen Asthma (Chronic) Cardiac pacemaker Atrial fibrillation Anticoagulant long-term use Shortness of breath Nodularity of gastric antrum SI (sacroiliac) joint dysfunction Low back pain Secondary pulmonary hypertension Status post placement of cardiac pacemaker (Chronic) meditronic placed 10/28/2019 @ [facility] Bradycardia (Chronic) Allergic rhinitis (Chronic) Dyslipidemia (Chronic) IPMN (intraductal papillary mucinous neoplasm) (Chronic) HTN (hypertension) (Chronic) Arthritis, multiple joint involvement (Chronic) Nonischemic cardiomyopathy (Chronic) Hypothyroidism (Chronic) Pulmonary hypertension (Chronic) Medical History Fall Acute UTI (urinary tract infection) Acute UTI Chronic anticoagulation Cognitive change Chronic back pain GERD (gastroesophageal reflux disease) Poor historian Near syncope Pancreatic cyst Left bundle branch block Asthma inhaler daily/prn, nebulizer prn Systolic CHF TIA (transient ischemic attack) unsure how long ago--reason for xarelto ?? Surgical History History of tooth extraction all teeth History of total knee arthroplasty 2008-left Dr. Cash History of cholecystectomy Family History Brother Coronary heart disease Myocardial infarction Lung cancer Cancer unknown Father Diabetes Mother Diabetes Sister Diabetes Kidney disease Breast cancer Hypertension Other Congestive heart failure Heart disease No family history of adverse response to anesthesia Denies family history of Ovarian cancer Prostate cancer Stroke Social History Smoking Status: Unknown if ever smoked Second Hand Exposure: No; Do You Dip or Chew Tobacco: No; Hx Alcohol Use: No Hx Substance Use: No Preferred Language: Tajik Communication Ability: Effective Visual Impairment: Partially Limited Hearing Ability: Normal E Learning Specialist Required: No Beliefs That Will Affect Care: None marital status: / Current Living Situation: Family current occupational status: retired How many Children do You have: 4 Other Information That Helps Us Care for You: No Feels Safe at Home: Yes Childhood Exposure to Second-Hand Smoke: No caffeine: Yes (drinks iced tea ) Dental Care, Regularly: No Physical Activity Frequency: Does not Exercise Seatbelt Use: always Sunscreen Use: No Assistive Devices: Walker and Wheelchair Review of Systems Review of Systems: Unable to obtain given unresponsive Physical Exam Physical Exam: The patient is unresponsive. HEENT- mucus membranes dry. Heart-normal S1 and S2. No murmurs, rubs or gallops. Lungs-wheezing bilaterally, + accessory muscle use. On 15L non-rebreather. Abdomen-normal bowel sounds and soft. No ascites noted. Results & Data Results & Data Vital Signs (Past 12 Hours) Vital Signs Temp Pulse Resp BP Pulse Ox O2 Del Method O2 Flow Rate 12/14/24 23:30 60 26 H 176/93 H 100 Non-rebreather 15 12/14/24 22:30 70 186/103 H 99 Non-rebreather 15 12/14/24 22:15 70 152/118 H 98 Non-rebreather 15 12/14/24 22:00 70 124/86 98 Non-rebreather 15 12/14/24 21:46 70 119/76 98 Non-rebreather 15 12/14/24 21:46 70 119/76 98 Non-rebreather 15 12/14/24 21:30 70 139/85 99 Non-rebreather 15 12/14/24 21:16 70 30 H 153/98 H 79 L Non-rebreather 15 12/14/24 21:04 93 Non-rebreather 15 12/14/24 21:04 88 L Oxymask 15 12/14/24 21:00 70 26 H 184/96 H 88 L Oxymask 12/14/24 20:58 80 34 H 178/114 H 99 Non-rebreather 12/14/24 20:25 34.9 C L 87 35 H 190/120 H 85 L Room Air 12/14/24 20:24 89 Laboratory Results state CBC, CMP, VBG, PT/INR, TSH, UA, bio fire Diagnostic Findings reviewed head CT, CXR, chest CT, cervical spine CT, Ap ct Medications Administered EMSDuoNeb EDZofran 4 Mg IV AdmissionProtonix IV, Pepcid IV, additional 4 Mg IV Zofran ECG Additional Comments: Ordered Code Status & VTE Plan Code Status DNR/DNI VTE Prophylaxis Plan VTE Prophylaxis will be ordered: Yes Supervising Physician Co-Signing Physician Notes I personally saw and examined the patient. I independently reviewed the labs, EKG, imaging, problem list, medication list, past medical history and family history. I verified all hensley points and agree with Fabiola Bullock PA-C with the following exceptions and/or additions: 84 year old female presents to the ER with acute onset shortness of breath, vomiting, hypoxia found unresponsive next to the bed at [facility]. O/E Patient not arousable, poorly nourished, HS RRR, no murmurs, Chest wheezing and rhonchi throughout, Abdo soft A/P Sepsis, UTI, Acute respiratory failure with hypoxia, possible pulmonary edema vs. aspiration, vomiting with what appears to be a mass and stomach antrum and fluid filled stomach - long discussion with PA and family, unable to contact POA, advanced directives with no aggressive care warranted. Discussed need for NG tube given appearance on CXR otherwise likely to keep vomiting and aspirating and family very much against this. Turned down O2 to maintain O2 sats to 90% and still requiring 12LPM via oxymask. Very poor prognosis and given her advanced directives she will be switched to comfort care. PG Care Time/CCT Total # of Minutes Spent Total Time Spent with Patient: Total time spent is greater than 50% in coordination of care (as documented) at patient's floor/unit and/or counseling patient: Coding Level of Care Code 59443 INT INP/OBS CARE 3/75MIN Diagnoses Unresponsive R41.89 Acute hypoxic respiratory failure J96.01 Sepsis A41.9 Vomiting R11.10
--- NOTE | 2024-12-15 00:22 | Emergency Department Note ---
Impression & Plan Aspiration into airway, Fall, Acute confusion ED Provider Note NAME: HAN CORTEZ AGE: 84 SEX: F : 1940 ARRIVES VIA: Ambulance INFORMANT: Patient, ED PROVIDER(S): Pati Akbar MD CHIEF COMPLAINT: Unresponsive, fall HPI: This is a [id number]-[id number]-year-old female presenting after a fall. Patient reportedly had fallen out of bed. EMS arrived, her oxygen saturations were in the 60s. She was having minimal lung sounds. She is given albuterol, DuoNeb by EMS. Patient placed on oxygen. Patient has a known history of dementia. Otherwise patient had kept her eyes closed and was unresponsive to EMS until arrival here. ROS: Unable to obtain PHYSICAL EXAMINATION: General: Chronically ill-appearing Head: Normocephalic and atraumatic Eyes: Normal inspection, extraocular muscles intact Ear, nose, throat: Normal external exam Neck: Normal range of motion Respiratory: poor right movement Cardiovascular: Regular rate/rhythm, no murmur GI: soft, nontender, no guarding or rebound Extremities: nontender, moves all extremities Neuro: Moves extremities to painful stimulation Skin: Warm, dry, and intact MEDICAL DECISION MAKING: This is an 84-year-old female presenting for fall/unresponsiveness. Considered for intracranial hemorrhage, pneumothorax clinically. Chest x-ray reveals no pneumothorax, focal opacity at this time upon my independent interpretation -Patient has had a fall and change in mental status, will do trauma workup at this time including CT imaging of the head, C-spine, chest abdomen pelvis -Currently patient is hypoxic and tachypneic. She has been given albuterol treatment and is currently nonrebreather. Her oxygen saturation fluctuate between 90 and dropped as low as 72. The paperwork from her facility does not state her current CODE STATUS. I have called her son about this. He states that she is a DNR. I did explicitly ask about intubation and other advanced airway methods. They are currently unsure and will talk about this with her family. I did advise the time sensitive nature of this decision as she has having active emesis and likely had aspiration. Oxygen saturation continue to decline. -After 2 more conversations, family arrives. Eventually they agree on no intubation as patient's paperwork/goals of care specifically stated no chest compressions or ventilator support. -CT head reveals no traumatic intracranial process currently -CT of the chest reveals diffuse interlobular septal thickening and peribronchial cuffing consistent with interstitial edema/positive fluid status -CT imaging of the abdomen/pelvis reveals no acute traumatic injury -Likely patient's oxygen saturation has improved and is down than low to high 90s with nonrebreather she is not able to be titrated down to nasal cannula. -Patient will be admitted to Dr. Jiménez, hospital service for fluid overload, fall, confusion Differential diagnosis: Intracranial hemorrhage, hip fracture, pneumothorax, pulmonary contusion, pericardial effusion, CHF, pneumonia, UTI Independent History obtained from: Family Diagnostics interpreted by me: ECG: ECG independently interpreted by me with atrially sensed, ventricularly paced rhythm with intraventricular conduction delay, MD 224, QRS 172, QTc 522, no ST segment elevations consistent with STEMI criteria Cardiac Monitoring: An order was placed for continuous cardiac monitoring. The monitor shows a rate of 68 with ventricular rhythm. Critical Care Note: I have personally spent 65 minutes of critical care time in the direct management of this patient. This includes bedside care, interpretation of diagnostic studies, and testing, discussion with consultants, patient, and family members, and other required patient management activities. This 65 minutes is in excess of all separately billable procedures. Past Med/Surg History Problem List (Updated 12/15/24 @ 18:36 by Pati Akbar MD) Acute confusion (Acute) Fall (Acute) Aspiration into airway (Acute) Vomiting Sepsis Acute hypoxic respiratory failure Unresponsive Dementia Osteomyelitis of great toe of right foot Sacral fracture, closed Asthma Pericardial effusion Lumbar spondylosis Congestive heart failure Orthostasis Anemia Leg edema, left CKD stage 3 due to type 2 diabetes mellitus CKD (chronic kidney disease), stage III Type 2 diabetes mellitus Grief reaction Abnormal CT of the abdomen Asthma (Chronic) Cardiac pacemaker Atrial fibrillation Anticoagulant long-term use Shortness of breath Nodularity of gastric antrum SI (sacroiliac) joint dysfunction Low back pain Secondary pulmonary hypertension Status post placement of cardiac pacemaker (Chronic) meditronic placed 10/28/2019 @ [facility] Bradycardia (Chronic) Allergic rhinitis (Chronic) Dyslipidemia (Chronic) IPMN (intraductal papillary mucinous neoplasm) (Chronic) HTN (hypertension) (Chronic) Arthritis, multiple joint involvement (Chronic) Nonischemic cardiomyopathy (Chronic) Hypothyroidism (Chronic) Pulmonary hypertension (Chronic) Medical History Fall Acute UTI (urinary tract infection) Acute UTI Chronic anticoagulation Cognitive change Chronic back pain GERD (gastroesophageal reflux disease) Poor historian Near syncope Pancreatic cyst Left bundle branch block Asthma inhaler daily/prn, nebulizer prn Systolic CHF TIA (transient ischemic attack) unsure how long ago--reason for xarelto ?? Surgical History History of tooth extraction all teeth History of total knee arthroplasty 2007-left Dr. Cash History of cholecystectomy Family History Brother Coronary heart disease Myocardial infarction Lung cancer Cancer unknown Father Diabetes Mother Diabetes Sister Diabetes Kidney disease Breast cancer Hypertension Other Congestive heart failure Heart disease No family history of adverse response to anesthesia Denies family history of Ovarian cancer Prostate cancer Stroke Social History Smoking Status: Unknown if ever smoked Second Hand Exposure: No; Do You Dip or Chew Tobacco: No; Hx Alcohol Use: No Hx Substance Use: No Preferred Language: Upper Sorbian Communication Ability: Effective Visual Impairment: Partially Limited Hearing Ability: Normal Coating Machine Operator Required: No Beliefs That Will Affect Care: Holiness marital status: / Current Living Situation: Family current occupational status: retired How many Children do You have: 4 Feels Safe at Home: Yes Childhood Exposure to Second-Hand Smoke: No caffeine: Yes (drinks iced tea ) Dental Care, Regularly: No Physical Activity Frequency: Does not Exercise Seatbelt Use: always Sunscreen Use: No Assistive Devices: Walker and Wheelchair Allergies Allergies Allergy/AdvReac Type Severity Reaction Status Date / Time Penicillins Allergy Intermediate FACIAL Verified 09/27/24 10:11 ERYTHEMA budesonide [From Symbicort] AdvReac Mild clearing Verified 09/27/24 10:11 throat formoterol [From Symbicort] AdvReac Mild clearing Verified 09/27/24 10:11 throat Home Meds Home Medications Medication Instructions Recorded Confirmed multivitamin 1 tab PO QAM 01/21/19 12/14/24 acetaminophen 325 mg tablet 650 mg PO Q6 PRN Fever Or Pain 04/23/20 12/14/24 (Tylenol) cyanocobalamin (vitamin B-12) 1,000 mcg PO DAILY 06/23/22 12/14/24 1,000 mcg tablet (Vitamin B-12) turmeric root extract 500 mg 500 mg PO DAILY 06/23/22 12/14/24 capsule cholecalciferol (vitamin D3) 25 50 mcg PO QAM 03/17/23 12/14/24 mcg (1,000 unit) capsule (Vitamin D3) levothyroxine 75 mcg capsule 75 mcg PO DAILY 04/12/24 12/14/24 buspirone 5 mg tablet 5 mg PO TID 05/02/24 12/14/24 loperamide 2 mg tablet 2 mg PO Q6H PRN Diarrhea 05/02/24 12/14/24 menthol 16 % topical liquid (Icy 1 ea topical QS 05/02/24 12/14/24 Hot No Mess) gabapentin 100 mg capsule 100 mg PO Q12 09/27/24 12/14/24 Med Pass 120 ml PO BID 12/14/24 12/14/24 tgrjxkhywb-kefiotlinozcr-lcdxsiey 1 cap PO Q4 PRN Headache 12/14/24 12/14/24 50 mg-300 mg-40 mg capsule carboxymethylcellulose 0.5 1 drp ophthalmic (eye) BID 12/14/24 12/14/24 %-glycerin 0.9 % (PF) eye drops (Refresh Tears PF) lisinopril 10 mg tablet 10 mg PO QAM 12/14/24 12/14/24 memantine 5 mg tablet 5 mg PO QAM 12/14/24 12/14/24 omega-3 fatty acids 1,000 mg 1,000 mg PO AMHS 12/14/24 12/14/24 capsule oxycodone 5 mg tablet 10 mg PO Q4 PRN .PAIN 5-10 12/14/24 12/14/24 Previous Rx's Medication Instructions Recorded carvedilol 12.5 mg tablet 12.5 mg PO BID #180 tabs 10/19/21 albuterol sulfate 90 mcg/actuation 1 inh inhalation QID PRN shortness 12/12/21 aerosol inhaler of breath or wheezing #8.5 grams rivaroxaban 20 mg tablet (Xarelto) 20 mg PO QPM #90 tabs 05/27/22 montelukast 10 mg tablet 10 mg PO DAILY #90 tabs 08/27/22 quetiapine 25 mg tablet 25 mg PO HS #30 tabs 05/04/24 Results & Data (ED) Vital Signs Vital Signs - 24 hr 12/14/24 20:24 12/14/24 20:25 12/14/24 20:58 Temperature 34.9 C L Temperature Source Rectal Pulse Rate 89 87 80 Pulse Rate from SpO2 Sensor 80 Respiratory Rate 35 H 34 H Respiratory Effort / Characteristics Accessory Muscle Use Respiratory Depth Retractive Blood Pressure 190/120 H 178/114 H Blood Pressure Mean 143 153 Pulse Oximetry 85 L 99 Oxygen Delivery Method Room Air Non-rebreather Oxygen Flow Rate Sepsis Recent Fever Within 48 Hours No Sepsis New/Unexplained Change in Mental Status No Sepsis Action Taken by Nursing Physician Notified 12/14/24 21:00 12/14/24 21:04 12/14/24 21:04 Temperature Temperature Source Pulse Rate 70 Pulse Rate from SpO2 Sensor 70 Respiratory Rate 26 H Respiratory Effort / Characteristics Respiratory Depth Blood Pressure 184/96 H Blood Pressure Mean 132 Pulse Oximetry 88 L 88 L 93 Oxygen Delivery Method Oxymask Oxymask Non-rebreather Oxygen Flow Rate 15 15 Sepsis Recent Fever Within 48 Hours Sepsis New/Unexplained Change in Mental Status Sepsis Action Taken by Nursing 12/14/24 21:16 12/14/24 21:30 12/14/24 21:46 Temperature Temperature Source Pulse Rate 70 70 70 Pulse Rate from SpO2 Sensor 70 70 70 Respiratory Rate 30 H Respiratory Effort / Characteristics Respiratory Depth Blood Pressure 153/98 H 139/85 119/76 Blood Pressure Mean 116 107 92 Pulse Oximetry 79 L 99 98 Oxygen Delivery Method Non-rebreather Non-rebreather Non-rebreather Oxygen Flow Rate 15 15 15 Sepsis Recent Fever Within 48 Hours Sepsis New/Unexplained Change in Mental Status Sepsis Action Taken by Nursing 12/14/24 21:46 12/14/24 22:00 12/14/24 22:15 Temperature Temperature Source Pulse Rate 70 70 70 Pulse Rate from SpO2 Sensor 70 70 70 Respiratory Rate Respiratory Effort / Characteristics Respiratory Depth Blood Pressure 119/76 124/86 152/118 H Blood Pressure Mean 92 102 137 Pulse Oximetry 98 98 98 Oxygen Delivery Method Non-rebreather Non-rebreather Non-rebreather Oxygen Flow Rate 15 15 15 Sepsis Recent Fever Within 48 Hours Sepsis New/Unexplained Change in Mental Status Sepsis Action Taken by Nursing 12/14/24 22:30 12/14/24 23:30 Temperature Temperature Source Pulse Rate 70 60 Pulse Rate from SpO2 Sensor 70 Respiratory Rate 26 H Respiratory Effort / Characteristics Respiratory Depth Blood Pressure 186/103 H 176/93 H Blood Pressure Mean 124 120 Pulse Oximetry 99 100 Oxygen Delivery Method Non-rebreather Non-rebreather Oxygen Flow Rate 15 15 Sepsis Recent Fever Within 48 Hours Sepsis New/Unexplained Change in Mental Status Sepsis Action Taken by Nursing Laboratory Data 12/14/24 20:28 12/14/24 20:28 Lab Results 12/14/24 12/14/24 12/14/24 Range/Units 20:28 20:29 22:35 WBC 13.20 H (4.8-10.8) K/ul RBC 4.26 (4.20-5.40) M/uL Hgb 12.4 (12.0-16.0) g/dl POC Hgb 13.6 (12.0-16.0) g/dl Hct 37.7 (37.0-47.0) % POC Hct 40 (37-47) % MCV 88.5 (80.0-100.0) fL MCH 29.1 (25.0-34.0) pg MCHC 32.9 (32.0-36.0) g/dL RDW Std Deviation 46.5 H (36.4-46.3) fL RDW Coeff of Serenity 14.4 (11.5-14.5) % Plt Count 173 (130-400) K/uL MPV 11.0 (9.4-12.4) fL Immature Gran % (Auto) 0.5 % Neut % (Auto) 71.9 % Lymph % (Auto) 20.5 % [place] % (Auto) 6.0 % Eos % (Auto) 0.8 % Baso % (Auto) 0.3 % Neut # (Auto) 9.49 H (1.40-6.50) K/uL Lymph # (Auto) 2.71 (1.20-3.40) K/uL [place] # (Auto) 0.79 H (0.11-0.59) K/uL Eos # (Auto) 0.10 (0.00-0.50) K/uL Baso # (Auto) 0.04 (0.00-0.20) K/uL Immature Gran # (Auto) 0.07 (0.01-0.20) K/uL PT 15.2 H (9.0-12.0) Seconds INR 1.4 H (0.9-1.1) APTT 34 H (21-31) Seconds PTT Ratio 1.3 VBG pH 7.39 (7.36-7.41) VBG pCO2 47 (38-50) mmHg VBG pO2 51 mmHg VBG HCO3 29 mmol/L VBG O2 Saturation 85.9 % VBG Base Excess 2.8 mEq/L POC Sodium 139 (135-144) mmol/L Sodium 138 (136-145) mmol/L POC Potassium 4.6 (3.3-5.0) mmol/L Potassium 4.7 (3.5-5.1) mmol/L POC Chloride 102 (101-112) mmol/L Chloride 103 (98-107) mmol/L Carbon Dioxide 30 (21-32) mmol/L POC Total CO2 26 (24-31) mmol/L Anion Gap 5 (3-11) POC Anion Gap 16.0 (16-25) mmol/L POC BUN 28 H (7-18) mg/dl BUN 27 H (6-23) mg/dl Creatinine 0.91 (0.6-1.2) mg/dl POC Creatinine 1.0 (0.6-1.3) mg/dl Est Cr Clr Drug Dosing Not Reportable eGFR 61.82 BUN/Creatinine Ratio 29.7 H (10-20) Glucose 185 H (70-99(Fasting)) mg/dl POC Glucose (other) 186 H (70-99) mg/dl Calcium 9.7 (8.6-10.3) mg/dl POC Ioniz Calcium Danica 1.18 (1.12-1.32) mmol/l Total Bilirubin 0.8 (0.2-1.0) mg/dl AST 30 (13-39) U/L ALT 24 (7-52) U/L Alkaline Phosphatase 131 H (34-104) U/L Total Creatine Kinase 103 (26-192) U/L C-Reactive Protein 4.86 H (0-0.5) mg/dl Total Protein 7.1 (6.0-8.3) gm/dl Albumin 3.8 (3.4-5.0) gm/dl Globulin 3.3 (2.5-4.0) gm/dl Albumin/Globulin Ratio 1.2 (0.9-2) Lipase 475 H (11-82) U/L TSH 5.465 H (0.300-4.500) uIu/ml Free T4 1.01 (0.61-1.60) ng/dl Urine Color Urine Appearance (Clear) Urine pH (4.5-7.5) Ur Specific [place] (1.000-1.030) Urine Protein (Negative) Urine Glucose (UA) (Negative) Urine Ketones (Negative) Urine Blood (Negative) Urine Nitrite (Negative) Urine Bilirubin (Negative) Urine Urobilinogen (Negative) Ur Leukocyte Esterase (Negative) Urine WBC (Auto) (0-5) /hpf Urine RBC (Auto) (0-2) /hpf U Hyaline Cast (Auto) (0-2) /lpf U Epithel Cells (Auto) (0-2) /hpf Urine Bacteria (Auto) (None Seen) Adenovirus (PCR) Not Detected (NotDetected) B. pertussis DNA (PCR) Not Detected (NotDetected) B.parapertussis DNA PCR Not Detected (NotDetected) C. pneumoniae DNA (PCR) Not Detected (NotDetected) Coronavirus OC43 (PCR) Not Detected (NotDetected) Coronavirus HKU1 (PCR) Not Detected (NotDetected) Coronavirus 229E (PCR) Not Detected (NotDetected) SARS-CoV-2 (PCR) Not Detected (NotDetected) Coronavirus NL63 (PCR) Not Detected (NotDetected) Human Metapneumovir PCR Not Detected (NotDetected) Influenza Type A (PCR) Not Detected (NotDetected) Influenza Type B (PCR) Not Detected (NotDetected) M. pneumoniae (PCR) Not Detected (NotDetected) Parainfluenza 1 (PCR) Not Detected (NotDetected) Parainfluenza 2 (PCR) Not Detected (NotDetected) Parainfluenza 3 (PCR) Not Detected (NotDetected) Parainfluenza 4 (PCR) Not Detected (NotDetected) RSV (PCR) Not Detected (NotDetected) Entero/Rhino (PCR) Not Detected (NotDetected) 12/14/24 Range/Units 23:23 WBC (4.8-10.8) K/ul RBC (4.20-5.40) M/uL Hgb (12.0-16.0) g/dl POC Hgb (12.0-16.0) g/dl Hct (37.0-47.0) % POC Hct (37-47) % MCV (80.0-100.0) fL MCH (25.0-34.0) pg MCHC (32.0-36.0) g/dL RDW Std Deviation (36.4-46.3) fL RDW Coeff of Serenity (11.5-14.5) % Plt Count (130-400) K/uL MPV (9.4-12.4) fL Immature Gran % (Auto) % Neut % (Auto) % Lymph % (Auto) % [place] % (Auto) % Eos % (Auto) % Baso % (Auto) % Neut # (Auto) (1.40-6.50) K/uL Lymph # (Auto) (1.20-3.40) K/uL [place] # (Auto) (0.11-0.59) K/uL Eos # (Auto) (0.00-0.50) K/uL Baso # (Auto) (0.00-0.20) K/uL Immature Gran # (Auto) (0.01-0.20) K/uL PT (9.0-12.0) Seconds INR (0.9-1.1) APTT (21-31) Seconds PTT Ratio VBG pH (7.36-7.41) VBG pCO2 (38-50) mmHg VBG pO2 mmHg VBG HCO3 mmol/L VBG O2 Saturation % VBG Base Excess mEq/L POC Sodium (135-144) mmol/L Sodium (136-145) mmol/L POC Potassium (3.3-5.0) mmol/L Potassium (3.5-5.1) mmol/L POC Chloride (101-112) mmol/L Chloride (98-107) mmol/L Carbon Dioxide (21-32) mmol/L POC Total CO2 (24-31) mmol/L Anion Gap (3-11) POC Anion Gap (16-25) mmol/L POC BUN (7-18) mg/dl BUN (6-23) mg/dl Creatinine (0.6-1.2) mg/dl POC Creatinine (0.6-1.3) mg/dl Est Cr Clr Drug Dosing eGFR BUN/Creatinine Ratio (10-20) Glucose (70-99(Fasting)) mg/dl POC Glucose (other) (70-99) mg/dl Calcium (8.6-10.3) mg/dl POC Ioniz Calcium Danica (1.12-1.32) mmol/l Total Bilirubin (0.2-1.0) mg/dl AST (13-39) U/L ALT (7-52) U/L Alkaline Phosphatase (34-104) U/L Total Creatine Kinase (26-192) U/L C-Reactive Protein (0-0.5) mg/dl Total Protein (6.0-8.3) gm/dl Albumin (3.4-5.0) gm/dl Globulin (2.5-4.0) gm/dl Albumin/Globulin Ratio (0.9-2) Lipase (11-82) U/L TSH (0.300-4.500) uIu/ml Free T4 (0.61-1.60) ng/dl Urine Color Yellow Urine Appearance Clear (Clear) Urine pH 5.5 (4.5-7.5) Ur Specific [place] > 1.045 H (1.000-1.030) Urine Protein 1+ H (Negative) Urine Glucose (UA) Negative (Negative) Urine Ketones Trace H (Negative) Urine Blood Negative (Negative) Urine Nitrite Positive A (Negative) Urine Bilirubin Negative (Negative) Urine Urobilinogen Negative (Negative) Ur Leukocyte Esterase 1+ H (Negative) Urine WBC (Auto) 21-50 H (0-5) /hpf Urine RBC (Auto) 3-5 H (0-2) /hpf U Hyaline Cast (Auto) 0-2 (0-2) /lpf U Epithel Cells (Auto) 3-5 H (0-2) /hpf Urine Bacteria (Auto) 4+ H (None Seen) Adenovirus (PCR) (NotDetected) B. pertussis DNA (PCR) (NotDetected) B.parapertussis DNA PCR (NotDetected) C. pneumoniae DNA (PCR) (NotDetected) Coronavirus OC43 (PCR) (NotDetected) Coronavirus HKU1 (PCR) (NotDetected) Coronavirus 229E (PCR) (NotDetected) SARS-CoV-2 (PCR) (NotDetected) Coronavirus NL63 (PCR) (NotDetected) Human Metapneumovir PCR (NotDetected) Influenza Type A (PCR) (NotDetected) Influenza Type B (PCR) (NotDetected) M. pneumoniae (PCR) (NotDetected) Parainfluenza 1 (PCR) (NotDetected) Parainfluenza 2 (PCR) (NotDetected) Parainfluenza 3 (PCR) (NotDetected) Parainfluenza 4 (PCR) (NotDetected) RSV (PCR) (NotDetected) Entero/Rhino (PCR) (NotDetected) Administered Medications Discontinued Medications Albuterol (Albut/Ipratrop 3mg/0.5mg Neb 3 Ml Vial) Confirm Administered Dose 3 ml .ROUTE .[facility]-MED ONE Stop: 12/14/24 20:28 Last Admin: 12/14/24 20:56 Dose: 3 ml Documented By: KATERIN Albuterol (Albut/Ipratrop 3mg/0.5mg Neb 3 Ml Vial) 3 ml NEB NOW STA; Protocol Stop: 12/15/24 00:49 Last Admin: 12/15/24 01:01 Dose: 3 ml Documented By: ANNAMARIA Glycopyrrolate (Glycopyrrolate 0.2 Mg/Ml Vial) 0.4 mg IV Q4H PRN PRN Reason: Rattling Secretions or Pulm Congestion Stop: 01/14/25 01:59 Last Admin: 12/15/24 03:22 Dose: 0.4 mg Documented By: BIENVENIDO Pantoprazole Sodium (Protonix) 40 mg in 10 mls @ 5 mls/min IV NOW ONE Stop: 12/14/24 23:04 Last Admin: 12/14/24 23:44 Dose: 5 mls/min Documented By: BIENVENIDO Ceftriaxone Sodium (Rocephin) 2,000 mg in 50 mls @ 100 mls/hr IV NOW STA Stop: 12/15/24 00:46 Last Infusion: 12/15/24 02:04 Dose: Infused Documented By: Admin: 12/15/24 01:34 Dose: 100 mls/hr Documented By: BIENVENIDO Famotidine (Pepcid 20mg Iv Push) 20 mg in 5 mls @ 2.5 mls/min IV NOW STA Stop: 12/15/24 00:27 Last Admin: 12/15/24 00:46 Dose: 2.5 mls/min Documented By: BIENVENIDO Parenteral Electrolytes (Plasma-Lyte A Ph 7.4) 500 mls @ 999 mls/hr IV .Q31M ONE Stop: 12/15/24 01:32 Last Admin: 12/15/24 02:10 Dose: Not Given Documented By: BIENVENIDO Parenteral Electrolytes (Plasma-Lyte A Ph 7.4) 1,000 mls @ 125 mls/hr IV .Q8H DARREL Stop: 12/16/24 01:14 Last Admin: 12/15/24 01:52 Dose: Not Given Documented By: BIENVENIDO Morphine Sulfate (Morphine Sulf) 100 mg in 100 mls @ 1 mls/hr IV .Q96H [facility]; Protocol Stop: 12/29/24 01:59 Last Titration: 12/15/24 03:59 Dose: 1 mg/hr, 1 mls/hr Documented By: KELLY Co-signed By: ZAFAR Admin: 12/15/24 02:57 Dose: 1 mg/hr, 1 mls/hr Documented By: BIENVENIDO Co-signed By: SHERIN Ioversol (Optiray 320 100ml) 90 ml IV ONCE ONE Stop: 12/14/24 20:52 Last Admin: 12/14/24 20:51 Dose: 90 ml Documented By: ALEXANDER Miscellaneous (Rapid Sequence Induction Bag) Confirm Administered Dose 1 each N/A .STK-MED ONE Stop: 12/14/24 21:18 Last Admin: 12/14/24 23:38 Dose: Not Given Documented By: BIENVENIDO Morphine Sulfate (Morphine Sulfate 2 Mg/Ml Carp) 2 mg IV NOW STA Stop: 12/15/24 02:01 Last Admin: 12/15/24 02:26 Dose: 2 mg Documented By: BIENVENIDO Ondansetron HCl (Ondansetron Inj 2 Mg/Ml 2 Ml Vial) 4 mg IV NOW STA Stop: 12/14/24 20:55 Last Admin: 12/14/24 20:55 Dose: 4 mg Documented By: NUNO Ondansetron HCl (Ondansetron Inj 2 Mg/Ml 2 Ml Vial) 4 mg IV NOW STA Stop: 12/15/24 00:27 Last Admin: 12/15/24 00:46 Dose: 4 mg Documented By: BIENVENIDO Imaging Data Radiologist's Impression: Abdomen/Pelvis CT 12/14/24 20:29 Exam(s): CT ABDOMEN + PELVIS With Contrast IV Amt: 90 cc opti 320 EXAM: CT Abdomen and Pelvis With Intravenous Contrast CLINICAL HISTORY: Trauma. TECHNIQUE: Axial computed tomography images of the abdomen and pelvis with intravenous contrast. CTDI is 30.32 mGy and DLP is 1448.98 mGy-cm. Automated exposure control was utilized for the study. A dose lowering technique was utilized adhering to the principles of ALARA. CONTRAST: Patient received 90 cc opti 320 of IV contrast COMPARISON: No relevant prior studies available. FINDINGS: Artifacts: Scatter artifact likely related to patient's arm position. Limitations: There is respiratory artifact, which degrades image quality on multiple image slices. Lung bases: For findings regarding the lung bases, please see the CT report of the chest performed concurrently. ABDOMEN: Liver: Unremarkable. No mass. Gallbladder and bile ducts: Status post cholecystectomy. No ductal dilation. Pancreas: The pancreas is intact without acute traumatic injury. There are multiple cysts noted in the mid to distal tail of the pancreas. The largest cyst in the distal towel measures 13 mm, and is relatively stable in size from the previous examination. No acute peripancreatic inflammatory changes. Spleen: The spleen is intact without acute traumatic injury. Adrenals: Unremarkable. No mass. Kidneys and ureters: The kidneys are intact without acute traumatic injury or pyelonephritis. No acute perinephric abnormality. No hydronephrosis. Stomach and bowel: The stomach is moderately distended with retained oral contents, fluid and gas. No gastric mucosal thickening. No evidence for traumatic bowel injury. No bowel obstruction. Extensive diverticulosis with mild to moderate stool burden. PELVIS: Appendix: Not evaluated. Bladder: The bladder is predominately decompressed, limiting evaluation for acute pathology. Mild bladder wall thickening is indeterminate with decompression. Reproductive: Unremarkable as visualized. ABDOMEN and PELVIS: Intraperitoneal space: Unremarkable. No free air. No significant fluid collection. Retroperitoneal space: No retroperitoneal hematoma. Bones/joints: Multilevel degenerative changes throughout the lumbar spine. Remote healed S2 segment sacral fracture. The pelvic bones and proximal femurs are intact. No dislocation. Soft tissues: No significant overlying acute traumatic soft tissue abnormality. Vasculature: The aorta is slightly tortuous and heavily calcified but appears intact without acute traumatic injury. No abdominal aortic aneurysm. Lymph nodes: Unremarkable. No enlarged lymph nodes. IMPRESSION: Accounting for limitations with respiratory artifact, there is no definite evidence for significant acute traumatic injury to the abdomen or pelvis. Extensive underlying chronic changes incidentally noted. Electronically signed by: Armond Henriquez MD 12/14/24 21:[address] 12/14/24 20:29 Exam(s): CT C SPINE EXAM: CT Cervical Spine Without Intravenous Contrast CLINICAL HISTORY: Trauma. TECHNIQUE: Axial computed tomography images of the cervical spine without intravenous contrast. CTDI is 25.67 mGy and DLP is 452.8 mGy-cm. Automated exposure control was utilized for the study. A dose lowering technique was utilized adhering to the principles of ALARA. COMPARISON: No relevant prior studies available. FINDINGS: Vertebrae: The vertebral bodies are intact without acute traumatic injury. There is 2 mm anterolisthesis of C2 on C3. However, there is bilateral C2-3 facet degenerative ankylosis. There is 1 mm anterolisthesis involving C3 on C4 and 3 mm anterolisthesis involving C4 on C5. There is straightening of the entire cervical spine. The pedicles, facet joints, spinous processes and transverse processes are intact. Diffuse moderately severe facet hypertrophic arthropathy noted bilaterally. Discs/spinal canal/neural foramina: Diffuse disc spondylosis with narrowing and marginal hypertrophic osteophyte changes. No acute osseous central canal stenosis noted. Chronic multilevel neural foraminal encroachment suggested bilaterally. Soft tissues: Unremarkable. Vasculature: Marked distention of the right internal jugular vein involving the cervical soft tissues. No evidence for traumatic cervical soft tissue injury. Lung apices: No evidence for acute traumatic injury involving the lung apices. Extensive interlobular septal thickening noted, consistent with fluoride interstitial edema. IMPRESSION: 1. No definite evidence for acute traumatic injury or significant acute traumatic abnormal alignment involving the cervical spine. Significant chronic appearing diffuse degenerative changes noted. 2. No evidence for acute traumatic injury involving the lung apices. Extensive interlobular septal thickening noted, consistent with fluoride interstitial edema. Marked distention of the right internal jugular vein. Electronically signed by: Armond Henriquez MD 12/14/24 21:[address] 12/14/24 20:29 Exam(s): CT CHEST With Contrast IV Amt: 90 cc opti 320 EXAM: CT Chest With Intravenous Contrast CLINICAL HISTORY: Trauma. TECHNIQUE: Axial computed tomography images of the chest with intravenous contrast. CTDI is 25.41 mGy and DLP is 909.63 mGy-cm. Automated exposure control was utilized for the study. A dose lowering technique was utilized adhering to the principles of ALARA. CONTRAST: Patient received 90 cc opti 320 of IV contrast COMPARISON: No relevant prior studies available. FINDINGS: Artifacts: Scatter artifact likely related to patient's arm position. Limitations: There is respiratory artifact, which degrades image quality on multiple image slices. Lungs: Evaluation of the lungs is limited by extensive respiratory artifact. No obvious pulmonary contusive injury or focal consolidation. There is diffuse prominent interlobular septal thickening and peribronchial cuffing. Pleural space: Unremarkable. No pneumothorax. No significant effusion. Heart: Unremarkable. No cardiomegaly. No significant pericardial effusion. No significant coronary artery calcifications. Mediastinum: No mediastinal traumatic injury identified. Bones/joints: No displaced rib fracture. No acute thoracic vertebral body fracture noted with chronic anterior wedging at T8 and T12 levels. The sternum is intact. Chronic rotator cuff disease involving the shoulders. No acute traumatic injury. There is a moderate fluid collection about the right glenohumeral joint, hypodense and presumed incidental. No dislocation. Soft tissues: No significant overlying acute traumatic soft tissue abnormality. Vasculature: The thoracic aorta is normal in caliber. No dissection or acute. Abnormality. Lymph nodes: Unremarkable. No enlarged lymph nodes. Tubes, lines and devices: A left subclavian approach pacer generator overlies left pectoralis muscle. Cardiac chambers are globally enlarged. There is a biventricular pacer noted. No pericardial effusion. IMPRESSION: 1. Evaluation of the lungs is limited by extensive respiratory artifact. No obvious pulmonary contusive injury or focal consolidation. There is diffuse prominent interlobular septal thickening and peribronchial cuffing. Findings are most consistent with florid interstitial edema and positive fluid status. No large pleural effusion or pneumothorax. 2. No evidence for significant acute traumatic injury to the chest/thorax. Incidental findings, as noted above. Electronically signed by: Armond Henriquez MD 12/14/24 21:41 PM Chest X-Ray 12/14/24 20:29 Exam(s): XR CXR 1 VIEW EXAM: XR Chest, 1 View CLINICAL HISTORY: Trauma. TECHNIQUE: Frontal view of the chest. COMPARISON: Chest single view 06/27/2022 FINDINGS: Lungs: No focal airspace consolidation identified. The pulmonary vasculature is prominent and equalized with a suggestion of central peribronchial cuffing. Pleural space: Unremarkable. No pneumothorax. No large pleural effusion. Heart: The previously noted massive cardiomegaly is slightly improved. Mediastinum: The mediastinal contours are stable and unremarkable. No tracheal deviation. Bones/joints: Unremarkable. No acute fracture. Tubes, lines and devices: Left subclavian approach biventricular pacer is stable in appearance. IMPRESSION: Similar cardiomegaly. No focal airspace consolidation identified. The pulmonary vasculature is prominent and equalized with a suggestion of central peribronchial cuffing. Favor interstitial edema over interstitial infection. No large pleural effusion or pneumothorax. Electronically signed by: Armond Henriquez MD 12/14/24 22:[address] 12/14/24 20:29 Exam(s): CT HEAD Without Contrast EXAM: CT Head Without Intravenous Contrast CLINICAL HISTORY: trauma. TECHNIQUE: Axial computed tomography images of the head/brain without intravenous contrast. CTDI is 37.78 mGy and DLP is 624.41 mGy-cm. Automated exposure control was utilized for the study. A dose lowering technique was utilized adhering to the principles of ALARA. COMPARISON: CT head without contrast dated 12/06/2021 FINDINGS: Limitations: There is motion artifact, which mildly degrades image quality on multiple image slices. Brain: There are a few areas of decreased attenuation in the deep cerebral white matter consistent with mild small vessel ischemic/degenerative changes. The cerebral and cerebellar sulci are mildly prominent consistent with mild brain atrophy. No significant mass effect identified. No hemorrhage. Ventricles: No midline shift or significant effacement of the ventricles. Bones/joints: No definite intracranial hemorrhage, accounting for minimal streak motion artifact. No skull fracture. Soft tissues: No significant overlying acute traumatic soft tissue abnormality. Vasculature: Atherosclerotic disease. Sinuses: Unremarkable as visualized. No acute sinusitis. Mastoid air cells: Unremarkable as visualized. No mastoid effusion. IMPRESSION: No acute intracranial process identified. Incidental chronic underlying the extent age-related findings, not significantly progressed when compared to the prior examination. Electronically signed by: Armond Henriquez MD 12/14/24 21:21 PM Discharge Plan Visit Data Chief Complaint: Unresponsive ED Provider: Pati Akbar Discharge Problem: Aspiration into airway, Fall, Acute confusion Patient Disposition: Admitted As Inpatient Discharge Instructions Interventions: ED Discharge Assessment Last Done: 12/15/24 03:36 Discharge Problem: Aspiration into airway Qualifiers: Encounter type: initial encounter Qualified Code(s): T17.908A - Unspecified foreign body in respiratory tract, part unspecified causing other injury, initial encounter Fall Qualifiers: Encounter type: initial encounter Qualified Code(s): W19.XXXA - Unspecified fall, initial encounter
[2024-12-15] MEDS: ONDANSETRON INJ 2 MG/ML 2 ML VIAL IV STA (00:46)
[2024-12-15] MEDS: FAMOTIDINE 20MG IV PUSH 20 MG/5 ML SYR IV STA (00:46)
[2024-12-15 00:53] VITALS: TEMP 97.9
[2024-12-15] MEDS: ALBUT/IPRATROP 3MG/0.5MG NEB 3 ML VIAL NEB STA (01:01)
[2024-12-15 01:26] LABS: C Reactive Protein 4.86 mg/dl (0-0.5)
[2024-12-15] MEDS: cefTRIAXone SODIUM 2,000 MG/50 ML BAG IV STA (01:34)
--- NOTE | 2024-12-15 01:34 | Advance Care Plan Prog Note ---
Advanced Care Planning Note Date of Discussion December 15, 2024 ACP Discussion Diagnoses requiring ACP discussion: unresponsive, hypoxic, sepsis A [id number] discussion with the patient's 3 present children regarding the patient's advanced care planning took place during this hospitalization on the above date. The discussion included the explanation and discussion of advance directives and associated forms/documents, as well as the patient's current code status. We also discussed at length the patient's medical conditions (both acute and chronic), general prognosis, treatment options, and goals of care. The following summarizes the discussion: Discussed with Dr. Jiménez at bedside. With progressive decline, worsening hypoxia, worsening vomiting with aspiration, patient's prognosis is poor. Trialed nausea control prior to admission without success, further steps would include NG tube which patient would not want. Patient's family stated that she would not want life-sustaining measures including NG tube, resuscitation, or intubation. Patient's son Glen is power of corporate associate attorney however was unable to reach via phone. Reviewed patient's advanced directives at bedside with family, agreed that she would not want a sustaining measures and will transition to comfort care at this point. Patient's family agreeable. They have 2 additional siblings including Glen and a sister that lives in [place]. DPOA-HC/Surrogate Decision Maker rene Lovell Status Resuscitation Status DNR/DNI No Resuscitation Forms/Documents Reviewed advanced directives at bedside Secretaries to scan into chart Total Time I spent a total of 35 minutes was spent on this discussion, including counseling, answering questions, and completing, if any, pertinent advanced care planning forms/documents.
[2024-12-15] MEDS: PLASMA-LYTE A 1,000 ML IV SCH (01:52)
--- NOTE | 2024-12-15 01:55 | Communication Note ---
Date of Service: December 15, 2024 0130 - reveal with patient and family. Nursing reported episode of vomiting several minutes prior that required suction and O2 increased from 12L back to 1 5L given O2 stats in low 80s. With continued decline and poor prognosis, discussed with patient's children at bedside and will transition to comfort care. Patient has advanced directives that were reviewed at bedside stating she would not want life-prolonging measures including IV antibiotics. Patient's son Glen is power of commercial litigation attorney however attempted to reach via phone without answer at [phone]. patient's family stated that he is going through a lot currently, may not be an involved in her care. Given advanced directives signed by patient, comfort measures align with patients wishes. Case management consulted morphine drip started nonrebreather transitioned to 2L NC discontinue Britany hugger Comfort order set for nausea control, respiratory secretion control, as needed agitation/anxiety management Home medications held unless indicated for comfort reasons discontinue vital signs and labs Slubber Hand Note (Dr Caleb Jiménez): I personally saw and examined the patient and was involved in family decision making. I verified all hensley points and agree with Fabiola Bullock PA-C with the following exceptions and/or additions: None. Unfortunately unable to get a hold of POA at time of admission but comfort care is consistent with the patient's prior wishes per paperwork provided by patient's other family members and is completely reasonable given her overall clinical state and very poor prognosis.
[2024-12-15] MEDS ORDERED: ONDANSETRON INJ 2 MG/ML 2 ML VIAL IV PRN ×2 (02:00→03:58)
[2024-12-15] MEDS ORDERED: HALOPERIDOL ORAL SOLN 2 MG/ML PO PRN (02:00)
[2024-12-15] MEDS ORDERED: MoRPHine BOLUS from BAG IV PRN (02:00)
[2024-12-15] MEDS ORDERED: LORazepam 2 MG/1 ML VIAL IV PRN (02:00)
[2024-12-15] MEDS ORDERED: STAT IV Infusion **Titration per Protocol STA (02:00)
[2024-12-15] MEDS ORDERED: chlorproMAZINE HCL 25 MG TAB PO PRN (02:00)
[2024-12-15] MEDS ORDERED: PROMETHAZINE 12.5 MG/50.5 ML BAG IV PRN (02:00)
[2024-12-15] MEDS: PLASMA-LYTE A 500 ML IV ONE (02:10)
[2024-12-15 02:15] VITALS: BP 122/60; RESP 31; O2SAT 93
[2024-12-15] MEDS: MoRPHine SULFATE 2 MG/ML CARP IV STA (02:26)
[2024-12-15] MEDS: MoRPHine SULF 100 MG/100 ML BAG IV SCH (02:57)
[2024-12-15] MEDS: GLYCOPYRROLATE 0.2 MG/ML VIAL IV PRN (03:22)
--- NOTE | 2024-12-15 06:44 | Death Pronouncement Note ---
Date of Service December 15, 2024 Pronouncement Note Admission Date Admission Date: December 15, 2024 Contributing Factors (1) Unresponsive: (2) Acute hypoxic respiratory failure: (3) Sepsis: (4) Vomiting: Summary Additional details: I was called to pronounce the of Lisa Marquez : 1940 by nursing on 12/15/2024 Upon entering the room, the patient was found to be in a terminal state. Patient was unresponsive to verbal and tactile stimuli. Patient unresponsive to corneal and pupillary reflexes. On cardiopulmonary exam, no carotid or radial pulses found and pt without spontaneous heart tones or respirations. Time of was pronounced by me on 12/15/2024 at 0631 Attending physician was notified. Next of kin at bedside Additional Data Attending physician: Keily Chirinos MD
--- NOTE | 2024-12-15 06:45 | Discharge Summary ---
Discharge Summary Date of Service December 15, 2024 Principal Dx & Hospital Course #1 = Principal Diagnosis (1) Unresponsive: (2) Acute hypoxic respiratory failure: (3) Sepsis: (4) Vomiting: Plan Patient was brought in via EMS after being found unresponsive on the floor near her bed at nursing facility. Her oxygen levels were noted to be in 60s via EMS and patient was place on nonrebreather. At time of admission patient had poor prognosis with recurrent vomiting and suspected aspiration. She was diagnosed with acute hypoxemic failure, sepsis, aspiration pneumonia, and UTI. Originally began treatment without improvement in symptoms. After goals of care discussion with patient's children at bedside, transitioned to comfort measures only and started on a morphine drip. Patient at 0621 12/15/24. Admission HPI Per Admitting Provider Patient is a 74-year-old female with past medical history of dementia (oriented to self only at baseline), type II DM, A-fib s/p pacer, nonischemic cardiomyopathy (most recent echo in 2021 revealed EF 55 to 60%), DM, stage III CKD, asthma, IPMN. Patient presented from [facility] via EMS after she was found unresponsive on the floor in her bed with O2 sats in the 60s, patient is currently on 15L nonrebreather with O2 stats at 100%. She was suspected to have aspirated and was found to have UTI, patient meets SIRS criteria with white count 13.20, respiratory rate 26, temp 34.9 C. Patient seen at bedside with her family present. She is unresponsive and still on the breather, vomiting at time of exam. Patient evaluated with Dr. Jiménez at bedside and discussed goals of care with patient's family given significant decline. They stated she would not want resuscitated or intubated. Discussed that if vomiting persist would recommend NG tube, family stated that the patient would not want this and they would avoid NG tube. Will give 1 more course of Zofran to see if vomiting improves. Will reeval in approximately 1 hour to determine if transferring to comfort measures versus continuing with treatment. Reviewed chart from [facility] - did receive evening medications at 1630 incl ing Xarelto. Admission Exam Per Admitting Provider The patient is unresponsive. HEENT- mucus membranes dry. Heart-normal S1 and S2. No murmurs, rubs or gallops. Lungs-wheezing bilaterally, + accessory muscle use. On 15L non-rebreather. Abdomen-normal bowel sounds and soft. No ascites noted. Discharge Plan Discharge Items Patient Disposition: Discharge Diagnosis: Acute hypoxic respiratory failure, sepsis, aspiration pneumonia Other Date/Time: 12/15/24 06:21 Hospital Stay Data Consultations 12/14/24 23:12 ED Decision to Admit Stat 12/15/24 05:00 Consult Palliative Care Routine Diagnostic Imagining Performed 12/14/24 20:29 CT abd pelvis IV con only Stat CT cervical spine wo con Stat CT chest diagnostic w con Stat CT head/brain wo con Stat Total Time Total Time Spent Total Time Spent (In Minutes): 20 min Coding Level of Care Code 49651 IN/OBS DISCH 30 MIN/LESS Diagnoses Unresponsive R41.89 Acute hypoxic respiratory failure J96.01 Sepsis A41.9 Vomiting R11.10
--- NOTE | 2024-12-15 10:25 | Electrocardiogram Report ---
Test Reason : Blood Pressure : */* mmHG Vent. Rate : 84 BPM Atrial Rate : 84 BPM P-R Int : 224 ms QRS Dur : 172 ms QT Int : 442 ms P-R-T Axes : -19 214 25 degrees QTcB Int : 522 ms Atrial-sensed ventricular-paced rhythm with prolonged AV conduction Abnormal ECG When compared with ECG of 03-May-2024 12:53, Vent. rate has increased by 14 bpm Confirmed by Eron Mace ([id number]) on 12/15/2024 10:25:04 AM Referred By: [facility] Confirmed By: Eron Mace
[2024-12-16] MEDS ORDERED: cefTRIAXone SODIUM 2,000 MG/50 ML BAG IV SCH (01:00)
== END 2024-12-15 10:15 | disposition expired | DRG 871 ==
LOC: ED 20:18 → 3W 12-15 00:53 → SUATTDRO 12-15 00:53 → 3W 12-15 03:36